=== PATIENT | female | born 1970 | race African-American/Black ===

== ENCOUNTER 2022-07-26 15:30 | Outpatient (CLI) | payer OTHER, SELFPAY ==
--- NOTE | ~2022-07-26 | MM_ITS ---
EXAMINATION: MM screening sb BI w tanna HISTORY: Screening TECHNIQUE: Craniocaudal and mediolateral oblique 3-D tomosynthesis images were obtained and synthetic 2-D images were generated. CAD analysis was submitted and interpreted. COMPARISON: No prior mammogram is available for comparison at this institution. BREAST PARENCHYMAL COMPOSITION: There are scattered areas of fibroglandular density. FINDINGS: There is no evidence of suspicious mass, calcification, or architectural distortion to sugg est malignancy in either breast. There has been no suspicious interval change. IMPRESSION: 1. No mammographic evidence of malignancy. 2. Recommend routine screening mammography in one year. BI-RADS Category 1: Negative Reviewed, dictated and finalized at location A. OR ENTERPRISE ARCHITECT
== END 2022-07-26 15:31 | disposition home or self-care (01) ==
LOC: ANHIMG 15:33
PROVIDERS: PCP Obstetrics & Gynecology; Visit Provider Obstetrics & Gynecology
DX: Z12.31 Encounter for screening mammogram for malignant neoplasm of breast (principal)
CPT/HCPCS: 77063; 77067

== ENCOUNTER 2022-08-13 20:26 | Emergency (ER) | payer OTHER, SELFPAY ==
--- NOTE | ~2022-08-13 | XR_ITS ---
EXAM: XR knee LT min 4V DATE: 08/13/2022 20:56 HISTORY: Injury at work. Pt felt pop. Pain to anterolateral left knee . COMPARISON: None available. FINDINGS: Slightly decreased mineralization. No fracture or dislocation. No lytic or blastic lesion. Severe medial joint space narrowing. Moderate tricompartmental osteophytosis. No erosion or perioste al change. Soft tissues within normal limits. IMPRESSION: No acute osseous finding in the left knee. Reviewed, dictated and finalized at location K. F DATA OFFICER
[2022-08-13 20:34] VITALS: BP 187/85; PULSE 82; RESP 18; TEMP 37.1; O2SAT 100
--- NOTE | 2022-08-13 20:46 | PC.NURSE ---
Patient taken to xray from waiting room via w/c.
--- NOTE | 2022-08-13 21:02 | ED.GENADULT ---
HPI - General Adult General Chief complaint: Extremity Injury, Lower <Saw Liang PA-C - Last Filed: 08/13/22 21:39> Stated complaint: Left knee pop <Saw Liang PA-C - Last Filed: 08/13/22 21:39> Time Seen by Provider: 08/13/22 21:02 <Saw Liang PA-C - Last Filed: 08/13/22 21:39> Source: patient <RODRIGO Martins Last Filed: 08/13/22 21:39> Mode of arrival: ambulatory <RODRIGO Martins Last Filed: 08/13/22 21:39> Limitations: no limitations <RODRIGO Martins Last Filed: 08/13/22 21:39> History of Present Illness HPI narrative: This is a 52-year-old female comes in chief complaint of left knee pain following an injury that occurred at work today. 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 States she was twisting her knee when the pop happened. States she immediately went down with pain. Was seen in urgent care prior to this and given crutches and told to go home. Denies any numbness or tingling in the lower extremities. States she was able to bear weight and walk into the department. Denies any further site of injury or pain. <Saw Liang PA-C - Last Filed: 08/13/22 21:39> Related Data Allergies/adverse reactions: Allergies Allergy/AdvReac Type Severity Reaction Status Date / Time No Known Allergies Allergy Unverified 10/01/18 23:07 <Saw Liang PA-C - Last Filed: 08/13/22 21:39> Review of Systems Review of Systems: CONSTITUTIONAL: Denies fever, chills, or sweats. SKIN: Denies rash or itching. MUSCULOSKELETAL: Endorses left knee pain. denies back pain, or myalgia. NEUROLOGIC: Denies headache, numbness, dizziness, or weakness. PSYCHIATRIC: Denies anxiety or depression. <RODRIGO Martins Last Filed: 08/13/22 21:39> Exam Narrative: GENERAL: Well-appearing, well-nourished, and in no acute distress. HEAD: Normocephalic, atraumatic. EYES: PERRLA and EOMI. NECK: Supple. No adenopathy or masses. CHEST: No respiratory distress. Clear to auscultation. No wheezes rales or rhonchi HEART: Regular rate and rhythm. No murmur heard. Normal peripheral pulses. EXTREMITIES: Left knee: No effusion present. Tenderness to palpation along the lateral joint line and quad tendon insertion. Active range of motion severely reduced due to pain. Full passive range of motion with pain. Anterior and posterior drawer negative. Good tracking of patella. Right knee: normal range of motion. No edema. MSK exam otherwise benign SKIN: Warm, dry, no rash. No overlying skin changes. Soft compartments NEURO: Alert and oriented x3. No focal deficits. Equal strength and sensation bilaterally in upper and lower extremities PSYCH: Normal mood and affect. <Saw Liang PA-C - Last Filed: 08/13/22 21:39> Course SOAPSTONER/PA Physician Supervision For this encounter, I have reviewed the mid-level provider documentation, treatment plan and medical decision making. I have had [id number] time with the patient. is a pleasant 52-year-old female presenting knee pain. But his injury was a twisting motion with a popping sensation. Physical exam revealed a knee effusion but is neurovascularly intact in the foot. X-rays were negative for acute fracture. Patient placed in knee immobilizer for suspected ligamentous injury. Discharge with orthopedic follow-up. All questions answered. Patient in agreement w/ disposition. <Drake Millan MD - Last Filed: 08/14/22 20:13> Vital Signs Vital signs: Vital Signs Temperature 98.7 F 08/13/22 20:34 Pulse Rate 82 08/13/22 20:34 Respiratory Rate 18 08/13/22 20:34 Blood Pressure 187/85 H 08/13/22 20:34 Pulse Oximetry 100 08/13/22 20:34 Oxygen Delivery Room Air 08/13/22 20:34 Temperature 98.7 F 08/13/22 20:34 Pulse Rate 82 08/13/22 20:34 Respiratory Rate 18 08/13/22 20:34 Blood Pressure 187/85 H 08/13/22 20:34 Pulse Ox
[2022-08-13] MEDS: HYDROcodone/acetaminophen (*CRX) 7.5-325 MG TABLET 1 TAB PO (21:22)
== END 2022-08-13 23:10 | disposition home or self-care (01) ==
PROVIDERS: Emergency Provider Physician Assistant; PCP Internal Medicine
DX: S89.92XA Unspecified injury of left lower leg, initial encounter (principal); X50.9XXA Other and unspecified overexertion or strenuous movements or postures, initial encounter; Y93.F9 Activity, other caregiving
CPT/HCPCS: 73564; 99283; A9270

== ENCOUNTER 2023-02-06 13:16 | Outpatient (CLI) | payer OTHER, SELFPAY ==
--- NOTE | ~2023-02-06 | XR_ITS ---
EXAMINATION: XR chest 2V Exam Date/Time: 02/06/2023 13:37 CDT HISTORY: Encounter for preprocedural examination, DENIES LUNG/CARD HX Comparison: 10/02/2019. RESULT: Lines, tubes, and devices: Cholecystectomy clips. Lungs and pleura: Clear. Cardiomediastinal silhouette: Stable. Other: No acute osseous or upper abdominal finding. IMPRESSION: No acute cardiopulmonary process. Reviewed, dictated and finalized at location K.
--- NOTE | 2023-02-06 13:49 | ECG_ITS ---
Measurements Intervals [place] Rate: 91 P: 45 NE: 161 QRS: 2 QRSD: 94 T: 6 QT: 347 QTc: 428 Interpretive Statements SINUS RHYTHM BORDERLINE VOLTAGE EVIDENCE OF LVH OTHERWISE WITHIN NORMAL LIMITS NO PREVIOUS ECG AVAILABLE FOR COMPARISON Electronically Signed On 02-06-2023 17:14:35 CDT by Julio C Fam M.D.
== END 2023-02-06 13:17 | disposition home or self-care (01) ==
PROVIDERS: PCP Internal Medicine
DX: Z01.818 Encounter for other preprocedural examination (principal)
CPT/HCPCS: 71046; 93005

== ENCOUNTER 2023-09-14 08:04 | Emergency (ER) | payer OTHER, SELFPAY ==
[2023-09-14 08:14] VITALS: BP 143/85; PULSE 87; RESP 18; TEMP 36.2; O2SAT 100
--- NOTE | 2023-09-14 08:28 | ED.EXTPRO ---
HPI - Extremity Problem General Chief complaint: Extremity Problem,Nontraumatic Stated complaint: Both Arm Pain Time Seen by Provider: 09/14/23 08:07 Source: patient Mode of arrival: ambulatory Limitations: no limitations History of Present Illness HPI Narrative: Patient is a 53-year-old female presents with bilateral upper arm/shoulder pain for 2 weeks. Denies any new exercise, activity or injury. Denies any neck pain. Denies any numbness, tingling or weakness to extremities. 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 Patient able to move arms in all directions with pain noted. Patient has been taking muscle relaxers, ibuprofen and using topical pain relievers. Related Data Home Medications Medication Instructions Recorded Confirmed amlodipine 10 mg tablet 10 mg PO DAILY 09/14/23 09/14/23 atorvastatin 20 mg tablet 20 mg PO DAILY 09/14/23 09/14/23 ergocalciferol (vitamin D2) 1,250 1,250 unit PO DIRECTED 09/14/23 09/14/23 mcg (50,000 unit) capsule meloxicam 7.5 mg tablet 7.5 mg PO DIRECTED 09/14/23 09/14/23 metoprolol tartrate 50 mg tablet 50 mg PO DAILY 09/14/23 09/14/23 omeprazole 40 mg capsule,delayed 40 mg PO DAILY 09/14/23 09/14/23 release spironolactone 25 1 tablet PO DAILY 09/14/23 09/14/23 mg-hydrochlorothiazide 25 mg tablet Allergies Allergy/AdvReac Type Severity Reaction Status Date / Time No Known Allergies Allergy Verified 09/14/23 08:25 Review of Systems Review of Systems: All systems reviewed & are unremarkable except as noted in HPI and below Constitutional: Constitutional: Denies body ache(s), Denies chills, Denies fatigue, Denies fever(s), Denies headache(s), Denies malaise and Denies weakness Eyes: Eyes: Denies blurry vision, Denies irritation and Denies loss of vision ENT: Denies otalgia, Denies headache(s), Denies nasal discharge, Denies sinus pain and Denies sore throat Cardiovascular: Cardiovascular: Denies chest pain, Denies irregular heart rhythm and Denies dyspnea Respiratory: Respiratory: Denies dyspnea Gastrointestinal: Gastrointestinal: Denies abdominal pain, Denies melena, Denies hematochezia, Denies diarrhea, Denies nausea and Denies vomiting Musculoskeletal: Musculoskeletal: Denies back pain, Denies myalgias and Reports arthralgias Integumentary/Breasts: Skin/Breast: Denies pruritus and Denies rash Neurologic: Denies headache(s), Denies loss of vision and Denies weakness Psychiatric: Psychiatric: Reports no additional psychiatric complaints Endocrine: Endocrine: Denies fatigue PMFSH Comments At time of signature, agree with nursing past medical, surgical, social and family history. There is no relevant family history pertinent to the presenting complaint. Exam Const: General: cooperative, healthy appearing, comfortable, no acute distress and well nourished Nutritional Appearance: well nourished Orientation/consciousness: patient oriented x3 Limitations: no limitations HENMT: Head: normal to inspection, normocephalic and atraumatic Ears: hearing grossly normal bilaterally and external ears normal Face/Nose/Sinus: Normal external nose present, normal facial exam and face symmetric Face and sinus: normal facial exam and face symmetric Mouth: Yes lip normal Eyes: General: appearance normal, both eyes and all related structures Alignment and Position: alignment normal and position normal Periorbital: periorbital findings normal Eyelids: eyelids normal Pupils: Equal, round and reactive pupils present EOM: EOMs intact bilaterally Neck: Neck: normal visual inspection, full ROM and supple Chest: Chest palpation & inspection: normal inspection of the chest Resp: Effort & Inspection: normal respiratory effort and able to speak in complete sentences Auscultation: clear to auscultation bilaterally Cardio: Rate: regular rate Rhythm: regular rhythm Heart sounds: S1 normal heart sound present and S2 normal heart sound present GI: Inspection: n
== END 2023-09-14 08:38 | disposition home or self-care (01) ==
PROVIDERS: Emergency Provider Nurse Practitioner Family; PCP Internal Medicine
DX: M75.52 Bursitis of left shoulder (principal); M75.51 Bursitis of right shoulder; I10 Essential (primary) hypertension; J45.909 Unspecified asthma, uncomplicated; K21.9 Gastro-esophageal reflux disease without esophagitis; M19.90 Unspecified osteoarthritis, unspecified site
CPT/HCPCS: 99213; G0463

== ENCOUNTER 2023-10-11 16:54 | Emergency (ER) | payer OTHER, SELFPAY ==
[2023-10-11 17:01] VITALS: BP 145/97; PULSE 63; RESP 14; TEMP 36.6; O2SAT 99
--- NOTE | 2023-10-11 17:05 | ED.EXTPRO ---
HPI - Extremity Problem General Chief complaint: Extremity Injury, Upper <King Carrasco APRN - Last Filed: 10/11/23 17:09> Stated complaint: bilateral arm pain <King Carrasco APRN - Last Filed: 10/11/23 17:09> Time Seen by Provider: 10/11/23 17:05 <King Carrasco APRN - Last Filed: 10/11/23 17:09> Focused HPI: Key is a 53-year-old female patient presenting to the emergency room today with complaints of bilateral upper arm pain. She reports that this began 2 months ago. 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 States he has been placed on prednisone and muscle relaxer 1 month ago and this did not improve her symptoms. Rates her pain a 10/10 currently. General: Well-developed, well nourished, in no apparent distress Head: Normocephalic, atraumatic. Cardio: Regular rate and rhythm, s1 and s2 normal, no murmur appreciated. Resp: Clear to auscultation bilaterally, no rhonchi, rales, wheezing or rubs. Musculoskeletal: No deformity, tender to palpation over bilateral upper arms, grossly normal range of motion, muscle strength strong and equal, peripheral pulse strong, no edema, no cyanosis, normal gait and station Patient screened in triage and initial orders placed. Additional care and disposition to be based upon diagnostic testing and treatment. <King Carrasco APRN - Last Filed: 10/11/23 17:09> Source: patient <King Carrasco APRN - Last Filed: 10/11/23 17:09> Mode of arrival: ambulatory <King Carrasco APRN - Last Filed: 10/11/23 17:09> Limitations: no limitations <King Carrasco APRN - Last Filed: 10/11/23 17:09> Related Data Home medications: Home Medications Medication Instructions Recorded Confirmed amlodipine 10 mg tablet 10 mg PO DAILY 09/14/23 09/14/23 atorvastatin 20 mg tablet 20 mg PO DAILY 09/14/23 09/14/23 ergocalciferol (vitamin D2) 1,250 1,250 unit PO DIRECTED 09/14/23 09/14/23 mcg (50,000 unit) capsule meloxicam 7.5 mg tablet 7.5 mg PO DIRECTED 09/14/23 09/14/23 metoprolol tartrate 50 mg tablet 50 mg PO DAILY 09/14/23 09/14/23 omeprazole 40 mg capsule,delayed 40 mg PO DAILY 09/14/23 09/14/23 release spironolactone 25 1 tablet PO DAILY 09/14/23 09/14/23 mg-hydrochlorothiazide 25 mg tablet <King Carrasco APRN - Last Filed: 10/11/23 17:09> Allergies/Adverse reactions: Allergies Allergy/AdvReac Type Severity Reaction Status Date / Time No Known Allergies Allergy Verified 10/11/23 17:07 <King Carrasco APRN - Last Filed: 10/11/23 17:09> Review of Systems Review of Systems: All systems as dictated in HPI <Saw Liang PA-C - Last Filed: 10/11/23 19:58> PMFSH Comments At the time of my signature, I reviewed and agree with the nursing past medical, surgical, social, and family history. There is no relevant family history pertinent to the patient complaint. <King Carrasco APRN - Last Filed: 10/11/23 17:09> Exam Narrative: GENERAL: Well-appearing, well-nourished, and in no acute distress. HEAD: Normocephalic, atraumatic. EYES: PERRLA and EOMI. ENT: Nares clear, no rhinorrhea or epistaxis. Mucous membranes moist. Oropharynx without tonsillar hypertrophy exudate or other lesions. NECK: Supple. No adenopathy or masses. CHEST: No respiratory distress. Clear to auscultation. No wheezes rales or rhonchi HEART: Regular rate and rhythm. No murmur heard. Normal peripheral pulses. ABDOMEN: Soft, nontender, nondistended, normal active bowel sounds. MSK: No swelling or deformity of the upper extremities. Bilateral mild tenderness to the biceps/triceps area. Full range of motion of the upper extremity joints diffusely. No redness. Neurovascularly intact distally. SKIN: Warm, dry, no rash. NEURO: Alert and oriented x3. No focal deficits. PSYCH: Normal mood and affect. <Saw Liang PA-C - Last Filed: 10/11/23 19:58> Course Course Emergency Course: Portion
[2023-10-11 17:15] LABS: Basophils Percent Auto 0.3 % (0.2-1.2); Eosinophils Absolute Auto 0.1 K/mm3 (0-0.3); Eosinophils Percent Auto 0.6 % (0-4.4); Hematocrit 41.5 % (37.0-47.0); Hemoglobin 13.3 g/dL (12.0-15.0); Immature Granulocyte Absolute 0.03 K/mm3 (0.00-0.031); Immature Granulocyte Percent A 0.3 % (0-0.5); Lymphocytes Absolute Auto 3.09 K/mm3 (0.9-3.2); Lymphocytes Percent Auto 27.2 % (18.3-44.2); Mean Corpuscular Hemoglobin 27.9 pg (26-34); Mean Platelet Volume 10.2 fl (7.4-10.4); Monocytes Absolute Auto 0.5 K/mm3 (0.1-0.6); Monocytes Percent Auto 4.7 % (2.6-8.5); Neutrophils Absolute Auto 7.6 K/mm3 (1.3-6.7); Neutrophils Percent Auto 66.9 % (45.5-73.1); Platelet Count Result 273 k/mm3 (150-375); Red Blood Count 4.77 M/mm3 (4.2-5.4); Red Cell Distribution Width 13.7 % (11.5-14.5); White Blood Count 11.4 K/mm3 (4.5-10.0)
[2023-10-11 17:28] LABS: Alanine Aminotransferase 18 U/L (6-35); Alkaline Phosphatase 63 U/L (38-126); Anion Gap 8 mmol/L (4-12); Aspartate Amino Transferase 22 U/L (14-36); Bilirubin,Total 0.4 mg/dL (0.2-1.3); Blood Urea Nitrogen 9 mg/dL (7-17); CRP < 0.5 mg/dL (<1.0); Calcium 9.1 mg/dL (8.4-10.2); Carbon Dioxide 24 mmol/L (22-30); Chloride 107 mmol/L (98-107); Creatine Kinase 83 U/L (30-135); Estimated CRCL calculation 92 ml/min; Estimated Glomerular Filt Rate > 60; Glucose 221 mg/dL (65-110); Magnesium 2.2 mg/dL (1.6-2.3); Potassium 3.3 mmol/L (3.4-5.0); Sodium 139 mmol/L (137-145)
[2023-10-11 17:57] LABS: Erythrocyte Sedimentation Rate 22 mm/hr (0-20)
== END 2023-10-11 18:52 | disposition home or self-care (01) ==
PROVIDERS: Nurse Practitioner Family; Emergency Provider Physician Assistant; PCP Internal Medicine
DX: M79.622 Pain in left upper arm (principal); M79.621 Pain in right upper arm
CPT/HCPCS: 36415; 80053; 82550; 83735; 85025; 85652; 86140; 99283

== ENCOUNTER 2023-10-31 15:34 | Outpatient (CLI) | payer OTHER, SELFPAY ==
--- NOTE | ~2023-10-31 | MM_ITS ---
EXAMINATION: MM screening sb BI w tanna HISTORY: Screening mammogram TECHNIQUE: Craniocaudal and mediolateral oblique 3-D tomosynthesis images were obtained and synthetic 2-D images were generated. CAD analysis was submitted and interpreted. COMPARISON: 07/26/2022 bilateral screening mammogram BREAST PARENCHYMAL COMPOSITION: The breasts are almost entirely fatty. FINDINGS: Biopsy marker on the left; history of prior benign biopsy. History of bilateral reduction mammoplasty. There is no evidence of suspicious mass, calcification, or architectural distortion to suggest malign ester in either breast. There has been no suspicious interval change. IMPRESSION: 1. No mammographic evidence of malignancy. 2. Recommend routine screening mammography in one year. BI-RADS Category 1: Negative Reviewed, dictated and finalized at location B.
== END 2023-10-31 15:35 | disposition home or self-care (01) ==
PROVIDERS: PCP Internal Medicine; Visit Provider Nurse Practitioner
DX: Z12.31 Encounter for screening mammogram for malignant neoplasm of breast (principal)
CPT/HCPCS: 77063; 77067

== ENCOUNTER 2024-06-22 02:20 | Emergency (ER) | payer OTHER, MEDICAID, SELFPAY ==
[2024-06-22 02:40] VITALS: BP 148/78; PULSE 63; RESP 17; TEMP 35.7; O2SAT 100
--- NOTE | 2024-06-22 09:07 | PC.NURSE ---
pt left prior to being called back.
--- OUTSIDE RECORDS SUMMARY | 2024-06-29 02:01 | XMS_ITS | Encounter Summary ---
Author Organization [facility] Address [address] [place] [address]. [place] [id number] Care Team Providers Care Supervisor Chemical Name Role Phone Meek Robert MD Primary Care Provider [phone] Encounter Details Date Type Department Care Team (Late st Contact Info) Description 02/11/2011 Abstract [facility] [address] [address] Dev Wayne MD Social History Tobacco Use Types Packs/Day Years Used Date Smoking Tobacco: Never Assessed Comments Unknown Sex and Gender Information Value Date Recorded Sex Assigned at Not on file Legal Sex Female 7:29 PM CDT Gender Identity Not on file Sexual Orientation Not on file documented as of this encounter Plan of Treatment Not on file documented as of this encounter Visit Diagnoses Diagnosis Radiological examination documented in this encounter Care Teams Supervisor Chemical Relationship Specialty Start Date End Date Meek Robert MD PCP - General 02/22/16 documented as of this encounter
--- OUTSIDE RECORDS SUMMARY | 2024-06-29 02:01 | XMS_ITS | Clinical Summary ---
Author Organization [facility] Address [address] [place] [address]. [place] [address] Care Team Providers Care Wood Piler Name Role Phone Meek Robert MD Primary Care Provider [phone] Social History Tobacco Use Types Packs/Day Years Used Date Smoking Tobacco: Never Assessed Comments Unknown Sex and Gender Information Value Date Recorded Sex Assigned at Not on file Legal Sex Female 7:29 PM CDT Gender Identity Not on file Sexual Orientation Not on file Plan of Treatment Health Maintenance Due Date Last Done Comments Cervical Cancer Screening Pa p Smear (Age 30 to 64) Every 3 Years 1972 Colorectal Cancer Screening Colonoscopy (10 Years) 1972 Annual Physical 1975 Hepatitis C 1990 DTaP, Tdap and Td Vaccines ( 1 - Tdap) 1991 Hepatitis B Vaccines (1 of 3 - 19+ 3-dose series) 1991 Cervical Cancer Screening Pa p with HPV Testing (Age 30 to 64) Every 5 Years 2002 Cervical Cancer Screening with HPV 2002 Mammogram Screening 2012 Zoster Vaccines (1 of 2) 2022 COVID-19 Vaccine ( - 2023-2 5 season) 2024 Influenza Adult (#1) 2024 Meningococcal Vaccine Aged Out No nghia jay eligible based on patient's age to complete this topic Pneumococcal Vaccine: Pediat rics (0 to 5 Years) and At-Risk Patients (6 to 64 Years) Aged Out No longer eligible b ased on patient's age to complete this topic RSV Immunizations Under 20 Months Aged Out No longer eligible based on patient's age to complete this topic Care Teams Wood Piler Relationship Specialty Start Date End Date Meek Robert MD [facility] - General 02/22/16
--- OUTSIDE RECORDS SUMMARY | 2024-06-29 02:01 | XMS_ITS | Continuity of Care Document ---
Author Organization [facility] [employer], [facility] Pod[facility] [place] [address] Address [address] [facility] [address] [place] [address] Assessment No assessment recorded. Plan of Treatment Reminders Order Date Submit Date Provider Last Modified By Organization Details Last Modified Time Details Appointments None record ed. Lab None record ed. Referral None record ed. Procedures None record ed. Surgeries None record ed. Imaging None record ed. Medication Orders None record ed. Patient TargetsNo targets recorded. Patient InstructionsNo instructions recorded. Reason for Referral None Reported. 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 Procedures Surgical History Date Name Laterality Status Provider Name and Address Organization Details Recorded Time 4 Strapping Foot & Ankle completed Chao Alfonso DPM [address], [address], [place], [address], [employer] [facility] 06/10/2024 15:17:40 4 Flexor Tenotomy completed Chao GERI Alfonso [address], [place], [address], [employer] [facility] [employer] [facility] 06/07/2024 11:27:43 4 Callus Debridement 2-4 completed Chao Alfonso DPM [address], [place], [address], [employer] [facility] [employer] [facility] 06/07/2024 11:27:56 Imaging Results None recorded. Procedure Notes None recorded. Medical Equipment None Reported. Medications Name Sig Start Date Stop Date Status Note LastModified by Organization Details LastModified Time furosemide 40 mg tablet TK 1 T PO BID 08/29 completed Not Available Not Available Not Available venlafaxine ER 37.5 mg capsule,ext ended release 24 hr TAKE 1 CAPSULE BY MOUTH EVERY DAY 08/29 completed Not Available Not Available Not Available atorvastati n 20 mg tablet TAKE 1 TABLET BY MOUTH EVERY DAY active Not Available Not Available No t Available tizanidine 2 mg tablet 09/08 completed Not Available Not Available Not Available citalopram 40 mg tablet TAKE 1 TABLET BY MOUTH EVERY DAY 08/29 completed Not Available Not Available Not Available triamcinolo ne acetonide 0.5 % topical cream APPLY TOPICALLY TO THE AFFECTED AREA DIRECTED TWICE DAILY. 08/29 completed Not Available Not Available Not Available azithromyci n 250 mg tablet TAKE 2 TABLETS BY MOUTH FOR 1 DAY THEN TAKE 1 TABLET BY MOUTH EVERY DAY 08/29 completed Not Available Not Available Not Available metoprolol succinate ER 50 mg tablet,exte nded release 24 hr TAKE 1 TABLET BY MOUTH EVERY DAY 08/29 completed Not Available Not Available Not Available meloxicam 15 mg tablet 09/08 completed Not Available Not Available Not Available cyanocobala min (vit B-12) 1,000 mcg tablet TK 1 T PO D 09/08 completed Not Available Not Available Not Available metronidazo le 500 mg tablet TAKE 1 TABLET BY MOUTH EVERY 12 HOURS FOR 7 DAYS 08/29 completed Not Available Not Available Not Available lidocaine HCl 2 % mucosal jelly 09/08 completed Not Available Not Available Not Available phentermine 37.5 mg tablet TAKE 1 TABLET BY MOUTH EVERY DAY. 08/29 completed Not Available Not Available Not Available amlodipine 5 mg tablet TAKE 1 TABLET BY MOUTH EVERY DAY 08/29 completed Not Available Not Available Not Available omeprazole 40 mg capsule,del ayed release TAKE 1 CAPSULE BY MOUTH EVERY DAY active Not Available Not Available No t Available meloxicam 7.5 mg tablet 09/08 completed Not Available Not Available Not Available citalopram 20 mg tablet TAKE 1 TABLET BY MOUTH EVERY DAY active Not Available Not Available No t Available benzonatate 100 mg capsule TK 1 C PO Q 6 H PRN 09/08 completed Not Available Not Available Not Available cyanocobala min (vit B-12) 1,000 mcg/mL injection solution INJECT 1ML IN THE MUSCLE EVERY MONTH 08/29 completed Not Available Not Available Not Available ranitidine 150 mg tablet 09/08 completed Not Available Not Available Not Available metoprolol tartrate 50 mg tablet TAKE 1 TABLET BY MOUTH EVERY MORNING AND 1/2 TABLET BY MOUTH IN THE EVENING active Not Available Not Available No t Available nicotine 21 mg/24 hr daily transdermal patch APPLY 1 PATCH TOPICALLY TO THE SKIN EVERY 12 HOURS FOR 14 DAYS active Not Available Not Available No t Available omeprazole 20 mg capsule,del ayed release TK 1 C PO BID 08/29 completed Not Available Not Available Not Available lisinopril 5 mg tablet TK 1 T PO QD 09/08 completed Not Available Not Available Not Available metoprolol succinate ER 25 mg tablet,exte nded release 24 hr TK 1 T PO QD 08/29 completed Not Available Not Available Not Available ergocalcife rol (vitamin D2) 1,250 mcg (50,000 unit) capsule TK 1 C PO EVERY 15 DAYS 08/29 completed Not Available Not Available Not Available ibuprofen 600 mg tablet 09/08 completed Not Available Not Available Not Available methylpredn isolone 4 mg tablets in a dose pack FOLLOW PACKAGE DIRECTION S 08/29 completed Not Available Not Available Not Available albuterol sulfate HFA 90 mcg/actuati on aerosol inhaler INHALE 2 PUFFS BY MOUTH FOUR TIMES DAILY NEEDED active Not Available Not Available No t Available fluticasone propionate 50 mcg/actuati on nasal spray,suspe nsion INSTILL 1 SPRAY IN EACH NOSTRIL DAILY 08/29 completed Not Available Not Available Not Available sertraline 50 mg tablet TK 1 T PO QD 08/29 completed Not Available Not Available Not Available loratadine 10 mg tablet 09/08 completed Not Available Not Available Not Available escitalopra m 20 mg tablet TAKE 1 TABLET BY MOUTH EVERY DAY 08/29 completed Not Available Not Available Not Available metoprolol tartrate 25 mg tablet TAKE 1 TABLET BY MOUTH TWICE DAILY 08/29 completed Not Available Not Available Not Available Spiriva with HandiHaler 18 mcg and inhalation capsules INHALE THE CONTENTS OF 1 CAPSULE VIA INHALATIO N DEVICE EVERY DAY active Not Available Not Available No t Available Contrave 8 mg-90 mg tablet,exte nded release 09/08 completed Not Available Not Available Not Available Incruse Ellipta 62.5 mcg/actuati on powder for inhalation 09/08 completed Not Available Not Available Not Available Vitals Date Recorded Body height Body mass index (BMI) Body weight Provider Name and Address Organization Details Last Updated DateTime 06/10/2024 170.18 cm 35.1 kg/m2 015781.69 g VALENTINE Farr - [facility] v2 Ratings 06/10/2024 15:00:25 Social History Question Answer Notes LastModified by Organizat ion Details LastModified Time Tobacco Smoking Status Current Every Day Smoker Not Available [facility] 08/24/2022 21:28:39 What Is Your Level Of Alcohol Consumption? None [id number] Information not available 08/24/2022 What Is Your Level Of Caffeine Consumption? Occasional [id number] Information not available 08/24/2022 What Was The Date Of Your Most Recent Tobacco Screening? 12/16/2021 [id number] Information not available 08/24/2022 Do You Use Any Illicit Or Recreational Drugs? No [id number] Information not available 08/24/2022 Has Tobacco Cessation Counseling Been Provided? No [id number] Information not available 08/24/2022 Do You Or Have You Ever Used Any Other Forms Of Tobacco Or Nicotine? No [id number] Information not available 08/24/2022 Sex: Unknown Functional Status None recorded. Mental Status None recorded. Family History Nothing Reported. Medical History Condition Response ARTHRITIS Y OBESITY Y HIGH CHOLESTEROL / HYPERLIPIDEMIA Y Gynecological HistoryNo gynecological history recorded. Obstetrics History GPAL:G 0 P 0 0 0 0 Past Encounters Encounter ID Performer Location Encounter Start Date Encounter Closed Date Diagnosis/Indication Diagnosis SNOMED-CT Code Diagnosis ICD10 Code [id number] Chao Alfonso DPM [facility] [address] [address] 06/07/2024 10:21:10 06/07/2024 11:28:31 [id number] [facility] [address] [address] 06/10/2024 14:58:13 06/10/2024 15:24:44 Leg length inequality 21982798 M21.70 Health Concerns Section Related Observation LastModified by Organization Detai ls LastModified Time None Recorded Concern Status LastModified by Organization Details LastModified Time None Recorded Payers Encounter Date Sequence Insurance Name Policy Number Policy Roberts Covered Member ID Roberts Member ID Guarantor Name 06/10/2024 1 [facility] (MEDICAID REPLACEMENT - HMO) [id number] [place] [id number] [place] Notes Date Note Type Note Provider Name and Address Organization Details Recorded Time 06/10/2024 text/html Lt fifth toe well-healed s/p four dd. tenotomy flexor and debridement of HD. Pt's main complaint this date: pain in lat foot. Lt. Chao Alfonso DPM [address] [facility], [address], [place], [address], [place] - [facility] [employer] 06/10/2024 15:17:57 OBGyn Episode No OBEpisode recorded.
--- OUTSIDE RECORDS SUMMARY | 2024-06-29 02:01 | XMS_ITS | Encounter Summary ---
Author Organization [facility] Address [address] [place] [address]. [place] [address] [place] [address] Care Team Providers Care Financial Systems Analyst Name Role Phone Meek Robert MD Primary Care Provider [phone] Encounter Details Date Type Department Care Team (Late st Contact Info) Description 02/22/2016 Emergency [facility] Emergency Room [place], [place] [id number] Tammie Cuellar MD [address] [place], [place] [id number] Social History Tobacco Use Types Packs/Day Years Used Date Smoking Tobacco: Never Assessed Comments Unknown Sex and Gender Information Value Date Recorded Sex Assigned at Not on file Legal Sex Female 7:29 PM CDT Gender Identity Not on file Sexual Orientation Not on file documented as of this encounter Plan of Treatment Not on file documented as of this encounter Procedures Procedure Name Priority Date/Time Associated Diagnosis Comments BNP STAT 02/22/2016 11:37 PM CDT COMPREHENSIVE METABOLIC PANEL STAT 02/22/2016 11:37 PM CDT CBC W/DIFF AUTOMATED STAT 02/22/2016 11:37 PM CDT THYROXINE, FREE (FT4) STAT 02/22/2016 11:37 PM CDT THYROID STIM HORMONE TSH STAT 02/22/2016 11:37 PM CDT MAGNESIUM STAT 02/22/2016 11:37 PM CDT documented in this encounter Results * THYROID STIM HORMONE, TSH (02/22/2016 11:37 PM CDT) TSH 3.89 0.27 - 4.20 mIU/mL 02/23/2016 12:12 AM CDT [facility] SERUM OR PLASMA SPECIMEN / Unknown 02/22/2016 11:37 PM CDT 02/22/2016 11:42 PM CDT us Generic Conversion Md [facility] Final R esdanielle Performing Organization Address City/[facility]/ZIP Co de Phone Number [facility] [address] [place] [address], * MAGNESIUM (02/22/2016 11:37 PM CDT) MAGNESIUM 1.9 1.70 - 2.55 mg/dL 02/23/2016 12:03 AM CDT [facility] SERUM OR PLASMA SPECIMEN / Unknown 02/22/2016 11:37 PM CDT 02/22/2016 11:42 PM CDT us Generic Conversion Md [facility] Final R esdanielle Performing Organization Address City/[facility] Co de Phone Number [facility] [address] [place] [address], * THYROXINE, FREE (FT4) (02/22/2016 11:37 PM CDT) FREE T4 0.98 0.93 - 1.70 ng/dL 02/23/2016 12:39 AM CDT [facility] SERUM OR PLASMA SPECIMEN / Unknown 02/22/2016 11:37 PM CDT 02/22/2016 11:42 PM CDT us Generic Conversion Md [facility] Final R esdanielle [facility] [address] [place] [address], * (ABNORMAL) COMPREHENSIVE METABOLIC PANEL (02/22/2016 11:37 PM CDT) [facility] GLUCOSE 96 70 - 99 mg/dL 02/23/2016 12:03 AM CDT [facility] BUN 14 8 - 23 mg/dL 02/23/2016 12:03 AM T [facility] CREATININE S/P/B 1.10 0.60 - 1.10 mg/dL 02/23/2016 12:03 AM T [facility] SODIUM S/P/B 142 136 - 145 mmol/L 02/23/2016 12:03 AM T [facility] POTASSIUM S/P/B 3.2(L) 3.5 - 5.1 mmol/L 02/23/2016 12:03 AM T [facility] CHLORIDE S/P/B 100 98 - 107 mmol/L 02/23/2016 12:03 AM T [facility] CO2 30(H) 22 - 29 mmol/L 02/23/2016 12:03 AM T [facility] BILIRUBIN TOTAL S/P/B <0.1(L) 0.2 - 1.2 mg/dL 02/23/2016 12:04 AM CDT [facility] CALCIUM S/P/B 9.1 8.6 - 10.2 mg/dL 02/23/2016 12:03 AM CDT [facility] ALKALINE PHOSPHATASE S/P/B 62 35 - 104 U/L 02/23/2016 12:03 AM T [facility] AST 11 0 - 32 U/L 02/23/2016 12:03 AM T [facility] TOTAL PROTEIN S/P/B 6.5 6.4 - 8.3 g/dL 02/23/2016 12:03 AM CDT [facility] ALBUMIN S/P/B 3.9 3.5 - 5.2 g/dL 02/23/2016 12:03 AM CDT [facility] ALT 8 0 - 33 U/L 02/23/2016 12:03 AM CDT [facility] GLOBULIN 2.6 2.3 - 3.6 g/dL 02/23/2016 12:03 AM CDT [facility] A/G RATIO 1.5 1.0 - 2.0 02/23/2016 12:03 AM CDT [facility] ANION GAP 15 8 - 20 02/23/2016 12:03 AM CDT [facility] EGFR NON-AFR. AMER. >60 >60 mL/min/1.7 3m'2 02/23/2016 12:03 AM CDT [facility] EGFR AFR. AMER. >60 >60 mL/min/1.7 3m'2 02/23/2016 12:03 AM CDT [facility] Comment: NOTE: eGFR is not calculated for patients <18 years of age. This is an estimated GFR (CKD EPI) and should not be used for calculating drug doses. 02/22/2016 11:3 7 PM CDT 02/22/2016 11:42 PM CDT us Generic Conversion Md [facility] Final R esult [facility] [address] [place] [address], [place] [phone] * (ABNORMAL) CBC W/DIFF AUTOMATED (02/22/2016 11:37 PM CDT) WBC 12.4(H) 4.8 - 10.8 X10'3/uL 02/22/2016 11:50 PM CDT [facility] RBC 4.32 4.20 - 5.40 X10'6/uL 02/22/2016 11:50 PM CDT [facility] HGB 11.7(L) 12.0 - 16.0 g/dL 02/22/2016 11:50 PM CDT [facility] HCT 35.8(L) 38.0 - 48.0 % 02/22/2016 11:50 PM CDT [facility] MCV 82.9 81.0 - 99.0 fL 02/22/2016 11:50 PM CDT [facility] MCH 27.1 27.0 - 31.0 pg 02/22/2016 11:50 PM CDT [facility] MCHC 32.7 32.0 - 36.0 g/dL 02/22/2016 11:50 PM CDT [facility] RDW 13.5 11.5 - 14.5 % 02/22/2016 11:50 PM CDT [facility] PLT 274 130 - 400 X10'3/uL 02/22/2016 11:50 PM CDT [facility] MPV 10.3 9.3 - 12.2 fL 02/22/2016 11:50 PM T [facility] DIFFERENTIAL TYPE AUTOMATED 02/22/2016 11:50 PM CDT [facility] NEUTROPHILS % 61.8 43.0 - 65.0 % 02/22/2016 11:50 PM CDT [facility] LYMPHOCYTES % 32.9 20.0 - 46.0 % 02/22/2016 11:50 PM CDT [facility] MONOCYTES % 3.7(L) 5.0 - 12.0 % 02/22/2016 11:50 PM CDT [facility] EOSINOPHILS 0.8(L) 1.0 - 3.0 % 02/22/2016 11:50 PM CDT [facility] BASOPHILS 0.4 0.0 - 1.0 % 02/22/2016 11:50 PM CDT [facility] IMMATURE GRANS % 0.4 0.0 - 1.0 % 02/22/2016 11:50 PM CDT [facility] 02/22/2016 11:3 7 PM CDT 02/22/2016 11:42 PM CDT us Generic Conversion Md [facility] Final R esult Performing Organization Address City/[facility]/ZIP Co de Phone Number [facility] [address] [place] [address], [place] [phone] * BNP (02/22/2016 11:37 PM CDT) B TYPE NATRIURETIC PEPTIDE 14.5 <100.0 pg/mL 02/23/2016 12:06 AM CDT [facility] WHOLE BLOOD SPECIMEN / Unknown 02/22/2016 11:37 PM CDT 02/22/2016 11:42 PM CDT us Generic Conversion Md [facility] Final R esult Performing Organization Address City/[facility]/ZIP Co de Phone Number [facility] [address] [place] [address], [place] [phone] documented in this encounter Visit Diagnoses Diagnosis Localized edema Edema documented in this encounter Care Teams Financial Systems Analyst Relationship Specialty Start Date End Date Meek Robert MD PCP - General 02/22/16 documented as of this encounter
--- OUTSIDE RECORDS SUMMARY | 2024-06-29 02:01 | XMS_ITS | Data Portability ---
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 Role Phone JHONATHAN GRECO Primary Care Provider [phone] Assessment Encounter Date Assessment Date Assessment LastModified by Organization Details LastModified Time 01/15/2021 01/15/[address] trich encouraged condoms Take BP med chidi FU for WWE [email or web address] Not available 01/15/2021 12:56:32 05/17/2022 05/17/2022 healthy female exam patient desires std testing pap due 2023 mammogram ordered and STRONGLY ENCOURAGED colonoscopy encouraged, will talk with PCP pt to call PCP from parking lot re mgt of elevated BP contraception-tu bal FU 1 year or prn Not available 05/17/2022 13:29:47 09/11/2023 09/11/2023 Annual gynecological exam performed. Patient will come back in a year unless there are new symptoms. [email or web address] Not available 09/11/2023 10:51:52 Plan of Treatment Reminders Order Date Submit Date Provider Last Modified By Organization Details Last Modified Time Details Appointments None recorded. Lab hbcab (hepatitis B core Ab) igm, serum 2023 024 [facility] (Lab), [address] , [place], [address], 23:43:59 HBsAg (hepatitis B surface Ag), serum 2023 024 Health system (Lab), [address], [place], [address], 4 23:43:58 hepatitis C virus Ab, serum 2023 024 [facility] system (Lab), [address], [place], [address], 4 23:43:58 unlisted lab - HIV 1/2 antigen/ant ibody, reflex confirmatio n 2023 024 [facility] system (Lab), [address], [place], [address], 4 23:43:58 RPR (rapid plasma reagin), serum 2023 024 Health system (Lab), [address], [place], [address], 4 23:43:59 Referral gastroenter ologist referral [address] [facility], [address], [id number], [place], [address], 4 12:02:38 Procedures None recorded. Surgeries None recorded. Imaging MAMMO, screening, digital, bilateral 2023 024 [facility], [address], [address], [place], [address], 4 18:00:58 Medication Orders None recorded. Patient TargetsNo targets recorded. Patient InstructionsNo instructions recorded. 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 Screening for malignant neoplasm of colon Referring Physician: Margarita Peters, INSOLE REINFORCER, Encounter Date: 09/11/2023 Results Created Date Observation Date Name Description Value Unit Range Abnormal Flag Note LastModifiedBy Organization Detail LastModifiedTime 12/17/19 21 12/16/2020 CT/GC AND TRICH OMONA S VAGIN MICHAEL (RRNA ), SWAB chlamydia trachomatis, PCR Negati ve negati ve Not Available [facility] (Lab) [address], [place], [address], 12/18/2020 16:12:40 12/17/19 21 12/16/2020 CT/GC AND TRICH OMONA S VAGIN MICHAEL (RRNA ), SWAB neisseria gonorrhoeae, PCR Negati ve negati ve Not Available [facility] (Lab) [address], [place], [address], 12/18/2020 16:12:40 12/17/19 21 12/16/2020 CT/GC AND TRICH OMONA S VAGIN MICHAEL (RRNA ), SWAB trichomonas vaginalis ribosomal RNA (rrna) Positi ve negati ve abnormal Prese nce of Trich omona s vagin michael (by SARAH) Not Available [facility] (Lab) [address], [place], [address], 12/18/2020 16:12:40 12/17/19 21 12/16/2020 HERPE S SIMPL EX VIRUS , TYPE 1 AND 2 MRNA, TMA,S URESW ANTONIO?? hsv 1 NOT DETECT ED not detect ed Not Available [facility] (Lab) [address], [place], [address], 12/18/2020 16:12:40 12/17/19 21 12/16/2020 HERPE S SIMPL EX VIRUS , TYPE 1 AND 2 MRNA, TMA,S URESW ANTONIO?? hsv 2 NOT DETECT ED not detect ed Perfo rming Organ izati on Infor matio n: Site ID: [place] Name: [facility] Addre ss: [address] [place] [address] Direc tor: Jadyn Dominguez s Not Available [facility] (Lab) [address], [place], [address], 12/18/2020 16:12:40 01/16/20 21 01/15/2021 CT/GC AND TRICH OMONA S VAGIN MICHAEL (RRNA ), URINE chlamydia trachomatis, PCR Negati ve negati ve Not Available [facility] (Lab) [address], [place], [address], 01/16/2021 13:59:30 01/16/20 21 01/15/2021 CT/GC AND TRICH OMONA S VAGIN MICHAEL (RRNA ), URINE neisseria gonorrhoeae, PCR Negati ve negati ve Not Available [facility] (Lab) [address], [place], [address], 01/16/2021 13:59:30 01/16/20 21 01/15/2021 CT/GC AND TRICH OMONA S VAGIN MICHAEL (RRNA ), URINE trichomonas vaginalis ribosomal RNA (rrna) Positi ve negati ve abnormal Prese nce of Trich omona s vagin michael (by SARAH) Not Available [facility] (Lab) [address], [place], [address], 01/16/2021 13:59:30 04/26/20 21 04/26/2021 CT/GC AND TRICH OMONA S VAGIN MICHAEL (RRNA ), URINE chlamydia trachomatis, PCR Negati ve negati ve Not Available [facility] (Lab) [address], [place], [address], 04/27/2021 14:13:25 04/26/20 21 04/26/2021 CT/GC AND TRICH OMONA S VAGIN MICHAEL (RRNA ), URINE neisseria gonorrhoeae, PCR Negati ve negati ve Not Available [facility] (Lab) [address], [place], [address], 04/27/2021 14:13:25 04/26/20 21 04/26/2021 CT/GC AND TRICH OMONA S VAGIN MICHAEL (RRNA ), URINE trichomonas vaginalis ribosomal RNA (rrna) Negati ve negati ve Not Available [facility] (Lab) [address], [place], [address], 04/27/2021 14:13:25 05/17/20 22 05/17/2022 IMAGE GUIDE D PAP AND HPV REGAR DLESS image guided Pap, HPV regardless of Pap result SEE RESULT S BELOW CASE REPOR T: Cytol ogy Gynec ologi blessing Repor t Case: [id number] Autho suzette verma Provi roxanne: Adrienne Crisostomo MD Colle cted: 05/17 1738 Order ing Locat ion: [place] [facility] Recei isaiah: 05/18 0100 First Scree n: Lupe ni, Moham ed, CT Rescr een: Shy Verdin Speci men: Scree kirill Pap - Image d, Cervi x STATE MENT OF ADEQU ACY: Unsat isfac tory for evalu ation . FINAL DIAGN OSIS: Unsat isfac tory for evalu ation . Acell ular smear . Elect pravin monsivais bubba d by Shy Verdin on 05/24 at 10:23 AM ----- ----- ----- ----- ----- ----- ----- ----- ----- ----- ----- ----- ----- ----- ----- ----- ----- ---- HPV RESUL TS: HPV mRNA E6/E7 : No HPV mRNA Detec lorenzo NOTE: This high risk HPV mRNA assay detec ts fourt een high- risk HPV types (16, 18, 31, 33, 35, 39, 45, 51, 52, 56, 58, 59, 66, 68) witho ut diffe renti ation . COMME NT: Slide scree suzanne shilpa gil due to rejec tion by the Thinp rep Imagi ng Syste m. CLINI BLESSING INFOR MATIO N: Menst rual Statu s: LMP (if appli cable ): Clini blessing Histo ry/Pr eviou s Pap: Type of Neopl will (if appli cable ): Brianda melgoza Clini blessing Findi ngs: Other Histo ry: Hormo wendy (if appli cable ): Not Available [facility] (Lab) [address], [place], [address], 05/24/2022 11:26:37 07/19/19 23 07/19/2022 IMAGE GUIDE D PAP AND HPV REGAR DLESS image guided Pap, HPV regardless of Pap result SEE RESULT S BELOW CASE REPOR T: Cytol ogy Gynec ologi blessing Repor t Case: [id number] [address] verma Provi roxanne: Margarita Peters, MANAGEMENT ACCOUNTANT Colle cted: 07/19 1605 Order ing Locat ion: [place] Patho [place] Recei isaiah: 07/20 1040 First Scree n: Neymar addison, Malu Rescr een: Shy Verdin Speci men: Scree kirill Pap - Image d, Cervi x STATE MENT OF ADEQU ACY: Satis facto ry for evalu ation Trans forma tion zone compo nent absen t. The absen ce of an endoc ervic al compo nent was confi rmed by an addit ional ian ner. FINAL DIAGN OSIS: Negat raymond for Intra epith elial Lesio n or Julio lee (NIL) . Funga l organ isms morph ologi german consi stent with Sylwia da spp. Shift in marifer sugge stive of bacte rial vagin osis. Elect pravin monsivais bubba d by Shy Verdin on 2022 at 12:45 PM ----- ----- ----- ----- ----- ----- ----- ----- ----- ----- ----- ----- ----- ----- ----- ----- ----- ---- HPV RESUL TS: HPV mRNA E6/E7 : No HPV mRNA Detec lorenzo NOTE: This high risk HPV mRNA assay detec ts fourt een high- risk HPV types (16, 18, 31, 33, 35, 39, 45, 51, 52, 56, 58, 59, 66, 68) witho ut diffe renti ation . COMME NT: Note: This speci men was revie wed by a Cytot echno logis t and/o r Patho logis t (as indic ated in this repor t) after evalu ation using the Thinp rep Imagi ng Syste m. CLINI BLESSING INFOR MATIO N: Menst rual Statu s: LMP (if appli cable ): Clini blessing Histo ry/Pr eviou s Pap: Type of Neopl will (if appli cable ): Signi fican t Clini blessing Findi ngs: Other Histo ry: Hormo wendy (if appli cable ): PAP EDUCA YOLANDA L NOTE: The Pap Test is a scree kirill test with an inher ent false negat raymond rate. Liqui d-bas ed sampl ing may decre ase, but will not elimi tay, false negat raymond resul ts. A negat raymond resul t does not precl ude the prese nce and/o r devel opmen t of disea se, since the prese nce of abnor mal cells in the sampl e depen ds on the locat ion of the lesio n and sampl ing techn ique. Kristin nued regul ar scree kirill is the best metho d of cance r preve ntion . If repor lorenzo cytol ogic findi ng do not corre late with physi blessing and/o r histo rical findi ngs, furth er inves tigat ion is recom clovis d, as clini german andino nted. Not Available [facility] (Lab) [address] , [place], [address], 07/22/2022 13:47:22 07/19/19 23 07/19/2022 TRICH OMONA S VAGIN MICHAEL (RRNA ) trichomonas vaginalis ribosomal RNA (rrna) Negati ve negati ve Not Available [facility] (Lab) [address] [place], [address], 07/22/2022 13:47:22 07/19/19 23 07/19/2022 CT/GC (SARAH) , THINP REP VIAL chlamydia trachomatis, PCR Negati ve negati ve Not Available [facility] (Lab) [address] [place], [address], 07/22/2022 13:47:23 07/19/19 23 07/19/2022 CT/GC (SARAH) , THINP REP VIAL neisseria gonorrhoeae, PCR Negati ve negati ve Not Available [facility] (Lab) [address], [place], [address], 07/22/2022 13:47:23 09/11/19 24 09/11/2023 HIV 1/2 ANTIG EN/AN TIBOD Y, REFLE X CONFI RMATI ON HIV antigen/anti body Nonrea ctive nonrea ctive HIV-1 antig en and HIV-1 /HIV- 2 antib odies were not detec lorenzo. No labor atory evide nce of HIV infec tion. Not Available [facility] (Lab) [address], [place], [address], 09/13/2023 23:43:57 09/11/19 24 09/11/2023 HEPAT ITIS B SURFA CE ANTIG EN hepatitis B surface antigen Non-re active non-re active This assay was perfo rmed using [employer] [facility] [employer] ratio n reage nts and test kits. Value s obtai suzanne with other assay metho ds or kits canno t be used inter lainez eably . Not Available [facility] (Lab) [address], [place], [address], 09/13/2023 23:43:58 09/11/19 24 09/11/2023 HEPAT ITIS C ANTIB ROCIO SCREE N, REFLE X TO CONFI RMATI ON hepatitis C antibody Non-re active non-re active Antib odies to HCV Not Detec lorenzo, does not exclu de the possi bilit y of expos ure to HCV. Not Available [facility] (Lab) [address], [place], [address], 09/13/2023 23:43:58 09/11/19 24 09/11/2023 RPR SCREE N, REFLE X TITER /CONF IRMAT ION RPR screen Nonrea ctive nonrea ctive Not Available [facility] (Lab) [address], [place], [address], 09/13/2023 23:43:59 09/11/19 24 09/11/2023 HEPAT ITIS B CORE, IGM hepatitis B core IgM antibody Negati ve negati ve Not Available [facility] (Lab) [address], [place], [address], 09/13/2023 23:43:59 09/11/19 24 09/11/2023 IMAGE GUIDE D PAP AND HPV REGAR DLESS image guided Pap, HPV regardless of Pap result SEE RESULT S BELOW CASE REPOR T: Cytol ogy Gynec ologi blessing Repor t Case: [id number] [address] suz[address] verma Provi roxanne: Margarita Peters, HERNANDEZ Colle cted: 09/10 1639 Order ing Locat ion: [place] Patho [place] Recei isaiah: 09/11 0914 First Scree n: Bethanie Orozco, CT Rescr een: Leslie Al , CT Speci men: Ian roy Pap - Image d, Cervi x STATE MENT OF ADEQU ACY: Satis facto ry for evalu ation Trans forma tion zone compo nent absen t The absen ce of an endoc ervic al compo nent was confi rmed by an addit ional scree ner. FINAL DIAGN OSIS: Negat raymond for Intra epith elial Gracia wilson or Julio lee (NIL) . Shift in marifer sugge stive of bacte rial vagin osis. Elect pravin mac d by Leslie Al , CT on 2023 at 10:31 AM ----- ----- ----- ----- ----- ----- ----- ----- ----- ----- ----- ----- ----- ----- ----- ----- ----- ---- HPV RESUL TS: HPV mRNA E6/E7 : No HPV mRNA Detec lorenzo NOTE: This high risk HPV mRNA assay detec ts fourt een high- risk HPV types (16, 18, 31, 33, 35, 39, 45, 51, 52, 56, 58, 59, 66, 68) witho ut diffe renti ation . COMME NT: Slide scree suzanne manua lly due to rejec tion by the Thinp rep Imagi ng Syste m. CLINI BLESSING INFOR MATIO N: Menst rual Statu s: LMP (if appli cable ): Clini blessing Histo ry/Pr eviou s Pap: Type of Neopl will (if appli cable ): Signi fican t Clini blessing Findi ngs: Other Histo ry: Hormo wendy (if appli cable ): PAP EDUCA YOLANDA L NOTE: The Pap Test is a scree kirill test with an inher ent false negat raymond rate. Liqui d-bas ed sampl ing may decre ase, but will not elimi tay, false negat raymond resul ts. A negat raymond resul t does not precl ude the prese nce and/o r devel opmen t of disea se, since the prese nce of abnor mal cells in the sampl e depen ds on the locat ion of the lesio n and sampl ing techn ique. Kristin nued regul ar scree kirill is the best metho d of cance r preve ntion . If repor lorenzo cytol ogic findi ng do not corre late with physi blessing and/o r histo rical findi ngs, furth er inves tigat ion is recom clovis d, as clini german warra nted. Not Available [facility] (Lab) [address], [place], [address], 09/15/2023 11:35:35 09/11/19 24 09/11/2023 TRICH OMONA S VAGIN MICHAEL (RRNA ) trichomonas vaginalis ribosomal RNA (rrna) Negati ve negati ve Not Available [facility] (Lab) [address], [place], [address], 09/15/2023 11:35:35 09/11/19 24 09/11/2023 CT/GC (SARAH) , THINP REP VIAL chlamydia trachomatis, PCR Negati ve negati ve Not Available [facility] (Lab) [address], [place], [address], 09/15/2023 11:35:36 09/11/19 24 09/11/2023 CT/GC (SARAH) , THINP REP VIAL neisseria gonorrhoeae, PCR Negati ve negati ve Not Available [facility] (Lab) [address], [place], [address], 09/15/2023 11:35:36 07/26/19 23 2022 MAMMO , scree kirill, bilat eral No observ ation record ed. [address], [place], [address], 04/19/2023 12:14:07 11/01/19 24 10/31/2023 MAMMO , scree kirill, digit al, bilat eral No observ ation record ed. [address], [place], [address], 11/02/2023 12:45:32 Result Notes Documentation Provider Name and Address Organization Details Recorded Time Ct + Ng + Tv, Rna, Unspecified Specimen : 04-30-21: pt informed of results tl lobato, [facility] 05/01/2021 21:01:47 Problems Name Problem SNOMED Code Status Onset Date Resolution Date Notes Provider Name and Address Organization Details Recorded Time Asthma 596838795 Active 2020 Adrienne Handley MD [address], [place], [address], [facility] 14:59:30 Hypercholest erolemia 76258538 Active 2020 Adrienne Handley MD [address], [place], [address], [facility] 14:59:36 Essential hypertension 29869606 Active 2020 Adrienne Handley MD [address], [place], [address], [facility] 14:59:43 History of bariatric surgical procedure 816250186 Active 2018 Adrienne Handley MD [address], [place], [address], [facility] 14:59:59 Mixed anxiety and depressive disorder 454310925 Active 2020 Adrienne Handley MD [address], [place], [address], [facility] 15:07:04 Problem Notes None recorded. Procedures Surgical History Date Name Laterality Status Provider Name and Address Organization Details Recorded Time 3 Date of Last Pap Smear completed Audrey Bower [facility] 09/11/2023 10:53:[address] [facility] 10/28/2020 14:42:07 9 Date of Last Mammogram completed [facility] 10/28/2020 14:44:36 9 completed Nneka Hernandez [facility] 01/14/2021 12:36:05 4 Tubal Ligation completed [facility] 10/28/2020 14:41:51 Imaging Results Imaging Date Name Status LastModified by Organiz ation Details LastModified Time 2022 MAMMO, screening, bilateral completed [facility] [address], [place], [address], 04/19/2023 12:14:07 10/31/2023 MAMMO, screening, digital, bilateral completed [facility] [address], [place], [address], 11/02/2023 12:45:32 Procedure Notes None recorded. Medical Equipment None Reported. Allergies No known drug allergies Medications Name Sig Start Date Stop Date Status Note LastModified by Organization Details LastModified Time celecoxib 200 mg capsule TAKE 1 CAPSULE BY MOUTH TWICE DAILY WITH FOOD 09/10 completed Not Available Not Available Not Available neomycin-po lymyxin-hyd rocort 3.5 mg/mL-10,00 0 unit/mL-1 % ear solution 01/15 completed Not Available Not Available Not Available venlafaxine ER 37.5 mg capsule,ext ended release 24 hr TAKE 1 CAPSULE BY MOUTH EVERY DAY 05/17 completed Not Available Not Available Not Available atorvastati n 20 mg tablet TAKE 1 TABLET BY MOUTH EVERY NIGHT AT BEDTIME active Not Available Not Available No t Available nicotine 14 mg/24 hr daily transdermal patch 09/10 completed Not Available Not Available Not Available albuterol sulfate 2.5 mg/3 mL (0.083 %) solution for nebulizatio n USE 1 VIAL VIA NEBULIZER FOUR TIMES DAILY NEEDED active Not Available Not Available No t Available citalopram 40 mg tablet TAKE 1 TABLET BY MOUTH EVERY DAY 07/19 completed Not Available Not Available Not Available triamcinolo ne acetonide 0.5 % topical cream APPLY TO THE AFFECTED AREA TWICE DAILY 09/10 completed Not Available Not Available Not Available azithromyci n 250 mg tablet TAKE 2 TABLETS BY MOUTH FOR 1 DAY THEN TAKE 1 TABLET BY MOUTH EVERY DAY 05/17 completed Not Available Not Available Not Available aspirin 325 mg tablet TAKE 1 TABLET BY MOUTH EVERY DAY. 09/10 completed Not Available Not Available Not Available tizanidine 4 mg tablet TAKE 1 TABLET BY MOUTH THREE TIMES DAILY NEEDED active Not Available Not Available No t Available fluconazole 150 mg tablet TAKE 1 TABLET BY MOUTH EVERY DAY FOR 3 DAYS 12/16 completed Not Available Not Available Not Available metoprolol succinate ER 50 mg tablet,exte nded release 24 hr TAKE 1 TABLET BY MOUTH EVERY DAY 05/17 completed Not Available Not Available Not Available sulfamethox azole 400 mg-trimetho prim 80 mg tablet TK 1 T PO BID FOR 5 DAYS 12/16 completed Not Available Not Available Not Available hydrocodone 5 mg-acetamin ophen 325 mg tablet TAKE 1 TABLET BY MOUTH EVERY 8 HOURS NEEDED 09/10 completed Not Available Not Available Not Available spironolact one 25 mg-hydrochl orothiazide 25 mg tablet TAKE 1 TABLET BY MOUTH EVERY DAY 09/10 completed Not Available Not Available Not Available prednisone 20 mg tablet TAKE 1 TABLET BY MOUTH EVERY DAY FOR 5 DAYS active Not Available Not Available No t Available phentermine 15 mg capsule TAKE 1 CAPSULE BY MOUTH EVERY DAY 09/10 completed Not Available Not Available Not Available triamcinolo ne acetonide 0.5 % topical ointment 09/10 completed Not Available Not Available Not Available metronidazo le 500 mg tablet 05/17 completed Not Available Not Available Not Available phentermine 37.5 mg tablet TAKE 1 TABLET BY MOUTH EVERY DAY 09/10 completed Not Available Not Available Not Available amlodipine 5 mg tablet 09/10 completed Not Available Not Available Not Available hydrocodone 10 mg-acetamin ophen 325 mg tablet TAKE 1 TABLET BY MOUTH EVERY 4-6 HOURS NEEDED FOR PAIN 09/10 completed Not Available Not Available Not Available omeprazole 40 mg capsule,del ayed release TAKE 1 CAPSULE BY MOUTH EVERY DAY active Not Available Not Available No t Available meloxicam 7.5 mg tablet TAKE 1 TABLET BY MOUTH TWICE DAILY NEEDED. START AFTER DONE WITH PREDNISON E 09/10 completed Not Available Not Available Not Available citalopram 20 mg tablet TAKE 1 TABLET BY MOUTH EVERY DAY active Not Available Not Available No t Available amlodipine 10 mg tablet TAKE 1 TABLET BY MOUTH EVERY DAY active Not Available Not Available No t Available benzonatate 100 mg capsule TAKE 1 CAPSULE BY MOUTH THREE TIMES DAILY FOR 10 DAYS 07/19 completed Not Available Not Available Not Available paroxetine 20 mg tablet TAKE 1 TABLET BY MOUTH EVERY DAY 09/10 completed Not Available Not Available Not Available lidocaine 5 % topical patch PLACE 1 PATCH THEN REMOVE AFTER 12 HOURS. APPLY NEW PATCH 12 HOURS LATER. 09/10 completed Not Available Not Available Not Available polymyxin B sulfate 10,000 unit-trimet hoprim 1 mg/mL eye drops INSTILL 2 DROPS IN RIGHT EYE THREE TIMES DAILY FOR 7 DAYS 07/19 completed Not Available Not Available Not Available metoprolol tartrate 50 mg tablet TAKE 1 TABLET BY MOUTH TWICE DAILY active Not Available Not Available No t Available nicotine 21 mg/24 hr daily transdermal patch 05/17 completed Not Available Not Available Not Available omeprazole 20 mg capsule,del ayed release TAKE 1 CAPSULE BY MOUTH EVERY DAY 12/16 completed Not Available Not Available Not Available diclofenac sodium 75 mg tablet,robert yed release TAKE 1 TABLET BY MOUTH TWICE DAILY NEEDED active Not Available Not Available No t Available montelukast 10 mg tablet TAKE 1 TABLET BY MOUTH AT BEDTIME 01/15 completed Not Available Not Available Not Available hydrochloro thiazide 25 mg tablet TAKE ONE TABLET BY MOUTH EVERY DAY active Not Available Not Available No t Available metoprolol succinate ER 25 mg tablet,exte nded release 24 hr TK ONE T PO QD 12/16 completed Not Available Not Available Not Available ergocalcife rol (vitamin D2) 1,250 mcg (50,000 unit) capsule TAKE 1 CAPSULE BY MOUTH EVERY 15 DAYS 09/10 completed Not Available Not Available Not Available methylpredn isolone 4 mg tablets in a dose pack FOLLOW PACKAGE DIRECTION S 07/19 completed Not Available Not Available Not Available albuterol sulfate HFA 90 mcg/actuati on aerosol inhaler INHALE 1 TO 2 PUFFS BY MOUTH EVERY 4 HOURS NEEDED FOR WHEEZING FOR 10 DAYS active Not Available Not Available No t Available fluticasone propionate 50 mcg/actuati on nasal spray,suspe nsion INSTILL 1 SPRAY IN EACH NOSTRIL DAILY 05/17 completed Not Available Not Available Not Available clotrimazol e 1 % topical cream APPLY TOPICALLY TO THE AFFECTED AREA TWICE DAILY NEEDED 09/10 completed Not Available Not Available Not Available loratadine 10 mg tablet TAKE 1 TABLET BY MOUTH EVERY DAY 01/15 completed Not Available Not Available Not Available spironolact one 50 mg tablet TAKE 1 TABLET BY MOUTH ONCE DAILY active Not Available Not Available No t Available amoxicillin 875 mg-potassiu m clavulanate 125 mg tablet TAKE 1 TABLET BY MOUTH EVERY 12 HOURS FOR 10 DAYS 07/19 completed Not Available Not Available Not Available nicotine 7 mg/24 hr daily transdermal patch 09/10 completed Not Available Not Available Not Available escitalopra m 20 mg tablet 05/17 completed Not Available Not Available Not Available metoprolol tartrate 25 mg tablet TAKE 1 TABLET BY MOUTH TWICE DAILY 01/15 completed Not Available Not Available Not Available Spiriva with HandiHaler 18 mcg and inhalation capsules INHALE THE CONTENTS OF 1 CAPSULE VIA INHALATIO N DEVICE EVERY DAY 05/17 completed Not Available Not Available Not Available tinidazole 500 mg tablet 07/19 completed Not Available Not Available Not Available metoprolol succinate 05/17 completed Not Available Not Available Not Available hydrochloro thiazide 12.5 mg tablet TAKE 1 TABLET BY MOUTH ONCE DAILY 09/10 completed Not Available Not Available Not Available FeroSul 325 mg (65 mg iron) tablet TAKE ONE TABLET BY MOUTH EVERY DAY. 09/10 completed Not Available Not Available Not Available Solosec [address] granules in packet 07/19 completed Not Available Not Available Not Available Vitals Date Recorded Body height Body mass index (BMI) Body weight Systolic blood pressure Diastolic blood pressure Systolic blood pressure Diastolic blood pressure Provider Name and Address Organization Details Last Updated DateTime 170.18 cm 34.1 kg/m2 82391.1 4 g 153 mm[Hg] 89 mm[Hg] 153 mm[Hg] 88 mm[Hg] Nneka Hernandez [facility] 1 12:40:12 Date Recorded Body height Body mass index (BMI) Body weight Systolic blood pressure Diastolic blood pressure Provider Name and Address Organization Details Last Updated DateTime 04/26/2021 170.18 cm 35.6 kg/m2 818709.4 7 g 139 mm[Hg] 84 mm[Hg] Nneka Hernandez [facility] 1 18:19:01 Date Recorded Body height Body mass index (BMI) Body weight Systolic blood pressure Diastolic blood pressure Provider Name and Address Organization Details Last Updated DateTime 05/17/2022 170.18 cm 37.4 kg/m2 334296.5 8 g 178 mm[Hg] 106 mm[Hg] Mandie Fox [facility] 2 13:00:03 Date Recorded Body height Systolic blood pressure Diastolic blood pressure Provider Name and Address Organization Details Last Updated DateTime 07/19/2022 170.18 cm 139 mm[Hg] 85 mm[Hg] Earnestine Rebecca [facility] 07/19/2022 15:38:06 Date Recorded Body height Body mass index (BMI) Body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
--- OUTSIDE RECORDS SUMMARY | 2024-06-29 02:01 | XMS_ITS | Data Portability ---
Author Organization [facility], Main Office Address [address] [place] [address] Assessment Encounter Date Assessment Date Assessment LastModified by Organization Details LastModified Time 06/07/2024 06/07/2024 hammertoe, flexor contracture fifth akachigian Not available 06/07/2024 11:28:11 Plan of Treatment Reminders Order Date Submit Date Provider Last Modified By Organization Details Last Modified Time Details Appointments None record ed. Lab None record ed. Referral None record ed. Procedures None record ed. Surgeries None record ed. Imaging None record ed. Medication Orders None record ed. Patient TargetsNo targets recorded. Patient Instructions Encounter Date Encounter Id Patient Instructions Last Modified By Organization Details Last Modified Time 06/07/2024 [id number] To leave sterile dressing dry and intact, fifth, LT akachigian Not available 06/07/2024 11:28:26 Reason for Referral None Reported. Results Created Date Observation Date Name Description Value Unit Range Abnormal Flag Note LastModifiedBy Organization Detail LastModifiedTime 08/31/1908/26/2022 polys omnog colton, diagn ostic , 6 yrs or older No observ ation record ed. [facility] Not Available 2022 12:48:34 09/16/19 23 09/13/2022 polys omnog colton, titra tion study No observ ation record ed. BARCODE Not Available 2022 11:29:58 Result Notes None recorded. 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 Active 2023 Chao Alfonso, DPM [address], [address], [place], [address] , [employer] 4 15:17:49 Notes:Turner Dennis MD [facility] diagnostic sleep study 08/26/22 AHI = 6, REM AHI = 32, PLMI = 15 [facility] titration sleep study 09/13/22 [employer] Marg[employer] small Vitera full face mask @ 6 cmH2O, PLMI = 4 Medical History: Depression/Anxiety Rhinitis Obesity with mild OSAHS, AHI = 6, 08/26/22, on CPAP c/o [facility] Hypertension Mixed hyperlipidemia SOPHIA PLMD Vit D deficiency Foot calluses Problem Notes None recorded. Procedures Surgical History Date Name Laterality Status Provider Name and Address Organization Details Recorded Time 4 Strapping Foot & Ankle completed Chao Alfonso DPM [address], [address], [place], [address], [employer] 06/10/2024 15:17:40 4 Flexor Tenotomy completed Chao Alfonso DPM [address], [address], [place], [address], [employer] 06/07/2024 11:27:43 4 Callus Debridement 2-4 completed Chao Alfonso DPM [address], [address], [place], [address], [employer] 06/07/2024 11:27:56 Imaging Results Imaging Date Name Status LastModified by Organiz ation Details LastModified Time 08/26/2022 polysomnogram, diagnostic, 6 yrs or older completed [facility] Information not available 08/30/2022 12:48:34 09/13/2022 polysomnogram, titration study completed [facility] Information not available 09/15/2022 11:29:58 Procedure Notes None recorded. Medical Equipment None [...] Available Not Available Vitals Date Recorded Body mass index (BMI) Body height Heart rate Body weight Systolic blood pressure Diastolic blood pressure Provider Name and Address Organization Details Last Updated DateTime 2 34.5 kg/m2 170.18 cm 86 /min 97603.3 2 g 176 mm[Hg] 110 mm[Hg] Not Available [facility] 21:29:21 Date Recorded Body height Body mass index (BMI) Body weight Oxygen saturation Oxygen saturation in Arterial blood by Pulse oximetry Heart rate Body temperature Provider Name and Address Organization Details Last Updated DateTime 4 170.18 cm 35.1 kg/m2 955860. 69 g 99 % 99 % 71 /min 98.1 [degF] Negro Zarate REPLACED BY [facility] [employer] 4 10:40:14 Date Recorded Body height Body mass index (BMI) Body weight Provider Name and Address Organization Details Last Updated DateTime 06/10/2024 170.18 cm 35.1 kg/m2 822621.69 g [facility] 06/10/2024 15:00:25 Social History Question Answer Notes LastModified by [employer] ion Details LastModified Time Tobacco Smoking Status Current Every Day Smoker Not Available [facility] 08/24/2022 21:28:39 What Is Your Level Of Alcohol Consumption? None [id number] Information not available 08/24/2022 What Is Your Level Of Caffeine Consumption? Occasional [id number] Information not available 08/24/2022 What Was The Date Of Your Most Recent Tobacco Screening? 12/16/2021 [id number] Information not available 08/24/2022 Do You Use Any Illicit Or Recreational Drugs? No [id number] Information not available 08/24/2022 Has Tobacco Cessation Counseling Been Provided? No [id number] Information not available 08/24/2022 Do You Or Have You Ever Used Any Other Forms Of Tobacco Or Nicotine? No [id number] Information not available 08/24/2022 Sex: Unknown Functional Status None recorded. Mental Status None recorded. Family History Nothing Reported. Medical History Condition Response HIGH CHOLESTEROL / HYPERLIPIDEMIA Y OBESITY Y ARTHRITIS Y Gynecological HistoryNo gynecological history recorded. Obstetrics History GPAL:G 0 P 0 0 0 0 Past Encounters Encounter ID Performer Location Encounter Start Date Encounter Closed Date Diagnosis/Indication Diagnosis SNOMED-CT Code Diagnosis ICD10 Code Diagnosis Note [id number] [facility] [place] [address] [facility] [place] [address] 12/16/2021 00:00:00 12/21/2021 13:19:48 [id number] Chao Alfonso DPM [facility] [address] [facility] [address] [place] [address] 06/07/2024 10:21:10 06/07/2024 11:28:31 [id number] Chao Alfonso DPM [facility] [address] [facility] [address] [place] [address] 06/10/2024 14:58:13 06/10/2024 15:24:44 Leg length inequality 65422190 M21.70 Health Concerns Section Related Observation LastModified by Organization Detai ls LastModified Time None Recorded Concern Status LastModified by Organization Details LastModified Time None Recorded Advance Directives Directive None Recorded Payers Encounter Date Sequence Insurance Name Policy Number Policy Roberts Covered Member ID Roberts Member ID Guarantor Name 06/07/2024 1 [facility] (MEDICAID REPLACEMENT - HMO) [id number] Key Salas [id number] [place]as 06/10/2024 1 [facility] (MEDICAID REPLACEMENT - HMO) [id number] Key Salas [id number] Key Salas Notes Date Note Type Note Provider Name and Address Organization Details Recorded Time 06/07/2024 text/html Pt RTC for c/o painful corns karl fifth, Lt>>Rt. Hammertoe Lt and contracted tendon. Chao Alfonso DPM [address] [facility], [facility] [address], [place], [address], [facility] [employer] [facility] 06/07/2024 11:28:30 06/10/2024 text/html Lt fifth toe well-healed s/p four dd. tenotomy flexor and debridement of HD. Pt's main complaint this date: pain in lat foot. Lt. RYLEY OlivaresM [address] [facility], [facility] [address], [place], [address], [facility] 06/10/2024 15:17:57 OBGyn Episode No OBEpisode recorded.
--- OUTSIDE RECORDS SUMMARY | 2024-06-29 02:01 | XMS_ITS | Encounter Summary ---
Author Organization [facility] Address [address] [place] [address]. [place] [id number] Care Team Providers Care Sweatband Maker Name Role Phone Meek Robert MD Primary Care Provider [phone] Reason for Visit * Reason Comments MRI (SCAN) Encounter Details Date Type Department Care Team ([facility] st Contact Info) Description 06/30/2009 Scan [place] [address] Scanned, Documents MRI (SCAN) Social History Tobacco Use Types Packs/Day Years [...] Procedure Name Priority Date/Time Associated Diagnosis Comments MRI GENERIC Routine 06/30/2009 documented in this encounter Results * MRI (06/30/2009) Anatomical Region Laterality Modality Other us Documents Scanned SCANNING Final Result documented in this encounter Visit Diagnoses Not on filedocumented in this encounter Care Teams Sweatband Maker Relationship Specialty Start Date End Date Meek Robert MD PCP - General 02/22/16 documented as of this encounter
--- OUTSIDE RECORDS SUMMARY | 2024-06-29 02:01 | XMS_ITS | Continuity of Care Document ---
Author Organization [facility] [employer], [facility] Podiatry [facility] [address] [place] [address] Assessment Encounter Date Assessment Date Assessment LastModified by Organization Details LastModified Time 06/07/2024 06/07/2024 brissaertoe, flexor contracture fifth [email or web address] Not available 06/07/2024 [...] By Organization Details Last Modified Time 06/07/2024 [id number] To leave sterile dressing dry and intact, fifth, LT akachigian Not available 06/07/2024 11:28:26 Reason for Referral None Reported. 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 2023 Chao Alfonso DPKelley [address], [place], [address] , [facility] [employer] 4 15:17:49 Notes:Turner Dennis MD [facility] diagnostic sleep study 08/26/22 AHI = 6, REM AHI = 32, PLMI = 15 [facility] titration sleep study 09/13/22 Niurka small Vitera full face mask @ 6 cmH2O, PLMI = 4 Medical History: Depression/Anxiety Rhinitis Obesity with mild OSAHS, AHI = 6, 08/26/22, on CPAP c/o Citizen Of The [place] Home Patient Hypertension Mixed hyperlipidemia SOPHIA PLMD Vit D deficiency Foot calluses Problem Notes None recorded. Procedures Surgical History Date Name Laterality Status Provider Name and Address Organization Details Recorded Time 4 Strapping Foot & Ankle completed Chao Alfonso DPM [address], [place], [address], [employer] 06/10/2024 15:17:40 4 Flexor Tenotomy completed Chao Alfonso DPM [address], [place], [address], [employer] 06/07/2024 11:27:43 4 Callus Debridement 2-4 completed Chao Alfonso DPM [address], [place], [address], [employer] 06/07/2024 11:27:56 Imaging Results None recorded. Procedure [...] Updated DateTime 4 170.18 cm 35.1 kg/m2 877835. 69 g 99 % 99 % 71 /min 98.1 [degF] VALENTINE Arriaza [place] [employer] 4 10:40:14 Social History Question Answer Notes LastModified by Organizat ion Details LastModified Time Tobacco Smoking Status Current Every Day Smoker Not Available [employer] 08/24/2022 21:28:39 What Is Your Level Of Alcohol Consumption? None [id number] Information not available 08/24/2022 What Is Your Level Of Caffeine Consumption? Occasional [id number] Information not available 08/24/2022 What Was The Date Of Your Most Recent Tobacco Screening? 12/16/2021 [id number] Information not available 08/24/2022 Do You Use Any Illicit Or Recreational Drugs? No [id number] Information not available 08/24/2022 Has Tobacco Cessation Counseling Been Provided? No [id number] Information not available 08/24/2022 Do You Or Have You Ever Used Any Other Forms Of Tobacco Or Nicotine? No [id number] Information not available 08/24/2022 Sex: Unknown Functional Status None recorded. Mental Status None recorded. Family History Nothing Reported. Medical History Condition Response ARTHRITIS Y HIGH CHOLESTEROL / HYPERLIPIDEMIA Y OBESITY Y Gynecological HistoryNo gynecological history recorded. Obstetrics History GPAL:G 0 P 0 0 0 0 Past Encounters Encounter ID Performer Location Encounter Start Date Encounter Closed Date Diagnosis/Indication Diagnosis SNOMED-CT Code Diagnosis ICD10 Code [id number] Chao Alfonso DPM [facility] Pod[facility]ry [facility] [address] [place] [address] 06/07/2024 10:21:10 06/07/2024 11:28:31 Health Concerns Section Related Observation LastModified by Organization Detai ls LastModified Time None Recorded Concern Status LastModified by Organization Details LastModified Time None Recorded Payers Encounter Date Sequence Insurance Name Policy Number Policy Roberts Covered Member ID Roberts Member ID Guarantor Name 06/07/2024 1 [facility] (MEDICAID REPLACEMENT - HMO) [id number] Key Salas [id number] Key Salas Notes Date Note Type Note Provider Name and Address Organization Details Recorded Time 06/07/2024 text/html Pt RTC for c/o painful corns karl fifth, Lt>>Rt. Hammertoe Lt and contracted tendon. Chao Alfonso DPM [address] [facility] [address], [place], [address], [facility] [employer] [facility] 06/07/2024 11:28:30 OBGyn Episode No OBEpisode recorded.
--- OUTSIDE RECORDS SUMMARY | 2024-06-29 02:01 | XMS_ITS | Encounter Summary ---
Author Organization [facility] Address [address] [place] [address]. 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 Name Role Phone Meek Robert MD Primary Care Provider [phone] Encounter Details Date Type Department Care Team (Late st Contact Info) Description 04/29/2017 [place] [address] , Generic Conversion, Social History Tobacco Use Types Packs/Day Years Used Date Smoking Tobacco: Never Assessed Comments Unknown Sex and Gender Information Value Date Recorded Sex Assigned at Not on file Legal Sex Female 7:29 PM CDT Gender Identity Not on file Sexual Orientation Not on file documented as of this encounter Plan of Treatment Not on file documented as of this encounter Visit Diagnoses Not on filedocumented in this encounter Care Teams Mexican Food Machine Tender Relationship Specialty Start Date End Date Meek Robert MD PCP - General 02/22/16 documented as of this encounter
--- OUTSIDE RECORDS SUMMARY | 2024-06-29 02:01 | XMS_ITS | Data Portability ---
Author Organization [place] - [facility] OFFICE Address [address] [place] [address] Care Team Providers Care Physical Therapy Assistant Name Role Phone JHONATHAN GRECO Primary Care Provider [phone] JHONATHAN GRECO Referring Provider Assessment No assessment recorded. Plan of Treatment [...] Modified By Organization Details Last Modified Time 04/08/2019 [id number] Weight loss 20 pounds Exercise advised Low cholesterol diet advised Low sodium diet advised Not available 04/08/2019 12:11:53 Scribed by Audrey Zapata PA-C Not available 04/08/2019 12:12:57 Reason for Referral None Reported. Results Created Date Observation Date Name Description Value Unit Range Abnormal Flag Note LastModifiedBy Organization Detail LastModifiedTime 04/05/2006/09/2018 US, doppl er, tess s No observ ation record ed. [email or web address] Not Available 2018 13:49:58 04/05/2012/19/2012 elect rocar diogr am No observ ation record ed. [email or web address] Not Available 2018 13:57:00 04/08/2004/08/2019 elect rocar diogr am No observ ation record ed. Not Available 2018 16:50:10 04/18/20 19 04/18/2019 US, echoc nasima gram No observ ation record ed. [facility] [address], [place], [address], 04/24/2019 10:01:44 04/19/20 19 04/18/2019 US, echoc ardio gram No observ ation record ed. [email or web address] Not Available 2018 14:06:10 Result Notes None recorded. Problems Name Problem SNOMED Code Status Onset Date Resolution Date Notes Provider Name and Address Organization Details Recorded Time Hypersomnia 65805057 Active 2018 Hala Vern null, [place] - [facility] 9 03:31:37 Apnea 7099729 Active 2018 Hala Vern [place], [place] - [facility] 9 03:31:56 Snoring 22965027 Active 2018 Hala Vern [place], [place] - [facility] 9 03:32:05 Essential hypertension 40655056 Active 2018 Hala Vern [place], [place] - [facility] 9 03:32:14 Asthma 460817791 Active 2018 Hala Vern [place], [place] - [facility] 9 03:32:49 Problem Notes None recorded. Procedures Surgical History Date Name Laterality Status Provider Name and Address Organization Details Recorded Time reduction mammoplasty completed [facility] 04/08/2019 11:57:13 cholecystectomy completed [facility] 04/08/2019 11:57:29 ligation of bilateral fallopian tubes completed [facility] 04/08/2019 11:57:47 Imaging Results Imaging Date Name Status LastModified by Organization Details LastModified Time 06/09/2018 US, doppler, venous completed [email or web address] Infor mation not available 04/05/2019 13:49:58 12/19/2012 electrocardiogram completed [email or web address] Informa tion not available 04/05/2019 13:57:00 04/08/2019 electrocardiogram completed [email or web address] Informa tion not available 04/08/2019 16:50:10 04/18/2019 US, echocardiogram completed [email or web address] [address], [place], [address], 04/24/2019 10:01:44 04/18/2019 , echocardiogram completed [email or web address] Inform ation not available 04/22/2019 14:06:10 Procedure Notes None recorded. Medical Equipment None Reported. Allergies No known drug allergies Medications Name Sig Start Date Stop Date Status Note LastModified by Organization Details LastModified Time furosemide 40 mg tablet Take 2 tablets every day by oral route. active Not Available Not Available No t Available atorvastatin 20 mg tablet 1qd active Not Available Not Available Not Available tizanidine 2 mg tablet active Not Available Not Available No t Available promethazine 6.25 mg/5 mL oral syrup active Not Available Not Available N ot Available meloxicam 15 mg tablet 1bid active Not Available Not Available No t Available metronidazole 500 mg tablet active pt not taking . 9 Not Available Not Available Not Available lidocaine HCl 2 % mucosal jelly active Not Available Not Available Not Available amlodipine 5 mg tablet 1qd active Not Available Not Available No t Available omeprazole 40 mg capsule,delay ed release active pt not taking . 9 Not Available Not Available Not Available meloxicam 7.5 mg tablet active pt not taking . 9 Not Available Not Available Not Available ranitidine 150 mg tablet 1qd active Not Available Not Availabl e Not Available omeprazole 20 mg capsule,delay ed release active pt not taking . 9 Not Available Not Available Not Available lisinopril 5 mg tablet 1qd active Not Available Not Available No t Available furosemide 20 mg tablet active Not Available Not Available No t Available metoprolol succinate ER 25 mg tablet,extend ed release 24 hr 1qd active Not Available Not Available Not Available ergocalcifero l (vitamin D2) 1,250 mcg (50,000 unit) capsule active Not Available Not Available Not Available ibuprofen 600 mg tablet active Not Available Not Available No t Available sertraline 50 mg tablet 1qd active Not Available Not Available No t Available Incruse Ellipta 62.5 mcg/actuation powder for inhalation prn active Not Available Not Available N ot Available Vitals Date Recorded Body weight Heart rate Respiratory rate Oxygen saturation Oxygen saturation in Arterial blood by Pulse oximetry Body mass index (BMI) Body height Systolic blood pressure Diastolic blood pressure Provider Name and Address Organization Details Last Updated DateTime 9 145668. 38 g 68 /min 18 /min 98 % 98 % 47 kg/m2 167.64 cm 158 mm[Hg] 102 mm[Hg] Lisette Ledesma [place] - [facility] 9 11:49:54 Social History Question Answer Notes LastModified by [employer] Details LastModified Time Tobacco Smoking Status Current Every Day Smoker Not Available [facility] 04/28/2020 03:30:40 What Is Your Level Of Alcohol Consumption? None [id number] Information not available 04/28/2020 What Type Of Diet Are You Following? REGULAR [id number] Information not available 04/28/2020 Which Illicit Or Recreational Drugs Have You Used? No [id number] Information not available 04/28/2020 Marital Status Single [email or web address] Informatio n not available 04/08/2019 How Many Children Do You Have? 2 [id number] Information not available 04/28/2020 How Much Tobacco Do You Smoke? 0.5 PPD [id number] Information not available 04/28/2020 How Many Years Have You Smoked Tobacco? 24 [id number] Information not available 04/28/2020 Sex: Unknown Functional Status Question Answer Note LastModified by [employer] Details LastModified Time What is your exercise level? Occasional [id number] Information not available 04/28/2020 Mental Status None recorded. Family History Relationship Description Onset Age of this Age Resolved Age Notes LastModified by Organization Details LastModified Time Father No current problems or disability [email or web address] Not available 03/26 11:54:55 Mother No current problems or disability HNT [email or web address] Not available 03/26 11:55:10 Maternal Grandmother No current problems or disability stoke [email or web address] Not available 03/26 11:55:22 Medical History Condition Response High Cholesterol Y Hypertension Y Gynecological HistoryNo gynecological history recorded. Obstetrics History GPAL:G 0 P 0 0 0 0 Past Encounters Encounter ID Performer Location Encounter Start Date Encounter Closed Date Diagnosis/Indication Diagnosis SNOMED-CT Code Diagnosis ICD10 Code [id number] Anitra Tyree [facility] Office [address] [place] [address] 04/08/2019 10:57:53 04/08/2019 12:29:40 Pre-surgery evaluation 575261681 Z01.818 Essential hypertension 41937399 I10 Hyperlipidemia 59140438 E78.5 Obstructiv e sleep apnea syndrome 54421665 G47.33 Health Concerns Section Related Observation LastModified by Organization Detai ls LastModified Time None Recorded Concern Status LastModified by Organization Details LastModified Time None Recorded Advance Directives Directive None Recorded Payers Encounter Date Sequence Insurance Name Policy Number Policy Roberts Covered Member ID Roberts Member ID Guarantor Name 04/08/2019 1 [facility] - DOS PRIOR TO 2020 (MEDICAID REPLACEMENT - HMO) Key Danielsley [id number] Key Danielsley Notes Date Note Type Note Provider Name and Address Organization Details Recorded Time 04/08/2019 text/html 04/08/2019 CC: pre surgery evaluation Patient is a 48 year-old woman with history of hypertention, hyperlipidemia, GERD, LEIDY on CPAP, presents for cardiac consultation for upcoming surgery. She is planning on having gastric sleeve procedure. Needs cardiac clearance. 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 Reports dyspnea with exertion, depending on how fast she walks. She smokes 1/2 ppd. 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 No chest pain. No shortness of breath at rest. No orthopnea. No PND. No dizziness. No palpitation. No syncope or near syncope. No leg swelling. No nausea and vomiting. No family history of early cardiovascular disease. Results from this visit, or from the past: LIPID 03/14/2019 TR 101 CH 221 HDL 40 LDL 161 TSH 2.82 06/09/2018 Venous doppler No evidence of deep venous thrombosis of the right lower extremity Anitra Fuentes [place], [place] - [facility] 04/08/2019 12:26:37 OBGyn Episode No OBEpisode recorded.
--- OUTSIDE RECORDS SUMMARY | 2024-06-29 02:03 | XMS_ITS | Encounter Summary ---
Author Organization [facility] Address [address] [place] [address] Care Team Providers Care Replanting Machine Operator Name Role Phone Jefn, External Provider Primary Care Provider Un available Reason for Visit * Auth/Cert Specialty Diagnoses / Procedures Referred By Onel melgoza Referred To Contact Multi Specialty Diagnoses Morbid (severe) obesity due to excess calories Procedures MD LAP, MARIA DEL CARMEN RESTRICT PROC, LONGITUDINAL GASTRECTOMY GASTRECTOMY LONGITUDINAL LAPAROSCOPIC Jefn Operating Room [address] [address] Referral ID Status Reason Start Date Expiration Date Visits Re quested Visits Authorized [id number] 1 1 Encounter Details Date Type Department Care Team (Latest Contact Info) Description 06/04/2019 8:54 AM CULLET TRUCKER - 06/06/2019 12:08 PM CULLET TRUCKER Hospital Encounter [facility] Surgical [address] [address] [place] [id number] [place] [address] [place] [address] HTN (hypertension) Discharge Disposition: Home or Self Care Social History Tobacco Use Types Packs/Day Years Used Date Smoking Tobacco: Former Cigarettes Smokeless Tobacco: Never Comments:feb 2019-quit Alcohol Use Standard Drinks/Week Comments Not Currently 0 (1 standard drink = 0.6 oz pur e alcohol) Feeling Safe Answer Date Recorded Within the last year, have y ou been afraid of your partner or ex-partner? No 04/05/2019 Within the last year, have y ou been humiliated or emotionally abused in other ways by your partner or ex-partner? No Within the last year, have y ou been kicked, hit, slapped, or otherwise physically hurt by your partner or ex-partner? No 04/05/2019 Within the last year, have y ou been raped or forced to have any kind of sexual activity by your partner or ex-partner? No 04/05/2019 Sex and Gender Information Value Date Recorded Sex Assigned at Not on file Gender Identity Not on file Sexual Orientation Not on file documented as of this encounter Last Filed Vital Signs Vital Sign Reading Time Taken Comments Blood Pressure 159/103 06/06/2019 11:51 AM CULLET TRUCKER Pulse 58 06/06/2019 11:51 AM CULLET TRUCKER Temperature 36.8 ??C (98.2 ??F) 06/06/2019 1 1:51 AM CULLET TRUCKER Respiratory Rate 18 06/06/2019 11:5 1 AM CULLET TRUCKER Oxygen Saturation 100% 06/06/2019 11: 51 AM CULLET TRUCKER Inhaled Oxygen Concentration - - Weight 125.3 kg (276 lb 3.2 oz) 06/06/2019 4:14 AM CULLET TRUCKER Height 167.6 cm (5' 6 ) 06/04/2019 9:37 AM CULLET TRUCKER Body Mass Index 44.58 06/04/2019 9:37 AM CULLET TRUCKER documented in this encounter Discharge Summaries * Enedina Jay ANP - 06/06/2019 9:26 AM CST [facility] Adult Hospitalist Discharge Summary Key Salas 48 y.o. female 1970 CSN: [id number] Date of Admission: 06/04/2019 Date of Discharge: 06/06/2019 Discharging Physician: REAGAN Suggs LOS: 2 days PCP: Cayden, External Provider Activity: activity as tolerated and activity as tolerated and no driving for today. Dispo: home Diet: DIET BARIATRIC Additional restrictions: No Soda,, No Sugar,; Food Texture: Clear Liquid, Code Status at Discharge: Full Code Wound Care: Keep wound clean and dry and None needed 45 Minutes spent in the d/c process today. Admitting Dx and Chief Complaint Morbid obesity s/p lap sleeve gastrectomy by Dr Prasad Discharge Diagnoses: Active Problems: HTN (hypertension) GERD (gastroesophageal reflux disease) Asthma Poor fluid intake Post-operative nausea and vomiting Post-op pain leukocytosis resolving Discharge medications and new prescriptions: Medication List START taking these medications HYDROcodone-acetaminophen 7.5-325 mg/15 mL Solution Commonly known as: HYCET Take 15 mL by mouth every 6 hours as needed for Pain. Max Daily Amount: 60 mL Signed by: Shanice Katz MD Quantity: 280 mL Refills: 0 ondansetron 4 mg Tablet, Rapid Dissolve Commonly known as: ZOFRAN ODT Place 1 Tablet (4 mg) under tongue every 6 hours as needed for Nausea/Emesis. Signed by: REAGAN Suggs Quantity: 10 Tablet Refills: 0 Indications of Use: nausea CONTINUE taking these medications AMLODIPINE ORAL Take 5 mg by mouth daily. Refills: 0 ATORVASTATIN ORAL Take 20 mg by mouth daily. Refills: 0 INCRUSE ELLIPTA INHALATION Take by inhalation. Refills: 0 LISINOPRIL ORAL Take 5 mg by mouth daily. Refills: 0 METOPROLOL TARTRATE ORAL Take 25 mg by mouth daily. Refills: 0 raNITIdine 150 mg tablet Commonly known as: ZANTAC Take 150 mg by mouth 2 times daily. Refills: 0 STOP taking these medications LASIX ORAL MELOXICAM ORAL Where to Get Your Medications These medications were sent to [facility] [address], [place], [place] [address] Hours: Monday-Monday: 8:30 a.m. - 5:00 p.m., Monday: 9:00 a.m. - 1:00 p.m. ?? HYDROcodone-acetaminophen 7.5-325 mg/15 mL Solution ?? ondansetron 4 mg Tablet, Rapid Dissolve Consultants: IP CONSULT TO HOSPITALIST Brief Synopsis of Diagnostic Studies This Admission (Please see full report for details): ?? Labs and Studies from this Hospitalization Needing Follow Up: ?? None Discharge Lab Data (Please note date of lab as some may have preceeded admission) Lab Results Component Value Date/Time WBC 18.6 (H) 06/05/2019 04:57 PM HEMOGLOBIN 13.3 06/05/2019 04:57 PM HEMATOCRIT 41.2 06/05/2019 04:57 PM PLATELETS 314 06/05/2019 04:57 PM SODIUM 140 06/05/2019 05:07 AM CHLORIDE 106 06/05/2019 05:07 AM POTASSIUM 4.2 06/05/2019 05:07 AM CO2 23 06/05/2019 05:07 AM BUN 6 06/05/2019 05:07 AM CREATININE 0.82 06/05/2019 05:07 AM GLUCOSE 95 06/05/2019 05:07 AM AST 12 05/08/2019 09:32 AM ALT 11 05/08/2019 09:32 AM Discharge Exam: BP (!) 153/85 (BP Location: Right arm, Patient Position (BP): Sitting) Pulse 71 Temp 98.4 ??F (36.9 ??C) (Oral) Resp 18 Ht 5' 6 (1.676 m) Wt 125.3 kg (276 lb 3.2 oz) LMP 05/06/2019 SpO2 96% BMI 44.58 kg/m?? Last documented weight: Weight: 125.3 kg (276 lb 3.2 oz) (06/06/19 0414) Physical Exam: Appearance: Well-appearing, no pain distress, well-nourished, obese HEENT: Normocephalic, atraumatic, EOMI, PERRLA. Neck: Supple, full range of motion. No lymphadenopathy, no JVD or thyromegaly. Cardiovascular: s1,s2 Regular rate and rhythm without murmurs, rubs or clicks. Pulmonary: No dullness to percussion. Clear to all castellanos bilaterally. GI / : Abdomen, lg, soft, nontender, nondistended. Bowel sounds normoactive. Laparoscopic incision well approx dry and intact Negative hepatosplenomegaly. Extremities: No clubbing, cyanosis or edema. Dorsalis pedis pulses palpable bilaterally. MS: Strength / ROM intact, no calf tenderness Skin: Warm and dry, color normal Neurologic: Alert and oriented times 3. Cranial nerves 2-12 are intact. No focal deficits. Psychiatric: Affect / mood appropriate Hospital Course: ?? Patient was admitted on a same day admission basis and underwent a laparoscopic sleeve gastrectomy by Dr Prasad . POD #1 patient demonstrated poor po intake due to nausea. She remained hospitalized for ivf and antiemetics. Pod #2 patient was tolerating a clear liquid diet, up ad mckay activity and reporting adequate pain management. Discussed with patient s/s to report to surgeon. Discussed pharmacy recommendations and scripts. Patient verbalized understanding. Patient was instructed on no vitamins until f/u with surgeon and no anti-sterodial medications.Patient leukocytosis post op was suspected secondary to atelectasis. Upon recheck it was improving. ?? Discharge Condition: improving. Follow-up: You must follow up with Ebony Rodarte Provider in NO MORE THAN 7 DAYS Signed: REAGAN Suggs 06/06/2019, 9:26 AM ET TRUCKER documented in this encounter Discharge Instructions * Discharge Instructions* Enedina Jay ANP - 06/04/2019 1:42 PM CULLET TRUCKER Your discharging physician is REAGAN Suggs and may be reached at [phone] for any questions or concerns until you see your doctor. FOLLOW-UP Follow up with Ebony Rodarte Provider in 1 week Follow up with Dr Hardin 1 week SIGNS AND SYMPTOMS TO REPORT Contact your health care provider if you experience any of the following symptoms: fever greater than 100, redness from incision, unrelieved nausea/vomiting, blood sugar greater than 250 or less than90 or any other concerning symptoms. Heart Patients: Weigh yourself everyday at the same time, with the same amount of clothing and after you have emptied your bladder. Keep a log of your daily weights and bring them with you to your physician appointments. Call your physician (*) if you have a weight gain of 3 pounds in one day (or 5pounds in 2+ days) or (*) if you have increased shortness of breath or (*) if you have swelling in your feet, belly or legs. <<<Call 911 or go to the nearest emergency room if you have increased shortness of breath or chest pain or discomfort that is not relieved by nitroglycerin. Smoking Exposure: [facility] encourages all patients to decrease risks associated with smoking and second hand smoke exposure. If you smoke you are advised to quit. Ask your health care provider for advice if you need assistance to stop smoking. Avoid second-hand smoke exposure and do not let people smoke in your home. ACTIVITY Your activity level is: As tolerated and no smoking. You may return to work/school once you follow up with your doctor DIET Your diet is: clear liquid WOUND CARE For your wound/incision: Shower daily PAIN RX; NO VITAMINS UNTIL SEEN BY Surgeon NO NON-STEROIDAL MEDICATIONS Bariatric Medication Review Per home medication list viewed 05-27- ? 1. Amlodipine -- may crush, monitor blood pressure 2. Atorvastatin -- may crush 3. Furosemide (Lasix) -- may crush, monitor blood pressure hold 4. Lisinopril oral -- may crush, monitor blood pressure 5. Meloxicam oral -- STOP taking this medication per surgical recommendations. This includes all over the counter preparations containing a non-steroidal anti- inflammatory agent (i.e.: Motrin, Ibuprofen, Advil, Naprosyn, Aleve, Aspirin and Aspirin containing products, all combination products containing Ibuprofen or Naprosyn) 6. Metoprolol Tartrate oral -- may crush immediate release tablet, monitor blood pressure 7. Ranitidine (Zantac) 150 mg tablet -- may crush 8. Umeclidinium Cisco (Incruse Ellipta inhaler) -- inhaler ? ET TRUCKER * Attachments The following attachments cannot be sent through Care Everywhere. * Sleeve Gastrectomy: Post-op (Syriac) documented in this encounter Medications at Time of Discharge Medication Sig Dispensed Refills Start Date End Date ondansetron (ZOFRAN ODT) 4 mg Tablet, Rapid DissolveIndications:na ea Place 1 Tablet (4 mg) under tongue every 6 hours as needed for Nausea/Emesis. 10 Tablet 06/04/2019 raNITIdine (ZANTAC) 150 mg tablet Take 150 mg by mouth 2 times daily. METOPROLOL TARTRATE ORAL Take 25 mg by mouth daily. atorvastatin calcium (ATORVASTATIN ORAL) Take 20 mg by mouth daily. LISINOPRIL ORAL Take 5 mg by mouth daily. amlodipine besylate (AMLODIPINE ORAL) Take 5 mg by mouth daily. umeclidinium bromide (INCRUSE ELLIPTA INHALATION) Take by inhalation. HYDROcodone-acetaminophe n (HYCET) 7.5-325 mg/15 mL SolutionIndications:Morb id obesity with body mass index of 40.0-49.9 Take 15 mL by mouth every 6 hours as needed for Pain. Max Daily Amount: 60 mL 280 mL 06/04/2019 06/11/2019 documented as of this encounter Progress Notes * Laurel Hawley RN - 06/06/2019 12:07 PM CST Discharge instructions reviewed with pt. No questions or concerns at this time. IV removed, tolerated well. Catheter intact. VSS; no s/s of distress at time of discharge. Pt ambulated out facility with family at side. ET TRUCKER * Laurel Hawley RN - 06/06/2019 11:38 AM CST Pt states to this RN that she has not attended the bariatric class. This RN informed pt of class starting at this time. Pt refused to attend class. Enedina Jay, HERNANDEZ notified. Provider states pt is clear for discharge. Provider states to educate pt prior to discharge and inform pt of importance of attending class. This RN discussed class with pt. Pt states no they talked to me already. I knowwhat I want to do. I don't want to go. I want to go home . ET TRUCKER * Anne Larkin RN - 06/06/2019 2:50 AM CST 0000 Patient BP noted at 180/94 patient denies any dizziness, nausea or headache 0249 BP still remains high measured at 180/109 manually. Patient denies any symptoms. Clonidine administered ET TRUCKER * Enedina Jay ANP - 06/05/2019 3:26 PM CST [facility] Adult Hospitalist Progress Note Admit Date: 06/04/2019 Date of Note: 06/05/2019, 3:27 PM PCP: Cayden, External Provider [facility] [address] [facility] Previous history of present illness and review of systems have been reviewed today as documented inthe H&P on 06/04/2019; medications, labs, studies, notes, orders and consults have been reviewed. I have reviewed the notes from admission. Subjective: Reason for follow up: htn,poor intake secondary to nausea, leukoytosis Patient seen on: 06/05/19 Subjective: Seen laying In bed. She reports nausea without emesis. She reports adequate pain control. She denies chest pain, shob. ROS: Constitutional. Denies: chills, diaphoresis, fever. Cardiology: Patient denies chest pain Pulmonary: Patient denies shob Gastrointestinal/Abdominal. Denies: abdominal pain, constipation, diarrhea, vomiting. Reports nausea Musculoskeletal Denies: joint pain, joint swelling, Neurological/Psych Denies: headache. numbness, tingling, weakness. Discussed patient condition and care with nursing staff, no concerns voiced at this Patient's vital signs, consult notes, labs, reviewed by me. Objective: BP (!) 173/74 (BP Location: Right arm, Patient Position (BP): Sitting) Pulse 89 Temp 98.6 ??F (37 ??C) (Axillary) Resp 18 Ht 5' 6 (1.676 m) Wt 126.2 kg (278 lb 3.2 oz) LMP 05/06/2019 SpO2 96% BMI 44.90 kg/m?? Appearance: Well-appearing, no pain\distress, well-nourished, obese Cardiovascular: s1,s2 Regular rate and rhythm without murmurs, rubs or clicks. Pulmonary: Clear to all castellanos bilaterally. GI / : Abdomen lg, soft, nontender, nondistended. Bowel sounds normoactive. Lap inc approx Extremities: No clubbing, cyanosis or edema. Dorsalis pedis pulses palpable bilaterally. MS: Strength / ROM intact, no calf tenderness Skin: Warm and dry, color normal Neurologic: Alert and oriented times 3. No focal deficits. Psychiatric: Affect / mood appropriate Data Base: Results for orders placed or performed during the hospital encounter of 06/04/19 (from the past 24 hour(s)) CBC WITH DIFFERENTIAL Result Value Ref Range WBC 18.2 (H) 4.0 - 11.0 K/uL RBC 5.00 4.20 - 5.40 M/uL HEMOGLOBIN 13.2 11.9 - 15.1 g/dL HEMATOCRIT 41.2 38.0 - 47.0 % MCV 82.4 80.0 - 98.0 fL MCH 26.4 26.0 - 34.0 pg MCHC 32.0 31.0 - 37.0 g/dL RDW 14.4 11.5 - 14.5 % RDW-STDEV 42.4 34.0 - 54.0 fL PLATELETS 294 150 - 400 K/uL MPV 10.1 8.5 - 12.5 fL NEUTROPHILS 83 (H) 50 - 70 % LYMPHOCYTES 13 (L) 20 - 40 % MONOCYTES 3 2 - 8 % EOSINOPHILS 0 (L) 1 - 3 % BASOPHILS 0 0 - 1 % IMMATURE GRANULOCYTES 1 0 - 2 % NEUTROPHIL ABSOLUTE 15.01 (H) 1.80 - 7.70 K/uL LYMPHOCYTE ABSOLUTE 2.41 1.00 - 3.30 K/uL MONOCYTE ABSOLUTE 0.61 0.00 - 0.80 K/uL EOSINOPHIL ABSOLUTE 0.00 0.00 - 0.45 K/uL BASOPHILS ABSOLUTE 0.02 0.00 - 0.20 K/uL IMMATURE GRANULOCYTES ABSOLUTE 0.12 0.00 - 0.31 K/uL BASIC METABOLIC PANEL Result Value Ref Range SODIUM 140 136 - 145 mmol/L POTASSIUM 4.2 3.5 - 5.1 mmol/L CHLORIDE 106 98 - 107 mmol/L CO2 23 22 - 29 mmol/L CALCIUM 9.3 8.6 - 10.0 mg/dL BUN 6 6 - 20 mg/dL CREATININE 0.82 0.51 - 0.95 mg/dL GLUCOSE 95 74 - 99 mg/dL GFR >60 >=60 mL/min/1.73 sq meter GFR, >60 >=60 mL/min/1.73 sq meter ANION GAP 11 5 - 15 mmol/L @IMAGES@ Assessment/Plan: Active Problems: HTN (hypertension) Controlled on current rx continue to monitor Poor intake Secondary to post op nausea Continue ivf, antiemetic Chg reglan to scheduled dose leukocytosis Will recheck Enc IS and ambulation DVT Prophylaxis - heparin Current Diet DIET BARIATRIC Additional restrictions: No Soda,, No Sugar,; Food Texture: Clear Liquid, Cuevas: IV:d5 1/2 ns 150 hr Current Planned Disposition - home Plan discussed with patient; questions answered; patient agrees with current plan. Current Code Status -Full Code Approx 20 min were spent in the care of this patient today; this may include family conference, nursing conference and discussion with any sap business intelligence consultant. Enedina Jay, REAGAN [facility] Hospitalist ET TRUCKER * Shanice Katz MD - 06/05/2019 8:41 AM CST Hospital day: 1 Subjective: Ms. Salas denies heart racing, lightheadedness, shortness of breath/dyspnea, vomiting Medication side effects: none Current Facility-Administered Medications Medication Dose Route Frequency Provider Last Rate Last Dose ??? [COMPLETED] lactated ringers bolus solution 2,000 mL 2,000 mL IV Pre-Proc Once Isai Collins MD Stopped at 06/04/19 2200 ??? [COMPLETED] famotidine PF (PEPCID) 20 mg/2 mL injection 20 mg 20 mg IV Pre- Proc Once Franco Collins MD 20 mg at 06/04/19 0931 ??? bupivacaine PF 5 mg/mL (0.5%) 270 mL infusion for On-Q pump See Admin Instructions Continuous Shanice Katz MD ??? [COMPLETED] heparin injection 5,000 Units 5,000 Units subCUT Pre-Proc Once Shanice Katz MD 5,000 Units at 06/04/19 0933 ??? metroNIDAZOLE (FLAGYL) IVPB 500 mg 500 mg IV ONCE Shanice Katz MD ??? scopolamine (TRANSDERM-SCOP) 1 mg/72 hr transdermal patch 1 Patch 1 Patch Transdermal ONCE Shanice Katz MD 1 Patch at 06/04/19 0932 ??? [COMPLETED] ceFAZolin (ANCEF,KEFZOL) 1,000 mg in sodium chloride 0.9% 50 mL IVPB (MBP) 1,000 mgIV Pre-Proc Once Shanice Katz MD 2,000 mg at 06/04/19 1138 ??? lactated ringers infusion IV Post-Proc Continuous Franco Collins MD 125 mL/hr at 06/04/19 1313 ??? [COMPLETED] prochlorperazine (COMPAZINE) injection 5 mg 5 mg IV Post-Proc Once PRN Franco Collins MD 5 mg at 06/04/19 1305 ??? [COMPLETED] sodium chloride 0.9 % irrigation solution 1,000 mL 1,000 mL Irrigation ONCE Shanice Katz MD 1,000 mL at 06/04/19 1140 ??? [COMPLETED] bupivacaine PF (SENSORCAINE MPF) 5 mg/mL (0.5%) injection 150 mg 30 mL See Admin Instructions ONCE Shanice Katz MD 150 mg at 06/04/19 1235 ??? [COMPLETED] acetaminophen (OFIRMEV) 10 mg/ml injection 1,000 mg 1,000 mg IV Pre-Proc Once Franco Collins MD 1,000 mg at 06/04/19 1210 ??? heparin injection 5,000 Units 5,000 Units subCUT q 8 hour Shanice Katz MD 5,000 Units at 06/05/19 0500 ??? [COMPLETED] metroNIDAZOLE (FLAGYL) IVPB 500 mg 500 mg IV Post-Proc q 8 hours Shanice Katz MD Stopped at 06/05/19 0043 ??? [COMPLETED] acetaminophen (OFIRMEV) 10 mg/ml injection 1,000 mg 1,000 mg IV ONCE Shanice Katz MD Stopped at 06/04/19 1843 ??? [COMPLETED] acetaminophen (OFIRMEV) 10 mg/ml injection 1,000 mg 1,000 mg IV ONCE Shanice Katz MD Stopped at 06/04/19 2340 ??? simethicone (MYLICON) 40 mg/0.6 mL drops 40 mg 40 mg Oral q 6 hour PRN Shanice Katz MD 40 mg at 06/05/19 0302 ??? lactated ringers infusion IV Continuous Shanice Katz MD 200 mL/hr at 06/05/19 0538 ??? HYDROcodone-acetaminophen (HYCET) 7.5-325 mg/15 mL oral solution 15 mL 7.5 mg Oral q 4 hour PRNChiShanice frias MD ??? morphine 4 mg/mL injection 2 mg 2 mg IV q 4 hour PRN Shanice Katz MD 2 mg at 06/04/19 2227 ??? HYDROcodone-acetaminophen (HYCET) 7.5-325 mg/15 mL oral solution 15 mL 7.5 mg Oral q 4 hour PRNCShanice salazar MD ??? HYDROmorphone (PF) (DILAUDID) injection 0.3 mg 0.3 mg IV q 4 hour PRN Shanice Katz MD ??? morphine 4 mg/mL injection 2 mg 2 mg IV q 3 hour PRN Shanice Katz MD ??? naloxone (NARCAN) 0.4 mg/mL injection 0.1 mg 0.1 mg IV See Admin Notes Shanice Katz MD ??? ondansetron (ZOFRAN) 4 mg/2 mL injection 4 mg 4 mg IV q 6 hour PRN Shanice Katz MD ??? metoclopramide (REGLAN) 5 mg/mL injection 10 mg 10 mg IV q 6 hour PRN Shanice Katz MD ??? ondansetron (ZOFRAN) 4 mg/2 mL injection 4 mg 4 mg IV q 6 hour PRN Shanice Katz MD 4 mgat 06/04/19 1446 ??? diphenhydrAMINE (BENADRYL) injection 25 mg 25 mg IV q 6 hour PRN Shanice Kazt MD ??? famotidine PF (PEPCID) 20 mg/2 mL injection 20 mg 20 mg IV BID Shanice Katz MD 20 mg at108/06/18 0830 ??? umeclidinium (INCRUSE ELLIPTA) 62.5 mcg/actuation inhaler 1 Puff 1 Puff Inhalation Resp Daily Enedina Jay ANP ??? atorvastatin (LIPITOR) tablet 20 mg 20 mg Oral Daily Enedina Jay ANP 20 mg at 830 ??? cloNIDine HCl (CATAPRES) tablet 0.1 mg 0.1 mg Oral TID PRN Enedina Jay ANP 0.1 mg at 06/05/19 0417 ??? [COMPLETED] lactated ringers bolus solution 500 mL 500 mL IV ONCE Shanice Katz MD Stopped at 06/04/19 2256 ??? [DISCONTINUED] lactated ringers infusion IV Pre-Proc Continuous Franco Collins MD Stopped at 06/04/19 2100 ??? [DISCONTINUED] lidocaine PF 1% (XYLOCAINE MPF) injection 0.3 mL 0.3 mL Intradermal Pre-Proc Once Franco Collins MD ??? [DISCONTINUED] ceFAZolin (ANCEF) 2,000 mg in dextrose (iso-osmotic) 50 mL IVPB (PREMIX) 2,000 mg IV Pre-Proc Once Shanice Katz MD ??? [DISCONTINUED] ceFAZolin (ANCEF,KEFZOL) 1,000 mg in sodium chloride 0.9% 50 mL IVPB (MBP) 1,000mg IV Pre-Proc Once Shanice Katz MD ??? [DISCONTINUED] lactated ringers infusion IV Post-Proc Continuous Franco Collins MD ??? [DISCONTINUED] sodium chloride 0.9% infusion IV Post-Proc Continuous Franco Collins MD ??? [DISCONTINUED] fentaNYL PF (SUBLIMAZE) 50 mcg/mL injection 25 mcg 25 mcg IV Post-Proc q 3 min PRN Franco Collins MD 25 mcg at 06/04/19 1320 ??? [DISCONTINUED] fentaNYL PF (SUBLIMAZE) 50 mcg/mL injection 50 mcg 50 mcg IV Post-Proc q 3 min PRN Franco Collins MD ??? [DISCONTINUED] fentaNYL PF (SUBLIMAZE) 50 mcg/mL injection 50 mcg 50 mcg IV Post-Proc q 3 min PRN Franco Collins MD ??? [DISCONTINUED] HYDROmorphone (PF) (DILAUDID) injection 0.6 mg 0.6 mg IV Post-Proc q 5 min PRN Franco Collins MD ??? [DISCONTINUED] acetaminophen (OFIRMEV) 10 mg/ml injection 1,000 mg 1,000 mg IV ONCE Shanice Katz MD ??? [DISCONTINUED] ceFAZolin (ANCEF) 2,000 mg in dextrose (iso-osmotic) 50 mL IVPB (PREMIX) 2,000 mg IV q 8 hour Shanice Katz MD ??? [DISCONTINUED] heparin injection 5,000 Units 5,000 Units subCUT See Admin Notes Shanice Katz MD ??? [DISCONTINUED] sodium chloride 0.9 % irrigation solution Intra-Proc PRN Shanice Katz MD1,000 mL at 06/04/19 1140 ??? [DISCONTINUED] bupivacaine PF (SENSORCAINE MPF) 5 mg/mL (0.5%) injection Intra-Proc PRN Shanice Katz MD 30 mL at 06/04/19 1235 ??? [DISCONTINUED] atorvastatin (LIPITOR) tablet 20 mg 20 mg Oral Daily Enedina Jay ANP Facility-Administered Medications Ordered in Other Encounters Medication Dose Route Frequency Provider Last Rate Last Dose ??? [DISCONTINUED] rocuronium injection Intra-Proc PRN Dequan Pruitt P, OIL REFINERY PROCESS TECHNICIAN 10 mg at 06/04/19 1136 ??? [DISCONTINUED] midazolam (PF) (VERSED) injection Intra-Proc PRN Dequan Pruitt P, OIL REFINERY PROCESS TECHNICIAN 2 mg at 06/04/19 1107 ??? [DISCONTINUED] fentaNYL PF (SUBLIMAZE) 50 mcg/mL injection Intra-Proc PRN Samir Pruittson P, OIL REFINERY PROCESS TECHNICIAN 100 mcg at 06/04/19 1141 ??? [DISCONTINUED] lidocaine PF 2% (XYLOCAINE MPF) injection Intra-Proc PRN Samir Pruittson P, OIL REFINERY PROCESS TECHNICIAN 5 mL at 06/04/19 1111 ??? [DISCONTINUED] propofol (DIPRIVAN) injection Intra-Proc PRN Dequan Pruitt P, OIL REFINERY PROCESS TECHNICIAN 131 mg at 06/04/19 1111 ??? [DISCONTINUED] succinylcholine (ANECTINE) 140 mg/7 mL (20 mg/mL) injection Intra-Proc PRN Samir Pruittson P, OIL REFINERY PROCESS TECHNICIAN 100 mg at 06/04/19 1111 ??? [DISCONTINUED] ondansetron (ZOFRAN) 4 mg/2 mL injection Intra-Proc PRN Dequan Pruitt P, OIL REFINERY PROCESS TECHNICIAN 4mg at 06/04/19 1145 ??? [DISCONTINUED] dexamethasone (DECADRON) injection Intra-Proc PRN Dequan Pruitt P, OIL REFINERY PROCESS TECHNICIAN 8 mg at108/05/18 1145 Objective: Physical Exam: BP (!) 167/85 (BP Location: Right arm, Patient Position (BP): Supine) Pulse 64 Temp 98.1 ??F (36.7 ??C) (Oral) Resp 20 Ht 5' 6 (1.676 m) Wt 126.2 kg (278 lb 3.2 oz) LMP 05/06/2019 [id number]% BMI 44.90 kg/m?? General appearance: alert, in no distress Lungs: clear to auscultation bilaterally, normal respiratory effort Heart: normal rate, regular rhythm, normal S1, S2, no murmurs, rubs, clicks or gallops Abdomen: Soft, non-tender. Bowel sounds normal. No masses, no organomegaly., Wounds healthy. Extremities: extremities normal, atraumatic, no cyanosis or edema, intact distal pulses, moves all extremities equally, no edema, redness or tenderness in the calves or thighs, normal strength, normal tone Skin: Skin color, texture, turgor normal. No rashes or lesions Data Review: Chemistry: Lab Results Component Value Date/Time NA 140 06/05/2019 05:07 AM K 4.2 06/05/2019 05:07 AM CL 106 06/05/2019 05:07 AM CO2 23 06/05/2019 05:07 AM BUN 6 06/05/2019 05:07 AM CREAT 0.82 06/05/2019 05:07 AM CA 9.3 06/05/2019 05:07 AM CBC: Lab Results Component Value Date/Time WBC 18.2 (H) 06/05/2019 05:07 AM RBC 5.00 06/05/2019 05:07 AM HGB 13.2 06/05/2019 05:07 AM HCT 41.2 06/05/2019 05:07 AM PLT 294 06/05/2019 05:07 AM Cardiac markers: No results found for: CKMB Assessment: Expected post op day 1 recovery. Patient Active Problem List Diagnosis Date Noted ??? HTN (hypertension) 06/04/2019 ??? GERD (gastroesophageal reflux disease) 06/04/2019 ??? Asthma 06/04/2019 Plan: Plan: No other testing at this time I advised diet,ambulate and discharge planning. Instructions fiven regarding fluid intake,incentive spirometry and need for maintaining mobility. ET TRUCKER * Laurel Hawley RN - 06/04/2019 3:52 PM CST This RN received report from DANIEL Cano. ET TRUCKER * Colleen Duncan RN - 05/27/2019 3:08 PM CST Spoke with patient regarding use of c-PAP.lef-reported setting is 14 cm. Advised to bring tubing and mask on day of surgery ET TRUCKER * Lisette Vega, PHARMACIST - 05/27/2019 2:20 PM CST Bariatric Medication Review Per home medication list viewed 05-27-19 1. Amlodipine -- may crush, monitor blood pressure 2. Atorvastatin -- may crush 3. Furosemide (Lasix) -- may crush, monitor blood pressure 4. Lisinopril oral -- may crush, monitor blood pressure 5. Meloxicam oral -- STOP taking this medication per surgical recommendations. This includes all over the counter preparations containing a non-steroidal anti- inflammatory agent (i.e.: Motrin, Ibuprofen, Advil, Naprosyn, Aleve, Aspirin and Aspirin containing products, all combination products containing Ibuprofen or Naprosyn) 6. Metoprolol Tartrate oral -- may crush immediate release tablet, monitor blood pressure 7. Ranitidine (Zantac) 150 mg tablet -- may crush 8. Umeclidinium Cisco (Incruse Ellipta inhaler) -- inhaler R Julissa Vega ET TRUCKER documented in this encounter H&P Notes * Shanice Katz MD - 06/04/2019 10:56 AM CST Subjective: The patient is a 48 y.o. obese female admitted for gastric sleeve surgery. Body mass index is 46.65 kg/m??. Bariatric comorbidities present: hypertension. There are no active problems to display for this patient. Past Medical History: Diagnosis Date ??? Arthritis ??? Asthma ??? GERD (gastroesophageal reflux disease) ??? HTN (hypertension) ??? Hyperlipidemia ??? Obesity ??? Obstructive sleep apnea cpap Past Surgical History: Procedure Laterality Date ??? HX BREAST REDUCTION ??? HX CHOLECYSTECTOMY ??? HX TUBAL LIGATION ??? MD ESOPHAGOGASTRODUODENOSCOPY TRANSORAL DIAGNOSTIC N/A 04/05/2019 ESOPHAGOGASTRODUODENOSCOPY performed by Shanice Katz MD at [facility] Medications Prior to Admission Medication Sig Dispense Refill Last Dose ??? raNITIdine (ZANTAC) 150 mg tablet Take 150 mg by mouth 2 times daily. Past Week at Unknown time ??? MELOXICAM ORAL Take 15 mg by mouth 2 times daily. Past Week at Unknown time ??? METOPROLOL TARTRATE ORAL Take 25 mg by mouth daily. Past Week at Unknown time ??? atorvastatin calcium (ATORVASTATIN ORAL) Take 20 mg by mouth daily. Past Week at Unknown time ??? LISINOPRIL ORAL Take 5 mg by mouth daily. Past Week at Unknown time ??? furosemide (LASIX ORAL) Take 40 mg by mouth 2 times daily. Past Week at Unknown time ??? amlodipine besylate (AMLODIPINE ORAL) Take 5 mg by mouth daily. Past Week at Unknown time ? ? umeclidinium bromide (INCRUSE ELLIPTA INHALATION) Take by inhalation. > Month at Unknown time No Known Allergies Social History Tobacco Use ??? Smoking status: Former Smoker Packs/day: 0.00 ??? Smokeless tobacco: Never Used ??? Tobacco comment: feb 2019-quit Substance Use Topics ??? Alcohol use: Not Currently No family history on file. Review of Systems Negative Objective: Patient Vitals for the past 8 hrs: BP Temp Temp src Pulse Resp SpO2 Height Weight 06/04/19 0937 (!) 148/96 97.3 ??F (36.3 ??C) Temporal 87 20 99 % 5' 6 (1.676 m) 131.1 kg (289 lb) General appearance: alert, in no distress Lungs: clear to auscultation bilaterally, normal respiratory effort Heart: normal rate, regular rhythm, normal S1, S2, no murmurs, rubs, clicks or gallops Abdomen: Soft, non-tender. Bowel sounds normal. No masses, no organomegaly. Extremities: extremities normal, atraumatic, no cyanosis or edema, intact distal pulses, moves all extremities equally, no edema, redness or tenderness in the calves or thighs, normal strength, normal tone Skin: Skin color, texture, turgor normal. No rashes or lesions Data Review: CBC: Lab Results Component Value Date/Time WBC 12.0 (H) 05/08/2019 09:32 AM RBC 4.94 05/08/2019 09:32 AM HGB 13.2 05/08/2019 09:32 AM HCT 40.7 05/08/2019 09:32 AM PLT 292 05/08/2019 09:32 AM BMP: Lab Results Component Value Date/Time GLUCOSE 119 (H) 05/08/2019 09:32 AM NA 139 05/08/2019 09:32 AM K 4.0 05/08/2019 09:32 AM CL 101 05/08/2019 09:32 AM CO2 24 05/08/2019 09:32 AM BUN 7 05/08/2019 09:32 AM CREAT 0.92 05/08/2019 09:32 AM CA 9.4 05/08/2019 09:32 AM Assessment: Morbid obesity with failure of conservative therapy for sleeve gastrectomy. Plan: The patient was informed that risks include, but are not limited to: , anastomotic leak, obstruction, bleeding, and sepsis. Any of these could require further surgery. Other risks include DVT, PE, pneumonia, wound dehiscence, hernia, wound infection, the need for dilatations of her gastrojejunostomy, and the inability to lose appropriate weight and keep it off. We discussed that our goal is to ameliorate her medical problems and not to obtain a specific body mass index. She understands the risks and benefits and wishes to proceed with the procedure. She hassigned a consent form. Date of Surgery Update: There have been no significant clinical changes since the completion of theabove H&P., Patient identified by surgeon and surgical site confirmed by patient and surgeon. Shanice Katz MD ET TRUCKER documented in this encounter Consult Notes * Enedina Jay, ANP - 06/04/2019 1:39 PM CST [facility] Adult Hospitalist Consultation Consult requested by Shanice Flynn MD Patient Name: Key Salas Primary Care Physician: Ebony Rodarte Provider Date of admission: 06/04/2019 Date of Service: 06/04/2019 Impression and Reccomendations htn Post op will utilize clondine prn paola Resume cpap hyperlipidemia Resume statin gerd Agree with iv ppi Asthma without exacerbation Resume incuse inhaler Admission Dx; morbid obesity Chief complaint; Hospitalist group was referred for: htn, paola on cpap, gerd, asthma, hyperlipidema HPI: Patient is a 48 y.o. female who was admitted on 06/04/2019 for laparoscopic sleeve gastrectomyby Dr Stevens. Patient reports hx of being overweight most of her adult life, surgical hx breast reduction, tubal ligation, cholecystectomy. Patient denies smoking or drinking. Family history Father CAD. Patient reports personal medical history of hypertension, asthma, chronic lower leg swelling, osteoarthritis, GERD, sleep apnea on CPAP. Patient's vital signs, consult notes, labs, and imaging studies reviewed by me. Past Medical History: Diagnosis Date ??? Arthritis ??? Asthma ??? GERD (gastroesophageal reflux disease) ??? HTN (hypertension) ??? Hyperlipidemia ??? Obesity ??? Obstructive sleep apnea cpap Active Problems: * No active hospital problems. * Past Surgical History: Procedure Laterality Date ??? HX BREAST REDUCTION ??? HX CHOLECYSTECTOMY ??? HX TUBAL LIGATION ??? MD ESOPHAGOGASTRODUODENOSCOPY TRANSORAL DIAGNOSTIC N/A 04/05/2019 ESOPHAGOGASTRODUODENOSCOPY performed by Shanice Katz MD at [facility] Current Home Medications: Prior to Admission Medications Prescriptions Last Dose Informant Patient Reported? Taking? LISINOPRIL ORAL Past Week at Unknown time Patient Yes Yes Sig: Take 5 mg by mouth daily. MELOXICAM ORAL Past Week at Unknown time Patient Yes Yes Sig: Take 15 mg by mouth 2 times daily. METOPROLOL TARTRATE ORAL Past Week at Unknown time Patient Yes Yes Sig: Take 25 mg by mouth daily. amlodipine besylate (AMLODIPINE ORAL) Past Week at Unknown time Patient Yes Yes Sig: Take 5 mg by mouth daily. atorvastatin calcium (ATORVASTATIN ORAL) Past Week at Unknown time Patient Yes Yes Sig: Take 20 mg by mouth daily. furosemide (LASIX ORAL) Past Week at Unknown time Patient Yes Yes Sig: Take 40 mg by mouth 2 times daily. raNITIdine (ZANTAC) 150 mg tablet Past Week at Unknown time Patient Yes Yes Sig: Take 150 mg by mouth 2 times daily. umeclidinium bromide (INCRUSE ELLIPTA INHALATION) > Month at Unknown time Patient Yes No Sig: Take by inhalation. Facility-Administered Medications: None No Known Allergies No family history on file. Social History: Social History Tobacco Use ??? Smoking status: Former Smoker Packs/day: 0.00 ??? Smokeless tobacco: Never Used ??? Tobacco comment: feb 2019-quit Substance Use Topics ??? 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 Cardiovascular: Patient denies chest pain, or palpitations, chronic lower leg swelling Respiratory: patient denies any shortness of breath, cough sputum production GI: patient denies any nausea, vomiting, diarrhea, constipation or abdominal pain, GERD : Patient denies any dysuria, frequency, urgency or hematuria Muskuloskeletal: patient reports chronic joint pain Integumentary: patient denies any rash, lesions, or itching Endocrine: patient denies ploydipsia, polyphasia or nervousness. Psychiatric: patient denies depression, anxiety, suicidal or homicidal ideations. Physical Exam: Vital Signs: Blood pressure (!) 153/79, pulse 87, temperature 97.5 ??F (36.4 ??C), temperature source Temporal, resp. rate 17, height 5' 6 (1.676 m), weight 131.1 kg (289 lb), last menstrual period 05/06/2019, SpO2 100 %. Appearance: Well-appearing, no pain distress, well-nourished, obese HEENT: Normocephalic, atraumatic, EOMI, PERRLA. no JVD or thyromegaly. Cardiovascular: s1,s2 Regular rate and rhythm without murmurs, rubs or clicks. Pulmonary: No dullness to percussion. Clear to all castellanos bilaterally. GI / : Abdomen lg, soft, tender, nondistended. Bowel sounds absent. Lap inc approx Extremities: No clubbing, cyanosis or edema. Dorsalis pedis pulses palpable bilaterally. MS: Strength / ROM intact, no calf tenderness Skin: Warm and dry, color normal Neurologic: Alert and oriented times 3. Cranial nerves 2-12 are intact. No focal deficits. Psychiatric: Affect / mood appropriate CRANIAL NERVES: II: pupils equal, round, reactive to accommodation III,VII: ptosis not present III,IV,: extraocular muscles Intact V: mastication normal V: facial light touch sensation normal bilaterally VII: facial muscle function - upper and lower normal bilat VIII: hearing seems preserved IX: soft palate elevation normal bilaterally XI: trapezius strength normal bilat XI: sternocleidomastoid strength normal bilat XII: tongue strength normal DATA BASE: Results for orders placed or performed during the hospital encounter of 06/04/19 (from the past 24 hour(s)) HCG QUALITATIVE, URINE Result Value Ref Range HCG QUAL URINE Negative Negative COLOR UA Yellow Pale to Dark Yellow CLARITY UA Clear Clear Thank you for consulting [facility] for this interesting case. I have taken the liberty of writing orders consistent with my recommendations. We will gladly follow the patient throughout their stay. This patient was discussed with Dr. Robles and he agrees with the above plan. REAGAN Suggs ET TRUCKER documented in this encounter OR Notes * Operative Report - Shanice Katz MD - 06/04/2019 11:22 AM CST [facility] OPERATIVE REPORT PATIENT NAME: Key Salas DATE OF : 1970 DATE OF SURGERY: 06/04/2019 PREOPERATIVE DIAGNOSIS: Morbid Obesity with Comorbidities POSTOPERATIVE DIAGNOSIS: Morbid Obesity with Comorbidities PROCEDURES: 1. Laparoscopic Vertical Sleeve Gastrectomy 2. Postoperative Placement of bilateral preperitoneal pain relief catheters. SURGEON: Shanice Katz MD ANAESTHESIA: General SPECIMEN: Stomach not sent for pathology ESTIMATED BLOOD LOSS: 10 ml COMPLICATIONS: None FINDINGS: 1. Intraperitoneal evidence of Morbid obesity. 2. 40 Indonesian VisiG gastric sizing tube was used to perform the sleeve Gastrectomy. OPERATIVE PROCEDURE: After obtaining informed consent, the patient was taken to the operating suite and placed in a supine position where general anesthesia was applied. After appropriate patient identifiers were noted atime-out was called, and then the procedure was commenced. The patient was given an appropriate DVTand antibiotic prophylaxis. The abdomen was prepped and draped in the usual sterile fashion. A small transverse incision was made to the left of midline in the supraumbilical region. The peritoneal cavity was entered with a non bladed obturator under the vision of a 0-degree scope. A pneumoperitoneum was achieved with the insufflation of CO2 and maintained at 15 mmHg. A 5-mm port was placed in the left upper quadrant. A 5 mm and a 15 mm ports were placed in the right upper quadrant. The greater curvature of the stomach was then mobilized with the use of Harmonic Scalpel, extendingfrom the area of the mid antrum all the way up to the level of the angle of His. All posterior attachments were then also mobilized with the harmonic scalpel until the stomach had been completely mobilized. Distally greater curvature was mobilised upto 6 cm proximal to the pylorus. The left drew was dissected away from the stomach until the esophageal hiatus could be visualized. The 40 Indonesian VisiG gastric sizing tube as a bougie was then inserted and directed down to the level of the pylorus and situated along the lesser curvature of the stomach. The stomach was then transected at the antral level extending all the way up to the level of the angle of His. The gastric specimen was then placed lower in the abdomen, and the staple line was inspected. Therewas no evidence of any ongoing bleeding. The bougie was slowly withdrawn up to the level of the esophagogastic junction. The bougie was removed. The sleeve gastrectomy specimen was then removed through the right lateral port site. The right lateral port site was then closed with an interrupted 0-Vicryl suture placed with a grainy needle. The prot site was irrigated with fluid. All ports were then removed under direct vision, and there is no evidence of bleeding at the port sites. Skin incisions were reapproximated with subcuticular PDS sutures and a sterile dressing was applied. A small stab incision was made in the epigastric region. A cigar binder was placed and inserted through the skin, subcut the fascia and muscle to the preperitoneal space on the left side. A catheter wasplaced into the cigar binder as it was withdrawn.The catheter was connected to the pain pump to infusebupivacaine 0.25 %. Similarly a catheter was placed on the right side. Patient tolerated the procedure well and was transferred to the recovery room in stable condition. Shanice Katz MD ET TRUCKER * Phyllis-OP - Lisette Bonilla RN - 06/04/2019 9:39 AM CST Patient resting on bed comfortably. Call light within reach. No H&P noted in chart. Anesthesia has not yet been by to see patient pre-procedure. Stop sign in place per protocol. Family updated onpt status. Will continue to monitor. ET TRUCKER documented in this encounter Miscellaneous Notes * Care Plan - Laurel Hawley RN - 06/06/2019 12:39 PM CST Day 1 - Current ([place] [facility]: Adult and Obstetrics) Patient, family, or healthcare designee is participating in individual care plan process Outcome: Met Patient, family, or healthcare designee understands side effects of medications Outcome: Met Pathway Day 1 - Current (INTERDIS PW: BARIATRIC SURGERY - POST-OP) Fluid Management: (Maintain Hydration) Patient verbalizes understanding of the importance of hydration. Urine output equal to or greater than 30 mL/Hour. Outcome: Met Activity/Rehab: Patient will be able to perform ADLs and ambulate day of surgery with minimal assistance. Encourage ambulation within two hours after recovery from anesthesia. Outcome: Met Hemodynamics: Patient able to maintain SBP greater than 90 and less than 150 mmHg, HR greater than 50 and less than 100/min, Respirations greater than 10/min and less than 29/min, O2 sat greater thanor equal to 92%. Outcome: Met Pain Management: Patient verbalizes pain reduction and determines acceptable level/goal (0-10) thatwill allow for maximal function with ADLs. Outcome: Met Surgical Site: (Impaired Skin Integrity) Patient is free of signs of infection, (fever, redness, swelling, drainage) Wound and drain assessment (target </= 30 mL/day) Outcome: Met Nutrition: Patient verbalizes understanding of dietary restriction and modification. Patient verbalizes no or decreased nausea and vomiting. Outcome: Met Respiratory: Patient verbalizes understanding of and compliance with O2 devices. Outcome: Met Neurovascular: (DVT/VTE Prevention) Free of signs and symptoms of DVT/VTE. Ambulation day of surgery. Encourage ambulation within two hours after recovery from anesthesia. Outcome: Met Discharge Planning: Discharge needs identified and patient verbalizes understanding of medications and follow-up. Outcome: Met Problem: Medications Goal: Absence of/Reduce Fall Risk r/t Medications Description Patient is a fall risk because of medications (i.e. - BP meds, CV/SENIOR [employer] ENGINEER meds, seizure meds, diuretics, pain meds, psych meds, current chemotherapy). Potential Interventions: 1. Orthostatic VS q day; educate to dangle before rising 2. Educate patient and family on how medications increase patient's fall risk (may make dizzy, lower BP, etc) 3. Do first dose education with all med/dosage changes. Document education 4.Reassess fall risk whenever a medication is changed/added (sleeping pill, pain med, BP med dose adjustment, etc) 5. Activate bed or chair alarm while in bed or up in chair 6. Limit combination of PRN meds whenever possible (i.e. - space out narcs and benzos) 7. Schedule frequent toileting for patients on diuretic to help prevent emergencies 8. Consult pharmacy to review meds and make recommendations (determine best timing, possible dosingadjustments, or identify other education that might be appropriate for patient) 9. Use floor mats next to bed and in front of chair when patient left unattended 10.Do not leave patient unattended while toileting or showering 11.Use appropriate assistive equipment (walker, shower chair, etc) 12. Include information on high risk medications, last doses, and patient tolerance in hand-off communication Outcome: Progressing Problem: Behavior Goal: Absence of/Reduce Fall Risk r/t Behavior Description Potential Interventions: 1. Specialty low bed 2. Use floor mats next to bed and in front of chair when patient left unattended 3. Engage patient in daily routine/activity 4. Provide appropriate diversion activities (i.e. - coloring, crosswords, activity blanket, towel folding, books) 5. Alcohol withdrawal protocol/CIWA assessment as ordered 6. Encourage family to stay with patient 7. Use appropriate de-escalation techniques 8. Consulting pharmacy to review meds and make recommendations (determine best timing, possible dosing adjustments, or identify other education that might be appropriate for patient) 9. Utilize relaxation channel to soothe patient 10. Patient sitter 11. Appropriate lighting for day/night Outcome: Progressing Problem: Pain, Potential/Actual Goal: Verbalizes/displays acceptable comfort level or baseline comfort level Description Outcome: Progressing Problem: Infection Risk/Actual Goal: Infection Risk/Actual: Infection prevention, control, or resolution by discharge Description Outcome: Progressing Problem: Safety/Fall Goal: Safety/Fall: Absence of fall, injury, harm during hospitalization Description Outcome: Progressing Problem: Discharge Planning Goal: Identify discharge needs upon admission and through discharge Description Outcome: Progressing Problem: Peripheral Neurovascular Goal: Achieve optimal peripheral neurovascular function by discharge or maintain baseline function Outcome: Progressing Problem: Respiratory Goal: Achieve optimal respiratory function by discharge and/or maintain baseline function Outcome: Progressing Problem: Gastrointestinal Goal: Achieve optimal gastrointestinal function by discharge or maintain baseline function Outcome: Progressing Problem: Skin Goal: Maintain skin integrity and/or promote wound healing by discharge Outcome: Progressing Problem: Mobility Goal: Absence of/Reduce Fall Risk r/t Mobility Deficits Description Patient is a fall risk because of mobility deficits. A patient with mobility deficits is automatically at high risk for falls. Potential Interventions: 1. Schedule patient toileting to avoid emergency trips to the bathroom 2. If available, use floor mats next to bed or in front of chair when up 3. If applicable, remove floor mats when getting patient up and replace when leaving patient 4. Assistive devices as required, educate patient on correct use of device (walkers, shower chairs,lift equipment, etc.) 5. Exit bed on patient's strongest side 6. Gait belt easily accessible 7. Activate bed or chair alarm while in bed or up in chair 8. Get order for PT consult if appropriate 9. Patient requires 2 assist - bedpan and bed bath if 2 staff not available, bedside commode if 2 staff are available entire time 10. Slow progressive position changes if patient experiencing dizziness Outcome: Progressing Problem: Volume/Electrolyte Status Goal: Absence of/Reduce Fall Risk r/t Volume/Electrolyte Status Description Patient is a fall risk due to volume/electrolyte status (i.e. - electrolyte imbalances, nausea/vomiting, NPO, IV fluids). Potential Interventions: 1. Ensure blood sugar is checked at appropriate intervals and insulin dosing is given as ordered 2. Provide patient with an emesis basin or vomit bag (may need more than one at bedside) 3. Assess length of IV and/or O2 tubing if applicable 4. Ensure IV fluids are given as ordered for NPO patients to maintain hydration 5. Administer medications for nausea and vomiting as needed Outcome: Progressing Problem: Nutrition/Endocrine Goal: Achieve optimal nutrition and fluid status to meet metabolic needs throughout hospitalization Outcome: Progressing ET TRUCKER * Care Plan - Anne Larkin RN - 06/06/2019 4:24 AM CST Pathway Day 1 - Current ([facility] PW: BARIATRIC SURGERY - POST-OP) Hemodynamics: Patient able to maintain SBP greater than 90 and less than 150 mmHg, HR greater than 50 and less than 100/min, Respirations greater than 10/min and less than 29/min, O2 sat greater thanor equal to 92%. Outcome: Not Met 0000 Patient BP noted at 180/94 patient denies any dizziness, nausea or headache 0249 BP still remains high measured at 180/109 manually. Patient denies any symptoms. Clonidine administered 414 Blood pressure rechecked measured at 140/71 ET TRUCKER * Care Plan - Anne Larkin RN - 06/05/2019 2:20 AM CST Patient blood pressure continues to run high. Heart rate was in low to mid 90's. Patient administered 500 ml bolus Pathway Day of Surgery - Current (INTERDIS PW: BARIATRIC SURGERY - POST-OP) Hemodynamics: Patient able to maintain SBP greater than 90 and less than 150 mmHg, HR greater than 50 and less than 100/min, Respirations greater than 10/min and less than 29/min, O2 sat greater thanor equal to 92%. Outcome: Not Met ET TRUCKER * Care Plan - Laurel Hawley RN - 06/04/2019 6:22 PM CST Pt has been resting quietly. Pt has ambulated halls one time since arrival. Pt requires reinforcement for use of IS and ambulation. Pt resting with call light in reach. Pathway Day of Surgery - Current ([facility] PW: BARIATRIC SURGERY - POST-OP) Fluid Management: (Maintain Hydration) Patient verbalizes understanding of the importance of hydration. Urine output equal to or greater than 30 mL/Hour. Outcome: Not Met Day 1 - Current ([place] Pathway: Adult and Obstetrics) Patient, family, or healthcare designee is participating in individual care plan process Outcome: Met Patient, family, or healthcare designee understands side effects of medications Outcome: Met Pathway Day of Surgery - Current ([facility] PW: BARIATRIC SURGERY - POST-OP) Activity/Rehab: Patient will be able to perform ADLs and ambulate day of surgery with minimal assistance. Encourage ambulation within two hours after recovery from anesthesia. Outcome: Met Hemodynamics: Patient able to maintain SBP greater than 90 and less than 150 mmHg, HR greater than 50 and less than 100/min, Respirations greater than 10/min and less than 29/min, O2 sat greater thanor equal to 92%. Outcome: Met Pain Management: Patient verbalizes pain reduction and determines acceptable level/goal (0-10) thatwill allow for maximal function with ADLs. Outcome: Met Surgical Site: (Impaired Skin Integrity) Patient is free of signs of infection, (fever, redness, swelling, drainage) Wound and drain assessment (target </= 30 mL/day). Outcome: Met Nutrition: Patient verbalizes understanding of dietary restriction and modification. Patient verbalizes none or decreased nausea and vomiting. Outcome: Met Respiratory: Patient verbalizes understanding of and compliance with O2 devices. Outcome: Met Neurovascular: (DVT/VTE Prevention) Free of signs and symptoms of DVT/ VTE. Ambulation day of surgery. Encourage ambulation within two hours after recovery from anesthesia. Outcome: Met Discharge Planning: Discharge needs identified and patient verbalizes understanding of medications and follow-up. Outcome: Met Problem: Medications Goal: Absence of/Reduce Fall Risk r/t Medications Description Patient is a fall risk because of medications (i.e. - BP meds, CV/[employer]IOR [employer] meds, seizure meds, diuretics, pain meds, psych meds, current chemotherapy). Potential Interventions: 1. Orthostatic VS q day; educate to dangle before rising 2. Educate patient and family on how medications increase patient's fall risk (may make dizzy, lower BP, etc) 3. Do first dose education with all med/dosage changes. Document education 4.Reassess fall risk whenever a medication is changed/added (sleeping pill, pain med, BP med dose adjustment, etc) 5. Activate bed or chair alarm while in bed or up in chair 6. Limit combination of PRN meds whenever possible (i.e. - space out narcs and benzos) 7. Schedule frequent toileting for patients on diuretic to help prevent emergencies 8. Consult pharmacy to review meds and make recommendations (determine best timing, possible dosingadjustments, or identify other education that might be appropriate for patient) 9. Use floor mats next to bed and in front of chair when patient left unattended 10.Do not leave patient unattended while toileting or showering 11.Use appropriate assistive equipment (walker, shower chair, etc) 12. Include information on high risk medications, last doses, and patient tolerance in hand-off communication Outcome: Progressing Problem: Behavior Goal: Absence of/Reduce Fall Risk r/t Behavior Description Potential Interventions: 1. Specialty low bed 2. Use floor mats next to bed and in front of chair when patient left unattended 3. Engage patient in daily routine/activity 4. Provide appropriate diversion activities (i.e. - coloring, crosswords, activity blanket, towel folding, books) 5. Alcohol withdrawal protocol/CIWA assessment as ordered 6. Encourage family to stay with patient 7. Use appropriate de-escalation techniques 8. Consulting pharmacy to review meds and make recommendations (determine best timing, possible dosing adjustments, or identify other education that might be appropriate for patient) 9. Utilize relaxation channel to soothe patient 10. Patient sitter 11. Appropriate lighting for day/night Outcome: Progressing Problem: Pain, Potential/Actual Goal: Verbalizes/displays acceptable comfort level or baseline comfort level Description Outcome: Progressing Problem: Infection Risk/Actual Goal: Infection Risk/Actual: Infection prevention, control, or resolution by discharge Description Outcome: Progressing Problem: Safety/Fall Goal: Safety/Fall: Absence of fall, injury, harm during hospitalization Description Outcome: Progressing Problem: Discharge Planning Goal: Identify discharge needs upon admission and through discharge Description Outcome: Progressing Problem: Peripheral Neurovascular Goal: Achieve optimal peripheral neurovascular function by discharge or maintain baseline function Outcome: Progressing Problem: Respiratory Goal: Achieve optimal respiratory function by discharge and/or maintain baseline function Outcome: Progressing Problem: Skin Goal: Maintain skin integrity and/or promote wound healing by discharge Outcome: Progressing ET TRUCKER * Care Plan - Digna Bingham RN - 06/04/2019 4:12 PM CST Problem: Discharge Planning Goal: Identify discharge needs upon admission and through discharge Description Outcome: Progressing Clinical documentation reviewed. No immediate needs for discharge planning/Care Management consult identified. Please place consult if needs for discharge planning/Care Management consult are identified. Care Management will continue to follow for discharge planning. Post op GASTRECTOMY LONGITUDINAL LAPAROSCOPIC. Readmit risk 2. WAYNE Frost, RN, Plant Science Professor Nikki Sarabia Care Management ET TRUCKER * Care Plan - Lisette Bonilla RN - 06/04/2019 9:39 AM CST Knowledge deficit related to procedure/environment Interventions: Assess learning needs and willingness to learn; give clear, concise explanations of the environment and sequence of events surrounding the periop experience; address patient/family questions and concerns; provide teaching as indicated, provide teaching related to postoperative pain assessment utilizing pain scales Expected Outcome: Patient verbalizes or demonstrates awareness/understanding of surgery and perioperative experience Outcome Met: Discussed pre op protocols, questions answered, verbalized understanding. ET TRUCKER documented in this encounter Plan of Treatment Not on file documented as of this encounter Procedures Procedure Name Priority Date/Time Associated Diagnosis Comments CBC WITH DIFFERENTIAL Routine 06/06/2019 9:17 AM CULLET TRUCKER BASIC METABOLIC PANEL Stat 06/06/2019 9:17 AM CULLET TRUCKER CBC WITH DIFFERENTIAL Routine 06/05/2019 4:57 PM CULLET TRUCKER CBC WITH DIFFERENTIAL Routine 06/05/2019 5:07 AM CULLET TRUCKER BASIC METABOLIC PANEL Routine 06/05/2019 5:07 AM CULLET TRUCKER MD LAPS GSTRC RSTRICTIV PX LONGITUDINAL GASTRECTOMY 06/04/2019 10:59 AM CULLET TRUCKER Morbid (severe) obesity due to excess calories Case Notes [id number] 05-27-19 HCG QUALITATIVE, URINE Stat 06/04/2019 9:23 AM CULLET TRUCKER documented in this encounter Results * (ABNORMAL) BASIC METABOLIC PANEL (06/06/2019 9:17 AM CULLET TRUCKER) SODIUM 138 136 - 145 mmol/L 06/06/2019 9:49 AM CULLET TRUCKER [facility] [place] POTASSIUM 4.1 3.5 - 5.1 mmol/L 06/06/2019 9:49 AM CULLET TRUCKER [facility] [place] CHLORIDE 103 98 - 107 mmol/L 06/06/2019 9:49 AM CULLET TRUCKER [facility] [place] CO2 25 22 - 29 mmol/L 06/06/2019 9:49 AM CULLET TRUCKER [facility] [place] CALCIUM 9.0 8.6 - 10.0 mg/dL 06/06/2019 9:49 AM CULLET TRUCKER [facility] [place] BUN 6 6 - 20 mg/dL 06/06/2019 9:49 AM CULLET TRUCKER [facility] [place] CREATININE 0.90 0.51 - 0.95 mg/dL 06/06/2019 9:49 AM CULLET TRUCKER [facility] [place] GLUCOSE 123(H) 74 - 99 mg/dL 06/06/2019 9:49 AM CULLET TRUCKER [facility] [place] GFR >60 >=60 mL/min/1.7 3 sq meter 06/06/2019 9:49 AM CULLET TRUCKER [facility] [place] Comment: eGFR has not been validated for use in the elderly (> 70 years of age), women, patients with serious co-morbid conditions, or persons with extremes of body size or muscle mass and should also be interpreted with caution in patients with acute kidney failure, dialysis dependent patients, patients reporting exceptional dietary intake (e.g. vegetarian diet, high protein diets, creatine supplementation), and patients with severe liver disease. Based on National Kidney Disease Education Program If patient is , please refer to the GFR result. GFR, >60 >=60 mL/min/1.7 3 sq meter 06/06/2019 9:49 AM [facility] [employer] [facility] [place] ANION GAP 10 5 - 15 mmol/L 06/06/2019 9:49 AM [facility] [employer] [facility] Blood Venipuncture / Unknown 06/06/2019 9:17 AM CULLET TRUCKER 06/06/2019 9:29 AM CULLET TRUCKER Enedina Jay ANP CHEMISTRY ORDERAB LES [facility] [employer] [facility] [place] CLIA # [id number] [facility] [address] [place] [id number] * (ABNORMAL) CBC WITH DIFFERENTIAL (06/06/2019 9:17 AM CULLET TRUCKER) WBC 13.2(H) 4.0 - 11.0 K/uL 06/06/2019 9:29 AM [facility] [employer] [facility] RBC 4.86 4.20 - 5.40 M/uL 06/06/2019 9:29 AM [facility] [employer] [facility] HEMOGLOBIN 12.7 11.9 - 15.1 g/dL 06/06/2019 9:29 AM [facility] [employer] [facility] HEMATOCRIT 39.8 38.0 - 47.0 % 06/06/2019 9:29 AM [facility] [employer] [facility] MCV 81.9 80.0 - 98.0 fL 06/06/2019 9:29 AM [facility] [employer] [facility] [place] MCH 26.1 26.0 - 34.0 pg 06/06/2019 9:29 AM [facility] [employer] [facility] MCHC 31.9 31.0 - 37.0 g/dL 06/06/2019 9:29 AM [facility] [employer] [facility] RDW 14.5 11.5 - 14.5 % 06/06/2019 9:29 AM [facility] [employer] [facility] [place] RDW-STDEV 43.6 34.0 - 54.0 fL 06/06/2019 9:29 AM [facility] [employer] [facility] [place] PLATELETS 280 150 - 400 K/uL 06/06/2019 9:29 AM [facility] [employer] [facility] [place] MPV 10.1 8.5 - 12.5 fL 06/06/2019 9:29 AM [facility] [place] NEUTROPHILS 69 50 - 70 % 06/06/2019 9:29 AM [facility] [place] LYMPHOCYTES 26 20 - 40 % 06/06/2019 9:29 AM [facility] [employer] [facility] [place] MONOCYTES 4 2 - 8 % 06/06/2019 9:29 AM [facility] [employer] [facility] [place] EOSINOPHILS 1 1 - 3 % 06/06/2019 9:29 AM [facility] [employer] [facility] [place] BASOPHILS 0 0 - 1 % 06/06/2019 9:29 AM [facility] [employer] [facility] [place] IMMATURE GRANULOCYTES 0 0 - 2 % 06/06/2019 9:29 AM [facility] [employer] [facility] - [place] NEUTROPHIL ABSOLUTE 9.05(H) 1.80 - 7.70 K/uL 06/06/2019 9:29 AM [facility] [employer] [facility] [place] LYMPHOCYTE ABSOLUTE 3.37(H) 1.00 - 3.30 K/uL 06/06/2019 9:29 AM [facility] [employer] [facility] [place] MONOCYTE ABSOLUTE 0.52 0.00 - 0.80 K/uL 06/06/2019 9:29 AM [facility] [employer] [facility] [place] EOSINOPHIL ABSOLUTE 0.17 0.00 - 0.45 K/uL 06/06/2019 9:29 AM [facility] [employer] [facility] [place] BASOPHILS ABSOLUTE 0.05 0.00 - 0.20 K/uL 06/06/2019 9:29 AM [facility] [employer] [facility] [place] IMMATURE GRANULOCYTES ABSOLUTE 0.04 0.00 - 0.31 K/uL 06/06/2019 9:29 AM [facility] [employer] [facility] [place] Blood Venipuncture / Unknown 06/06/2019 9:17 AM CULLET TRUCKER 06/06/2019 9:25 AM [facility] Enedina L Kornhardt ANP HEMATOLOGY ORDERA BLES [facility] [place] CLIA # [id number] [facility] [address] [place] [address] * (ABNORMAL) CBC WITH DIFFERENTIAL (06/05/2019 4:57 PM CULLET TRUCKER) WBC 18.6(H) 4.0 - 11.0 K/uL 06/05/2019 5:19 PM CULLET TRUCKER [facility] [place] RBC 5.10 4.20 - 5.40 M/uL 06/05/2019 5:19 PM [facility] [place] HEMOGLOBIN 13.3 11.9 - 15.1 g/dL 06/05/2019 5:19 PM [facility] [place] HEMATOCRIT 41.2 38.0 - 47.0 % 06/05/2019 5:19 PM [facility] [place] MCV 80.8 80.0 - 98.0 fL 06/05/2019 5:19 PM [facility] [employer] [facility] - [place] MCH 26.1 26.0 - 34.0 pg 06/05/2019 5:19 PM [facility] [place] MCHC 32.3 31.0 - 37.0 g/dL 06/05/2019 5:19 PM [facility] [place] RDW 14.4 11.5 - 14.5 % 06/05/2019 5:19 PM [facility] [employer] SERVICES - [place] RDW-STDEV 42.3 34.0 - 54.0 fL 06/05/2019 5:19 PM [facility] [employer] [facility] - [place] PLATELETS 314 150 - 400 K/uL 06/05/2019 5:19 PM [facility] [employer] [facility] - [place] MPV 10.3 8.5 - 12.5 fL 06/05/2019 5:19 PM [facility] [place] NEUTROPHILS 76(H) 50 - 70 % 06/05/2019 5:19 PM [facility] [place] LYMPHOCYTES 20 20 - 40 % 06/05/2019 5:19 PM [facility] [place] MONOCYTES 3 2 - 8 % 06/05/2019 5:19 PM [facility] [place] EOSINOPHILS 0(L) 1 - 3 % 06/05/2019 5:19 PM [facility] [place] BASOPHILS 0 0 - 1 % 06/05/2019 5:19 PM [facility] [place] IMMATURE GRANULOCYTES 0 0 - 2 % 06/05/2019 5:19 PM [facility] [place] NEUTROPHIL ABSOLUTE 14.07(H) 1.80 - 7.70 K/uL 06/05/2019 5:19 PM [facility] [place] LYMPHOCYTE ABSOLUTE 3.73(H) 1.00 - 3.30 K/uL 06/05/2019 5:19 PM [facility] [place] MONOCYTE ABSOLUTE 0.61 0.00 - 0.80 K/uL 06/05/2019 5:19 PM [facility] [place] EOSINOPHIL ABSOLUTE 0.01 0.00 - 0.45 K/uL 06/05/2019 5:19 PM [facility] [place] BASOPHILS ABSOLUTE 0.05 0.00 - 0.20 K/uL 06/05/2019 5:19 PM [facility] [place] IMMATURE GRANULOCYTES ABSOLUTE 0.08 0.00 - 0.31 K/uL 06/05/2019 5:19 PM [facility] [place] Blood Venipuncture / Unknown 06/05/2019 4:57 PM CULLET TRUCKER 06/05/2019 5:17 PM CULLET TRUCKER Enedina Jay ANP HEMATOLOGY ORDERA BLES [facility] [place] CLIA # [id number] [facility] [address] [place] [address] * BASIC METABOLIC PANEL (06/05/2019 5:07 AM CULLET TRUCKER) SODIUM 140 136 - 145 mmol/L 06/05/2019 5:30 AM CULLET TRUCKER [facility] [place] POTASSIUM 4.2 3.5 - 5.1 mmol/L 06/05/2019 5:30 AM CULLET TRUCKER [facility] [place] CHLORIDE 106 98 - 107 mmol/L 06/05/2019 5:30 AM CULLET TRUCKER [facility] [place] CO2 23 22 - 29 mmol/L 06/05/2019 5:30 AM CULLET TRUCKER [employer] [facility] [place] CALCIUM 9.3 8.6 - 10.0 mg/dL 06/05/2019 5:30 AM [facility] [employer] [facility] [place] BUN 6 6 - 20 mg/dL 06/05/2019 5:30 AM [facility] [place] CREATININE 0.82 0.51 - 0.95 mg/dL 06/05/2019 5:30 AM [facility] [employer] [facility] [place] GLUCOSE 95 74 - 99 mg/dL 06/05/2019 5:30 AM [facility] [employer] [facility] [place] GFR >60 >=60 mL/min/1.7 3 sq meter 06/05/2019 5:30 AM [facility] [employer] [facility] [place] Comment: eGFR has not been validated for use in the elderly (> 70 years of age), women, patients with serious co-morbid conditions, or persons with extremes of body size or muscle mass and should also be interpreted with caution in patients with acute kidney failure, dialysis dependent patients, patients reporting exceptional dietary intake (e.g. vegetarian diet, high protein diets, creatine supplementation), and patients with severe liver disease. Based on National Kidney Disease Education Program If patient is , please refer to the GFR result. GFR, >60 >=60 mL/min/1.7 3 sq meter 06/05/2019 5:30 AM [facility] [employer] [facility] [place] ANION GAP 11 5 - 15 mmol/L 06/05/2019 5:30 AM [facility] [employer] [facility] [place] Blood Venipuncture / Unknown 06/05/2019 5:07 AM CULLET TRUCKER 06/05/2019 5:15 AM CULLET TRUCKER Shanice Katz MD CHEMISTRY ORDERABL ES [facility] [employer] [facility] [place] CLIA # [id number] [facility] [address] [place] [address] * (ABNORMAL) CBC WITH DIFFERENTIAL (06/05/2019 5:07 AM CULLET TRUCKER) WBC 18.2(H) 4.0 - 11.0 K/uL 06/05/2019 5:13 AM [facility] [place] RBC 5.00 4.20 - 5.40 M/uL 06/05/2019 5:13 AM [facility] [place] HEMOGLOBIN 13.2 11.9 - 15.1 g/dL 06/05/2019 5:13 AM [facility] [place] HEMATOCRIT 41.2 38.0 - 47.0 % 06/05/2019 5:13 AM [facility] [place] MCV 82.4 80.0 - 98.0 fL 06/05/2019 5:13 AM [facility] [place] MCH 26.4 26.0 - 34.0 pg 06/05/2019 5:13 AM [facility] [place] MCHC 32.0 31.0 - 37.0 g/dL 06/05/2019 5:13 AM [facility] [place] RDW 14.4 11.5 - 14.5 % 06/05/2019 5:13 AM [facility] LABOR[facility] [place] RDW-STDEV 42.4 34.0 - 54.0 fL 06/05/2019 5:13 AM [facility] [employer] SERVICES - [place] PLATELETS 294 150 - 400 K/uL 06/05/2019 5:13 AM [facility] [place] MPV 10.1 8.5 - 12.5 fL 06/05/2019 5:13 AM [facility] [place] NEUTROPHILS 83(H) 50 - 70 % 06/05/2019 5:13 AM [facility] [place] LYMPHOCYTES 13(L) 20 - 40 % 06/05/2019 5:13 AM [facility] [place] MONOCYTES 3 2 - 8 % 06/05/2019 5:13 AM [facility] [place] EOSINOPHILS 0(L) 1 - 3 % 06/05/2019 5:13 AM [facility] [place] BASOPHILS 0 0 - 1 % 06/05/2019 5:13 AM [facility] [place] IMMATURE GRANULOCYTES 1 0 - 2 % 06/05/2019 5:13 AM [facility] [place] NEUTROPHIL ABSOLUTE 15.01(H) 1.80 - 7.70 K/uL 06/05/2019 5:13 AM [facility] [place] LYMPHOCYTE ABSOLUTE 2.41 1.00 - 3.30 K/uL 06/05/2019 5:13 AM CULLET TRUCKER [facility] [place] MONOCYTE ABSOLUTE 0.61 0.00 - 0.80 K/uL 06/05/2019 5:13 AM [facility] [place] EOSINOPHIL ABSOLUTE 0.00 0.00 - 0.45 K/uL 06/05/2019 5:13 AM [facility] TRUCKER [facility] [place] BASOPHILS ABSOLUTE 0.02 0.00 - 0.20 K/uL 06/05/2019 5:13 AM [facility] TRUCKER [facility] [place] IMMATURE GRANULOCYTES ABSOLUTE 0.12 0.00 - 0.31 K/uL 06/05/2019 5:13 AM CULLET TRUCKER [facility] [place] Blood Venipuncture / Unknown 06/05/2019 5:07 AM CULLET TRUCKER 06/05/2019 5:11 AM CULLET TRUCKER Shanice Katz MD HEMATOLOGY ORDERAB LES [facility] [employer] [facility] - [place] CLIA # [id number] [address] [place] [address] * HCG QUALITATIVE, URINE (06/04/2019 9:23 AM CULLET TRUCKER) HCG QUAL URINE Negative Negative 06/04/2019 9:40 AM CULLET TRUCKER [facility] [place] COLOR UA Yellow Pale to Dark Yellow 06/04/2019 9:40 AM CULLET TRUCKER [facility] [place] CLARITY UA Clear Clear 06/04/2019 9:40 AM [facility] [place] Urine URINE SPECIMEN OBTAINED BY CLEAN CATCH PROCEDURE / Unknown Collection / Unknown 06/04/2019 9:23 AM CULLET TRUCKER 06/04/2019 9:30 AM CULLET TRUCKER Narrative [facility] [place] - 06/04/2019 9:40 AM CULLET TRUCKER hCG sensitive to as little as 20 mIU/mL for urine Franco Collins MD URINE ORDERABLES [facility] [employer] - [place] CLIA # [id number] [address] [place] [address] documented in this encounter Visit Diagnoses Diagnosis Morbid obesity with body mass index of 40.0-49.9- Primary HTN (hypertension) Unspecified essential hypertension GERD (gastroesophageal reflux disease) Esophageal reflux Asthma Unspecified asthma Poor fluid intake Other symptoms concerning nutrition, metabolism, and development Post-operative nausea and vomiting Nausea with vomiting Post-op pain Other acute postoperative pain documented in this encounter Administered Medications Inactive Administered Medications - up to 3 most recent administrations Medication Order MAR Action Action Date Dose Rate Site acetaminophen (OFIRMEV) 10 mg/ml injection 1,000 mg 1,000 mg, IV, ONE TIME ONLY, 1 dose, On Mon06/04/19 at 1800, Routine, Post-op - Floor Rate Verify 06/04/2019 6:41 PM CULLET TRUCKER 400 mL /hr Rate Verify 06/04/2019 6:29 PM CULLET TRUCKER 400 mL/hr New Bag 06/04/2019 6:28 PM CULLET TRUCKER 1,000 mg 400 mL/hr acetaminophen (OFIRMEV) 10 mg/ml injection 1,000 mg 1,000 mg, IV, ONE TIME ONLY, 1 dose, On Mon06/05/19 at 0000, Routine, Post-op - Floor Rate Verify 06/04/2019 11:29 PM CULLET TRUCKER 400 m L/hr New Bag 06/04/2019 11:25 PM CULLET TRUCKER 1,000 mg 400 mL/hr atorvastatin (LIPITOR) tablet 20 mg 20 mg, Oral, DAILY, First dose (after last modification) on Mon06/05/19 at 0900, Until Discontinued, Previous Med: atorvastatin calcium (ATORVASTATIN ORAL) - Orig Sig - Take 20 mg by mouth daily. Given 06/06/2019 8:14 AM CULLET TRUCKER 20 mg Given 06/05/2019 8:30 AM CULLET TRUCKER 20 mg bupivacaine PF (SENSORCAINE MPF) 5 mg/mL (0.5%) injection 150 mg 150 mg (30 mL), See Admin Instructions, ONE TIME ONLY, 1 dose, On Mon06/04/19 at 1045, Routine Given 06/04/2019 12:35 PM CULLET TRUCKER 150 mg Operative Site bupivacaine PF 5 mg/mL (0.5%) 270 mL infusion for On-Q pump See Admin Instructions, CONTINUOUS, Starting on Mon06/04/19 at 0915, Until Araceli 06/06/19 at 1408, Stat, Pre-op New Bag 06/04/2019 1:03 PM CULLET TRUCKER Abdom inal Tissue cloNIDine HCl (CATAPRES) tablet 0.1 mg 0.1 mg, Oral, THREE TIMES DAILY PRN, Starting on Mon06/04/19 at 1337, Until Araceli 06/06/19 at 1408, Blood Pressure, sbp >180 min hr 60, Routine Given 06/06/2019 2:49 AM CULLET TRUCKER 0.1 mg Given 06/05/2019 4:17 AM CULLET TRUCKER 0.1 mg diphenhydrAMINE (BENADRYL) injection 25 mg 25 mg, IV, EVERY 6 HOURS PRN, Starting on Mon06/04/19 at 1422, Until Araceli 06/06/19 at 1408, Itching, Routine, Post-op - Floor famotidine PF (PEPCID) 20 mg/2 mL injection 20 mg 20 mg, IV, PRE-PROCEDURE ONCE, 1 dose, Starting on Mon06/04/19 at 0909, Until Mon06/04/19 at 0931, Stat, Pre-op Given 06/04/2019 9:31 AM [facility] 20 mg famotidine PF (PEPCID) 20 mg/2 mL injection 20 mg 20 mg, IV, TWO TIMES DAILY, First dose on Mon06/04/19 at 2100, Until Discontinued, Routine, Post-op - Floor Given 06/06/2019 8:14 AM [facility] 20 mg Given 06/05/2019 8:53 PM [facility] 20 mg Given 06/05/2019 8:30 AM [facility] 20 mg fentaNYL PF (SUBLIMAZE) 50 mcg/mL injection 25 mcg 25 mcg, IV, POST-PROCEDURE Q 3 MINUTES PRN, 5 doses, Starting on Mon06/04/19 at 0953, Until Mon06/04/19 at 1421, Pain, Routine, PACU Given 06/04/2019 1:20 PM [facility] 25 mcg heparin injection 5,000 Units 5,000 Units, subCUT, PRE-PROCEDURE ONCE, 1 dose, Starting on Mon06/04/19 at 0909, Until Mon06/04/19 at 0933, Stat, Pre-op Given 06/04/2019 9:33 AM [facility] 5,000 Units Abdomen, Left Lower Quadrant heparin injection 5,000 Units 5,000 Units, subCUT, EVERY 8 HOURS, First dose on Mon06/04/19 at 1730, Until Discontinued, Routine, Post-op - Floor Given 06/06/2019 4:28 AM [facility] 5,000 Units Abdominal Tissue Given 06/05/2019 8:53 PM [facility] 5,000 Units A bdominal Tissue Given 06/05/2019 4:00 PM [facility] 5,000 Units A bdominal Tissue HYDROcodone-acetaminophen (HYCET) 7.5-325 mg/15 mL oral solution 15 mL 15 mL (7.5 mg), Oral, EVERY 4 HOURS PRN, Starting on Mon06/05/19 at 0600, Until Araceli 06/06/19 at 1408, Pain (See admin instructions), Routine, Post-op - Floor Given 06/06/2019 8:32 AM [facility] 15 mL HYDROcodone-acetaminophen (HYCET) 7.5-325 mg/15 mL oral solution 15 mL 15 mL (7.5 mg), Oral, EVERY 4 HOURS PRN, Starting on Mon06/05/19 at 0600, Until Araceli 06/06/19 at 1408, Pain (See admin instructions), Routine, Post-op - Floor HYDROmorphone (PF) (DILAUDID) injection 0.3 mg 0.3 mg, IV, EVERY 4 HOURS PRN, Starting on Mon06/04/19 at 1422, Until Araclei 06/06/19 at 1408, Pain (See admin instructions), Routine, Post-op - Floor lactated ringers bolus solution 2,000 mL 2,000 mL, IV, PRE-PROCEDURE ONCE, 1 dose, Starting on Mon06/04/19 at 0909, Until Mon06/04/19 at 2200, at 2,000 mL/hr, Administer over 60 Minutes, Stat, Pre-op New Bag 06/04/2019 9:30 AM [facility] 2,000 mL 2000 mL/h r lactated ringers bolus solution 500 mL 500 mL, IV, ONE TIME ONLY, 1 dose, On Mon06/04/19 at 2230, at 999 mL/hr, Administer over 30 Minutes, Routine New Bag 06/04/2019 10:26 PM [facility] 500 mL 999 mL/hr lactated ringers infusion IV, at 125 mL/hr, POST-PROCEDURE CONTINUOUS, Starting on Mon06/04/19 at 1000, Until Mon06/06/19 at 1408, Routine, PACU Restarted 06/06/2019 11:27 AM [facility] 200 mL/hr Rate Verify 06/06/2019 8:16 AM [facility] 200 mL/hr Rate Change 06/06/2019 7:40 AM [facility] 200 mL/hr lactated ringers infusion IV, at 200 mL/hr, CONTINUOUS, Starting on Mon06/04/19 at 1430, Until Araceli 06/06/19 at 1408, Routine, Post-op - Floor New Bag 06/06/2019 8:16 AM [facility] 200 mL/hr New Bag 06/06/2019 2:31 AM [facility] 200 mL/hr New Bag 06/05/2019 11:00 PM [facility] 200 mL/hr metoclopramide (REGLAN) 5 mg/mL injection 10 mg 10 mg, IV, EVERY 6 HOURS PRN, Starting on Mon06/04/19 at 1422, Until Araceli 06/06/19 at 1408, Nausea/Emesis, Routine, Post-op - Floor metroNIDAZOLE (FLAGYL) IVPB 500 mg 500 mg, IV, POST-PROCEDURE Q 8 HOURS, 2 doses, First dose on Mon06/04/19 at 1500, Last dose on Mon06/04/19 at 2300, Antibiotic Indication: Surgical prophylaxis Rate Verify 06/04/2019 11:44 PM [facility] 100 mL/hr New Bag 06/04/2019 11:43 PM [facility] 500 mg 100 mL/hr Rate Verify 06/04/2019 3:59 PM [facility] 100 mL/hr morphine 4 mg/mL injection 2 mg 2 mg, IV, EVERY 4 HOURS PRN, Starting on Mon06/04/19 at 1422, Until Araceli 06/06/19 at 1408, Pain (See admin instructions), Routine, Post-op - Floor Given 06/04/2019 10:27 PM [facility] 2 mg Given 06/04/2019 2:47 PM [facility] 2 mg morphine 4 mg/mL injection 2 mg 2 mg, IV, EVERY 3 HOURS PRN, Starting on Mon06/04/19 at 1422, Until Araceli 06/06/19 at 1408, Pain (See admin instructions), Routine, Post-op - Floor naloxone (NARCAN) 0.4 mg/mL injection 0.1 mg 0.1 mg, IV, SEE ADMIN INSTRUCTIONS, Starting on Mon06/04/19 at 1422, Until Araceli 06/06/19 at 1408, Routine, Post-op - Floor ondansetron (ZOFRAN) 4 mg/2 mL injection 4 mg 4 mg, IV, EVERY 6 HOURS PRN, Starting on Mon06/04/19 at 1422, Until Araceli 06/06/19 at 1408, Nausea/Emesis, Routine, Post-op - Floor ondansetron (ZOFRAN) 4 mg/2 mL injection 4 mg 4 mg, IV, EVERY 6 HOURS PRN, Starting on Mon06/04/19 at 1422, Until Araceli 06/06/19 at 1408, Nausea/Emesis, Routine, Post-op - Floor Given 06/04/2019 2:46 PM [facility] 4 mg prochlorperazine (COMPAZINE) injection 5 mg 5 mg, IV, POST-PROCEDURE ONCE PRN, 1 dose, Starting on Mon06/04/19 at 0953, Until Mon06/04/19 at 1305, Nausea/Emesis, Routine, PACU Given 06/04/2019 1:05 PM [facility] 5 mg scopolamine (TRANSDERM-SCOP) 1 mg/72 hr transdermal patch 1 Patch 1 Patch, Transdermal, ONE TIME ONLY, 1 dose, On Mon06/04/19 at 0915, Stat, Pre-op Applied 06/04/2019 9:32 AM [facility] 1 Patch Mastoid,Left simethicone (MYLICON) 40 mg/0.6 mL drops 40 mg 40 mg, Oral, EVERY 6 HOURS PRN, Starting on Mon06/04/19 at 1422, Until Araceli 06/06/19 at 1408, Gas, Routine, Post-op - Floor Given 06/05/2019 3:02 AM [facility] 40 mg Given 06/04/2019 9:23 PM [facility] 40 mg sodium chloride 0.9 % irrigation solution 1,000 mL 1,000 mL, Irrigation, ONE TIME ONLY, 1 dose, On Mon06/04/19 at 1030, Routine Given 06/04/2019 11:40 AM [facility] 1,000 mL Operative Site documented in this encounter Active and Recently Administered Medications Times are shown in [facility]. Scheduled Medication Order 06/04/2019 06/05/2019 06/06/2019 acetaminophen (OFIRMEV) 10 mg/ml injection 1,000 mg (COMPLETED) 1,000 mg, IV, PRE-PROCEDURE ONCE, 1 dose, Starting on Mon06/04/19 at 1115, Until Mon06/04/19 at 1210, Routine, Intra-op 1210 (Given - Provider: Dequan Pruitt CRNA) acetaminophen (OFIRMEV) 10 mg/ml injection 1,000 mg (COMPLETED) 1,000 mg, IV, ONE TIME ONLY, 1 dose, On Mon06/04/19 at 1800, Routine, Post-op - Floor 1828 (New Bag - Provider: Laurel Hawley RN)1829 (Rate Verify - Provider: Laurel Hawley RN)184 (Rate Verify - Provider: Laurel Hawley RN)1843 (Stopped - Provider: Laurel Hawley RN) acetaminophen (OFIRMEV) 10 mg/ml injection 1,000 mg (COMPLETED) 1,000 mg, IV, ONE TIME ONLY, 1 dose, On Mon06/05/19 at 0000, Routine, Post-op - Floor 2325 (New Bag - Provider: Anne Larkin RN)2329 (Rate Verify - Provider: Anne Larkin RN)2340 (Stopped - Provider: Anne Larkin RN) amLODIPine (NORVASC) tablet 5 mg 5 mg, Oral, DAILY, First dose on Mon06/06/19 at 0900, Until Discontinued, Previous Med: amlodipine besylate (AMLODIPINE ORAL) - Orig Sig - Take 5 mg by mouth daily. 0900 (Due) atorvastatin (LIPITOR) tablet 20 mg 20 mg, Oral, DAILY, First dose (after last modification) on Mon06/05/19 at 0900, Until Discontinued, Previous Med: atorvastatin calcium (ATORVASTATIN ORAL) - Orig Sig - Take 20 mg by mouth daily. 0830 (Given - Provider: Vicky Law RN) 0814 (Given - Provider: Laurel Hawley, DANIEL) bupivacaine PF (SENSORCAINE MPF) 5 mg/mL (0.5%) injection 150 mg (COMPLETED) 150 mg (30 mL), See Admin Instructions, ONE TIME ONLY, 1 dose, On Mon06/04/19 at 1045, Routine 1045 (Due)1235 (Given - Provider: Laurel Rangel RN - Comment: Intra-operative local injection: 10 cc to the pain pump catheters; 20 cc to the subcutaneous abdominal tissue surrounding the larger incision) ceFAZolin (ANCEF,KEFZOL) 1,000 mg in sodium chloride 0.9% 50 mL IVPB (MBP) (COMPLETED)(Linked Group 1) 1,000 mg, IV, PRE-PROCEDURE ONCE, 1 dose, Starting on Mon06/04/19 at 0912, Until Mon06/04/19 at 1138, Routine, Antibiotic Indication: Surgical prophylaxis 1138 (New Bag - Provider: Dequan Pruitt CRNA) famotidine PF (PEPCID) 20 mg/2 mL injection 20 mg (COMPLETED) 20 mg, IV, PRE-PROCEDURE ONCE, 1 dose, Starting on Mon06/04/19 at 0909, Until Mon06/04/19 at 0931, Stat, Pre-op 0931 (Given - Provider: Lisette Bonilla, DANIEL) famotidine PF (PEPCID) 20 mg/2 mL injection 20 mg 20 mg, IV, TWO TIMES DAILY, First dose on Mon06/04/19 at 2100, Until Discontinued, Routine, Post-op - Floor 2118 (Given - Provider: Anen Larkin RN) 0830 (Given - Provider: Vicky Law, DANIEL)2052 (Given - Provider: Anne Larkin, DANIEL) 0814 (Given - Provider: Laurel Hawley, DANIEL) heparin injection 5,000 Units (COMPLETED) 5,000 Units, subCUT, PRE-PROCEDURE ONCE, 1 dose, Starting on Mon06/04/19 at 0909, Until Mon06/04/19 at 0933, Stat, Pre-op 0933 (Given - Provider: Lisette Bonilla, DANIEL) heparin injection 5,000 Units 5,000 Units, subCUT, EVERY 8 HOURS, First dose on Mon06/04/19 at 1730, Until Discontinued, Routine, Post-op - Floor 1827 (Given - Provider: Laurel Hawley, DANIEL) 0500 (Given - Provider: Anne Larkin, DANIEL)1600 (Given - Provider: Vicky Law, DANIEL)2052 (Given - Provider: Anne Larkin, DANIEL) 0428 (Given - Provider: Anne LarkinDANIEL) lactated ringers bolus solution 2,000 mL (COMPLETED) 2,000 mL, IV, PRE-PROCEDURE ONCE, 1 dose, Starting on Mon06/04/19 at 0909, Until Mon06/04/19 at 2200, at 2,000 mL/hr, Administer over 60 Minutes, Stat, Pre-op 0930 (New Bag - Provider: Lisette Bonilla RN)1030 (Due: Stopped - Provider: Lisette Bonilla RN)2200 (Stopped - Provider: Anne Larkin RN - Comment: Not infusing when this nurse arrived.) lactated ringers bolus solution 500 mL (COMPLETED) 500 mL, IV, ONE TIME ONLY, 1 dose, On Mon06/04/19 at 2230, at 999 mL/hr, Administer over 30 Minutes, Routine 2226 (New Bag - Provider: Anne Larkin RN)2256 (Stopped - Provider: Anne Larkin RN) metoprolol tartrate (LOPRESSOR) tablet 25 mg 25 mg, Oral, DAILY, First dose on Mon06/06/19 at 0900, Until Discontinued, Previous Med: METOPROLOL TARTRATE ORAL - Orig Sig - Take 25 mg by mouth daily. 0900 (Due) metroNIDAZOLE (FLAGYL) IVPB 500 mg 500 mg, IV, ONE TIME ONLY, 1 dose, On Mon06/04/19 at 0915, Stat, Pre-op, Antibiotic Indication: Surgical prophylaxis 0915 (Due) metroNIDAZOLE (FLAGYL) IVPB 500 mg (COMPLETED) 500 mg, IV, POST-PROCEDURE Q 8 HOURS, 2 doses, First dose on Mon06/04/19 at 1500, Last dose on Mon06/04/19 at 2300, Antibiotic Indication: Surgical prophylaxis 1559 (New Bag - Provider: Laurel Hawley, DANIEL)1559 (Rate Verify - Provider: Laurel Hawley RN)1659 (Stopped - Provider: Laurel Hawley RN)2343 (New Bag - Provider: Anne Larkin RN)2344 (Rate Verify - Provider: Anne Larkin RN) 0043 (Stopped - Provider: Anne Larkin RN) naloxone (NARCAN) 0.4 mg/mL injection 0.1 mg 0.1 mg, IV, SEE ADMIN INSTRUCTIONS, Starting on Mon06/04/19 at 1422, Until Mon06/06/19 at 1408, Routine, Post-op - Floor scopolamine (TRANSDERM-SCOP) 1 mg/72 hr transdermal patch 1 Patch 1 Patch, Transdermal, ONE TIME ONLY, 1 dose, On Mon06/04/19 at 0915, Stat, Pre-op 0932 (Applied - Provider: Lisette Bonilla, DANIEL) 1208 (Due: Removed - Provider: PROVIDER, DISCHARGE PATIENT - Comment: Time automatically adjusted from order being discontinued) sodium chloride 0.9 % irrigation solution 1,000 mL (COMPLETED) 1,000 mL, Irrigation, ONE TIME ONLY, 1 dose, On Mon06/04/19 at 1030, Routine 1030 (Due)1140 (Given - Provider: Laurel Rangel RN - Comment: Intra-operative irrigation) umeclidinium (INCRUSE ELLIPTA) 62.5 mcg/actuation inhaler 1 Puff 1 Puff, Inhalation, DAILY RESPIRATORY, First dose on Mon06/05/19 at 0800, Until Discontinued, Previous Med: umeclidinium bromide (INCRUSE ELLIPTA INHALATION) - Orig Sig - Take by inhalation. 0855 (Refused - Provider: Malini Baker, BUSINESS SUPERVISOR - Comment: pt stated she will take her incruse at home, going home today) 0800 (Refused - Provider: Anika Sims, BUSINESS SUPERVISOR - Comment: does not want to pay for ours, has her own) Continuous Medication Order 06/04/2019 06/05/2019 06/06/2019 bupivacaine PF 5 mg/mL (0.5%) 270 mL infusion for On-Q pump See Admin Instructions, CONTINUOUS, Starting on Mon06/04/19 at 0915, Until Mon06/06/19 at 1408, Stat, Pre-op 1303 (New Bag - Provider: Jeri Ac RN) lactated ringers infusion (CANCELED) IV, at 125 mL/hr, PRE-PROCEDURE CONTINUOUS, Starting on Mon06/04/19 at 0915, Until Mon06/04/19 at 1421, Stat, Pre-op 1104 (Continue from Pre-Op - Provider: Dequan Pruitt CRNA)1107 (Continue from Pre-Op - Provider: Dequan Pruitt CRNA)1201 (New Bag - Provider: Dequan Pruitt CRNA)1202 (New Bag - Provider: Dequan Pruitt CRNA)1304 (Canceled Entry - Provider: Laurel Hawley, DANIEL)2100 (Stopped - Provider: Anne Larkin, RN - Comment: Rate changed to 200 on Surgical floor) lactated ringers infusion IV, at 125 mL/hr, POST-PROCEDURE CONTINUOUS, Starting on Mon06/04/19 at 1000, Until Araceli 06/06/19 at 1408, Routine, PACU 1313 (New Bag - Provider: Jeri Ac RN)2127 (Canceled Entry - Provider: Anne Larkin, RN) 1032 (New Bag - Provider: Vicky Law RN)1244 (Rate Change - Provider: Laurel Hawley RN)1534 (Rate Change - Provider: Laurel Hawley RN)1537 (Paused - Provider: Laurel Hawley RN)1537 (Paused - Provider: Laurel Hawley RN)1539 (Canceled Entry - Provider: Vicky Law RN)1547 (Rate Change - Provider: Laurel Hawley RN)1547 (Paused - Provider: Laurel Hawley RN)1551 (Restarted - Provider: Laurel Hawley RN)1552 (Paused - Provider: Laurel Hawley RN)1552 (Paused - Provider: Laurel Hawley RN)1552 (Rate Change - Provider: Laurel Hawley RN)1659 (Paused - Provider: Laurel Hawley RN)1801 (Restarted - Provider: Laurel Hawley RN)2155 (Paused - Provider: Laurel Hawley RN)2202 (Paused - Provider: Laurel Hawley RN)2202 (Rate Change - Provider: Laurel Hawley RN) 0725 (Rate Change - Provider: Laurel Hawley RN)0740 (Rate Change - Provider: Laurel Hawley RN)0816 (Rate Verify - Provider: Laurel Hawley RN)1102 (Paused - Provider: Laurel Hawley RN)1127 (Restarted - Provider: Laurel Hawley, DANIEL)1155 (Stopped - Provider: Laurel Hawley RN) lactated ringers infusion IV, at 200 mL/hr, CONTINUOUS, Starting on Mon06/04/19 at 1430, Until Mon06/06/19 at 1408, Routine, Post-op - Floor 1538 (Canceled Entry - Provider: Laurel Hawley RN)1556 (New Bag - Provider: Laurel Hawley RN)1559 (Paused - Provider: Laurel Hawley RN)1659 (Restarted - Provider: Laurel Hawley RN)1709 (Rate Verify - Provider: Laurel Hawley RN)1821 (Rate Verify - Provider: Laurel Hawley RN)1828 (Stopped - Provider: Laurel Hawley RN)1843 (Restarted - Provider: Laurel Hawley, DANIEL)1849 (Rate Verify - Provider: Laurel Hawley RN)2129 (New Bag - Provider: Anne Larkin, DANIEL) 0125 (New Bag - Provider: Anne Larkin, DANIEL)0223 (Rate Verify - Provider: Anne Larkin RN)0400 (Canceled Entry - Provider: Anne Larkin RN)0538 (New Bag - Provider: Anne Larkin, DANIEL)0700 (Canceled Entry - Provider: Anne Larkin, RN)1544 (New Bag - Provider: Vicky Law RN)2300 (New Bag - Provider: Anne Larkin, DANIEL) 0231 (New Bag - Provider: Anne Larkin, DANIEL)0816 (New Bag - Provider: Laurel Hawley, DANIEL) PRN Medication Order 06/04/2019 06/05/2019 06/06/2019 bupivacaine PF (SENSORCAINE MPF) 5 mg/mL (0.5%) injection (CANCELED) INTRA-PROCEDURE PRN, Starting on Mon06/04/19 at 1211, Until Mon06/04/19 at 1253, Routine, Intra-op 1235 (Given - Provider: Shanice Katz MD - Comment: 10 cc to the pain pump catheters; 20 cc to the subcutaneous abdominal tissue surrounding the larger incision) cloNIDine HCl (CATAPRES) tablet 0.1 mg 0.1 mg, Oral, THREE TIMES DAILY PRN, Starting on Mon06/04/19 at 1337, Until Araceli 06/06/19 at 1408, Blood Pressure, sbp >180 min hr 60, Routine 0417 (Given - Provider: Anne Larkin RN) 0249 (Given - Provider: Anne Larkni RN) diphenhydrAMINE (BENADRYL) injection 25 mg 25 mg, IV, EVERY 6 HOURS PRN, Starting on Mon06/04/19 at 1422, Until Mon06/06/19 at 1408, Itching, Routine, Post-op - Floor fentaNYL PF (SUBLIMAZE) 50 mcg/mL injection 25 mcg (CANCELED) 25 mcg, IV, POST-PROCEDURE Q 3 MINUTES PRN, 5 doses, Starting on Mon06/04/19 at 0953, Until Mon06/04/19 at 1421, Pain, Routine, PACU 1320 (Given - Provider: Jeri Ac RN) HYDROcodone-acetamino phen (HYCET) 7.5-325 mg/15 mL oral solution 15 mL 15 mL (7.5 mg), Oral, EVERY 4 HOURS PRN, Starting on Mon06/05/19 at 0600, Until Araceli 06/06/19 at 1408, Pain (See admin instructions), Routine, Post-op - Floor 0832 (Given - Provider: Laurel Hawley RN) HYDROcodone-acetamino phen (HYCET) 7.5-325 mg/15 mL oral solution 15 mL 15 mL (7.5 mg), Oral, EVERY 4 HOURS PRN, Starting on Mon06/05/19 at 0600, Until Araceli 06/06/19 at 1408, Pain (See admin instructions), Routine, Post-op - Floor HYDROmorphone (PF) (DILAUDID) injection 0.3 mg 0.3 mg, IV, EVERY 4 HOURS PRN, Starting on Mon06/04/19 at 1422, Until Araceli 06/06/19 at 1408, Pain (See admin instructions), Routine, Post-op - Floor metoclopramide (REGLAN) 5 mg/mL injection 10 mg 10 mg, IV, EVERY 6 HOURS PRN, Starting on Mon06/04/19 at 1422, Until Araceli 06/06/19 at 1408, Nausea/Emesis, Routine, Post-op - Floor morphine 4 mg/mL injection 2 mg 2 mg, IV, EVERY 4 HOURS PRN, Starting on Mon06/04/19 at 1422, Until Araceli 06/06/19 at 1408, Pain (See admin instructions), Routine, Post-op - Floor 1447 (Given - Provider: Madeline Israel RN)2227 (Given - Provider: Anne Larkin RN - Comment: Per Dr. Avila administer to patient, patient has no complaints of pain. BP high and HR tachy) morphine 4 mg/mL injection 2 mg 2 mg, IV, EVERY 3 HOURS PRN, Starting on Mon06/04/19 at 1422, Until Araceli 06/06/19 at 1408, Pain (See admin instructions), Routine, Post-op - Floor ondansetron (ZOFRAN) 4 mg/2 mL injection 4 mg 4 mg, IV, EVERY 6 HOURS PRN, Starting on Mon06/04/19 at 1422, Until Araceli 06/06/19 at 1408, Nausea/Emesis, Routine, Post-op - Floor ondansetron (ZOFRAN) 4 mg/2 mL injection 4 mg 4 mg, IV, EVERY 6 HOURS PRN, Starting on Mon06/04/19 at 1422, Until Araceli 06/06/19 at 1408, Nausea/Emesis, Routine, Post-op - Floor 1446 (Given - Provider: Madeline Israel RN) prochlorperazine (COMPAZINE) injection 5 mg (COMPLETED) 5 mg, IV, POST-PROCEDURE ONCE PRN, 1 dose, Starting on Mon06/04/19 at 0953, Until Mon06/04/19 at 1305, Nausea/Emesis, Routine, PACU 1305 (Given - Provider: Jeri Ac, DANIEL) simethicone (MYLICON) 40 mg/0.6 mL drops 40 mg 40 mg, Oral, EVERY 6 HOURS PRN, Starting on Mon06/04/19 at 1422, Until Araceli 06/06/19 at 1408, Gas, Routine, Post-op - Floor 2123 (Given - Provider: Anne Larkin, DANIEL) 0302 (Given - Provider: Anne Larkin RN) sodium chloride 0.9 % irrigation solution (CANCELED) INTRA-PROCEDURE PRN, Starting on Mon06/04/19 at 1140, Until Mon06/04/19 at 1253, Routine, Intra-op 1140 (Given - Provider: Shanice Katz MD) Linked Groups Order Group 1: ceFAZolin (ANCEF,KEFZOL) 1,000 mg in sodium chloride 0.9% 50 mL IVPB (MBP) (CANCELED) 1,000 mg, IV, PRE-PROCEDURE ONCE, 1 dose, Starting on Mon06/04/19 at 0912, Until Mon06/04/19 at 1421, Routine, Antibiotic Indication: Surgical prophylaxis And ceFAZolin (ANCEF,KEFZOL) 1,000 mg in sodium chloride 0.9% 50 mL IVPB (MBP) (COMPLETED)Jump to med 1,000 mg, IV, PRE-PROCEDURE ONCE, 1 dose, Starting on Mon06/04/19 at 0912, Until Mon06/04/19 at 1138, Routine, Antibiotic Indication: Surgical prophylaxis documented in this encounter 

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
--- OUTSIDE RECORDS SUMMARY | 2024-06-29 02:03 | XMS_ITS | Encounter Summary ---
Author Organization [facility] Address [address] [place] [address] Care Team Providers Care Patternmaker Hand Name Role Phone Unavailable Primary Care Provider Unavailabl e Encounter Details Date Type Department Care Team (Late st Contact Info) Description 04/05/2019 8:37 AM CDT Anesthesia Event [facility] [address] [place] [id number] [place] [address] [place] [address] Ameena Vargas AA [address] [address] [place] [address] Anesthesia Record Procedure Summary Procedure Name Responsible Anesthesiologist Anesthesia Start Time Anesthesia Stop Time ESOPHAGOGASTRODUODENOSCOPY (Mouth) Derick Vang MD 04/05/19 0837 04/05/19 0904 Events Date Time Event Comment 04/05/2019 0835 In Room This event disp lays the In Room time documented in the Surgical Log. Deleting this event will not remove it from the log but will remove it from the Grid and Graph timeline. 0837 An Start 0837 An Start Data 0840 Pre-Induction Immediate pre- induction anesthetic assessment performed. Vital signs as noted on graphic. 0840 Anesthesia Ready 0843 0843 an lisa now 0846 Procedure Start This event d isplays the Procedure Start time documented in the Surgical Log. Deleting this event will not remove it from the log but will remove it from the Grid and Graph timeline. 0848 Quick Note Patient laryngo spasming, suctioned, asked surgeon to remove scope, put in oral airway and mask ventilated. Call to Dr. Vang for assistance. Ambu bagged patient until saturations returned to the mid 90's. 0849 Procedure Stop This event di splays the Procedure Stop time documented in the Surgical Log. Deleting this event will not remove it from the log but will remove it from the Grid and Graph timeline. 0855 an stop data 0903 Out of Room This event disp lays the Out of Room time documented in the Surgical Log. Deleting this event will not remove it from the log but will remove it from the Grid and Graph timeline. 0904 An Stop Meds Name Total lidocaine (XYLOCAINE) 2%??injection 100 mg propofol (DIPRIVAN) injection 250 mg lactated ringers infusion 300 mL * Agents Name O2 * Blood No blood administrations on file. Lines, Drains, and Airways Type Details Placement Removal Peripheral IV Pre-Hospital Start: No; Orientation: Right; Location: Wrist; Device: Angiocath; Gauge: 20 gauge; Insertion Attempts: 1; Patient Tolerance: tolerated well 04/05/19 08 by Mere Silva RN 04/05/19 09 by Lanny Beasley, RN documented in this encounter Social History Tobacco Use Types Packs/Day Years Used Date Smoking Tobacco: Never Alcohol Use Standard Drinks/Week Comments Not Currently [...] on file documented as of this encounter OR Notes * Anesthesia Postprocedure Evaluation - Sr Rashida Vang MD - 04/05/2019 11:07 AM CDT Post Anesthesia Evaluation Vitals: Vitals Value Taken Time BP 143/125 04/05/2019 9:23 AM Temp 36.5 ??C 04/05/2019 9:04 AM Resp 19 04/05/2019 9:24 AM SpO2 100 % 04/05/2019 9:24 AM Pulse 75 04/05/2019 9:24 AM Heart Rate 75 bpm 04/05/2019 9:24 AM Vitals shown include unvalidated device data. Pain Rating: Anesthesia Post Evaluation Patient location during evaluation: PACU Patient participation: patient was able to participate in the post op evaluation Level of consciousness: 0 = alert, responsive, answers simple questions appropriately, able to perform simple tasks Pain management: adequate Airway patency: patent Nausea or Vomiting: none Anesthetic complications: no Cardiovascular status: regular rate and rhythm Respiratory status: no respiratory symptoms Hydration status: well hydrated Sr Rashida Vang MD * Anesthesia Handoff - Ameena Vargas AA - 04/05/2019 9:04 AM CDT Post-Anesthetic transfer of care report elements to appropriate post-anesthesia recovery environment completed in accordance with procedure. I completed my handoff to the receiving nurse during which we: 1. Identified the patient 2. Identified the responsible provider 3. Reviewed the pertinent medical history 4. Discussed the surgical course 5. Reviewed intra-op anesthesia management and issues during anesthesia 6. Set expectations for post-procedure period 7. Orders as necessary and appropriate for continuation of care are present in Epic. 8. Allowed opportunity for questions and acknowledgement of understanding. Vital Signs: BP: 127/72 (04/05/2019 9:03 AM) Pulse: 82 (04/05/2019 9:03 AM) Temp: 36.5 ??C (04/05/2019 9:03 AM) Resp: 19 (04/05/2019 9:03 AM) SpO2: 95 % (04/05/2019 9:03 AM) 9:04 AM MILES Abreu * Anesthesia Preprocedure Evaluation - Sr Rashida Vang MD - 04/05/2019 8:42 AM CDT Anesthesia History: anesthesia history negative. Endocrine History: neg endo/other ROS. Renal History: negative renal ROS. Pulmonary History: History of: Asthma. History of: Sleep Apnea. Cardiovascular History: History of: Hypertension. GI/Hepatic History: History of: GERD. Neuro/Psych History: neg neuro/psych ROS. Musculoskeletal History: negative musculoskeletal ROS. Hematologic/Oncologic History: negative hematology/oncology ROS. Obstetric History: Nutrition Status: severe morbid obesity Other Findings: [facility] PHYSICAL EXAM: PHYSICAL EXAM: Habitus: Morbid obesity Mental Status: Alert, Awake and Full Affect Mallampati:: II TM distance:: >3 FB Neck ROM:: Full Rhythm:: Regular Dental normal Breath sounds clear to auscultation soft Npo mac Anesthesia Plan ASA Final: 3 MAC Intravenous induction NPO status > 6 hours [facility] FINAL DOS EXAM: ASA score (Day of Surgery): 3 Mallampati:: II Rhythm:regular breath sounds clear to auscultation Other Findings: Npo macPlan: MAC documented in this encounter Plan of Treatment Not on file documented as of this encounter Visit Diagnoses Not on filedocumented in this encounter Administered Medications Inactive Administered Medications - up to 3 most recent administrations Medication Order MAR Action Action Date Dose Rate Site lactated ringers infusion IV, at 125 mL/hr, PRE-PROCEDURE CONTINUOUS, Starting on Mon04/05/19 at 0815, Until Mon04/05/19 at 1146, Routine, Pre-Procedure Continue from Pre-Op 04/05/2019 8:42 AM CDT New Bag 04/05/2019 8:07 AM CDT 125 mL/hr lidocaine 2 % (XYLOCAINE) injection INTRA-PROCEDURE PRN, Starting on Mon04/05/19 at 0843, Until Mon04/05/19 at 0904, Routine, Anesthesia Intra-op Given 04/05/2019 8:43 AM CDT 100 mg propofol (DIPRIVAN) injection INTRA-PROCEDURE PRN, Starting on Mon04/05/19 at 0843, Until Mon04/05/19 at 0904, Anesthesia Intra-op Given 04/05/2019 8:48 AM CDT 50 mg Given 04/05/2019 8:45 AM CDT 100 mg Given 04/05/2019 8:43 AM CDT 100 mg documented in this encounter
--- OUTSIDE RECORDS SUMMARY | 2024-06-29 02:03 | XMS_ITS | Encounter Summary ---
Author Organization [facility] Address [address] [place] [address] Care Team Providers Care Land Agent Name Role Phone Cayden External Provider Primary Care Provider Un available Encounter Details Date Type Department Care Team (Latest Contact Info) Description 05/08/2019 9:23 AM LITHOPRESS OPERATOR - 05/08/2019 11:59 PM LITHOPRESS OPERATOR Hospital Encounter [facility] [address] [address] [place] [address] [place] [address] [place] [address] Discharge Disposition: Home or Self Care Social [...] on file documented as of this encounter Medications at Time of Discharge Medication Sig Dispensed Refills Start Date End Date raNITIdine (ZANTAC) 150 mg tablet Take 150 mg by mouth 2 times daily. METOPROLOL TARTRATE ORAL Take 25 mg by mouth daily. atorvastatin calcium (ATORVASTATIN ORAL) Take 20 mg by mouth daily. LISINOPRIL ORAL Take 5 mg by mouth daily. amlodipine besylate (AMLODIPINE ORAL) Take 5 mg by mouth daily. umeclidinium bromide (INCRUSE ELLIPTA INHALATION) Take by inhalation. MELOXICAM ORAL Take 15 mg by mouth 2 times daily. 06/06/2019 furosemide (LASIX ORAL) Take 40 mg by mouth 2 times daily. 06/06/2019 documented as of this encounter Plan of Treatment Not on file documented as of this encounter Procedures Procedure Name Priority Date/Time Associated Diagnosis Comments EKG 12-LEAD Routine 05/08/2019 10:39 AM LITHOPRESS OPERATOR documented in this encounter Results * EKG 12-LEAD (05/08/2019 10:39 AM LITHOPRESS OPERATOR) 05/08/2019 10:3 9 AM LITHOPRESS OPERATOR Narrative INTERFACE SYSTEM - 05/08/2019 4:18 PM LITHOPRESS OPERATOR ? Stationary ECG Study ?[place] ? Test Date: ?05/08/2019 10:39 AM Pat Name: ? KEY SALAS ?Department: ?? 1 ?Room: ? Gender: ? F ?Urgent Care Nurse Practitioner: ?? Kds : ?1970 ? Requested By: EDWARDSLADE ALISSON Order Number: [id number] ?Reading MD: ?? Geo Do ? Measurements Intervals ?[place] ? Rate: ? 54 ? P: ?61 AR: ? 192 ?QRS: ?43 QRSD: ? 96 ? T: ?12 QT: ? 452 ? QTc: ?432 ? Interpretive Statements ? SINUS BRADYCARDIA Electronically Signed On 05-08-2019 16:18:32 LITHOPRESS OPERATOR by Geo Do Procedure Note Geo Do MD - 05/08/2019 Stationary ECG Study [place] Test Date: 05/08/2019 10:39 AM Pat Name: KEY SALAS Department: 1 Room: Gender: F Urgent Care Nurse Practitioner: [facility] : 1970 Requested By: SHANICE KATZ Order Number: [id number] Reading MD: Geo Do Measurements Intervals [place] Rate: 54 P: 61 AR: 192 QRS: 43 QRSD: 96 T: 12 QT: 452 QTc: 432 Interpretive Statements SINUS BRADYCARDIA Electronically Signed On 05-08-2019 16:18:32 LITHOPRESS OPERATOR by Geo Do Shanice Katz MD ECG ORDERABLES INTERFACE SYSTEM Refer to clinic/hospital department documented in this encounter Visit Diagnoses Not on filedocumented in this encounter Care Teams Land Agent Relationship Specialty Start Date End Date Cayden, External Provider PCP - General 05/08/19 documented as of this encounter
--- OUTSIDE RECORDS SUMMARY | 2024-06-29 02:03 | XMS_ITS | Encounter Summary ---
Author Organization [facility] Address [address] [place] [address] Care Team Providers Care Cocoa Bean Roaster Name Role Phone Christofn, External Provider Primary Care Provider Un available Reason for Visit * Auth/Cert Specialty Diagnoses / Procedures Referred By Onel melgoza Referred To Contact Multi Specialty Diagnoses Morbid (severe) obesity due to excess calories Procedures LA LAP, MARIA DEL CARMEN RESTRICT PROC, LONGITUDINAL GASTRECTOMY GASTRECTOMY LONGITUDINAL LAPAROSCOPIC [facility] Operating Room [address] [address] Referral ID Status Reason Start Date Expiration Date Visits Re quested Visits Authorized [id number] 1 1 Encounter Details Date Type Department Care Team (Late st Contact Info) Description 06/04/2019 11:07 AM [facility] Anesthesia Event [facility] Operating Room [address] [address] Franco Collins MD NO ADDRESS ON FILE Anesthesia Record Procedure Summary Procedure Name Responsible Anesthesiologist Anesthesia Start Time Anesthesia Stop Time Laparoscopic vertical sleeve gastrectomy with insertion of tunneled abdominal wall catheters (Abdomen) Franco Collins MD 06/04/19 1107 06/04/19 1258 Events Date Time Event Comment 06/04/2019 0953 1014 AN Equip Check Anesthesia eq uipment and materials checked in accordance with local policy. 1104 In Room This event disp lays the In Room time documented in the Surgical Log. Deleting this event will not remove it from the log but will remove it from the Grid and Graph timeline. 1107 An Start 1107 An Start Data 1110 Pre-Induction Immediate pre- induction anesthetic assessment performed. Vital signs as noted on graphic. 1111 An Induction 1112 An Intubation 1115 Anesthesia Ready 1140 Procedure Start This event d isplays the Procedure Start time documented in the Surgical Log. Deleting this event will not remove it from the log but will remove it from the Grid and Graph timeline. 1247 An Extubation Emergence unev entful Awake, spontaneous respirations. Adequate muscle strength demonstrated Adequate tidal volume. Orapharynx suctioned. Extubated with positive pressure ventilation. 1249 Procedure Stop This event di splays the Procedure Stop time documented in the Surgical Log. Deleting this event will not remove it from the log but will remove it from the Grid and Graph timeline. 1254 Out of Room This event disp lays the Out of Room time documented in the Surgical Log. Deleting this event will not remove it from the log but will remove it from the Grid and Graph timeline. 1254 an stop data 1258 An Stop 06/05/2019 1106 Follow-up Complete Meds Name Total midazolam PF (VERSED) 1 mg/mL injection 2 mg fentaNYL (SUBLIMAZE) PF 50??mcg/mL injec tion 200 mcg lidocaine PF (XYLOCAINE MPF) 2% injectio n 5 mL propofol (DIPRIVAN) 10??mg/mL injection 131 mg succinylcholine (ANECTINE) 20 mg/mL iso- osmotic injection syringe 100 mg rocuronium (ZEMURON) 10mg/mL injection 5 5 mg ondansetron (ZOFRAN) 4??mg/2 mL injectio n 4 mg dexamethasone (DECADRON) 4 mg/mL injecti on 8 mg ceFAZolin (ANCEF,KEFZOL) 1,000 mg in sod ium chloride 0.9% 50 mL IVPB (MBP) 2,000 mg acetaminophen (OFIRMEV) 10 mg/ml injecti on 1,000 mg 1,000 mg lactated ringers infusion 1,000 mL * Agents Name Sevoflurane % Sevoflurane O2 Inspired O2 N2O Inspired N2O * Blood No blood administrations on file. Lines, Drains, and Airways Type Details Placement Removal Pain Pump 06/04/19; 1235; No; On Q; Abdomen; Right; .5% MARCAINE 06/04/19 1235 by Bernie Richards RN Peripheral IV Orientation: Left; Location: Hand; Device: Angiocath; Gauge: 20 gauge; Insertion Attempts: 1; Patient Tolerance: tolerated well; Removal Indication: no longer indicated; Removal Interventions: catheter intact, pressure dressing 06/04/19 0930 by Lisette Bonilla RN 06/06/19 1205 by Laurel Hawley RN Incision 06/04/19; 1039; surgical incision; Bilateral; abdomen; 06/07/19; 0008 06/04/19 1039 by Bernie Richards RN 06/07/19 0008 by PROVIDER, DISCHARGE PATIENT Endotracheal Airway Type: ETT, Oral; Cuf f Pressure: minimal occluding volume; Size: 7.5; Site: mouth; Attempts: 1; FOV: I; Verification: Auscultated bilateral breath sounds, Equal chest movement, Continuous waveform capnography 06/04/19 1111 by Franco Collins MD 06/04/19 1247 by Dequan Pruitt CRNA documented in this encounter Social History Tobacco [...] of this encounter OR Notes * Anesthesia Post-Op Follow-up Note - Linda Salmon CRNA - 06/05/2019 11:06 AM CST Post Anesthesia Evaluation 06/05/2019 11:06 AM Vitals: BP (!) 167/85 (BP Location: Right arm, Patient Position (BP): Supine) Pulse 64 Temp 36.7 ??C (Oral) Resp 20 Ht 5' 6 (1.676 m) Wt 126.2 kg (278 lb 3.2 oz) LMP 05/06/2019 SpO2 99% BMI 44.90 kg/m?? Pain: Comfortable Nausea/Vomiting: nausea and but no vomiting Respiratory function: no respiratory symptoms Sore throat: yes Cardiovascular function: At patient's baseline Mental status, LOC:alert Patient participated in evaluation: yes Anesthetic complications: no, denies awareness/recall Linda Salmon CRNA [facility] * Anesthesia Postprocedure Evaluation - Franco Collins MD - 06/04/2019 4:14 PM CST Post Anesthesia Evaluation Vitals: Vitals Value Taken Time BP 158/87 06/04/2019 3:00 PM Temp 36.8 ??C 06/04/2019 3:00 PM Resp 20 06/04/2019 3:00 PM SpO2 98 % 06/04/2019 3:00 PM Pulse 91 06/04/2019 3:00 PM Heart Rate 84 bpm 06/04/2019 2:12 PM Vitals shown include unvalidated device data. Pain Rating: Pain Rating: Rest: 10 (06/04/19 1447) Nausea/Vomiting: no nausea and no vomiting Post-Op hydration: well hydrated Respiratory function: no respiratory symptoms Airway patency: normal Cardiovascular function: Normal - Regular rate and rhythm Mental status, LOC: 0=alert; keenly responsive Patient participated in evaluation: yes Unanticipated Events: no Franco Collins MD [facility] * Anesthesia Handoff - Dequan Pruitt CRNA - 06/04/2019 12:57 PM [facility] Post-Anesthetic transfer of care report elements to [...] and acknowledgement of understanding. Vital Signs: BP: (!) 146/75 (06/04/2019 12:56 PM) Pulse: 87 (06/04/2019 9:37 AM) Heart Rate: 85 bpm (06/04/2019 12:56 PM) Temp: 36.4 ??C (06/04/2019 12:56 PM) Resp: 15 (06/04/2019 12:56 PM) SpO2: 100 % (06/04/2019 12:56 PM) 12:58 PM Dequan Pruitt CRNA [facility] * Anesthesia Preprocedure Evaluation - Franco Collins MD - 06/04/2019 9:52 AM CST Relevant Problems No relevant active problems Anesthesia Evaluation Anesthesia Plan ASA Final: [address] [place] [id number] PRE ANESTHESIA EVALUATION 06/04/2019 9:52 AM Name: Nelsy Salas Age: 48 y.o. Sex: female CSN: [id number] Procedure: Procedure(s): GASTRECTOMY LONGITUDINAL LAPAROSCOPIC Surgeons/Assistants: Surgeon(s) and Role: * Ranjeet Katz MD - Primary Diagnosis: Morbid (severe) obesity due to excess calories [E66.01] Pre-Op Diagnosis Codes: * Morbid (severe) obesity due to excess calories [E66.01] BP (!) 148/96 (BP Location: Left arm, Patient Position (BP): Sitting) Pulse 87 Temp 36.3 ??C (Temporal) Resp 20 Ht 5' 6 (1.676 m) Wt 131.1 kg (289 lb) LMP 05/06/2019 SpO2 99% BMI 46.65 kg/m?? Weight: Weight: 131.1 kg (289 lb) (06/04/19 0937) Height: Ht Readings from Last 1 Encounters: 06/04/19 5' 6 (1.676 m) BMI: Body mass index is 46.65 kg/m??. NPO Status: Last Food Intake (Date): 05/30/19 (06/04/19 0940) Last Fluid Intake (Date): 06/03/19 (06/04/19939) Last Fluid Intake (hh:mm): 1900 (06/04/19939) No Known Allergies Prior to Admission Medications Prescriptions Last Dose [...] Sig: Take by inhalation. Facility-Administered Medications: None GERD: yes x? Controlled ? Uncontrolled Chronic Narcotic Use: no Current Facility-Administered Medications Medication Dose Route Frequency Provider Last Rate Last Dose ??? lactated ringers bolus solution 2,000 mL 2,000 mL IV Pre-Proc Once Franco Collins MD 2,000mL/hr at 06/04/19929 2,000 mL at 06/04/19929 ??? lactated ringers infusion IV Pre-Proc Continuous Franco Collins MD ??? lidocaine PF 1% (XYLOCAINE MPF) injection 0.3 mL 0.3 mL Intradermal Pre-Proc Once Franco Collins MD ??? bupivacaine PF 5 mg/mL (0.5%) 270 mL infusion for On-Q pump See Admin Instructions Continuous Ranjeet Katz MD ??? metroNIDAZOLE (FLAGYL) IVPB 500 mg 500 mg IV ONCE Ranjeet Katz MD ??? scopolamine (TRANSDERM-SCOP) 1 mg/72 hr transdermal patch 1 Patch 1 Patch Transdermal ONCE Ranjeet Katz MD 1 Patch at 06/04/19931 ??? ceFAZolin (ANCEF,KEFZOL) 1,000 mg in sodium chloride 0.9% 50 mL IVPB (MBP) 1,000 mg IV Pre-Ranjeet Manley MD And ??? ceFAZolin (ANCEF,KEFZOL) 1,000 mg in sodium chloride 0.9% 50 mL IVPB (MBP) 1,000 mg IV Pre-Ranjeet Manley MD Past Medical History: Diagnosis Date ??? Arthritis ??? Asthma ??? GERD (gastroesophageal reflux disease) ??? HTN (hypertension) ??? Hyperlipidemia ??? Obesity ??? Obstructive sleep apnea cpap PM/ICD Calendering Machine Operator: N/A Past Surgical History: Procedure Laterality Date ??? HX BREAST REDUCTION ??? HX CHOLECYSTECTOMY ??? HX TUBAL LIGATION ??? LA ESOPHAGOGASTRODUODENOSCOPY TRANSORAL DIAGNOSTIC N/A 04/05/2019 ESOPHAGOGASTRODUODENOSCOPY performed by Ranjeet Katz MD at [facility] Previous Anesthesia Problems/Concerns: No anesthesia problems/complications Social History Tobacco Use ??? Smoking status: Former Smoker Packs/day: 0.00 ??? Smokeless tobacco: Never Used ??? Tobacco comment: feb 2019-quit Substance Use Topics ??? Alcohol use: Not Currently No family history on file. Exercise Tolerance:good ? Unable to exercise due to physical disability CARDIAC RISK ASSESSMENT: low Beta Roberto Therapy Indicated: No Beta Roberto Last Dose: N/A Has patient received a beta roberto within the last 24 hour?: no beta roberto taken today or yesterday (06/04/1940) LABS Lab Results Component Value Date/Time WBC 12.0 (H) 05/08/2019 09:32 AM HEMOGLOBIN 13.2 05/08/2019 09:32 AM HEMATOCRIT 40.7 05/08/2019 09:32 AM PLATELETS 292 05/08/2019 09:32 AM MCV 82.4 05/08/2019 09:32 AM Lab Results Component Value Date/Time SODIUM 139 05/08/2019 09:32 AM POTASSIUM 4.0 05/08/2019 09:32 AM CHLORIDE 101 05/08/2019 09:32 AM CO2 24 05/08/2019 09:32 AM CALCIUM 9.4 05/08/2019 09:32 AM BUN 7 05/08/2019 09:32 AM CREATININE 0.92 05/08/2019 09:32 AM GLUCOSE 119 (H) 05/08/2019 09:32 AM TOTAL PROTEIN 7.2 05/08/2019 09:32 AM ALBUMIN 4.2 05/08/2019 09:32 AM BILIRUBIN TOTAL <0.2 05/08/2019 09:32 AM ALKALINE PHOSPHATASE 100 05/08/2019 09:32 AM AST 12 05/08/2019 09:32 AM ALT 11 05/08/2019 09:32 AM ANION GAP 14 05/08/2019 09:32 AM No results found for: INR, PT, PROTIMEPOC Lab Results Component Value Date/Time HCG QUAL URINE Negative 06/04/2019 09:23 AM HCG QUAL, BLOOD Negative 05/08/2019 09:32 AM No results found for: GLUCPOC EKG: Results for orders placed or performed during the hospital encounter of 05/08/19 EKG 12-LEAD Narrative Stationary ECG Study [place] Test Date: 05/08/2019 10:39 AM Pat Name: NELSY SALAS Department: 1 Room: Gender: F Drafter Assistant: Chucho : 1970 Requested By: RANJEET KATZ Order Number: [id number] Reading MD: Geo Do Measurements Intervals [place] Rate: 54 P: 61 LA: 192 QRS: 43 QRSD: 96 T: 12 QT: 452 QTc: 432 Interpretive Statements SINUS BRADYCARDIA Electronically Signed On 05-08-2019 16:18:32 [facility] by Geo Do CXR: No results found for this or any previous visit. Other Studies/Considerations: None PHYSICAL EXAM ASA Class: ASA 3 - Patient with moderate systemic disease with functional limitations Heart: regular rate and rhythm Lungs: clear to auscultation Neuro: alert & oriented AIRWAY Airway Class: I (soft palate, uvula, fauces, tonsillar pillars visible); Thyromental Distance (TMD): 3+ Finger Breadth Neck ROM: full Dentition: fair ANESTHETIC PLAN: General I have seen and examined this patient and confirm that all data is current and accurate. Risks and plan of anesthesia discussed with patient and/or legal development representative and patient and/or legal development representative agreed to proceed. Franco Collins MD 06/04/2019 [facility] documented in this encounter Miscellaneous Notes * Addendum Note - Linda Salmon CRNA - 06/05/2019 11:06 AM CST Addendum created 06/05/19 1106 by Linda Salmon CRNA Clinical Note Signed, Intraprocedure Event edited [facility] documented in this encounter Plan of Treatment Not on file documented as of this encounter Visit Diagnoses Not on filedocumented in this encounter Administered Medications Inactive Administered Medications - up to 3 most recent administrations Medication Order MAR Action Action Date Dose Rate Site acetaminophen (OFIRMEV) 10 mg/ml injection 1,000 mg 1,000 mg, IV, PRE-PROCEDURE ONCE, 1 dose, Starting on Mon06/04/19 at 1115, Until Mon06/04/19 at 1210, Routine, Intra-op Given 06/04/2019 12:10 PM [facility] 1,000 mg ceFAZolin (ANCEF,KEFZOL) 1,000 mg in sodium chloride 0.9% 50 mL IVPB (MBP) 1,000 mg, IV, PRE-PROCEDURE ONCE, 1 dose, Starting on Mon06/04/19 at 0912, Until Mon06/04/19 at 1138, Routine, Antibiotic Indication: Surgical prophylaxis New Bag 06/04/2019 11:38 AM [facility] 2,000 mg dexamethasone (DECADRON) injection INTRA-PROCEDURE PRN, Starting on Mon06/04/19 at 1145, Until Mon06/04/19 at 1258, Routine, Anesthesia Intra-op Given 06/04/2019 11:45 AM [facility] 8 mg fentaNYL PF (SUBLIMAZE) 50 mcg/mL injection INTRA-PROCEDURE PRN, Starting on Mon06/04/19 at 1107, Until Mon06/04/19 at 1258, Routine, Anesthesia Intra-op Given 06/04/2019 11:41 AM [facility] 100 mcg Given 06/04/2019 11:07 AM [facility] 100 mcg lactated ringers infusion IV, at 125 mL/hr, PRE-PROCEDURE CONTINUOUS, Starting on Mon06/04/19 at 0915, Until Mon06/04/19 at 1421, Stat, Pre-op New Bag 06/04/2019 12:02 PM [facility] New Bag 06/04/2019 12:01 PM [facility] Continue from Pre-Op 06/04/2019 11:07 AM [facility] lidocaine PF 2% (XYLOCAINE MPF) injection INTRA-PROCEDURE PRN, Starting on Mon06/04/19 at 1111, Until Mon06/04/19 at 1258, Routine, Anesthesia Intra-op Given 06/04/2019 11:11 AM [facility] 5 mL midazolam (PF) (VERSED) injection INTRA-PROCEDURE PRN, Starting on Mon06/04/19 at 1107, Until Mon06/04/19 at 1258, Routine, Anesthesia Intra-op Given 06/04/2019 11:07 AM [facility] 2 mg ondansetron (ZOFRAN) 4 mg/2 mL injection INTRA-PROCEDURE PRN, Starting on Mon06/04/19 at 1145, Until Mon06/04/19 at 1258, Routine, Anesthesia Intra-op Given 06/04/2019 11:45 AM [facility] 4 mg propofol (DIPRIVAN) injection INTRA-PROCEDURE PRN, Starting on Mon06/04/19 at 1111, Until e 06/04/19 at 1258, Anesthesia Intra-op Given 06/04/2019 11:11 AM [facility] 131 mg rocuronium injection INTRA-PROCEDURE PRN, Starting on Mon06/04/19 at 1116, Until Mon06/04/19 at 1258, Routine, Anesthesia Intra-op Given 06/04/2019 11:36 AM [facility] 10 mg Given 06/04/2019 11:16 AM [facility] 40 mg Given 06/04/2019 11:11 AM [facility] 5 mg succinylcholine (ANECTINE) 140 mg/7 mL (20 mg/mL) injection INTRA-PROCEDURE PRN, Starting on Mon06/04/19 at 1111, Until Mon06/04/19 at 1258, Routine, Anesthesia Intra-op Given 06/04/2019 11:11 AM [facility] 100 mg documented in this encounter Care Teams Cocoa Bean Roaster Relationship Specialty Start Date End Date Christofn, External Provider PCP - General 05/08/19 documented as of this encounter
--- OUTSIDE RECORDS SUMMARY | 2024-06-29 02:03 | XMS_ITS | Encounter Summary ---
Author Organization [facility] Address [address] [place] [address] Care Team Providers Care Telephone Order Supervisor Name Role Phone Cayden External Provider Primary Care Provider Un available Encounter Details Date Type Department Care Team (Latest Contact Info) Description 05/08/2019 9:16 AM AWS CONSULTANT - 05/08/2019 11:59 PM [facility] Hospital Encounter [facility] Preadmission Testing [address] [address] [place] [id number] [facility] [address] [place] [address] [facility] Betty Paz RN, flat lock operator Disposition: Home or Self Care Social History [...] on filedocumented in this encounter Care Teams Telephone Order Supervisor Relationship Specialty Start Date End Date Cayden External Provider PCP - General 05/08/19 documented as of this encounter
--- OUTSIDE RECORDS SUMMARY | 2024-06-29 02:03 | XMS_ITS | Encounter Summary ---
Author Organization [facility] Address [address] [place] [address] Care Team Providers Care Plasterer Stucco Name Role Phone Unavailable Primary Care Provider Unavailabl e Encounter Details Date Type Department Care Team (Latest Contact Info) Description 04/05/2019 7:04 AM CDT - 04/05/2019 9:45 AM CDT Hospital Encounter [facility] [address] [place] [address] [place] [id number] [place] [address] [place] [address] Pre-operative exam Discharge Disposition: Home or Self Care Social [...] Sign Reading Time Taken Comments Blood Pressure 132/71 04/05/2019 9:20 AM CDT Pulse 68 04/05/2019 9:20 AM CDT Temperature 36.5 ??C (97.7 ??F) 04/05/2019 9:04 AM CD T Respiratory Rate 20 04/05/2019 9:20 AM CDT Oxygen Saturation 100% 04/05/2019 9:20 AM CDT Inhaled Oxygen Concentration - - Weight 130.6 kg (288 lb) 04/05/2019 7:51 AM CDT Height 167.6 cm (5' 6 ) 04/05/2019 7:51 AM CDT Body Mass Index 46.48 04/05/2019 7:51 AM CDT documented in this encounter Discharge Instructions * Discharge Instructions* Shanice Katz MD - 04/05/2019 8:37 AM CDT ENDOSCOPY CENTER DISCHARGE INSTRUCTIONS ?? You have received sedation medication for your procedure. DO NOT drive or operate any machinery today. DO NOT consume any alcoholic beverages today. ?? You may return to normal activity tomorrow. ?? A feeling of fullness or cramping is normal. ?? It is not uncommon to have localized irritation of the vein at the medication site. A warm moistwashcloth over the site can help reduce pain and irritation. ?? No heavy lifting, straining or exercising for the next 24 hours. ?? You may consume a light meal and resume your diet prior to the procedure unless otherwise noted below. ?? If samples were taken during your procedure, please allow 1-2 weeks to receive results. If you don't hear from us by 2 weeks please call the office. ?? Contact your physician if you experience any of the following: ?? Chills and/or fever over 101 degrees ?? Increasing pain, nausea or vomiting ?? Increased abdominal swelling or severe bloating ?? Shortness of breath IF A COMPLICATION OR EMERGENCY SITUATION ARISES AND YOU ARE UNABLE TO REACH YOUR PHYSICIAN - PLEASEGO TO THE NEAREST EMERGENCY DEPARTMENT IMMEDIATELY WITH THIS FORM. Discharge patient to home (ambulatory). - The findings and recommendations were discussed with the patient's family. - Return to clinic as previously scheduled documented in this encounter Medications at Time [...] daily. 06/06/2019 documented as of this encounter H&P Notes * Shanice Katz MD - 04/05/2019 8:36 AM CDT [facility] History and Physical Patient: Key Salas : 1970 Date: 04/05/2019 HISTORY OF PRESENT ILLNESS: Patient is a 48 y.o. female who is scheduled for EGD for pre-op weight loss surgery. Past Medical History: Diagnosis Date ??? Arthritis ??? Asthma ??? GERD (gastroesophageal reflux disease) ??? HTN (hypertension) ??? Hyperlipidemia ??? Obesity ??? Obstructive sleep apnea Past Surgical History: Procedure Laterality Date ??? HX BREAST REDUCTION ??? HX CHOLECYSTECTOMY ??? HX TUBAL LIGATION Medications Prior to Admission Medication Sig Dispense Refill Last Dose ??? raNITIdine (ZANTAC) 150 mg tablet Take 150 mg by mouth 2 times daily. ??? MELOXICAM ORAL Take 15 mg by mouth 2 times daily. ??? METOPROLOL TARTRATE ORAL Take 25 mg by mouth daily. 04/04/2019 at Unknown time ??? atorvastatin calcium (ATORVASTATIN ORAL) Take 20 mg by mouth daily. ??? LISINOPRIL ORAL Take 5 mg by mouth daily. 04/04/2019 at Unknown time ??? furosemide (LASIX ORAL) Take 40 mg by mouth 2 times daily. ??? amlodipine besylate (AMLODIPINE ORAL) Take 5 mg by mouth daily. 04/04/2019 at Unknown time ??? OMEPRAZOLE ORAL Take by mouth. ??? umeclidinium bromide (INCRUSE ELLIPTA INHALATION) Take by inhalation. No Known Allergies Social History Socioeconomic History ??? Marital status: Single Spouse name: Not on file ??? Number of children: Not on file ??? Years of education: Not on file ??? Highest education level: Not on file Occupational History ??? Not on file Social Needs ??? Financial resource strain: Not on file ??? Food insecurity: Worry: Not on file Inability: Not on file ??? Transportation needs: Medical: Not on file Non-medical: Not on file Tobacco Use ??? Smoking status: Never Smoker Substance and Sexual Activity ??? Alcohol use: Not Currently ??? Drug use: Never ??? Sexual activity: Not on file Lifestyle ??? Physical activity: Days per week: Not on file Minutes per session: Not on file ??? Stress: Not on file Relationships ??? Social connections: Talks on phone: Not on file Gets together: Not on file Attends druze service: Not on file Active member of club or organization: Not on file Attends meetings of clubs or organizations: Not on file Relationship status: Not on file ??? Intimate partner violence: Fear of current or ex partner: No Emotionally abused: No Physically abused: No Forced sexual activity: No Other Topics Concern ??? Not on file Social History Narrative ??? Not on file No family history on file. REVIEW OF SYSTEMS: Constitutional: no weight loss, no malaise Respiratory: no shortness of breath, no chest pain Cardiovascular: no angina, no palpitation Gastrointestinal: no dysphagia, no abdominal pain Musculoskeletal: no muscle pain PHYSICAL EXAM: BP (!) 196/97 (Patient Position (BP): Sitting) Pulse 70 Temp 97.9 ??F (36.6 ??C) (Temporal) Resp 20 Ht 5' 6 (1.676 m) Wt 130.6 kg (288 lb) LMP 03/04/2019 (Within Weeks) SpO2 98% BMI 46.48 kg/m?? Head: Normal Lungs: Clear to auscultation bilaterally Airway: No apparent abnormalities Heart: Regular rate and rhythm Abdomen: soft, nontender, nondistended Neurologic: alert and oriented x 3 IMPRESSION: 1. Indications for procedure as noted in HPI. PLAN: I discussed in depth with the patient her current clinical situation. Risks of the procedure include but are not limited to sore throat, bleeding, perforation, and complications from anesthesia. The patient understands and she wishes to proceed with the procedure. Her questions were answered. Shanice Katz MD documented in this encounter Procedure Notes * Shanice Katz MD - 04/05/2019 8:48 AM CDTAssociated Order(s): UPPER ENDOSCOPY REPORT [facility] Endoscopy Patient Name: Key Salas Procedure Date: 04/05/2019 Date of : 1970 Admit Type: Outpatient Attending MD: Shanice Katz MD Procedure: Upper GI endoscopy Indications: Heartburn, Preoperative assessment for bariatric surgery to treat morbid obesity Providers: Shanice Katz MD Referring MD: Medicines: Monitored Anesthesia Care Complications: No immediate complications. Procedure: Informed consent was obtained for the procedure, including moderate sedation after risks were discussed. Based on the pre-procedure assessment, including review of the patient's medical history, medications, allergies, and review of systems, the patient was deemed to be an appropriate candidate for sedation. A timeout was performed. Continuous ECG monitoring, pulse oximetry, blood pressure monitoring, and direct observation were performed. The Endoscope was introduced through the mouth, and advanced to the second part of duodenum. The upper GI endoscopy was accomplished without difficulty. The patient tolerated the procedure well. Findings: No gross lesions were noted in the entire esophagus. The Z-line was regular and was found 40 cm from the incisors. No gross lesions were noted in the entire examined stomach. Biopsies were taken with a cold forceps for Helicobacter pylori testing. No gross lesions were noted in the entire examined duodenum. A 3 cm hiatal hernia was present. Impression: - No gross lesions in esophagus. - Z-line regular, 40 cm from the incisors. - No gross lesions in the stomach. Biopsied. - No gross lesions in the entire examined duodenum. - 3 cm hiatal hernia. Recommendation: - Discharge patient to home (ambulatory). - The findings and recommendations were discussed with the patient's family. - Return to my office as previously scheduled. Procedure Code(s): --- Professional --- 59030, Esophagogastroduodenoscopy, flexible, transoral; with biopsy, single or multiple CPT copyright 2016 [employer]. All rights reserved. The codes documented in this report are preliminary and upon tour conductor review may be revised to meet current compliance requirements. Shanice Katz MD 04/05/2019 8:48:03 AM Number of Addenda: [id number] [place] [address] documented in this encounter Plan of Treatment Not on file documented as of this encounter Procedures Procedure Name Priority Date/Time Associated Diagnosis Comments HELICOBACTER PYLORI RAPID UREASE TEST Routine 04/05/2019 8:49 AM CDT Pre-operative exam UPPER ENDOSCOPY REPORT 9 8:49 AM CDT ESOPHAGOGASTRODUODENOSCOPY 04/05 8:35 AM CDT Pre-operative exam Case Notes pcp not in [facility] POC , URINE Routine 04/05/2019 8:03 AM CDT documented in this encounter Results * HELICOBACTER PYLORI RAPID UREASE TEST (04/05/2019 8:49 AM CDT) H. PYLORI RAPID UREASE TEST Negative Negative 04/06/2019 9:29 AM CDT [facility] Tissue ENTIRE STOMACH / Unknown Collection / Unknown 04/05/2019 8:49 AM CDT 04/05/2019 9:16 AM CDT Shanice Katz MD MICROBIOLOGY - GEN ERAL ORDERABLES [facility] CLIA# [id number] [address] [id number] * UPPER ENDOSCOPY REPORT (04/05/2019 8:49 AM CDT) Narrative Procedure Note Shanice Katz MD - 04/05/2019 8:48 AM CDT [facility] Endoscopy Patient Name: Key Salas Procedure Date: 04/05/2019 Date of : 1970 Admit Type: Outpatient Attending MD: Shanice Katz MD Procedure: Upper GI endoscopy Indications: Heartburn, Preoperative assessment for bariatric surgery to treat morbid obesity Providers: Shanice Katz MD Referring MD: Medicines: Monitored Anesthesia Care Complications: No immediate complications. Procedure: Informed consent was obtained for the procedure, including moderate sedation after risks were discussed. Based on the pre-procedure assessment, including review of the patient's medical history, medications, allergies, and review of systems, the patient was deemed to be an appropriate candidate for sedation. A timeout was performed. Continuous ECG monitoring, pulse oximetry, blood pressure monitoring, and direct observation were performed. The Endoscope was introduced through the mouth, and advanced to the second part of duodenum. The upper GI endoscopy was accomplished without difficulty. The patient tolerated the procedure well. Findings: No gross lesions were noted in the entire esophagus. The Z-line was regular and was found 40 cm from the incisors. No gross lesions were noted in the entire examined stomach. Biopsies were taken with a cold forceps for Helicobacter pylori testing. No gross lesions were noted in the entire examined duodenum. A 3 cm hiatal hernia was present. Impression: - No gross lesions in esophagus. - Z-line regular, 40 cm from the incisors. - No gross lesions in the stomach. Biopsied. - No gross lesions in the entire examined duodenum. - 3 cm hiatal hernia. Recommendation: - Discharge patient to home (ambulatory). - The findings and recommendations were discussed with the patient's family. - Return to my office as previously scheduled. Procedure Code(s): --- Professional --- 17473, Esophagogastroduodenoscopy, flexible, transoral; with biopsy, single or multiple CPT copyright 2016 [employer]. All rights reserved. The codes documented in this report are preliminary and upon tour conductor review may be revised to meet current compliance requirements. Shanice Katz MD 04/05/2019 8:48:03 AM Number of Addenda: [phone] [id number] [place] [address] Shanice Katz MD GI PROCEDURE ORDER KEVON * POC , URINE (04/05/2019 8:03 AM CDT) HCG QUAL URINE Negative Negative INTERNAL KIT QC Pass Pass KIT LOT NUMBER POC [id number] KIT EXPIRATION DATE POC 2,020 Urine 04/05/2019 8:03 AM CDT Shanice Katz MD POINT OF CARE TEST ING documented in this encounter Visit Diagnoses Diagnosis Pre-operative exam Preoperative examination, unspecified documented in this encounter Administered Medications Inactive Administered Medications - up to 3 most recent administrations Medication Order MAR Action Action Date Dose Rate Site lactated ringers infusion IV, at 125 mL/hr, PRE-PROCEDURE CONTINUOUS, Starting on Mon04/05/19 at 0815, Until Mon04/05/19 at 1146, Routine, Pre-Procedure Continue from Pre-Op 04/05/2019 8:42 AM CDT New Bag 04/05/2019 8:07 AM CDT 125 mL/hr documented in this encounter Active and Recently Administered Medications Times are shown in CDT. Continuous Medication Order 04/03/2019 04/04/2019 04/05/2019 lactated ringers infusion IV, at 125 mL/hr, PRE-PROCEDURE CONTINUOUS, Starting on Mon04/05/19 at 0815, Until Mon04/05/19 at 1146, Routine, Pre-Procedure 0807 (New Bag - Prov ider: Mere Silva RN)0842 (Continue from Pre-Op - Provider: MILES Abreu)0854 (Fluid Volume - Provider: MILES Abreu)0928 (Stopped - Provider: Lanny Beasley RN) documented in this encounter
--- OUTSIDE RECORDS SUMMARY | 2024-06-29 02:03 | XMS_ITS | Clinical Summary ---
Author Organization [facility] Address [address] [place] [address] Phone Care Team Providers Care Senior Research Analyst Name Role Phone Cayden External Provider Primary Care Provider Un available Allergies No known active allergies Medications Medication Sig Dispensed Refills Start Date End Date Status METOPROLOL TARTRATE ORAL Take 25 mg by mouth daily. Active atorvastatin calcium (ATORVASTATIN ORAL) Take 20 mg by mouth daily. Active LISINOPRIL ORAL Take 5 mg by mouth daily. Active amlodipine besylate (AMLODIPINE ORAL) Take 5 mg by mouth daily. Active umeclidinium bromide (INCRUSE ELLIPTA INHALATION) Take by inhalation. Active raNITIdine (ZANTAC) 150 mg tablet Take 150 mg by mouth 2 times daily. Active ondansetron (ZOFRAN ODT) 4 mg Tablet, Rapid DissolveIndications:n ausea Place 1 Tablet (4 mg) under tongue every 6 hours as needed for Nausea/Emesis. 10 Tablet 06/04/2019 Active Active Problems Problem Noted Date Diagnosed Date Poor fluid intake 06/05/2019 Post-operative nausea and vomiting 06/05/2019 Post-op pain 06/05/2019 HTN (hypertension) 06/04/2019 GERD (gastroesophageal reflux disease) 9 Asthma 06/04/2019 Immunizations Name Administration Dates Next Due INFLUENZA VACCINE QUADRIVALENT 6 MOS UP PF IM Social History Tobacco Use Types Packs/Day Years [...] on file Sexual Orientation Not on file Last Filed Vital Signs Vital Sign Reading Time Taken Comments Blood Pressure 159/103 06/06/2019 11:51 AM RAIL TRANSPORTATION TABELER Pulse 58 06/06/2019 11:51 AM RAIL TRANSPORTATION TABELER Temperature 36.8 ??C (98.2 ??F) 06/06/2019 1 1:51 AM RAIL TRANSPORTATION TABELER Respiratory Rate 18 06/06/2019 11:5 1 AM RAIL TRANSPORTATION TABELER Oxygen Saturation 100% 06/06/2019 11: 51 AM RAIL TRANSPORTATION TABELER Inhaled Oxygen Concentration - - Weight 125.3 kg (276 lb 3.2 oz) 06/06/2019 4:14 AM RAIL TRANSPORTATION TABELER Height 167.6 cm (5' 6 ) 06/04/2019 9:37 AM RAIL TRANSPORTATION TABELER Body Mass Index 44.58 06/04/2019 9:37 AM RAIL TRANSPORTATION TABELER Plan of Treatment Health Maintenance Due Date Last Done Comments PNEUMOCOCCAL VACCINE 0-64 YEARS (1 of 2 - PCV) 979 DTAP/TDAP/TD VACCINES (1 - Tdap) 1991 HEPATITIS B VACCINES (1 of 3 - 19+ 3-dose series) 06/28 CERVICAL CANCER SCREENING 2002 BREAST CANCER SCREENING 2012 COLORECTAL SCREENING 2017 Colorectal Cancer Screening 2017 FIT-DNA Q 3 years 2017 FIT/FOBT Q 1 year 2017 Flex Sig/CT Colonography Q 5 years 2017 ZOSTER VACCINE (1 of 2) 2022 INFLUENZA VACCINE (#1) 2024 05/29/2014 Medical Devices Implanted Type Area Chief Of Surgery Device Identifier Shelf Expiration Date Model / Serial / Lot Seamguard Endogia 60 [id number] [id number] - [id number] Implanted:Qty : 3 on 06/04/2019 by Shanice Katz MD at [facility] Biological N/A: Stomach [employer] 03/10/2022 [id number] / / [id number] Seamguard Endogia 60 Blck [id number] - [id number] Implanted:Qty : 1 on 06/04/2019 by Shanice Katz MD at [facility] Biological N/A: Stomach [employer] 03/13/2022 [id number] / / [id number] Web Offset Press Feeder Endoclip Iii 5mm W/Cliplogic [id number] - [id number] Implanted:Qty : 1 on 06/04/2019 by Shanice Katz MD at [facility] Clip [employer] - [employer] 12/23/2021 [id number] / / [id number] Advance Directives For more information, please contact: [phone] * Full Code (Latest Code Status on File) Date Activated Date Inactivated Comments 06/04/2019 2:22 PM 06/06/2019 2:14 PM * Full Code Date Activated Date Inactivated Comments 06/04/2019 9:54 AM 06/04/2019 2:22 PM * Full Code Date Activated Date Inactivated Comments 06/04/2019 9:09 AM 06/04/2019 9:54 AM Care Teams Senior Research Analyst Relationship Specialty Start Date End Date Cayden, External Provider PCP - General 05/08/19
--- OUTSIDE RECORDS SUMMARY | 2024-06-29 02:03 | XMS_ITS | Continuity of Care Document ---
Author Organization [employer] Address [address] [facility] [address] [place] [address] Phone Care Team Providers Care Pig Caster Name Role Phone Scott Isaacs PT Unavailable Unavailable Procedures Procedure Date Progress Note Therapeutic Activities Neuromuscular Re-Ed Therapeutic Exercise Therapeutic Activities Neuromuscular Re-Ed Therapeutic Exercise Therapeutic Activities Neuromuscular Re-Ed Therapeutic Exercise Therapeutic Activities Neuromuscular Re-Ed Therapeutic Exercise Therapeutic Activities Neuromuscular Re-Ed Therapeutic Exercise Therapeutic Activities Neuromuscular Re-Ed Therapeutic Exercise Progress Note Therapeutic Activities Neuromuscular Re-Ed Mar- Therapeutic Exercise Therapeutic Activities Neuromuscular Re-Ed Mar- Therapeutic Exercise Therapeutic Activities Neuromuscular Re-Ed Therapeutic Exercise Therapeutic Activities Neuromuscular Re-Ed Therapeutic Exercise Therapeutic Activities Neuromuscular Re-Ed Therapeutic Exercise Therapeutic Activities Therapeutic Exercise Neuromuscular Re-Ed Therapeutic Activities Neuromuscular Re-Ed Mar- Therapeutic Exercise Therapeutic Activities Feb- Neuromuscular Re-Ed Feb- Therapeutic Exercise Feb- Therapeutic Activities Feb- Neuromuscular Re-Ed Feb- Therapeutic Exercise Feb- Manual Therapy Feb- Therapeutic Activities Feb- Neuromuscular Re-Ed Feb- Therapeutic Exercise Feb- Manual Therapy Feb- Therapeutic Activities Feb- Neuromuscular Re-Ed Feb- Therapeutic Exercise Feb- Manual Therapy Feb- Therapeutic Activities Feb- Neuromuscular Re-Ed Feb- Therapeutic Exercise Feb- Manual Therapy Feb- Therapeutic Activities Feb- Neuromuscular Re-Ed Feb- Therapeutic Exercise Feb- Manual Therapy Feb- Therapeutic Activities Feb- Neuromuscular Re-Ed Feb- Therapeutic Exercise Feb- Manual Therapy Feb- Therapeutic Activities Feb- Neuromuscular Re-Ed Feb- Therapeutic Exercise Feb- Manual Therapy PT Evaluation Moderate Complexity Therapeutic Activities Feb- Neuromuscular Re-Ed Feb- Therapeutic Exercise Feb- Manual Therapy Progress Note Therapeutic Activities Neuromuscular Re-Ed Therapeutic Exercise Therapeutic Activities Neuromuscular Re-Ed Therapeutic Exercise Therapeutic Activities Neuromuscular Re-Ed Therapeutic Exercise Therapeutic Activities Neuromuscular Re-Ed Therapeutic Exercise Therapeutic Activities Neuromuscular Re-Ed Therapeutic Exercise Therapeutic Activities Therapeutic Exercise Neuromuscular Re-Ed Manual Therapy Therapeutic Activities Neuromuscular Re-Ed Therapeutic Exercise Manual Therapy Therapeutic Activities Neuromuscular Re-Ed Therapeutic Exercise Manual Therapy Therapeutic Activities Neuromuscular Re-Ed Therapeutic Exercise Manual Therapy Therapeutic Activities Neuromuscular Re-Ed Therapeutic Exercise Manual Therapy PT Evaluation Moderate Complexity Therapeutic Activities Neuromuscular Re-Ed Therapeutic Exercise Manual Therapy Advance Directives Directive Yes / No Effective Date File Name No Information Encounters Encounter Description Practice Location Reason(s) For Visit Diagnoses Date Provider Providers Copied on Encounter [facility] [place] [employer], [id number], tel:[phone] [place] No Information 4 Delmoose Chavez. . [facility] [place] [employer], [id number], tel:[phone] [place] No Information 3 Dellamano Scott. . Referring Provider: Jeff Davies, [address] [facility] [address] [place], [address]. tel:[phone] [facility] [address] [facility] [address], [place], [id number], tel:[phone] [place] No Information 3 Dellamano Scott. . Referring Provider: Jeff Davies, [address] [facility] [address], [place], [address]. tel:[phone] [facility] [address], [id number], tel:[phone] [place] No Information 3 Dellamano Scott. . Referring Provider: Jeff Davies, [address] [facility] [address], [place], [address]. tel:[phone] [facility], [address] [place] [address] [address], [place], [place], [id number], tel:[phone] [place] No Information 3 Dellamano Scott. . Referring Provider: Jeff Davies, [address] [place] [address] [address], [place], [address]. tel:[phone] [place] [address], [address] [place] [address], [place], [place], [id number], [place] tel:[phone] [place] No Information 3 Dellamano Scott. . Referring Provider: Jeff Davies [address] [place] [address] [address] , [place], [address]. tel:[phone] [place] [address], [address] [place] [address], [place], [place], [id number], [place] tel:[phone] [place] No Information 3 Dellamano Scott. . Referring Provider: Jeff Davies, [address] [place] [address] [address], [place], [address]. tel:[phone] [place] [address], [place], [id number], [place] tel:[phone] [place] No Information 3 Dellamano Scott. . Referring Provider: Jeff Davies [address] [place] [address] [address], [place], [address]. tel:[phone], [place], [place], [id number], [place] tel:[phone] [place] No Information 3 Dellamano Scott. . Referring Provider: Jeff Davies [address] [facility] [address], [place], [address]. tel:[phone] [facility], [address] [place], [place] [address], [place], [place], [id number], [place] tel:[phone] [place] No Information Oct-1 2-202 3 Dellamano Scott. . Referring Provider: Jeff Davies, [address] [place] [address] [address] , [place], [address]. tel:[phone] [place], [place] [address], [place], [place], [id number], [place] tel:[phone] [place] No Information Oct-0 9-202 3 Dellamano Scott. . Referring Provider: Jeff Davies, [address] [place] [address] [address] , [place], [address]. tel:[phone] [place], [place] [address]e [facility], [place], [place], [id number], [place] tel:[phone] [place] No Information Oct-0 6-202 3 Dellamano Scott. . Referring Provider: Jeff Davies, [address] [place] [address] [address] , [place], [address]. tel:[phone] [place] [address]e [address], [place], [place], [address], [place] tel:[phone] [place] No Information Oct-0 5-202 3 Dellamano Scott. . Referring Provider: Jeff Davies, [address] [place] [address] [address], [place], [address]. tel:[phone] [place], [place] [address], [place], [place], [id number], [place] tel:[phone] [place] No Information Oct-0 3-202 3 Dellamano Scott. . Referring Provider: Jeff Davies, [address] [place] [address] [address], [place], [address]. tel:[phone] [place], [place] [address], [place], [place], [id number], [place] tel:[phone] [place] No Information Sep-2 3 Dellamano Scott. . Referring Provider: Jeff Davies, [address] [facility] [address], [place], [address]. tel:[phone] [facility], [address] [place], [place] [address]e [address], [place], [place], [id number], [place] tel:[phone] [place] No Information Sep-2 3 Dellamano Scott. . Referring Provider: Jeff Davies, [address] [place] [address] [address], [place], [address]. tel:[phone], [place], [place], [address], [place] tel:[phone] [place] No Information Sep-2 3 Dellamano Scott. . Referring Provider: Jeff Davies, [address] [facility] [address], [place], [address]. tel:[phone] [place] [address], [place], [place], [id number], [place] tel:[phone] [place] No Information Sep-2 3 Dellamano Scott. . Referring Provider: Jeff Davies, [address] [facility] [address] , [place], [address]. tel:[phone], [place], [place], [id number], [place] tel:[phone] [place] No Information Sep-2 3 Dellamano Scott. . Referring Provider: Jeff Davies, [address] [facility] [address], [place], [address]. tel:[phone], [place], [place], [id number], [place] tel:[phone] [place] No Information Sep-1 3 [place] Jeff. . Referring Provider: Jeff Davies, [address] [facility] [address] [facility] [address], [place], [address]. tel:[phone], [place], [place], [id number], [place] tel:[phone] [place] No Information 3 Dellamano Scott. . Referring Provider: Jeff Davies, [address] [facility] [address] [facility] [address], [place], [address]. tel:[phone] [place] [address], [address] [place] [address], [place], [place], [id number], [place] tel:[phone] [place] No Information 3 Dellamano Scott. . Referring Provider: Jeff Davies, [address] [place] [address] [address] , [place], [address]. tel:[phone] [place] [address], [place], [place], [id number], [place] tel:[phone] [place] No Information 3 Dellamano Scott. . Referring Provider: Jeff Davies, [address] [place] [address] [address], [place], [address]. tel:[phone] [place] [address], [place], [place], [id number], [place] tel:[phone] [place] No Information 3 Dellamano Scott. . Referring Provider: Jeff Davies [address] [place] [address] [address], [place], [address]. tel:[phone], [place], [place], [address], [place] tel:[phone] [place] No Information 3 Dellamano Scott. . Referring Provider: Jeff Davies [address] [facility] [address] [facility] [address], [place], [address]. tel:[phone], [place], [place], [address], [place] tel:[phone] [place] No Information May-0 9-202 3 Dellamano Scott. . Referring Provider: Jeff Davies, [address] [facility] [address] [place], [address]. tel:[phone], [place], [place], [id number], [place] tel:[phone] [place] No Information May-0 8-202 3 Dellamano Scott. . Referring Provider: Jeff Davies, [address] [place] [address] [address] [facility], [place], [address]. tel:[phone] [place] [address], [place], [place], [address], [place] tel:[phone] [place] No Information May-0 5-202 3 Dellamano Scott. . Referring Provider: Jeff Davies, [address] [place] [address] [address] , [place], [address]. tel:[phone] [place] [address], [place], [place], [id number], [place] tel:[phone] [place] No Information May-0 3-202 3 Short Jemima. . Referring Provider: Jeff Davies, [address] [place] [address] [address] , [place], [address]. tel:[phone], [place], [place], [id number], [place] tel:[phone] [place] No Information May-0 1-202 3 Dellamano Scott. . Referring Provider: Jeff Davies, [address] [facility] [address], [place], [address]. tel:[phone] [place] [address], [place], [place], [address], [place] tel:[phone] [place] No Information 3 Dellamano Scott. . Referring Provider: Jeff Davies, [address] [facility] [address] [place], [address]. tel:[phone] [address] [place] [address], [place], [place], [address], tel:[phone] [place] No Information 3 Dellamano Scott. . Referring Provider: Jeff Davies, [address] [facility] [address], [place], [address]. tel:[phone] [address] [place] [address], [place], [place], [address], tel:[phone] [place] No Information 3 Dellamano Scott. . Referring Provider: Jeff Davies, [address] [facility] [address] , [place], [address]. tel:[phone] [address] [place] [address], [place], [place], [address], tel:[phone] [place] No Information 3 Dellamano Scott. . Referring Provider: Jeff Davies, [address] [facility] [address] [place], [address]. tel:[phone] Family History Family Member Type Diagnosis Age At Onset No Information Payers Payer name Insurance type Covered libertarian ID Kimmie arnold(s) Jone Scott [facility] [id number] Social History Type Description Quantity Date Captured Comments Sex Female Smoking Status No Information Chief Complaint And Reason For Visit No Information Reason For Referral Reason For Referral No Information Plan Of Treatment Date Type Action Status Goal Tobacco Cessation Counseling completed Goal Tobacco cessation counseling completed Goal Tobacco Cessation Counseling completed Goal Tobacco cessation counseling completed Referral Ordered: PCP timeframe: 1 week. (related to Overweight) ordered Sep-11-2023 Referral Ordered: Weight management: Referral to physician timeframe: 1 Month. (related to Overweight) ordered Referral Ordered: PCP timeframe: 1 week. (related to Overweight) ordered Referral Ordered: Weight management: Referral to physician timeframe: 1 Month. (related to Overweight) ordered History Of Present Illness Encounter Date Complaint History Of Prese nt Illness No Information Functional Status Date Functional Assessmen t No Information Instructions Date Instruction Additional Infor mation No Information Assessments Type Assessment Date No Information Patient Care Teams Name Effective Dates (start - stop) Status Members No Information
--- OUTSIDE RECORDS SUMMARY | 2024-06-29 02:03 | XMS_ITS | Encounter Summary ---
Author Organization [facility] Address [address] [place] [address] Care Team Providers Care Digital Media Buyer Name Role Phone Cayden External Provider Primary Care Provider Un available Encounter Details Date Type Department Care Team (Latest Contact Info) Description 05/08/2019 9:24 AM DUMPER OPERATOR - 05/08/2019 11:59 PM [facility] Hospital Encounter [facility] [address] [address] [place] [address] [address] [place] [address] [place] [address] Discharge Disposition: Home or Self [...] Procedure Name Priority Date/Time Associated Diagnosis Comments HCG QUALITATIVE, SERUM Routine 9 9:32 AM DUMPER OPERATOR Morbid obesity CBC WITH DIFFERENTIAL Stat 05/08/2019 9:32 AM DUMPER OPERATOR Morbid obesity COMPREHENSIVE METABOLIC PANEL Stat 05/08/2019 9:32 AM DUMPER OPERATOR Morbid obesity documented in this encounter Results * HCG QUALITATIVE, BLOOD (05/08/2019 9:32 AM DUMPER OPERATOR) Pathologist [facility] HCG QUAL, BLOOD Negative Negative 05/08/2019 10:12 AM [facility] Blood Venipuncture / Unknown 05/08/2019 9:32 AM DUMPER OPERATOR 05/08/2019 9:32 AM DUMPER OPERATOR Narrative [facility] - 05/08/2019 10:12 AM [facility] hCG sensitive to as little as 10 mIU/mL for serum. Shanice Katz MD CHEMISTRY ORDERABL ES [facility] CLIA # [id number] [address] [place] [id number] * (ABNORMAL) COMPREHENSIVE METABOLIC PANEL (05/08/2019 9:32 AM DUMPER OPERATOR) Pathologist [facility] SODIUM 139 136 - 145 mmol/L 05/08/2019 10:01 AM [facility] [place] POTASSIUM 4.0 3.5 - 5.1 mmol/L 05/08/2019 10:01 AM [facility] [place] CHLORIDE 101 98 - 107 mmol/L 05/08/2019 10:01 AM [facility] [place] CO2 24 22 - 29 mmol/L 05/08/2019 10:01 AM [facility] [place] CALCIUM 9.4 8.6 - 10.0 mg/dL 05/08/2019 10:01 AM [facility] [place] BUN 7 6 - 20 mg/dL 05/08/2019 10:01 AM [facility] [place] CREATININE 0.92 0.51 - 0.95 mg/dL 05/08/2019 10:01 AM [facility] [place] GLUCOSE 119(H) 74 - 99 mg/dL 05/08/2019 10:01 AM [facility] [place] TOTAL PROTEIN 7.2 6.6 - 8.7 g/dL 05/08/2019 10:01 AM [facility] [employer] [facility]ATORY [facility] - [place] ALBUMIN 4.2 4.0 - 5.0 g/dL 05/08/2019 10:01 AM [facility] [place] BILIRUBIN TOTAL <0.2 <=1.2 mg/dL 05/08/2019 10:01 AM [facility] LABORATORY [facility] [place] ALKALINE PHOSPHATASE 100 35 - 104 U/L 05/08/2019 10:01 AM [facility] [employer] LABORATORY [facility] [place] AST 12 <40 U/L 05/08/2019 10:01 AM [facility] [employer] LABORATORY [facility] [place] ALT 11 <=33 U/L 05/08/2019 10:01 AM [facility] [employer] LABORATORY [facility] [place] GFR >60 >=60 mL/min/1.7 3 sq meter 05/08/2019 10:01 AM [facility] [employer] [facility] [place] Comment: eGFR has [...] GFR, >60 >=60 mL/min/1.7 3 sq meter 05/08/2019 10:01 AM [facility] [employer] [facility] [place] ANION GAP 14 5 - 15 mmol/L 05/08/2019 10:01 AM [facility] [place] Blood Venipuncture / Unknown 05/08/2019 9:32 AM DUMPER OPERATOR 05/08/2019 9:32 AM DUMPER OPERATOR Shanice Katz MD CHEMISTRY ORDERABL ES [facility] [employer] SERVICES - [place] CLIA # [id number] [facility] [address] [place] [id number] * (ABNORMAL) CBC WITH DIFFERENTIAL (05/08/2019 9:32 AM DUMPER OPERATOR) WBC 12.0(H) 4.0 - 11.0 K/uL 05/08/2019 9:43 AM [facility] [place] RBC 4.94 4.20 - 5.40 M/uL 05/08/2019 9:43 AM [facility] [place] HEMOGLOBIN 13.2 11.9 - 15.1 g/dL 05/08/2019 9:43 AM [facility] [employer] SERVICES - [place] HEMATOCRIT 40.7 38.0 - 47.0 % 05/08/2019 9:43 AM [facility] [employer] [facility] [place] MCV 82.4 80.0 - 98.0 fL 05/08/2019 9:43 AM [facility] [employer] SERVICES - [place] MCH 26.7 26.0 - 34.0 pg 05/08/2019 9:43 AM [facility] [place] MCHC 32.4 31.0 - 37.0 g/dL 05/08/2019 9:43 AM [facility] [place] RDW 14.2 11.5 - 14.5 % 05/08/2019 9:43 AM [facility] [employer] [facility] [place] RDW-STDEV 42.1 34.0 - 54.0 fL 05/08/2019 9:43 AM [facility] [place] PLATELETS 292 150 - 400 K/uL 05/08/2019 9:43 AM DUMPER OPERATOR [employer] [facility]ORATORY [facility] - [place] MPV 10.2 8.5 - 12.5 fL 05/08/2019 9:43 AM DUMPER OPERATOR [employer] [facility] [place] NEUTROPHILS 59 50 - 70 % 05/08/2019 9:43 AM [facility] [employer] [facility] - [place] LYMPHOCYTES 34 20 - 40 % 05/08/2019 9:43 AM DUMPER OPERATOR [employer] [facility] [place] MONOCYTES 4 2 - 8 % 05/08/2019 9:43 AM DUMPER OPERATOR [employer] [facility] [place] EOSINOPHILS 2 1 - 3 % 05/08/2019 9:43 AM DUMPER OPERATOR [employer] [facility] [place] BASOPHILS 1 0 - 1 % 05/08/2019 9:43 AM DUMPER OPERATOR [employer] [facility] [place] IMMATURE GRANULOCYTES 0 0 - 2 % 05/08/2019 9:43 AM [facility] [employer] [facility] - [place] NEUTROPHIL ABSOLUTE 7.09 1.80 - 7.70 K/uL 05/08/2019 9:43 AM [facility] [employer] [facility] [place] LYMPHOCYTE ABSOLUTE 4.12(H) 1.00 - 3.30 K/uL 05/08/2019 9:43 AM DUMPER OPERATOR [employer] [facility] [place] MONOCYTE ABSOLUTE 0.46 0.00 - 0.80 K/uL 05/08/2019 9:43 AM DUMPER OPERATOR [employer] [facility] [place] EOSINOPHIL ABSOLUTE 0.19 0.00 - 0.45 K/uL 05/08/2019 9:43 AM [facility] [employer] [facility] [place] BASOPHILS ABSOLUTE 0.07 0.00 - 0.20 K/uL 05/08/2019 9:43 AM [facility] [employer] [facility] [place] IMMATURE GRANULOCYTES ABSOLUTE 0.04 0.00 - 0.31 K/uL 05/08/2019 9:43 AM DUMPER OPERATOR [employer] [facility] - [place] Blood Venipuncture / Unknown 05/08/2019 9:32 AM DUMPER OPERATOR 05/08/2019 9:32 AM DUMPER OPERATOR Shanice Katz MD HEMATOLOGY ORDERAB LES [employer] LABORATORY SERVICES - [place] CLIA # [id number] [facility] [address] [place] [address] documented in this encounter Visit Diagnoses Diagnosis Morbid obesity- Primary documented in this encounter Care Teams Digital Media Buyer Relationship Specialty Start Date End Date Christofn, External Provider PCP - General 05/08/19 documented as of this encounter
--- OUTSIDE RECORDS SUMMARY | 2024-06-29 02:03 | XMS_ITS | Encounter Summary ---
Author Organization [facility] Address [address] [place] [address] Care Team Providers Care Keeler Polygraph Operator Name Role Phone Christofn, External Provider Primary Care Provider Un available Reason for Visit * Auth/Cert Specialty Diagnoses / Procedures Referred By Onel melgoza Referred To Contact Multi Specialty Diagnoses Morbid (severe) obesity due to excess calories Procedures ID LAP, MARIA DEL CARMEN RESTRICT PROC, LONGITUDINAL GASTRECTOMY GASTRECTOMY LONGITUDINAL LAPAROSCOPIC Christofsteve Operating Room [address] [address] Referral ID Status Reason Start Date Expiration Date Visits Re quested Visits Authorized [id number] 1 1 Encounter Details Date Type Department Care Team (Late st Contact Info) Description 06/04/2019 11:00 AM DRY CHARGE PROCESS ATTENDANT - 06/04/2019 12:45 PM [facility] Surgery [facility] Operating Room [address] [address] [place] [address] [facility] [place] [address] [place] [address] Laparoscopic vertical sleeve gastrectomy with insertion of tunneled abdominal wall catheters Surgery Details Date/Time Status Location OR Service Patient Class Case Class Case Type Trauma Case? 06/04/2019 11:00 AM Posted [facility] MAIN OR MOR 01 General Surgery Surgery Admit Elective No Panel 1 Procedure LRB Anes Op Region Wound Class Comments Laparoscopic vertical sleeve gastrectomy with insertion of tunneled abdominal wall catheters N/A General Abdomen Clean Contaminated-II Surgeon Surgeon Role Service Panel Shanice Katz MD Primary General Surgery 1 Case Notes [id number] [id number] documented in this encounter Social History Tobacco [...] Sign Reading Time Taken Comments Blood Pressure 148/96 06/04/2019 9:37 AM DRY CHARGE PROCESS ATTENDANT Pulse 87 06/04/2019 9:37 AM DRY CHARGE PROCESS ATTENDANT Temperature 36.3 ??C (97.3 ??F) 06/04/2019 9:37 AM CS T Respiratory Rate 20 06/04/2019 9:37 AM DRY CHARGE PROCESS ATTENDANT Oxygen Saturation 99% 06/04/2019 9:37 AM DRY CHARGE PROCESS ATTENDANT Inhaled Oxygen Concentration - - Weight 131.1 kg (289 lb) 06/04/2019 9:37 AM DRY CHARGE PROCESS ATTENDANT Height 167.6 cm (5' 6 ) 06/04/2019 9:37 AM DRY CHARGE PROCESS ATTENDANT Body Mass Index 44.58 06/04/2019 9:37 AM DRY CHARGE PROCESS ATTENDANT documented in this encounter Discharge Summaries * Enedina Jay ANP - 06/06/2019 9:26 AM CST [facility] Sar[facility]ia Adult Hospitalist Discharge Summary Key Salas 48 y.o. female 1970 CSN: [id number] Date of Admission: 06/04/2019 Date of Discharge: [...] Your Medications These medications were sent to [facility] [address], [place] [address], [place] [address] Hours: Monday-Monday: 8:30 a.m. - 5:00 p.m., [...] 125.3 kg (276 lb 3.2 oz) (06/06/19 041) Physical Exam: Appearance: Well-appearing, no pain distress, [...] DAYS Signed: REAGAN Suggs 06/06/2019, 9:26 AM CHARGE PROCESS ATTENDANT documented in this encounter Discharge Instructions * Discharge Instructions* Enedina Jay ANP - 06/04/2019 1:42 PM DRY CHARGE PROCESS ATTENDANT Your discharging physician is REAGAN Suggs and may be reached at [phone] for any questions or concerns until you [...] is not relieved by nitroglycerin. Smoking Exposure: Caryn encourages all patients to decrease risks associated [...] mg tablet -- may crush 8. Umeclidinium [place] (Incruse Ellipta inhaler) -- inhaler ? CHARGE PROCESS ATTENDANT * Attachments The following attachments cannot be sent through Care Everywhere. * Sleeve Gastrectomy: Post-op (Setswana) documented in this encounter Medications at Time of Discharge Medication Sig Dispensed Refills Start Date End Date ondansetron (ZOFRAN ODT) 4 mg Tablet, Rapid DissolveIndications:cheikh byrd Place 1 Tablet (4 mg) under tongue [...] ambulated out facility with family at side. CHARGE PROCESS ATTENDANT * Laurel Hawley RN - 06/06/2019 11:38 AM CST Pt states to this RN that she has not attended the bariatric class. This RN informed pt of class starting at this time. Pt refused to attend class. Enedina Jay NP notified. Provider states pt is clear for discharge. Provider states to educate pt prior to discharge and inform pt of importance of attending class. This RN discussed class with pt. Pt states no they talked to me already. I knowwhat I want to do. I don't want to go. I want to go home . CHARGE PROCESS ATTENDANT * Anne Larkin RN - 06/06/2019 2:50 AM CST 0000 Patient BP noted at 180/94 patient denies any dizziness, nausea or headache 0249 BP still remains high measured at 180/109 manually. Patient denies any symptoms. Clonidine administered CHARGE PROCESS ATTENDANT * Enedina Jay ANP - 06/05/2019 3:26 PM CST [facility] Adult Hospitalist Progress Note Admit Date: 06/04/2019 Date of Note: 06/05/2019, 3:27 PM PCP: Cayden, External Provider LOS: 1 day [facility] Hospitalist Progress Note Previous history of present illness [...] conference, nursing conference and discussion with any qa consultant. Enedina Jay, ANP [facility] CHARGE PROCESS ATTENDANT * Shanice Katz MD - 06/05/2019 8:41 [...] mL 7.5 mg Oral q 4 hour PRShanice Pond MD ??? morphine 4 mg/mL injection 2 mg 2 mg IV q 4 hour PRN Shanice Katz MD 2 mg at 06/04/19 2227 ??? HYDROcodone-acetaminophen (HYCET) 7.5-325 mg/15 mL oral solution 15 mL 7.5 mg Oral q 4 hour PRShanice Pond MD ??? HYDROmorphone (PF) (DILAUDID) injection 0.3 [...] 6 hour PRN Shanice Katz MD ??? famotidine PF (PEPCID) 20 mg/2 mL injection 20 mg 20 mg IV BID Shanice Katz MD 20 mg at108/06/18 0830 ??? umeclidinium (INCRUSE ELLIPTA) 62.5 mcg/actuation inhaler 1 Puff 1 Puff Inhalation Resp Daily Enedina Jay, ANP ??? atorvastatin (LIPITOR) tablet 20 mg 20 mg Oral Daily Enedina Jay, ANP 20 mg at 830 ??? cloNIDine HCl (CATAPRES) tablet 0.1 mg 0.1 mg Oral TID PRN Enedina Jay, ANP 0.1 mg at 06/05/19 0417 ??? [...] 20 mg 20 mg Oral Daily Enedina Jay, REAGAN Facility-Administered Medications Ordered in Other Encounters Medication Dose Route Frequency Provider Last Rate Last Dose ??? [DISCONTINUED] rocuronium injection Intra-Proc PRN Dequan Pruitt P, CONCRETE STONE FABRICATING SUPERVISOR 10 mg at 06/04/19 1136 ??? [DISCONTINUED] midazolam (PF) (VERSED) injection Intra-Proc PRN Dequan Pruitt P, CONCRETE STONE FABRICATING SUPERVISOR 2 mg at 06/04/19 1107 ??? [DISCONTINUED] fentaNYL PF (SUBLIMAZE) 50 mcg/mL injection Intra-Proc PRN Samir Pruittson P, CONCRETE STONE FABRICATING SUPERVISOR 100 mcg at 06/04/19 1141 ??? [DISCONTINUED] lidocaine PF 2% (XYLOCAINE MPF) injection Intra-Proc PRN Samir Pruittson P, CONCRETE STONE FABRICATING SUPERVISOR 5 mL at 06/04/19 1111 ??? [DISCONTINUED] propofol (DIPRIVAN) injection Intra-Proc PRN Samir Pruittson P, CONCRETE STONE FABRICATING SUPERVISOR 131 mg at 06/04/19 1111 ??? [DISCONTINUED] succinylcholine (ANECTINE) 140 mg/7 mL (20 mg/mL) injection Intra-Proc PRN Pruitt, Dequan P, CONCRETE STONE FABRICATING SUPERVISOR 100 mg at 06/04/19 1111 ??? [DISCONTINUED] ondansetron (ZOFRAN) 4 mg/2 mL injection Intra-Proc PRN Pruitt, Dequan P, CONCRETE STONE FABRICATING SUPERVISOR 4mg at 06/04/19 1145 ??? [DISCONTINUED] dexamethasone (DECADRON) injection Intra-Proc PRN Pruitt, Dequan P, CONCRETE STONE FABRICATING SUPERVISOR 8 mg at108/05/18 1145 Objective: Physical Exam: BP (!) 167/85 (BP Location: Right arm, Patient Position (BP): Supine) Pulse 64 Temp 98.1 ??F (36.7 ??C) (Oral) Resp 20 Ht 5' 6 (1.676 m) Wt 126.2 kg (278 lb 3.2 oz) LMP 05/06/2019 MrB393% BMI 44.90 kg/m?? General appearance: alert, in [...] intake,incentive spirometry and need for maintaining mobility. CHARGE PROCESS ATTENDANT * Laurel Hawley RN - 06/04/2019 3:52 PM CST This RN received report from DANIEL Cano. CHARGE PROCESS ATTENDANT * Colleen Duncan, DANIEL - 05/27/2019 3:08 PM CST Spoke with patient regarding use of c-PAP.lef-reported setting is 14 cm. Advised to bring tubing and mask on day of surgery CHARGE PROCESS ATTENDANT * Lisette Vega PHARMACIST - 05/27/2019 2:20 PM CST Bariatric [...] mg tablet -- may crush 8. Umeclidinium [place] (Incruse Ellipta inhaler) -- inhaler R Julissa Vega CHARGE PROCESS ATTENDANT documented in this encounter H&P Notes * [...] HX CHOLECYSTECTOMY ??? HX TUBAL LIGATION ??? ID ESOPHAGOGASTRODUODENOSCOPY TRANSORAL DIAGNOSTIC N/A 04/05/2019 ESOPHAGOGASTRODUODENOSCOPY performed by Shanice Katz MD at [facility] Medications Prior to Admission Medication Sig [...] by patient and surgeon. Shanice Katz MD CHARGE PROCESS ATTENDANT documented in this encounter Consult Notes * Enedina Jay ANP - 06/04/2019 1:39 PM CST [facility] Adult Hospitalist Consultation Consult requested by Shanice Flynn MD Patient Name: Key Salas Primary Care Physician: Ebony Rodarte Date of admission: 06/04/2019 Date of Service: [...] HX CHOLECYSTECTOMY ??? HX TUBAL LIGATION ??? ID ESOPHAGOGASTRODUODENOSCOPY TRANSORAL DIAGNOSTIC N/A 04/05/2019 ESOPHAGOGASTRODUODENOSCOPY performed by Shanice Katz MD at [facility] Current Home Medications: Prior to Admission [...] patient denies anemia, bleeding or easy brusibility EQUIPMENT MAINTENANCE ENGINEER: patient denies any headache syncope or [...] UA Clear Clear Thank you for consulting [facility] for this interesting case. I have taken the liberty of writing orders consistent with my recommendations. We will gladly follow the patient throughout their stay. This patient was discussed with Dr. Robles and he agrees with the above plan. REAGAN Suggs CHARGE PROCESS ATTENDANT documented in this encounter OR Notes * Operative Report - Shanice Katz MD - 06/04/2019 11:22 AM CST [facility] OPERATIVE REPORT PATIENT NAME: Key Salas DATE [...] Intraperitoneal evidence of Morbid obesity. 2. 40 Vincentian VisiG gastric sizing tube was used to [...] esophageal hiatus could be visualized. The 40 Vincentian VisiG gastric sizing tube as a bougie [...] was made in the epigastric region. A director of strategic communications was placed and inserted through the skin, subcut the fascia and muscle to the preperitoneal space on the left side. A catheter wasplaced into the director of strategic communications as it was withdrawn.The catheter was connected to the pain pump to infusebupivacaine 0.25 %. Similarly a catheter was placed on the right side. Patient tolerated the procedure well and was transferred to the recovery room in stable condition. Shanice Katz MD CHARGE PROCESS ATTENDANT * Phyllis-OP - Lisette Bonilla RN - 06/04/2019 9:39 AM CST Patient resting on bed comfortably. Call light within reach. No H&P noted in chart. Anesthesia has not yet been by to see patient pre-procedure. Stop sign in place per protocol. Family updated onpt status. Will continue to monitor. CHARGE PROCESS ATTENDANT documented in this encounter Miscellaneous Notes * Care Plan - Laurel Hawley RN - 06/06/2019 12:39 PM CST Day 1 - Current ([place] [facility]: Adult and Obstetrics) Patient, family, or [...] because of medications (i.e. - BP meds, CV/EQUIPMENT MAINTENANCE ENGINEER meds, seizure meds, diuretics, pain meds, [...] meet metabolic needs throughout hospitalization Outcome: Progressing CHARGE PROCESS ATTENDANT * Care Plan - Anne Larkin RN [...] 414 Blood pressure rechecked measured at 140/71 CHARGE PROCESS ATTENDANT * Care Plan - Anne Larkin RN [...] thanor equal to 92%. Outcome: Not Met CHARGE PROCESS ATTENDANT * Care Plan - Laurel Hawley RN [...] Outcome: Not Met Day 1 - Current ([place] [facility]: Adult and Obstetrics) Patient, family, or [...] because of medications (i.e. - BP meds, CV/EQUIPMENT MAINTENANCE ENGINEER meds, seizure meds, diuretics, pain meds, [...] promote wound healing by discharge Outcome: Progressing CHARGE PROCESS ATTENDANT * Care Plan - Digna Bingham RN [...] LAPAROSCOPIC. Readmit risk 2. WAYNE Frost, RN, Registered Massage Therapist [facility] Sarabia Care Management CHARGE PROCESS ATTENDANT * Care Plan - Lisette Bonilla RN [...] pre op protocols, questions answered, verbalized understanding. CHARGE PROCESS ATTENDANT documented in this encounter Plan of Treatment Not on file documented as of this encounter Procedures Procedure Name Priority Date/Time Associated Diagnosis Comments CBC WITH DIFFERENTIAL Routine 06/06/2019 9:17 AM DRY CHARGE PROCESS ATTENDANT BASIC METABOLIC PANEL Stat 06/06/2019 9:17 AM DRY CHARGE PROCESS ATTENDANT CBC WITH DIFFERENTIAL Routine 06/05/2019 4:57 PM DRY CHARGE PROCESS ATTENDANT CBC WITH DIFFERENTIAL Routine 06/05/2019 5:07 AM DRY CHARGE PROCESS ATTENDANT BASIC METABOLIC PANEL Routine 06/05/2019 5:07 AM DRY CHARGE PROCESS ATTENDANT ID LAPS GSTRC RSTRICTIV PX LONGITUDINAL GASTRECTOMY 06/04/2019 10:59 AM DRY CHARGE PROCESS ATTENDANT Morbid (severe) obesity due to excess calories Case Notes [id number] 12-2-19rf HCG QUALITATIVE, URINE Stat 06/04/2019 9:23 AM DRY CHARGE PROCESS ATTENDANT documented in this encounter Results * (ABNORMAL) BASIC METABOLIC PANEL (06/06/2019 9:17 AM DRY CHARGE PROCESS ATTENDANT) SODIUM 138 136 - 145 mmol/L 06/06/2019 9:49 AM DRY CHARGE PROCESS ATTENDANT [facility] [place] POTASSIUM 4.1 3.5 - 5.1 mmol/L 06/06/2019 9:49 AM DRY CHARGE PROCESS ATTENDANT [facility] [place] CHLORIDE 103 98 - 107 mmol/L 06/06/2019 9:49 AM DRY CHARGE PROCESS ATTENDANT [facility] [place] CO2 25 22 - 29 mmol/L 06/06/2019 9:49 AM DRY CHARGE PROCESS ATTENDANT [facility] [place] CALCIUM 9.0 8.6 - 10.0 mg/dL 06/06/2019 9:49 AM DRY CHARGE PROCESS ATTENDANT [facility] [place] BUN 6 6 - 20 mg/dL 06/06/2019 9:49 AM DRY CHARGE PROCESS ATTENDANT [facility] [place] CREATININE 0.90 0.51 - 0.95 mg/dL 06/06/2019 9:49 AM DRY CHARGE PROCESS ATTENDANT [facility] [place] GLUCOSE 123(H) 74 - 99 mg/dL 06/06/2019 9:49 AM [facility] [employer] [facility] GFR >60 >=60 mL/min/1.7 3 sq meter 06/06/2019 9:49 AM [facility] [employer] [facility] Comment: eGFR has not been [...] mL/min/1.7 3 sq meter 06/06/2019 9:49 AM [facility] [employer] [facility] ANION GAP 10 5 - 15 mmol/L 06/06/2019 9:49 AM [facility] [employer] [facility] Blood Venipuncture / Unknown 06/06/2019 9:17 AM DRY CHARGE PROCESS ATTENDANT 06/06/2019 9:29 AM [facility] Enedina Jay ANP CHEMISTRY ORDERAB LES [facility] CLIA # [id number] [address] [id number] * (ABNORMAL) CBC WITH DIFFERENTIAL (06/06/2019 9:17 AM DRY CHARGE PROCESS ATTENDANT) WBC 13.2(H) 4.0 - 11.0 K/uL 06/06/2019 9:29 AM [facility] [employer] [facility] RBC 4.86 4.20 - 5.40 M/uL 06/06/2019 9:29 AM [facility] [employer] [facility] HEMOGLOBIN 12.7 11.9 - 15.1 g/dL 06/06/2019 9:29 AM [facility] [employer] [facility] HEMATOCRIT 39.8 38.0 - 47.0 % 06/06/2019 9:29 AM [facility] [place] MCV 81.9 80.0 - 98.0 fL 06/06/2019 9:29 AM [facility] [place] MCH 26.1 26.0 - 34.0 pg 06/06/2019 9:29 AM [facility] [place] MCHC 31.9 31.0 - 37.0 g/dL 06/06/2019 9:29 AM [facility] [place] RDW 14.5 11.5 - 14.5 % 06/06/2019 9:29 AM [facility] [place] [employer] [place] RDW-STDEV 43.6 34.0 - 54.0 fL 06/06/2019 9:29 AM [facility] [place] PLATELETS 280 150 - 400 K/uL 06/06/2019 9:29 AM [facility] [employer] [facility] [place] MPV 10.1 8.5 - 12.5 fL 06/06/2019 9:29 AM [facility] [place] NEUTROPHILS 69 50 - 70 % 06/06/2019 9:29 AM [facility] [place] LYMPHOCYTES 26 20 - 40 % 06/06/2019 9:29 AM [facility] [place] MONOCYTES 4 2 - 8 % 06/06/2019 9:29 AM [facility] [place] EOSINOPHILS 1 1 - 3 % 06/06/2019 9:29 AM [facility] [place] BASOPHILS 0 0 - 1 % 06/06/2019 9:29 AM [facility] [place] IMMATURE GRANULOCYTES 0 0 - 2 % 06/06/2019 9:29 AM [facility] [place] NEUTROPHIL ABSOLUTE 9.05(H) 1.80 - 7.70 K/uL 06/06/2019 9:29 AM [facility] [employer] [facility] [place] LYMPHOCYTE ABSOLUTE 3.37(H) 1.00 - 3.30 K/uL 06/06/2019 9:29 AM [facility] [employer] [facility] [place] MONOCYTE ABSOLUTE 0.52 0.00 - 0.80 K/uL 06/06/2019 9:29 AM [facility] [employer] [facility] [place] EOSINOPHIL ABSOLUTE 0.17 0.00 - 0.45 K/uL 06/06/2019 9:29 AM [facility] [employer] [facility] [place] BASOPHILS ABSOLUTE 0.05 0.00 - 0.20 K/uL 06/06/2019 9:29 AM [facility] [employer] [facility] IMMATURE GRANULOCYTES ABSOLUTE 0.04 0.00 - 0.31 K/uL 06/06/2019 9:29 AM [facility] [employer] [facility] Blood Venipuncture / Unknown 06/06/2019 9:17 AM DRY CHARGE PROCESS ATTENDANT 06/06/2019 9:25 AM DRY CHARGE PROCESS ATTENDANT Enedina Jay ANP HEMATOLOGY ORDERA BLES [facility] [employer] [facility] [place] CLIA # [id number] [facility] [address] [place] [address] * (ABNORMAL) CBC WITH DIFFERENTIAL (06/05/2019 4:57 PM DRY CHARGE PROCESS ATTENDANT) WBC 18.6(H) 4.0 - 11.0 K/uL 06/05/2019 5:19 PM [facility] [employer] [facility] RBC 5.10 4.20 - 5.40 M/uL 06/05/2019 5:19 PM [facility] [employer] [facility] HEMOGLOBIN 13.3 11.9 - 15.1 g/dL 06/05/2019 5:19 PM [facility] [employer] [facility] HEMATOCRIT 41.2 38.0 - 47.0 % 06/05/2019 5:19 PM [facility] [employer] [facility] MCV 80.8 80.0 - 98.0 fL 06/05/2019 5:19 PM [facility] [employer] [facility] MCH 26.1 26.0 - 34.0 pg 06/05/2019 5:19 PM [facility] [employer] [facility] MCHC 32.3 31.0 - 37.0 g/dL 06/05/2019 5:19 PM [facility] [facility] [place] RDW 14.4 11.5 - 14.5 % 06/05/2019 5:19 PM [facility] [employer] [facility] RDW-STDEV 42.3 34.0 - 54.0 fL 06/05/2019 5:19 PM [facility] [employer] [facility] PLATELETS 314 150 - 400 K/uL 06/05/2019 5:19 PM [facility] [employer] [facility] MPV 10.3 8.5 - 12.5 fL 06/05/2019 5:19 PM [facility] [place] NEUTROPHILS 76(H) 50 - 70 % 06/05/2019 5:19 PM [facility] [place] LYMPHOCYTES 20 20 - 40 % 06/05/2019 5:19 PM [facility] [place] MONOCYTES 3 2 - 8 % 06/05/2019 5:19 PM [facility] [place] EOSINOPHILS 0(L) 1 - 3 % 06/05/2019 5:19 PM [facility] [place] BASOPHILS 0 0 - 1 % 06/05/2019 5:19 PM [facility] [place] IMMATURE GRANULOCYTES 0 0 - 2 % 06/05/2019 5:19 PM [facility] [place] NEUTROPHIL ABSOLUTE 14.07(H) 1.80 - 7.70 K/uL 06/05/2019 5:19 PM [facility] [place] LYMPHOCYTE ABSOLUTE 3.73(H) 1.00 - 3.30 K/uL 06/05/2019 5:19 PM [facility] [place] MONOCYTE ABSOLUTE 0.61 0.00 - 0.80 K/uL 06/05/2019 5:19 PM [facility] [place] EOSINOPHIL ABSOLUTE 0.01 0.00 - 0.45 K/uL 06/05/2019 5:19 PM [facility] [place] BASOPHILS ABSOLUTE 0.05 0.00 - 0.20 K/uL 06/05/2019 5:19 PM [facility] [place] IMMATURE GRANULOCYTES ABSOLUTE 0.08 0.00 - 0.31 K/uL 06/05/2019 5:19 PM [facility] [place] Blood Venipuncture / Unknown 06/05/2019 4:57 PM DRY CHARGE PROCESS ATTENDANT 06/05/2019 5:17 PM DRY CHARGE PROCESS ATTENDANT Enedina Jay ANP HEMATOLOGY ORDERA BLES [facility] [place] CLIA # [id number] [facility] [address] [place] [address] * BASIC METABOLIC PANEL (06/05/2019 5:07 AM DRY CHARGE PROCESS ATTENDANT) SODIUM 140 136 - 145 mmol/L 06/05/2019 5:30 AM [facility] [place] POTASSIUM 4.2 3.5 - 5.1 mmol/L 06/05/2019 5:30 AM [facility] [place] CHLORIDE 106 98 - 107 mmol/L 06/05/2019 5:30 AM [facility] [place] CO2 23 22 - 29 mmol/L 06/05/2019 5:30 AM DRY CHARGE PROCESS ATTENDANT [facility] [place] CALCIUM 9.3 8.6 - 10.0 mg/dL 06/05/2019 5:30 AM DRY CHARGE PROCESS ATTENDANT [facility] [place] BUN 6 6 - 20 mg/dL 06/05/2019 5:30 AM [facility] [place] CREATININE 0.82 0.51 - 0.95 mg/dL 06/05/2019 5:30 AM [facility] [place] GLUCOSE 95 74 - 99 mg/dL 06/05/2019 5:30 AM [facility] [place] GFR >60 >=60 mL/min/1.7 3 sq meter 06/05/2019 5:30 AM [facility] [place] Comment: eGFR has [...] mL/min/1.7 3 sq meter 06/05/2019 5:30 AM DRY CHARGE PROCESS ATTENDANT [facility] [place] ANION GAP 11 5 - 15 mmol/L 06/05/2019 5:30 AM [facility] [employer] [facility] [place] Blood Venipuncture / Unknown 06/05/2019 5:07 AM DRY CHARGE PROCESS ATTENDANT 06/05/2019 5:15 AM DRY CHARGE PROCESS ATTENDANT Shanice Katz MD CHEMISTRY ORDERABL ES [employer] [place] CLIA # [id number] [facility] [address] [place] [address] * (ABNORMAL) CBC WITH DIFFERENTIAL (06/05/2019 5:07 AM DRY CHARGE PROCESS ATTENDANT) WBC 18.2(H) 4.0 - 11.0 K/uL 06/05/2019 5:13 AM [facility] [employer] [facility] [place] RBC 5.00 4.20 - 5.40 M/uL 06/05/2019 5:13 AM [facility] [place] HEMOGLOBIN 13.2 11.9 - 15.1 g/dL 06/05/2019 5:13 AM [facility] [employer] [facility] [place] HEMATOCRIT 41.2 38.0 - 47.0 % 06/05/2019 5:13 AM [facility] [place] MCV 82.4 80.0 - 98.0 fL 06/05/2019 5:13 AM [facility] [place] MCH 26.4 26.0 - 34.0 pg 06/05/2019 5:13 AM [facility] [employer] [facility] [place] MCHC 32.0 31.0 - 37.0 g/dL 06/05/2019 5:13 AM [facility] [employer] - [place] RDW 14.4 11.5 - 14.5 % 06/05/2019 5:13 AM [facility] [employer] - [place] RDW-STDEV 42.4 34.0 - 54.0 fL 06/05/2019 5:13 AM [facility] - [place] PLATELETS 294 150 - 400 K/uL 06/05/2019 5:13 AM [employer]Y [employer]GE [employer]ESS ATTEND[employer] - [place] MPV 10.1 8.5 - 12.5 fL 06/05/2019 5:13 AM [facility] [employer] - [place] NEUTROPHILS 83(H) 50 - 70 % 06/05/2019 5:13 AM [facility] - [place] LYMPHOCYTES 13(L) 20 - 40 % 06/05/2019 5:13 AM DRY CHARGE PROCESS ATTENDANT [employer] - [place] MONOCYTES 3 2 - 8 % 06/05/2019 5:13 AM DRY CHARGE PROCESS ATTENDANT [employer] - [place] EOSINOPHILS 0(L) 1 - 3 % 06/05/2019 5:13 AM [employer] SERVICES - [place] BASOPHILS 0 0 - 1 % 06/05/2019 5:13 AM [facility] [employer] SERVICES - [place] IMMATURE GRANULOCYTES 1 0 - 2 % 06/05/2019 5:13 AM [facility] [employer] - [place] NEUTROPHIL ABSOLUTE 15.01(H) 1.80 - 7.70 K/uL 06/05/2019 5:13 AM [facility] [employer] - [place] LYMPHOCYTE ABSOLUTE 2.41 1.00 - 3.30 K/uL 06/05/2019 5:13 AM [facility] [employer] - [place] MONOCYTE ABSOLUTE 0.61 0.00 - 0.80 K/uL 06/05/2019 5:13 AM [facility] [employer] [facility] - [place] EOSINOPHIL ABSOLUTE 0.00 0.00 - 0.45 K/uL 06/05/2019 5:13 AM [facility] [employer] [facility] - [place] BASOPHILS ABSOLUTE 0.02 0.00 - 0.20 K/uL 06/05/2019 5:13 AM DRY CHARGE PROCESS ATTENDANT [employer] - [place] IMMATURE GRANULOCYTES ABSOLUTE 0.12 0.00 - 0.31 K/uL 06/05/2019 5:13 AM [facility] [employer] - [place] Blood Venipuncture / Unknown 06/05/2019 5:07 AM DRY CHARGE PROCESS ATTENDANT 06/05/2019 5:11 AM DRY CHARGE PROCESS ATTENDANT Shanice Katz MD HEMATOLOGY ORDERAB LES [employer] SERVICES - [place] CLIA # [id number] [facility] [address] [place] [address] * HCG QUALITATIVE, URINE (06/04/2019 9:23 AM DRY CHARGE PROCESS ATTENDANT) HCG QUAL URINE Negative Negative 06/04/2019 9:40 AM [facility] [employer] - [place] COLOR UA Yellow Pale to Dark Yellow 06/04/2019 9:40 AM [facility] [employer] - [place] CLARITY UA Clear Clear 06/04/2019 9:40 AM [facility] [employer] - [place] Urine URINE SPECIMEN OBTAINED BY CLEAN CATCH PROCEDURE / Unknown Collection / Unknown 06/04/2019 9:23 AM DRY CHARGE PROCESS ATTENDANT 06/04/2019 9:30 AM DRY CHARGE PROCESS ATTENDANT Narrative [facility] - [place] - 06/04/2019 9:40 AM DRY CHARGE PROCESS ATTENDANT hCG sensitive to as little as 20 mIU/mL for urine Franco Collins MD URINE ORDERABLES [facility] - [place] JOE # [id number] [place] [id number] documented in this encounter Visit Diagnoses Diagnosis Morbid obesity with body mass index of 40.0-49.9- Primary Morbid (severe) obesity due to excess calories documented in this encounter Administered Medications Inactive Administered Medications - up to 3 most recent administrations Medication Order MAR Action Action Date Dose Rate Site atorvastatin (LIPITOR) tablet 20 mg 20 mg, Oral, DAILY, First dose (after last modification) on Mon06/05/19 at 0900, Until Discontinued, Previous Med: atorvastatin calcium (ATORVASTATIN ORAL) - Orig Sig - Take 20 mg by mouth daily. Given 06/06/2019 8:14 AM DRY CHARGE PROCESS ATTENDANT 20 mg Given 06/05/2019 8:30 AM DRY CHARGE PROCESS ATTENDANT 20 mg bupivacaine PF (SENSORCAINE MPF) 5 mg/mL (0.5%) injection INTRA-PROCEDURE PRN, Starting on Mon06/04/19 at 1211, Until Mon06/04/19 at 1253, Routine, Intra-op Given 06/04/2019 12:35 PM DRY CHARGE PROCESS ATTENDANT 30 mL Operative Site bupivacaine PF 5 mg/mL (0.5%) 270 mL infusion for On-Q pump See Admin Instructions, CONTINUOUS, Starting on Mon06/04/19 at 0915, Until Mon06/06/19 at 1408, Stat, Pre-op New Bag 06/04/2019 1:03 PM DRY CHARGE PROCESS ATTENDANT Abdom inal Tissue cloNIDine HCl (CATAPRES) tablet 0.1 mg 0.1 mg, Oral, THREE TIMES DAILY PRN, Starting on Mon06/04/19 at 1337, Until Mon06/06/19 at 1408, Blood Pressure, sbp >180 min hr 60, Routine Given 06/06/2019 2:49 AM DRY CHARGE PROCESS ATTENDANT 0.1 mg Given 06/05/2019 4:17 AM DRY CHARGE PROCESS ATTENDANT 0.1 mg diphenhydrAMINE (BENADRYL) injection 25 mg 25 mg, IV, EVERY 6 HOURS PRN, Starting on Mon06/04/19 at 1422, Until Mon06/06/19 at 1408, Itching, Routine, Post-op - Floor famotidine PF (PEPCID) 20 mg/2 mL injection 20 mg 20 mg, IV, TWO TIMES DAILY, First dose on Mon06/04/19 at 2100, Until Discontinued, Routine, Post-op - Floor Given 06/06/2019 8:14 AM DRY CHARGE PROCESS ATTENDANT 20 mg Given 06/05/2019 8:53 PM DRY CHARGE PROCESS ATTENDANT 20 mg Given 06/05/2019 8:30 AM DRY CHARGE PROCESS ATTENDANT 20 mg heparin injection 5,000 Units 5,000 Units, subCUT, EVERY 8 HOURS, First dose on Mon06/04/19 at 1730, Until Discontinued, Routine, Post-op - Floor Given 06/06/2019 4:28 AM DRY CHARGE PROCESS ATTENDANT 5,000 Units Abdominal Tissue Given 06/05/2019 8:53 PM DRY CHARGE PROCESS ATTENDANT 5,000 Units A bdominal Tissue Given 06/05/2019 4:00 PM DRY CHARGE PROCESS ATTENDANT 5,000 Units A bdominal Tissue HYDROcodone-acetaminophen (HYCET) 7.5-325 mg/15 mL oral solution 15 mL 15 mL (7.5 mg), Oral, EVERY 4 HOURS PRN, Starting on Mon06/05/19 at 0600, Until Araceli 06/06/19 at 1408, Pain (See admin instructions), Routine, Post-op - Floor Given 06/06/2019 8:32 AM DRY CHARGE PROCESS ATTENDANT 15 mL HYDROcodone-acetaminophen (HYCET) 7.5-325 mg/15 mL oral solution 15 mL 15 mL (7.5 mg), Oral, EVERY 4 HOURS PRN, Starting on Mon06/05/19 at 0600, Until Mon06/06/19 at 1408, Pain (See admin instructions), Routine, Post-op - Floor HYDROmorphone (PF) (DILAUDID) injection 0.3 mg 0.3 mg, IV, EVERY 4 HOURS PRN, Starting on Mon06/04/19 at 1422, Until Mon06/06/19 at 1408, Pain (See admin instructions), Routine, Post-op - Floor lactated ringers infusion IV, at 125 mL/hr, POST-PROCEDURE CONTINUOUS, Starting on Mon06/04/19 at 1000, Until Mon06/06/19 at 1408, Routine, PACU Restarted 06/06/2019 11:27 AM DRY CHARGE PROCESS ATTENDANT 200 mL/hr Rate Verify 06/06/2019 8:16 AM DRY CHARGE PROCESS ATTENDANT 200 mL/hr Rate Change 06/06/2019 7:40 AM DRY CHARGE PROCESS ATTENDANT 200 mL/hr lactated ringers infusion IV, at 200 mL/hr, CONTINUOUS, Starting on Mon06/04/19 at 1430, Until Araceli 06/06/19 at 1408, Routine, Post-op - Floor New Bag 06/06/2019 8:16 AM DRY CHARGE PROCESS ATTENDANT 200 mL/hr New Bag 06/06/2019 2:31 AM DRY CHARGE PROCESS ATTENDANT 200 mL/hr New Bag 06/05/2019 11:00 PM DRY CHARGE PROCESS ATTENDANT 200 mL/hr metoclopramide (REGLAN) 5 mg/mL injection [...] Post-op - Floor Given 06/04/2019 10:27 PM DRY CHARGE PROCESS ATTENDANT 2 mg Given 06/04/2019 2:47 PM DRY CHARGE PROCESS ATTENDANT 2 mg morphine 4 mg/mL injection 2 [...] Post-op - Floor Given 06/04/2019 2:46 PM DRY CHARGE PROCESS ATTENDANT 4 mg simethicone (MYLICON) 40 mg/0.6 mL drops 40 mg 40 mg, Oral, EVERY 6 HOURS PRN, Starting on Mon06/04/19 at 1422, Until Araceli 06/06/19 at 1408, Gas, Routine, Post-op - Floor Given 06/05/2019 3:02 AM DRY CHARGE PROCESS ATTENDANT 40 mg Given 06/04/2019 9:23 PM DRY CHARGE PROCESS ATTENDANT 40 mg sodium chloride 0.9 % irrigation solution INTRA-PROCEDURE PRN, Starting on Mon06/04/19 at 1140, Until Mon06/04/19 at 1253, Routine, Intra-op Given 06/04/2019 11:40 AM DRY CHARGE PROCESS ATTENDANT 1,000 mL Oper ative Site documented in this encounter Active and Recently Administered Medications Times are shown in DRY CHARGE PROCESS ATTENDANT. Scheduled Medication Order 06/04/2019 06/05/2019 06/06/2019 acetaminophen [...] Floor 1828 (New Bag - Provider: Laurel Hawley, DANIEL)182 (Rate Verify - Provider: Laurel Hawley, DANIEL)184 (Rate Verify - Provider: Laurel Hawley RN)184 (Stopped - Provider: Laurel Hawley RN) acetaminophen (OFIRMEV) 10 mg/ml injection 1,000 mg (COMPLETED) 1,000 mg, IV, ONE TIME ONLY, 1 dose, On Mon06/05/19 at 0000, Routine, Post-op - Floor 2325 (New Bag - Provider: Anne Larkin RN)2329 (Rate Verify - Provider: Anne Larkin, DANIEL)2340 (Stopped - Provider: Anne Larkin RN) amLODIPine [...] by mouth daily. 0830 (Given - Provider: Vciky Law RN) 0814 (Given - Provider: Laurel Hawley RN) bupivacaine PF (SENSORCAINE MPF) 5 mg/mL (0.5%) [...] 2100, Until Discontinued, Routine, Post-op - Floor 2119 (Given - Provider: Anne Larkin, DANIEL) 0830 (Given - Provider: Vicky Law, DANIEL)2052 (Given - Provider: Anne Larkin, DANIEL) 0814 (Given - Provider: Laurel Hawley, RN) heparin injection 5,000 Units (COMPLETED) 5,000 Units, [...] Hawley, DANIEL) 0500 (Given - Provider: Anne Larkin RN)1600 (Given - Provider: Vicky Law, DANIEL)205 (Given - Provider: Anne Larkin, DANIEL) 0428 (Given - Provider: Anne Larkin, DANIEL) lactated ringers bolus solution 2,000 mL (COMPLETED) 2,000 mL, IV, PRE-PROCEDURE ONCE, 1 dose, Starting on Mon06/04/19 at 0909, Until Mon06/04/19 at 2200, at 2,000 mL/hr, Administer over 60 Minutes, Stat, Pre-op 0930 (New Bag - Provider: Lisette Bonilla RN)1030 (Due: Stopped - Provider: Lisette Bonilla, DANIEL)2200 (Stopped - Provider: Anne Larkin RN - Comment: Not infusing when this nurse arrived.) lactated ringers bolus solution 500 mL (COMPLETED) 500 mL, IV, ONE TIME ONLY, 1 dose, On Mon06/04/19 at 2230, at 999 mL/hr, Administer over 30 Minutes, Routine 2226 (New Bag - Provider: Anne Larkin, DANIEL)2256 (Stopped - Provider: Anne Larkin RN) metoprolol [...] prophylaxis 1559 (New Bag - Provider: Laurel Hawley RN)1559 (Rate Verify - Provider: Laurel Hawley RN)1659 [...] Stat, Pre-op 0932 (Applied - Provider: Lisette Bonilla RN) 1208 (Due: Removed - Provider: PROVIDER, DISCHARGE [...] inhalation. 0855 (Refused - Provider: Malini Baker, SHIFT SUPERVISOR FILM PROCESSING - Comment: pt stated she will take her incruse at home, going home today) 0800 (Refused - Provider: Anika Sims, SHIFT SUPERVISOR FILM PROCESSING - Comment: does not want to pay for ours, has her own) Continuous Medication Order 06/04/2019 06/05/2019 06/06/2019 bupivacaine PF 5 mg/mL (0.5%) 270 mL infusion for On-Q pump See Admin Instructions, CONTINUOUS, Starting on Mon06/04/19 at 0915, Until Araceli 06/06/19 at 1408, Stat, Pre-op 1303 (New Bag [...] Pruitt CRNA)1304 (Canceled Entry - Provider: Laurel Hawley RN)2100 (Stopped - Provider: Anne Larkin RN - Comment: Rate changed to 200 on Surgical floor) lactated ringers infusion IV, at 125 mL/hr, POST-PROCEDURE CONTINUOUS, Starting on Mon06/04/19 at 1000, Until Araceli 06/06/19 at 1408, Routine, PACU 1313 (New Bag - Provider: Jeri Ac RN)2127 (Canceled Entry - Provider: Anne Larkin, DANIEL) 1032 (New Bag - Provider: Vicky Law RN)1244 (Rate Change - Provider: Laurel Hawley, DANIEL)1534 (Rate Change - Provider: Laurel Hawley, DANIEL)1537 (Paused - Provider: Laurel Hawley RN)1537 (Paused - Provider: Laurel Hawley, DANIEL)1539 (Canceled Entry - Provider: Vicky Law RN)1547 (Rate Change - Provider: Laurel Hawley, DANIEL)1547 (Paused - Provider: Laurel Hawley, DANIEL)1551 (Restarted - Provider: Laurel Hawley RN)1552 (Paused - Provider: Laurel Hawley RN)1552 (Paused - Provider: Laurel Hawley, DANIEL)1552 (Rate Change - Provider: Laurel Hawley RN)1659 (Paused - Provider: Laurel Hawley RN)1801 (Restarted - Provider: Laurel Hawley RN)2155 (Paused - Provider: Laurel Hawley RN)2202 (Paused - Provider: Laurel Hawley RN)2202 (Rate Change - Provider: Laurel Hawley RN) 0725 (Rate Change - Provider: Laurel Hawley RN)0740 (Rate Change - Provider: Laurel Hawley, DANIEL)0816 (Rate Verify - Provider: Laurel Hawley, DANIEL)1102 (Paused - Provider: Laurel Hawley, DANIEL)1127 (Restarted - Provider: Laurel Hawley, DANIEL)1155 (Stopped - Provider: Laurel Hawley, DANIEL) lactated ringers infusion IV, at 200 mL/hr, CONTINUOUS, Starting on Mon06/04/19 at 1430, Until Mon06/06/19 at 1408, Routine, Post-op - Floor 1538 (Canceled Entry - Provider: Laurel Hawley, DANIEL)1556 (New Bag - Provider: Laurel Hawley, DANIEL)1559 (Paused - Provider: Laurel Hawley, DANIEL)1659 (Restarted - Provider: Laurel Hawley, DANIEL)1709 (Rate Verify - Provider: Laurel Hawley, DANIEL)1821 (Rate Verify - Provider: Laurel Hawley RN)182 (Stopped - Provider: Laurel Hawley RN)184 (Restarted - Provider: Laurel Hawley RN)184 (Rate Verify - Provider: Laurel Hawley RN)2129 (New Bag - Provider: Anne Larkin RN) 0125 (New Bag - Provider: Anne Larkin RN)0223 (Rate Verify - Provider: Anne Larkin RN)0400 (Canceled Entry - Provider: Anne Larkin RN)0538 (New Bag - Provider: Anne Larkin RN)0700 (Canceled Entry - Provider: Anne Larkin RN)1544 (New Bag - Provider: Vicky Law RN)2300 (New Bag - Provider: Anne Larkin RN) 0231 (New Bag - Provider: Anne Larkin RN)0816 (New Bag - Provider: Laurel Hawley RN) PRN Medication Order 06/04/2019 06/05/2019 06/06/2019 bupivacaine [...] Larkin RN) 0249 (Given - Provider: Anne Larkin RN) diphenhydrAMINE (BENADRYL) injection 25 mg 25 [...] Mon06/04/19 at 1422, Until Mon06/06/19 at 1408, Pain (See admin instructions), Routine, [...] dose, Starting on Mon06/04/19 at 0953, Until 06/04/19 at 1305, Nausea/Emesis, Routine, PACU 1305 (Given - Provider: Jeri Ac RN) simethicone (MYLICON) 40 mg/0.6 mL drops 40 mg 40 mg, Oral, EVERY 6 HOURS PRN, Starting on Mon06/04/19 at 1422, Until Araceli 06/06/19 at 1408, Gas, Routine, Post-op - Floor 2123 (Given - Provider: Anne Larkin RN) 0302 (Given - Provider: Anne Larkin RN) sodium chloride 0.9 % irrigation solution (CANCELED) INTRA-PROCEDURE PRN, Starting on Mon06/04/19 at 1140, Until Tu06/04/19 at 1253, Routine, Intra-op 1140 (Given - [...] prophylaxis documented in this encounter Care Teams Keeler Polygraph Operator Relationship Specialty Start Date End Date Cayden, External Provider PCP - General 05/08/19 documented as of this encounter
--- OUTSIDE RECORDS SUMMARY | 2024-06-29 02:03 | XMS_ITS | Encounter Summary ---
Author Organization [facility] Address [address] [place] [address] Care Team Providers Care Multifocal Button Grinder Name Role Phone Cayden External Provider Primary Care Provider Un available Encounter Details Date Type Department Care Team (Late st Contact Info) Description 05/27/2019 Abstract [facility] Non Integrated Provider [address] [place] [address] [place] [address] [place] [address] [place] [address] Social History Tobacco Use Types Packs/Day Years [...] on filedocumented in this encounter Care Teams Multifocal Button Grinder Relationship Specialty Start Date End Date Jefn, External Provider PCP - General 05/08/19 documented as of this encounter
--- OUTSIDE RECORDS SUMMARY | 2024-06-29 02:03 | XMS_ITS | Encounter Summary ---
Author Organization [facility] Address [address] [place] [address] Care Team Providers Care Medical Scribe Name Role Phone Unavailable Primary Care Provider Unavailabl e Encounter Details Date Type Department Care Team (Latest Contact Info) Description 04/05/2019 8:00 AM CDT - 04/05/2019 8:15 AM CDT Surgery [facility] [address] [place] [address] [place] [address] [place] [address] [place] [address] ESOPHAGOGASTRODUODENOSCOPY Surgery Details Date/Time Status Location OR Service Patient Class Case Cl ass Case Type Trauma Case? 04/05/2019 8:00 AM Posted [facility] ENDOSCOPY GI 05 Endoscopy Outpatient Elective No Panel 1 Procedure LRB Anes Op Region Wound Class Comments ESOPHAGOGASTRODUODENOSCOPY N/A [facility] Anesthetic Care Mouth Surgeon Surgeon Role Service Panel Shanice Katz MD Primary Endoscopy 1 Case Notes pcp not in [facility] documented in this encounter Social History Tobacco [...] Sign Reading Time Taken Comments Blood Pressure 196/97 04/05/2019 7:51 AM CDT Pulse 70 04/05/2019 7:51 AM CDT Temperature 36.6 ??C (97.9 ??F) 04/05/2019 7:51 AM CD T Respiratory Rate 20 04/05/2019 7:51 AM CDT Oxygen Saturation 98% 04/05/2019 7:51 AM CDT Inhaled Oxygen Concentration - - [...] Katz MD - 04/05/2019 8:36 AM CDT [place] History and Physical Patient: Key Salas : [...] file Gets together: Not on file Attends jewish service: Not on file Active member of [...] 8:48 AM CDTAssociated Order(s): UPPER ENDOSCOPY REPORT [facility] Endoscopy Patient Name: Key Salas Procedure [...] previously scheduled. Procedure Code(s): --- Professional --- 07125, Esophagogastroduodenoscopy, flexible, transoral; with biopsy, single or multiple CPT copyright 2016 [employer]. All rights reserved. The codes documented in this report are preliminary and upon supply aide review may be revised to meet current compliance requirements. Shanice Katz MD 04/05/2019 8:48:03 AM Number of Addenda: [id number] [place] [address] documented in this encounter Plan of Treatment Not on file documented as of this encounter Procedures Procedure Name Priority Date/Time Associated Diagnosis Comments HELICOBACTER PYLORI RAPID UREASE TEST Routine 04/05/2019 8:49 AM CDT Pre-operative exam UPPER ENDOSCOPY REPORT 9 8:49 AM CDT ESOPHAGOGASTRODUODENOSCOPY 04/05 8:35 AM CDT Pre-operative exam Case Notes pcp not in [facility] POC , URINE Routine 04/05/2019 8:03 AM CDT documented in this encounter Results * HELICOBACTER PYLORI RAPID UREASE TEST (04/05/2019 8:49 AM CDT) H. PYLORI RAPID UREASE TEST Negative Negative 04/06/2019 9:29 AM CDT [facility] Tissue ENTIRE STOMACH / Unknown Collection / Unknown 04/05/2019 8:49 AM CDT 04/05/2019 9:16 AM CDT Shanice Katz MD MICROBIOLOGY - GEN ERAL ORDERABLES [facility] [employer] [facility] CLIA# [id number] [address] [facility] [place] [id number] * UPPER ENDOSCOPY REPORT (04/05/2019 8:49 AM CDT) Narrative Procedure Note Shanice Katz MD - 04/05/2019 8:48 AM CDT [facility] Endoscopy Patient Name: Key Salas Procedure [...] previously scheduled. Procedure Code(s): --- Professional --- 83313, Esophagogastroduodenoscopy, flexible, transoral; with biopsy, single or multiple CPT copyright 2016 [employer]. All rights reserved. The codes documented in this report are preliminary and upon supply aide review may be revised to meet current compliance requirements. Shanice Katz MD 04/05/2019 8:48:03 AM Number of Addenda: [id number] , [place] [address] Shanice Katz MD GI PROCEDURE ORDER KEVON * POC , URINE (04/05/2019 8:03 AM CDT) HCG QUAL URINE Negative Negative INTERNAL KIT QC Pass Pass KIT LOT NUMBER POC [id number] KIT EXPIRATION DATE POC 2,020 Urine 04/05/2019 8:03 AM CDT Shanice Katz MD POINT OF CARE TEST ING documented in this encounter Visit Diagnoses Diagnosis Pre-operative exam Preoperative examination, unspecified Pre-operative exam Preoperative examination, unspecified documented in [...]
--- OUTSIDE RECORDS SUMMARY | 2024-06-29 09:16 | XMS_ITS | Encounter Summary ---
Author Organization [facility] Address [address] [place] [address]. [place] [id number] Care Team Providers Care Custom Miller Name Role Phone Meek Robert MD Primary Care Provider [phone] Encounter Details Date Type Department Care Team (Late st Contact Info) Description 02/11/2011 Abstract [facility] [address] [address] Dev Wayne MD Social History Tobacco Use [...] examination documented in this encounter Care Teams Custom Miller Relationship Specialty Start Date End Date Meek Robert MD PCP - General 02/22/16 documented as of this encounter
--- OUTSIDE RECORDS SUMMARY | 2024-06-29 09:16 | XMS_ITS | Encounter Summary ---
Author Organization [facility] Address [address] [place] [address]. [place], [place] [address] [place] [address] Care Team Providers Care Toe Closing Machine Tender Name Role Phone Meek Robert MD Primary Care Provider [phone] Encounter Details Date Type Department Care Team (Late st Contact Info) Description 04/29/2017 [place] [address] , Generic Conversion, Social History Tobacco Use [...] on filedocumented in this encounter Care Teams Toe Closing Machine Tender Relationship Specialty Start Date End Date Meek Robert MD PCP - General 02/22/16 documented as of this encounter
--- OUTSIDE RECORDS SUMMARY | 2024-06-29 09:16 | XMS_ITS | Encounter Summary ---
Author Organization [facility] Address [address] [place] [address]. [place] [address] [place] [address] Care Team Providers Care Silk Screen Repairer Name Role Phone Meek Robert MD Primary Care Provider [phone] Encounter Details Date Type Department Care Team (Late st Contact Info) Description 02/22/2016 Emergency [facility] Emergency Room [place], [place] [id number] Tammie Cuellar MD [address] [place], [place] [id number] Social History Tobacco Use Types Packs/Day Years [...] - 4.20 mIU/mL 02/23/2016 12:12 AM CDT [facility] SERUM OR PLASMA SPECIMEN / Unknown 02/22/2016 11:37 PM CDT 02/22/2016 11:42 PM CDT us Generic Conversion Md [facility] Final R esdanielle Performing Organization Address City/[facility]/ZIP Co de Phone Number [facility] [address] [place] [address], * MAGNESIUM (02/22/2016 11:37 PM CDT) MAGNESIUM 1.9 1.70 - 2.55 mg/dL 02/23/2016 12:03 AM CDT [facility] SERUM OR PLASMA SPECIMEN / Unknown 02/22/2016 11:37 PM CDT 02/22/2016 11:42 PM CDT us Generic Conversion Md [facility] Final R esdanielle Performing Organization Address City/[facility] Co de Phone Number [facility] [address] [place] [address], * THYROXINE, FREE (FT4) (02/22/2016 11:37 PM CDT) FREE T4 0.98 0.93 - 1.70 ng/dL 02/23/2016 12:39 AM CDT [facility] SERUM OR PLASMA SPECIMEN / Unknown 02/22/2016 11:37 PM CDT 02/22/2016 11:42 PM CDT us Generic Conversion Md [facility] Final R esdanielle [facility] [address] [place] [address], * (ABNORMAL) COMPREHENSIVE METABOLIC PANEL (02/22/2016 11:37 PM CDT) [facility] GLUCOSE 96 70 - 99 mg/dL 02/23/2016 12:03 AM CDT [facility] BUN 14 8 - 23 mg/dL 02/23/2016 12:03 AM T [facility] CREATININE S/P/B 1.10 0.60 - 1.10 mg/dL 02/23/2016 12:03 AM T [facility] SODIUM S/P/B 142 136 - 145 mmol/L 02/23/2016 12:03 AM T [facility] POTASSIUM S/P/B 3.2(L) 3.5 - 5.1 mmol/L 02/23/2016 12:03 AM T [facility] CHLORIDE S/P/B 100 98 - 107 mmol/L 02/23/2016 12:03 AM T [facility] CO2 30(H) 22 - 29 mmol/L 02/23/2016 12:03 AM T [facility] BILIRUBIN TOTAL S/P/B <0.1(L) 0.2 - 1.2 mg/dL 02/23/2016 12:04 AM CDT [facility] CALCIUM S/P/B 9.1 8.6 - 10.2 mg/dL 02/23/2016 12:03 AM CDT [facility] ALKALINE PHOSPHATASE S/P/B 62 35 - 104 U/L 02/23/2016 12:03 AM T [facility] AST 11 0 - 32 U/L 02/23/2016 12:03 AM T [facility] TOTAL PROTEIN S/P/B 6.5 6.4 - 8.3 g/dL 02/23/2016 12:03 AM CDT [facility] ALBUMIN S/P/B 3.9 3.5 - 5.2 g/dL 02/23/2016 12:03 AM CDT [facility] ALT 8 0 - 33 U/L 02/23/2016 12:03 AM CDT [facility] GLOBULIN 2.6 2.3 - 3.6 g/dL 02/23/2016 12:03 AM CDT [facility] A/G RATIO 1.5 1.0 - 2.0 02/23/2016 12:03 AM CDT [facility] ANION GAP 15 8 - 20 02/23/2016 12:03 AM CDT [facility] EGFR NON-AFR. AMER. >60 >60 mL/min/1.7 3m'2 02/23/2016 12:03 AM CDT [facility] EGFR AFR. AMER. >60 >60 mL/min/1.7 3m'2 02/23/2016 12:03 AM CDT [facility] Comment: NOTE: eGFR is not calculated for patients <18 years of age. This is an estimated GFR (CKD EPI) and should not be used for calculating drug doses. 02/22/2016 11:3 7 PM CDT 02/22/2016 11:42 PM CDT us Generic Conversion Md [facility] Final R esult [facility] [address] [place] [address], [place] [phone] * (ABNORMAL) CBC W/DIFF AUTOMATED (02/22/2016 11:37 PM CDT) WBC 12.4(H) 4.8 - 10.8 X10'3/uL 02/22/2016 11:50 PM CDT [facility] RBC 4.32 4.20 - 5.40 X10'6/uL 02/22/2016 11:50 PM CDT [facility] HGB 11.7(L) 12.0 - 16.0 g/dL 02/22/2016 11:50 PM CDT [facility] HCT 35.8(L) 38.0 - 48.0 % 02/22/2016 11:50 PM CDT [facility] MCV 82.9 81.0 - 99.0 fL 02/22/2016 11:50 PM CDT [facility] MCH 27.1 27.0 - 31.0 pg 02/22/2016 11:50 PM CDT [facility] MCHC 32.7 32.0 - 36.0 g/dL 02/22/2016 11:50 PM CDT [facility] RDW 13.5 11.5 - 14.5 % 02/22/2016 11:50 PM CDT [facility] PLT 274 130 - 400 X10'3/uL 02/22/2016 11:50 PM CDT [facility] MPV 10.3 9.3 - 12.2 fL 02/22/2016 11:50 PM T [facility] DIFFERENTIAL TYPE AUTOMATED 02/22/2016 11:50 PM CDT [facility] NEUTROPHILS % 61.8 43.0 - 65.0 % 02/22/2016 11:50 PM CDT [facility] LYMPHOCYTES % 32.9 20.0 - 46.0 % 02/22/2016 11:50 PM CDT [facility] MONOCYTES % 3.7(L) 5.0 - 12.0 % 02/22/2016 11:50 PM CDT [facility] EOSINOPHILS 0.8(L) 1.0 - 3.0 % 02/22/2016 11:50 PM CDT [facility] BASOPHILS 0.4 0.0 - 1.0 % 02/22/2016 11:50 PM CDT [facility] IMMATURE GRANS % 0.4 0.0 - 1.0 % 02/22/2016 11:50 PM CDT [facility] 02/22/2016 11:3 7 PM CDT 02/22/2016 11:42 PM CDT us Generic Conversion Md [facility] Final R esult Performing Organization Address City/[facility]/ZIP Co de Phone Number [facility] [address] [place] [address], [place] [phone] * BNP (02/22/2016 11:37 PM CDT) B TYPE NATRIURETIC PEPTIDE 14.5 <100.0 pg/mL 02/23/2016 12:06 AM CDT [facility] WHOLE BLOOD SPECIMEN / Unknown 02/22/2016 11:37 PM CDT 02/22/2016 11:42 PM CDT us Generic Conversion Md [facility] Final R esult Performing Organization Address City/[facility]/ZIP Co de Phone Number [facility] [address] [place] [address], [place] [phone] documented in this encounter Visit Diagnoses Diagnosis Localized edema Edema documented in this encounter Care Teams Silk Screen Repairer Relationship Specialty Start Date End Date Meek Robert MD PCP - General 02/22/16 documented as of this encounter
--- OUTSIDE RECORDS SUMMARY | 2024-06-29 09:16 | XMS_ITS | Clinical Summary ---
Author Organization [facility] Address [address] [place] [address]. [place] [address] Care Team Providers Care Gas Dispenser Name Role Phone Meek Robert MD Primary Care Provider [phone] Social History Tobacco Use Types Packs/Day Years [...] age to complete this topic Care Teams Gas Dispenser Relationship Specialty Start Date End Date Meek Robert MD [facility] - General 02/22/16
--- OUTSIDE RECORDS SUMMARY | 2024-06-29 09:16 | XMS_ITS | Encounter Summary ---
Author Organization [facility] Address [address] [place] [address]. [place] [id number] Care Team Providers Care Prototype Deicer Assembler Name Role Phone Meek Robert MD Primary Care Provider Reason for Visit * Reason Comments MRI (SCAN) Encounter Details Date Type Department Care Team ([facility] st Contact Info) Description 06/30/2009 Scan [facility] [place] [address] Scanned, Documents MRI (SCAN) Social History Tobacco [...] on filedocumented in this encounter Care Teams Prototype Deicer Assembler Relationship Specialty Start Date End Date Meek Robert MD PCP - General 02/22/16 documented as of this encounter
--- OUTSIDE RECORDS SUMMARY | 2024-06-29 09:17 | XMS_ITS | Encounter Summary ---
Author Organization [facility] Address [address] [place] [address] Care Team Providers Care Lace Roller Name Role Phone Cayden External Provider Primary Care Provider Un available Encounter Details Date Type Department Care Team (Latest Contact Info) Description 05/08/2019 9:16 AM A P MECHANIC - 05/08/2019 11:59 PM [facility] Hospital Encounter [facility] Preadmission Testing [address] [address] [place] [address] [facility] [place] [address] [place] [address] [facility] Betty Paz RN, painter tumbling barrel Disposition: Home or Self Care Social History [...] on filedocumented in this encounter Care Teams Lace Roller Relationship Specialty Start Date End Date Cayden External Provider PCP - General 05/08/19 documented as of this encounter
--- OUTSIDE RECORDS SUMMARY | 2024-06-29 09:17 | XMS_ITS | Encounter Summary ---
Author Organization [facility] Address [address] [place] [address] Care Team Providers Care Engineering Program Analyst Name Role Phone Unavailable Primary Care Provider Unavailabl e Encounter Details Date Type Department Care Team (Late st Contact Info) Description 04/05/2019 8:37 AM CDT Anesthesia Event [facility] [address] [place] [id number] [place] [address] [place] [address] Ameena Vargas AA [address] [address] [place] [address] Anesthesia Record Procedure Summary Procedure [...] Nutrition Status: severe morbid obesity Other Findings: [facility] PHYSICAL EXAM: PHYSICAL EXAM: Habitus: Morbid obesity Mental Status: Alert, Awake and Full Affect Mallampati:: II TM distance:: >3 FB Neck ROM:: Full Rhythm:: Regular Dental normal Breath sounds clear to auscultation soft Npo mac Anesthesia Plan ASA Final: 3 MAC Intravenous induction NPO status > 6 hours [facility] FINAL DOS EXAM: ASA score (Day of [...]
--- OUTSIDE RECORDS SUMMARY | 2024-06-29 09:17 | XMS_ITS | Clinical Summary ---
Author Organization [facility] Address [address] [place] [address] Phone Care Team Providers Care Cinder Man Name Role Phone Cayden External Provider Primary [...] Comments Blood Pressure 159/103 06/06/2019 11:51 AM MONEY COUNTER Pulse 58 06/06/2019 11:51 AM MONEY COUNTER Temperature 36.8 ??C (98.2 ??F) 06/06/2019 1 1:51 AM MONEY COUNTER Respiratory Rate 18 06/06/2019 11:5 1 AM MONEY COUNTER Oxygen Saturation 100% 06/06/2019 11: 51 AM MONEY COUNTER Inhaled Oxygen Concentration - - Weight 125.3 kg (276 lb 3.2 oz) 06/06/2019 4:14 AM MONEY COUNTER Height 167.6 cm (5' 6 ) 06/04/2019 9:37 AM MONEY COUNTER Body Mass Index 44.58 06/04/2019 9:37 AM MONEY COUNTER Plan of Treatment Health Maintenance Due Date [...] 2024 05/29/2014 Medical Devices Implanted Type Area Needle Polisher Device Identifier Shelf Expiration Date Model / Serial / Lot Seamguard Endogia 60 Prpl [id number] - [id number] Implanted:Qty : 3 on 06/04/2019 by Shanice Katz MD at [facility] [employer] N/A: Stomach [employer] 03/10/2022 [id number] / / [id number] Seamguard Endogia 60 Blck [id number] - [id number] Implanted:Qty : 1 on 06/04/2019 by Shanice Katz MD at [facility] [employer] N/A: Stomach [employer] 03/13/2022 [id number] / / [id number] Carbonizer Endoclip Iii 5mm W/Cliplogic [id number] - [id number] Implanted:Qty : 1 on 06/04/2019 by Shanice Katz MD at [facility] [employer]ip [employer] 12/23/2021 [id number] / / [id number] Advance Directives For more information, please contact: [phone] * Full Code (Latest Code Status on File) Date Activated Date Inactivated Comments 06/04/2019 2:22 PM 06/06/2019 2:14 PM * Full Code Date Activated Date Inactivated Comments 06/04/2019 9:54 AM 06/04/2019 2:22 PM * Full Code Date Activated Date Inactivated Comments 06/04/2019 9:09 AM 06/04/2019 9:54 AM Care Teams Cinder Man Relationship Specialty Start Date End Date Cayden, External Provider PCP - General 05/08/19
--- OUTSIDE RECORDS SUMMARY | 2024-06-29 09:17 | XMS_ITS | Encounter Summary ---
Author Organization [facility] Address [address] [place] [address] Care Team Providers Care Transportation Aid Name Role Phone Cayden External Provider Primary Care Provider Un available Encounter Details Date Type Department Care Team (Latest Contact Info) Description 05/08/2019 9:23 AM MEN'S GARMENT FITTER - 05/08/2019 11:59 PM MEN'S GARMENT FITTER Hospital Encounter [facility] Diagnostic Cardiac Neuro Services [address] [address] [place] [address] [place] [address] [place] [address] Discharge Disposition: Home or Self [...] Comments EKG 12-LEAD Routine 05/08/2019 10:39 AM MEN'S GARMENT FITTER documented in this encounter Results * EKG 12-LEAD (05/08/2019 10:39 AM MEN'S GARMENT FITTER) 05/08/2019 10:3 9 AM MEN'S GARMENT FITTER Narrative INTERFACE SYSTEM - 05/08/2019 4:18 PM MEN'S GARMENT FITTER ? Stationary ECG Study ?[place] ? Test Date: ?05/08/2019 10:39 AM Pat Name: ? KEY SALAS ?Department: ?? 1 ?Room: ? Gender: ? F ?Contract Processor: ?? Kds : ?1970 ? Requested By: EDWARDSLADE ALISSON Order Number: [id number] ?Reading MD: ?? Geo Do ? Measurements Intervals ?[place] ? Rate: ? 54 ? P: ?61 FL: ? 192 ?QRS: ?43 QRSD: ? 96 ? T: ?12 QT: ? 452 ? QTc: ?432 ? Interpretive Statements ? SINUS BRADYCARDIA Electronically Signed On 05-08-2019 16:18:32 MEN'S GARMENT FITTER by Geo Do Procedure Note Geo Do MD - 05/08/2019 Stationary ECG Study [place] Test Date: 05/08/2019 10:39 AM Pat Name: KEY SALAS Department: 1 Room: Gender: F Contract Processor: [facility] : 1970 Requested By: SHANICE KATZ Order Number: [id number] Reading MD: Geo Do Measurements Intervals [place] Rate: 54 P: 61 FL: 192 QRS: 43 QRSD: 96 T: 12 QT: 452 QTc: 432 Interpretive Statements SINUS BRADYCARDIA Electronically Signed On 05-08-2019 16:18:32 MEN'S GARMENT FITTER by Geo Do Shanice Katz MD ECG ORDERABLES INTERFACE SYSTEM Refer to clinic/hospital department documented in this encounter Visit Diagnoses Not on filedocumented in this encounter Care Teams Transportation Aid Relationship Specialty Start Date End Date Cayden, External Provider PCP - General 05/08/19 documented as of this encounter
--- OUTSIDE RECORDS SUMMARY | 2024-06-29 09:17 | XMS_ITS | Encounter Summary ---
Author Organization [facility] Address [address] [place] [address] Care Team Providers Care Sewing Techniques Demonstrator Name Role Phone Jefn, External Provider Primary Care Provider Un available Reason for Visit * Auth/Cert Specialty Diagnoses / Procedures Referred By Onel melgoza Referred To Contact Multi Specialty Diagnoses Morbid (severe) obesity due to excess calories Procedures ND LAP, MARIA DEL CARMEN RESTRICT PROC, LONGITUDINAL GASTRECTOMY GASTRECTOMY LONGITUDINAL LAPAROSCOPIC Jefn Operating Room [address] [address] Referral ID Status Reason Start Date Expiration Date Visits Re quested Visits Authorized [id number] 1 1 Encounter Details Date Type Department Care Team (Latest Contact Info) Description 06/04/2019 8:54 AM LINES TENDER - 06/06/2019 12:08 PM LINES TENDER Hospital Encounter [facility] [address] [address] [place] [id number] [place] [address] [place] [address] HTN (hypertension) Discharge Disposition: Home [...] Comments Blood Pressure 159/103 06/06/2019 11:51 AM LINES TENDER Pulse 58 06/06/2019 11:51 AM LINES TENDER Temperature 36.8 ??C (98.2 ??F) 06/06/2019 1 1:51 AM LINES TENDER Respiratory Rate 18 06/06/2019 11:5 1 AM LINES TENDER Oxygen Saturation 100% 06/06/2019 11: 51 AM LINES TENDER Inhaled Oxygen Concentration - - Weight 125.3 kg (276 lb 3.2 oz) 06/06/2019 4:14 AM LINES TENDER Height 167.6 cm (5' 6 ) 06/04/2019 9:37 AM LINES TENDER Body Mass Index 44.58 06/04/2019 9:37 AM LINES TENDER documented in this encounter Discharge Summaries * Enedina Jay ANP - 06/06/2019 9:26 AM CST [facility] Adult Hospitalist Discharge Summary Key Salas 48 y.o. female 1970 CSN: [id number] Date of Admission: 06/04/2019 Date of Discharge: [...] Your Medications These medications were sent to [facility] [address], [place], [place] [address] Hours: Monday-Monday: 8:30 a.m. - 5:00 p.m., [...] DAYS Signed: REAGAN Suggs 06/06/2019, 9:26 AM S TENDER documented in this encounter Discharge Instructions * Discharge Instructions* Enedina Jay ANP - 06/04/2019 1:42 PM LINES TENDER Your discharging physician is REAGAN Suggs and may be reached at [phone] for any questions or concerns until you [...] is not relieved by nitroglycerin. Smoking Exposure: [facility] encourages all patients to decrease risks [...] mg tablet -- may crush 8. Umeclidinium [place] (Incruse Ellipta inhaler) -- inhaler ? S TENDER * Attachments The following attachments cannot be sent through Care Everywhere. * Sleeve Gastrectomy: Post-op (Turkmen) documented in this encounter Medications at Time [...] ambulated out facility with family at side. S TENDER * Laurel Hawley RN - 06/06/2019 11:38 [...] go. I want to go home . S TENDER * Anne Larkin RN - 06/06/2019 2:50 AM CST 0000 Patient BP noted at 180/94 patient denies any dizziness, nausea or headache 0249 BP still remains high measured at 180/109 manually. Patient denies any symptoms. Clonidine administered S TENDER * Enedina Jay ANP - 06/05/2019 3:26 PM CST [facility] Adult Hospitalist Progress Note Admit Date: 06/04/2019 Date of Note: 06/05/2019, 3:27 PM PCP: Cayden, External Provider [facility] Previous history of [...] conference, nursing conference and discussion with any computer systems consultant. Enedina Jay, REAGAN [facility] * Shanice Katz MD - 06/05/2019 8:41 [...] 1 Puff 1 Puff Inhalation Resp Daily Eneidna Jay ANP ??? atorvastatin (LIPITOR) tablet 20 [...] rocuronium injection Intra-Proc PRN Dequan Pruitt P, ELECTRICAL TRYOUT PERSON 10 mg at 06/04/19 1136 ??? [DISCONTINUED] midazolam (PF) (VERSED) injection Intra-Proc PRN Dequan Pruitt P, ELECTRICAL TRYOUT PERSON 2 mg at 06/04/19 1107 ??? [DISCONTINUED] fentaNYL PF (SUBLIMAZE) 50 mcg/mL injection Intra-Proc PRN Samir Pruittson P, ELECTRICAL TRYOUT PERSON 100 mcg at 06/04/19 1141 ??? [DISCONTINUED] lidocaine PF 2% (XYLOCAINE MPF) injection Intra-Proc PRN Samir Pruittson P, ELECTRICAL TRYOUT PERSON 5 mL at 06/04/19 1111 ??? [DISCONTINUED] propofol (DIPRIVAN) injection Intra-Proc PRN Dequan Pruitt P, ELECTRICAL TRYOUT PERSON 131 mg at 06/04/19 1111 ??? [DISCONTINUED] succinylcholine (ANECTINE) 140 mg/7 mL (20 mg/mL) injection Intra-Proc PRN Samir Pruittson P, ELECTRICAL TRYOUT PERSON 100 mg at 06/04/19 1111 ??? [DISCONTINUED] ondansetron (ZOFRAN) 4 mg/2 mL injection Intra-Proc PRN Dequan Pruitt P, ELECTRICAL TRYOUT PERSON 4mg at 06/04/19 1145 ??? [DISCONTINUED] dexamethasone (DECADRON) injection Intra-Proc PRN Dequan Pruitt P, ELECTRICAL TRYOUT PERSON 8 mg at108/05/18 1145 Objective: Physical Exam: BP (!) 167/85 (BP Location: Right arm, Patient Position (BP): Supine) Pulse 64 Temp 98.1 ??F (36.7 ??C) (Oral) Resp 20 Ht 5' 6 (1.676 m) Wt 126.2 kg (278 lb 3.2 oz) LMP 05/06/2019 YlB024% BMI 44.90 kg/m?? General appearance: alert, in [...] intake,incentive spirometry and need for maintaining mobility. S TENDER * Laurel Hawley RN - 06/04/2019 3:52 PM CST This RN received report from DANIEL Cano. S TENDER * Colleen Duncan RN - 05/27/2019 3:08 PM CST Spoke with patient regarding use of c-PAP.lef-reported setting is 14 cm. Advised to bring tubing and mask on day of surgery S TENDER * Lisette Vega, PHARMACIST - 05/27/2019 2:20 [...] mg tablet -- may crush 8. Umeclidinium [place] (Incruse Ellipta inhaler) -- inhaler R Julissa Vega S TENDER documented in this encounter H&P Notes * hSanice Katz MD - 06/04/2019 10:56 AM CST [...] HX CHOLECYSTECTOMY ??? HX TUBAL LIGATION ??? ND ESOPHAGOGASTRODUODENOSCOPY TRANSORAL DIAGNOSTIC N/A 04/05/2019 ESOPHAGOGASTRODUODENOSCOPY performed by Shanice Katz MD at [facility] ENDOSCOPY Medications Prior to Admission Medication Sig [...] by patient and surgeon. Shanice Katz MD S TENDER documented in this encounter Consult Notes * Enedina Jay, ANP - 06/04/2019 1:39 PM CST [facility] Adult Hospitalist Consultation Consult requested by Shaniec Flynn MD Patient Name: Key Salas Primary [...] HX CHOLECYSTECTOMY ??? HX TUBAL LIGATION ??? ND ESOPHAGOGASTRODUODENOSCOPY TRANSORAL DIAGNOSTIC N/A 04/05/2019 ESOPHAGOGASTRODUODENOSCOPY performed by Shanice Katz MD at [facility] ENDOSCOPY Current Home Medications: Prior to Admission [...] patient denies anemia, bleeding or easy brusibility HEALTH AND FITNESS PROFESSOR: patient denies any headache syncope or seizures [...] UA Clear Clear Thank you for [facility] interesting case. I have taken the liberty of writing orders consistent with my recommendations. We will gladly follow the patient throughout their stay. This patient was discussed with Dr. Robles and he agrees with the above plan. REAGAN Suggs S TENDER documented in this encounter OR Notes * Operative Report - Shanice Katz MD - 06/04/2019 11:22 AM CST [facility] OPERATIVE REPORT PATIENT NAME: Key Salas [...] Intraperitoneal evidence of Morbid obesity. 2. 40 Italian VisiG gastric sizing tube was used to [...] esophageal hiatus could be visualized. The 40 Italian VisiG gastric sizing tube as a bougie [...] was made in the epigastric region. A manager managed backup services was placed and inserted through the skin, subcut the fascia and muscle to the preperitoneal space on the left side. A catheter wasplaced into the manager managed backup services as it was withdrawn.The catheter was connected to the pain pump to infusebupivacaine 0.25 %. Similarly a catheter was placed on the right side. Patient tolerated the procedure well and was transferred to the recovery room in stable condition. Shanice Katz MD S TENDER * Phyllis-OP - Lisette Bonilla RN - 06/04/2019 9:39 AM CST Patient resting on bed comfortably. Call light within reach. No H&P noted in chart. Anesthesia has not yet been by to see patient pre-procedure. Stop sign in place per protocol. Family updated onpt status. Will continue to monitor. S TENDER documented in this encounter Miscellaneous Notes * Care Plan - Laurel Hawley RN - 06/06/2019 12:39 PM CST Day 1 - Current ([facility] Pathway: Adult and Obstetrics) Patient, family, or [...] because of medications (i.e. - BP meds, CV/HEALTH AND FITNESS PROFESSOR meds, seizure meds, diuretics, pain meds, psych [...] meet metabolic needs throughout hospitalization Outcome: Progressing S TENDER * Care Plan - Anne Larkin RN [...] 414 Blood pressure rechecked measured at 140/71 S TENDER * Care Plan - Anne Larkin RN [...] thanor equal to 92%. Outcome: Not Met S TENDER * Care Plan - Laurel Hawley RN [...] Outcome: Not Met Day 1 - Current ([facility] Pathway: Adult and Obstetrics) Patient, family, or [...] because of medications (i.e. - BP meds, CV/HEALTH AND FITNESS PROFESSOR meds, seizure meds, diuretics, pain meds, psych [...] promote wound healing by discharge Outcome: Progressing S TENDER * Care Plan - Digna Bingham RN [...] LAPAROSCOPIC. Readmit risk 2. WAYNE Frost, RN, Knife Edger Nikki Sarabia Care Management S TENDER * Care Plan - Lisette Bonilla RN [...] pre op protocols, questions answered, verbalized understanding. S TENDER documented in this encounter Plan of Treatment Not on file documented as of this encounter Procedures Procedure Name Priority Date/Time Associated Diagnosis Comments CBC WITH DIFFERENTIAL Routine 06/06/2019 9:17 AM LINES TENDER BASIC METABOLIC PANEL Stat 06/06/2019 9:17 AM LINES TENDER CBC WITH DIFFERENTIAL Routine 06/05/2019 4:57 PM LINES TENDER CBC WITH DIFFERENTIAL Routine 06/05/2019 5:07 AM LINES TENDER BASIC METABOLIC PANEL Routine 06/05/2019 5:07 AM LINES TENDER ND LAPS GSTRC RSTRICTIV PX LONGITUDINAL GASTRECTOMY 06/04/2019 10:59 AM LINES TENDER Morbid (severe) obesity due to excess calories Case Notes [id number] 05-27-19 HCG QUALITATIVE, URINE Stat 06/04/2019 9:23 AM LINES TENDER documented in this encounter Results * (ABNORMAL) BASIC METABOLIC PANEL (06/06/2019 9:17 AM LINES TENDER) SODIUM 138 136 - 145 mmol/L 06/06/2019 9:49 AM LINES TENDER [facility] [place] POTASSIUM 4.1 3.5 - 5.1 mmol/L 06/06/2019 9:49 AM LINES TENDER [facility] [place] CHLORIDE 103 98 - 107 mmol/L 06/06/2019 9:49 AM LINES TENDER [facility] [place] CO2 25 22 - 29 mmol/L 06/06/2019 9:49 AM LINES TENDER [facility] [place] CALCIUM 9.0 8.6 - 10.0 mg/dL 06/06/2019 9:49 AM LINES TENDER [facility] [place] BUN 6 6 - 20 mg/dL 06/06/2019 9:49 AM LINES TENDER [facility] [place] CREATININE 0.90 0.51 - 0.95 mg/dL 06/06/2019 9:49 AM LINES TENDER [facility] [place] GLUCOSE 123(H) 74 - 99 mg/dL 06/06/2019 9:49 AM LINES TENDER [facility] [place] GFR >60 >=60 mL/min/1.7 3 sq meter 06/06/2019 9:49 AM LINES TENDER [facility] [place] Comment: eGFR has [...] mL/min/1.7 3 sq meter 06/06/2019 9:49 AM [facility] [employer] [facility] [place] ANION GAP 10 5 - 15 mmol/L 06/06/2019 9:49 AM [facility] [employer] [facility] Blood Venipuncture / Unknown 06/06/2019 9:17 AM LINES TENDER 06/06/2019 9:29 AM LINES TENDER Enedina Jay ANP CHEMISTRY ORDERAB LES [facility] [employer] [facility] [place] CLIA # [id number] [facility] [address] [place] [id number] * (ABNORMAL) CBC WITH DIFFERENTIAL (06/06/2019 9:17 AM LINES TENDER) WBC 13.2(H) 4.0 - 11.0 K/uL 06/06/2019 9:29 AM [facility] [employer] [facility] RBC 4.86 4.20 - 5.40 M/uL 06/06/2019 9:29 AM [facility] [employer] [facility] HEMOGLOBIN 12.7 11.9 - 15.1 g/dL 06/06/2019 9:29 AM [facility] [employer] [facility] HEMATOCRIT 39.8 38.0 - 47.0 % 06/06/2019 9:29 AM [facility] [employer] [facility] MCV 81.9 80.0 - 98.0 fL 06/06/2019 9:29 AM [facility] [employer] [facility] [place] MCH 26.1 26.0 - 34.0 pg 06/06/2019 9:29 AM [facility] [employer] [facility] MCHC 31.9 31.0 - 37.0 g/dL 06/06/2019 9:29 AM [facility] [employer] [facility] RDW 14.5 11.5 - 14.5 % 06/06/2019 9:29 AM [facility] [facility] [place] RDW-STDEV 43.6 34.0 - 54.0 fL 06/06/2019 9:29 AM [facility] [employer] [facility] [place] PLATELETS 280 150 - 400 K/uL 06/06/2019 9:29 AM [facility] [employer] [facility] [place] MPV 10.1 8.5 - 12.5 fL 06/06/2019 9:29 AM [facility] [place] NEUTROPHILS 69 50 - 70 % 06/06/2019 9:29 AM [facility] [place] LYMPHOCYTES 26 20 - 40 % 06/06/2019 9:29 AM [facility] [employer] [facility] [place] MONOCYTES 4 2 - 8 % 06/06/2019 9:29 AM [facility] [employer] [facility] [place] EOSINOPHILS 1 1 - 3 % 06/06/2019 9:29 AM [facility] [employer] [facility] [place] BASOPHILS 0 0 - 1 % 06/06/2019 9:29 AM [facility] [facility] [place] IMMATURE GRANULOCYTES 0 0 - 2 % 06/06/2019 9:29 AM [facility] [employer] [facility] - [place] NEUTROPHIL ABSOLUTE 9.05(H) 1.80 - 7.70 K/uL 06/06/2019 9:29 AM [facility] [employer] [facility] [place] LYMPHOCYTE ABSOLUTE 3.37(H) 1.00 - 3.30 K/uL 06/06/2019 9:29 AM [facility] [employer] [facility] [place] MONOCYTE ABSOLUTE 0.52 0.00 - 0.80 K/uL 06/06/2019 9:29 AM [facility] [employer] [facility] [place] EOSINOPHIL ABSOLUTE 0.17 0.00 - 0.45 K/uL 06/06/2019 9:29 AM [facility] [employer] [facility] [place] BASOPHILS ABSOLUTE 0.05 0.00 - 0.20 K/uL 06/06/2019 9:29 AM [facility] [employer] [facility] [place] IMMATURE GRANULOCYTES ABSOLUTE 0.04 0.00 - 0.31 K/uL 06/06/2019 9:29 AM [facility] [facility] [place] Blood Venipuncture / Unknown 06/06/2019 9:17 AM LINES TENDER 06/06/2019 9:25 AM [facility] Enedina L Kornhardt ANP HEMATOLOGY ORDERA BLES [facility] [place] CLIA # [id number] [facility] [address] [place] [address] * (ABNORMAL) CBC WITH DIFFERENTIAL (06/05/2019 4:57 PM LINES TENDER) WBC 18.6(H) 4.0 - 11.0 K/uL 06/05/2019 5:19 PM LINES TENDER [facility] [place] RBC 5.10 4.20 - 5.40 M/uL 06/05/2019 5:19 PM [facility] [place] HEMOGLOBIN 13.3 11.9 - 15.1 g/dL 06/05/2019 5:19 PM [facility] [place] HEMATOCRIT 41.2 38.0 - 47.0 % 06/05/2019 5:19 PM [facility] [place] MCV 80.8 80.0 - 98.0 fL 06/05/2019 5:19 PM [facility] [employer] SERVICES - [place] MCH 26.1 26.0 - 34.0 pg 06/05/2019 5:19 PM [facility] [place] MCHC 32.3 31.0 - 37.0 g/dL 06/05/2019 5:19 PM [facility] [place] RDW 14.4 11.5 - 14.5 % 06/05/2019 5:19 PM [facility] [employer] SERVICES - [place] RDW-STDEV 42.3 34.0 - 54.0 fL 06/05/2019 5:19 PM [facility] [employer] SERVICES - [place] PLATELETS 314 150 - 400 K/uL 06/05/2019 5:19 PM [facility] [employer] SERVICES [facility] [place] MPV 10.3 8.5 - 12.5 fL 06/05/2019 5:19 PM [facility] [place] NEUTROPHILS 76(H) 50 - 70 % 06/05/2019 5:19 PM [facility] [place] LYMPHOCYTES 20 20 - 40 % 06/05/2019 5:19 PM [facility] [place] MONOCYTES 3 2 - 8 % 06/05/2019 5:19 PM [facility] [place] EOSINOPHILS 0(L) 1 - 3 % 06/05/2019 5:19 PM [facility] [place] BASOPHILS 0 0 - 1 % 06/05/2019 5:19 PM [facility] [place] IMMATURE GRANULOCYTES 0 0 - 2 % 06/05/2019 5:19 PM [facility] [place] NEUTROPHIL ABSOLUTE 14.07(H) 1.80 - 7.70 K/uL 06/05/2019 5:19 PM [facility] [place] LYMPHOCYTE ABSOLUTE 3.73(H) 1.00 - 3.30 K/uL 06/05/2019 5:19 PM [facility] [place] MONOCYTE ABSOLUTE 0.61 0.00 - 0.80 K/uL 06/05/2019 5:19 PM [facility] [place] EOSINOPHIL ABSOLUTE 0.01 0.00 - 0.45 K/uL 06/05/2019 5:19 PM [facility] [place] BASOPHILS ABSOLUTE 0.05 0.00 - 0.20 K/uL 06/05/2019 5:19 PM [facility] [employer] [facility] [place] IMMATURE GRANULOCYTES ABSOLUTE 0.08 0.00 - 0.31 K/uL 06/05/2019 5:19 PM [facility] [employer] [facility] [place] Blood Venipuncture / Unknown 06/05/2019 4:57 PM LINES TENDER 06/05/2019 5:17 PM LINES TENDER Enedina Jay ANP HEMATOLOGY ORDERA BLES [facility] [place] CLIA # [id number] [facility] [address] [place] [address] * BASIC METABOLIC PANEL (06/05/2019 5:07 AM LINES TENDER) SODIUM 140 136 - 145 mmol/L 06/05/2019 5:30 AM LINES TENDER [facility] [place] POTASSIUM 4.2 3.5 - 5.1 mmol/L 06/05/2019 5:30 AM LINES TENDER [facility] [place] CHLORIDE 106 98 - 107 mmol/L 06/05/2019 5:30 AM LINES TENDER [facility] [place] CO2 23 22 - 29 mmol/L 06/05/2019 5:30 AM LINES TENDER [facility] [employer] [facility] [place] CALCIUM 9.3 8.6 - 10.0 mg/dL 06/05/2019 5:30 AM [facility] [employer] [facility] [place] BUN 6 6 - 20 mg/dL 06/05/2019 5:30 AM [facility] [place] CREATININE 0.82 0.51 - 0.95 mg/dL 06/05/2019 5:30 AM [facility] [employer] [facility] [place] GLUCOSE 95 74 - 99 mg/dL 06/05/2019 5:30 AM [facility] [employer] [facility] [place] GFR >60 >=60 mL/min/1.7 3 sq meter 06/05/2019 5:30 AM [facility] [employer] [facility] [place] Comment: eGFR has not been [...] mL/min/1.7 3 sq meter 06/05/2019 5:30 AM [facility] [employer] [facility] [place] ANION GAP 11 5 - 15 mmol/L 06/05/2019 5:30 AM [facility] [employer] [facility] [place] Blood Venipuncture / Unknown 06/05/2019 5:07 AM LINES TENDER 06/05/2019 5:15 AM LINES TENDER Shanice Katz MD CHEMISTRY ORDERABL ES [facility] [employer] [facility] [place] CLIA # [id number] [facility] [address] [place] [address] * (ABNORMAL) CBC WITH DIFFERENTIAL (06/05/2019 5:07 AM LINES TENDER) WBC 18.2(H) 4.0 - 11.0 K/uL 06/05/2019 5:13 AM [facility] [place] RBC 5.00 4.20 - 5.40 M/uL 06/05/2019 5:13 AM [facility] [place] HEMOGLOBIN 13.2 11.9 - 15.1 g/dL 06/05/2019 5:13 AM [facility] [place] HEMATOCRIT 41.2 38.0 - 47.0 % 06/05/2019 5:13 AM [facility] [place] MCV 82.4 80.0 - 98.0 fL 06/05/2019 5:13 AM [facility] [place] MCH 26.4 26.0 - 34.0 pg 06/05/2019 5:13 AM [facility] [place] MCHC 32.0 31.0 - 37.0 g/dL 06/05/2019 5:13 AM [facility] [place] RDW 14.4 11.5 - 14.5 % 06/05/2019 5:13 AM [facility] [place] RDW-STDEV 42.4 34.0 - 54.0 fL 06/05/2019 5:13 AM [facility] [employer] SERVICES - [place] PLATELETS 294 150 - 400 K/uL 06/05/2019 5:13 AM [facility] [place] MPV 10.1 8.5 - 12.5 fL 06/05/2019 5:13 AM [facility] [place] NEUTROPHILS 83(H) 50 - 70 % 06/05/2019 5:13 AM [facility] [place] LYMPHOCYTES 13(L) 20 - 40 % 06/05/2019 5:13 AM [facility] [place] MONOCYTES 3 2 - 8 % 06/05/2019 5:13 AM [facility] [place] EOSINOPHILS 0(L) 1 - 3 % 06/05/2019 5:13 AM [facility] [place] BASOPHILS 0 0 - 1 % 06/05/2019 5:13 AM [facility] [place] IMMATURE GRANULOCYTES 1 0 - 2 % 06/05/2019 5:13 AM [facility] [place] NEUTROPHIL ABSOLUTE 15.01(H) 1.80 - 7.70 K/uL 06/05/2019 5:13 AM [facility] [place] LYMPHOCYTE ABSOLUTE 2.41 1.00 - 3.30 K/uL 06/05/2019 5:13 AM LINES TENDER [facility] [place] MONOCYTE ABSOLUTE 0.61 0.00 - 0.80 K/uL 06/05/2019 5:13 AM [facility]ER [facility] [place] EOSINOPHIL ABSOLUTE 0.00 0.00 - 0.45 K/uL 06/05/2019 5:13 AM [facility]ES [facility]ENDER [facility] [place] BASOPHILS ABSOLUTE 0.02 0.00 - 0.20 K/uL 06/05/2019 5:13 AM [facility] [place] IMMATURE GRANULOCYTES ABSOLUTE 0.12 0.00 - 0.31 K/uL 06/05/2019 5:13 AM LINES TENDER [facility] [place] Blood Venipuncture / Unknown 06/05/2019 5:07 AM LINES TENDER 06/05/2019 5:11 AM LINES TENDER Shanice Katz MD HEMATOLOGY ORDERAB LES [facility] [employer] SERVICES - [place] CLIA # [id number] [address] [place] [address] * HCG QUALITATIVE, URINE (06/04/2019 9:23 AM LINES TENDER) HCG QUAL URINE Negative Negative 06/04/2019 9:40 AM LINES TENDER [facility] [place] COLOR UA Yellow Pale to Dark Yellow 06/04/2019 9:40 AM LINES TENDER [facility] [place] CLARITY UA Clear Clear 06/04/2019 9:40 AM [facility] [employer] [facility] [place] Urine URINE SPECIMEN OBTAINED BY CLEAN CATCH PROCEDURE / Unknown Collection / Unknown 06/04/2019 9:23 AM LINES TENDER 06/04/2019 9:30 AM LINES TENDER N[facility]ative [facility] [place] - 06/04/2019 9:40 AM LINES TENDER hCG sensitive to as little as 20 mIU/mL for urine Franco Collins MD URINE ORDERABLES [facility] [employer] - [place] CLIA # [id number] [place] [id number] documented in this encounter Visit Diagnoses Diagnosis [...] - Floor Rate Verify 06/04/2019 6:41 PM LINES TENDER 400 mL /hr Rate Verify 06/04/2019 6:29 PM LINES TENDER 400 mL/hr New Bag 06/04/2019 6:28 PM LINES TENDER 1,000 mg 400 mL/hr acetaminophen (OFIRMEV) 10 mg/ml injection 1,000 mg 1,000 mg, IV, ONE TIME ONLY, 1 dose, On Mon06/05/19 at 0000, Routine, Post-op - Floor Rate Verify 06/04/2019 11:29 PM LINES TENDER 400 m L/hr New Bag 06/04/2019 11:25 PM LINES TENDER 1,000 mg 400 mL/hr atorvastatin (LIPITOR) tablet 20 mg 20 mg, Oral, DAILY, First dose (after last modification) on Mon06/05/19 at 0900, Until Discontinued, Previous Med: atorvastatin calcium (ATORVASTATIN ORAL) - Orig Sig - Take 20 mg by mouth daily. Given 06/06/2019 8:14 AM LINES TENDER 20 mg Given 06/05/2019 8:30 AM LINES TENDER 20 mg bupivacaine PF (SENSORCAINE MPF) 5 mg/mL (0.5%) injection 150 mg 150 mg (30 mL), See Admin Instructions, ONE TIME ONLY, 1 dose, On Mon06/04/19 at 1045, Routine Given 06/04/2019 12:35 PM LINES TENDER 150 mg Operative Site bupivacaine PF 5 mg/mL (0.5%) 270 mL infusion for On-Q pump See Admin Instructions, CONTINUOUS, Starting on Mon06/04/19 at 0915, Until Araceli 06/06/19 at 1408, Stat, Pre-op New Bag 06/04/2019 1:03 PM LINES TENDER Abdom inal Tissue cloNIDine HCl (CATAPRES) tablet 0.1 mg 0.1 mg, Oral, THREE TIMES DAILY PRN, Starting on Mon06/04/19 at 1337, Until Araceli 06/06/19 at 1408, Blood Pressure, sbp >180 min hr 60, Routine Given 06/06/2019 2:49 AM LINES TENDER 0.1 mg Given 06/05/2019 4:17 AM LINES TENDER 0.1 mg diphenhydrAMINE (BENADRYL) injection 25 mg 25 mg, IV, EVERY 6 HOURS PRN, Starting on Mon06/04/19 at 1422, Until Araceli 06/06/19 at 1408, Itching, Routine, Post-op - Floor famotidine PF (PEPCID) 20 mg/2 mL injection 20 mg 20 mg, IV, PRE-PROCEDURE ONCE, 1 dose, Starting on Mon06/04/19 at 0909, Until Mon06/04/19 at 0931, Stat, Pre-op Given 06/04/2019 9:31 AM LINES TENDER 20 mg famotidine PF (PEPCID) 20 mg/2 mL injection 20 mg 20 mg, IV, TWO TIMES DAILY, First dose on Mon06/04/19 at 2100, Until Discontinued, Routine, Post-op - Floor Given 06/06/2019 8:14 AM LINES TENDER 20 mg Given 06/05/2019 8:53 PM LINES TENDER 20 mg Given 06/05/2019 8:30 AM LINES TENDER 20 mg fentaNYL PF (SUBLIMAZE) 50 mcg/mL injection 25 mcg 25 mcg, IV, POST-PROCEDURE Q 3 MINUTES PRN, 5 doses, Starting on Mon06/04/19 at 0953, Until Mon06/04/19 at 1421, Pain, Routine, PACU Given 06/04/2019 1:20 PM LINES TENDER 25 mcg heparin injection 5,000 Units 5,000 Units, subCUT, PRE-PROCEDURE ONCE, 1 dose, Starting on Mon06/04/19 at 0909, Until Mon06/04/19 at 0933, Stat, Pre-op Given 06/04/2019 9:33 AM LINES TENDER 5,000 Units Abdomen, Left Lower Quadrant heparin injection 5,000 Units 5,000 Units, subCUT, EVERY 8 HOURS, First dose on Mon06/04/19 at 1730, Until Discontinued, Routine, Post-op - Floor Given 06/06/2019 4:28 AM LINES TENDER 5,000 Units Abdominal Tissue Given 06/05/2019 8:53 PM LINES TENDER 5,000 Units A bdominal Tissue Given 06/05/2019 4:00 PM LINES TENDER 5,000 Units A bdominal Tissue HYDROcodone-acetaminophen (HYCET) 7.5-325 mg/15 mL oral solution 15 mL 15 mL (7.5 mg), Oral, EVERY 4 HOURS PRN, Starting on Mon06/05/19 at 0600, Until Araceli 06/06/19 at 1408, Pain (See admin instructions), Routine, Post-op - Floor Given 06/06/2019 8:32 AM LINES TENDER 15 mL HYDROcodone-acetaminophen (HYCET) 7.5-325 mg/15 mL [...] Stat, Pre-op New Bag 06/04/2019 9:30 AM LINES TENDER 2,000 mL 2000 mL/h r lactated ringers bolus solution 500 mL 500 mL, IV, ONE TIME ONLY, 1 dose, On Mon06/04/19 at 2230, at 999 mL/hr, Administer over 30 Minutes, Routine New Bag 06/04/2019 10:26 PM LINES TENDER 500 mL 999 mL/hr lactated ringers infusion IV, at 125 mL/hr, POST-PROCEDURE CONTINUOUS, Starting on Mon06/04/19 at 1000, Until Mon06/06/19 at 1408, Routine, PACU Restarted 06/06/2019 11:27 AM LINES TENDER 200 mL/hr Rate Verify 06/06/2019 8:16 AM LINES TENDER 200 mL/hr Rate Change 06/06/2019 7:40 AM LINES TENDER 200 mL/hr lactated ringers infusion IV, at 200 mL/hr, CONTINUOUS, Starting on Mon06/04/19 at 1430, Until Araceli 06/06/19 at 1408, Routine, Post-op - Floor New Bag 06/06/2019 8:16 AM LINES TENDER 200 mL/hr New Bag 06/06/2019 2:31 AM LINES TENDER 200 mL/hr New Bag 06/05/2019 11:00 PM LINES TENDER 200 mL/hr metoclopramide (REGLAN) 5 mg/mL injection [...] Surgical prophylaxis Rate Verify 06/04/2019 11:44 PM LINES TENDER 100 mL/hr New Bag 06/04/2019 11:43 PM LINES TENDER 500 mg 100 mL/hr Rate Verify 06/04/2019 3:59 PM LINES TENDER 100 mL/hr morphine 4 mg/mL injection 2 mg 2 mg, IV, EVERY 4 HOURS PRN, Starting on Mon06/04/19 at 1422, Until Araceli 06/06/19 at 1408, Pain (See admin instructions), Routine, Post-op - Floor Given 06/04/2019 10:27 PM LINES TENDER 2 mg Given 06/04/2019 2:47 PM LINES TENDER 2 mg morphine 4 mg/mL injection 2 [...] Post-op - Floor Given 06/04/2019 2:46 PM LINES TENDER 4 mg prochlorperazine (COMPAZINE) injection 5 mg 5 mg, IV, POST-PROCEDURE ONCE PRN, 1 dose, Starting on Mon06/04/19 at 0953, Until Mon06/04/19 at 1305, Nausea/Emesis, Routine, PACU Given 06/04/2019 1:05 PM LINES TENDER 5 mg scopolamine (TRANSDERM-SCOP) 1 mg/72 hr transdermal patch 1 Patch 1 Patch, Transdermal, ONE TIME ONLY, 1 dose, On Mon06/04/19 at 0915, Stat, Pre-op Applied 06/04/2019 9:32 AM LINES TENDER 1 Patch Mastoid,Left simethicone (MYLICON) 40 mg/0.6 mL drops 40 mg 40 mg, Oral, EVERY 6 HOURS PRN, Starting on Mon06/04/19 at 1422, Until Araceli 06/06/19 at 1408, Gas, Routine, Post-op - Floor Given 06/05/2019 3:02 AM LINES TENDER 40 mg Given 06/04/2019 9:23 PM LINES TENDER 40 mg sodium chloride 0.9 % irrigation solution 1,000 mL 1,000 mL, Irrigation, ONE TIME ONLY, 1 dose, On Mon06/04/19 at 1030, Routine Given 06/04/2019 11:40 AM LINES TENDER 1,000 mL Operative Site documented in this encounter Active and Recently Administered Medications Times are shown in LINES TENDER. Scheduled Medication Order 06/04/2019 06/05/2019 06/06/2019 acetaminophen [...] Post-op - Floor 2118 (Given - Provider: Anne Larkin RN) 0830 (Given - Provider: Vicky [...] inhalation. 0855 (Refused - Provider: Malini Baker, GUITAR REPAIR TECHNICIAN - Comment: pt stated she will take her incruse at home, going home today) 0800 (Refused - Provider: Anika Sims, GUITAR REPAIR TECHNICIAN - Comment: does not want to pay [...] prophylaxis documented in this encounter Care Teams Sewing Techniques Demonstrator Relationship Specialty Start Date End Date Jefn, External Provider PCP - General 05/08/19 documented as of this encounter
--- OUTSIDE RECORDS SUMMARY | 2024-06-29 09:17 | XMS_ITS | Encounter Summary ---
Author Organization [facility] Address [address] [place] [address] Care Team Providers Care Jack Spinner Name Role Phone Christofn, External Provider Primary Care Provider Un available Reason for Visit * Auth/Cert Specialty Diagnoses / Procedures Referred By Onel melgoza Referred To Contact Multi Specialty Diagnoses Morbid (severe) obesity due to excess calories Procedures [place] LAP, MARIA DEL CARMEN RESTRICT PROC, LONGITUDINAL GASTRECTOMY GASTRECTOMY LONGITUDINAL LAPAROSCOPIC Christofsteve Operating Room [address] [address] Referral ID Status Reason Start Date Expiration Date Visits Re quested Visits Authorized [id number] 1 1 Encounter Details Date Type Department Care Team (Late st Contact Info) Description 06/04/2019 11:00 AM TERRITORY OUTSIDE SALES MANAGER - 06/04/2019 12:45 PM [facility] Operating Room [address] [address] [place] [id number] [facility] [place] [address] [place] [address] Laparoscopic vertical sleeve gastrectomy with [...] MD Primary General Surgery 1 Case Notes [id number] [id number] documented in this encounter Social History [...] Comments Blood Pressure 148/96 06/04/2019 9:37 AM TERRITORY OUTSIDE SALES MANAGER Pulse 87 06/04/2019 9:37 AM TERRITORY OUTSIDE SALES MANAGER Temperature 36.3 ??C (97.3 ??F) 06/04/2019 9:37 AM CS T Respiratory Rate 20 06/04/2019 9:37 AM TERRITORY OUTSIDE SALES MANAGER Oxygen Saturation 99% 06/04/2019 9:37 AM TERRITORY OUTSIDE SALES MANAGER Inhaled Oxygen Concentration - - Weight 131.1 kg (289 lb) 06/04/2019 9:37 AM TERRITORY OUTSIDE SALES MANAGER Height 167.6 cm (5' 6 ) 06/04/2019 9:37 AM TERRITORY OUTSIDE SALES MANAGER Body Mass Index 44.58 06/04/2019 9:37 AM TERRITORY OUTSIDE SALES MANAGER documented in this encounter Discharge Summaries * Enedina Jay ANP - 06/06/2019 9:26 AM CST Caryn Sarabia Adult Hospitalist Discharge Summary Key Salas 48 y.o. female 1970 CSN: [id number] Date of Admission: 06/04/2019 Date of Discharge: [...] Your Medications These medications were sent to [facility] [address], [place] [address], [place] [address] Hours: Monday-Monday: 8:30 a.m. - 5:00 p.m., [...] DAYS Signed: REAGAN Suggs 06/06/2019, 9:26 AM ITORY OUTSIDE SALES MANAGER documented in this encounter Discharge Instructions * Discharge Instructions* Enedina Jay ANP - 06/04/2019 1:42 PM TERRITORY OUTSIDE SALES MANAGER Your discharging physician is REAGAN Suggs and may be reached at [phone] for any questions or concerns until you [...] mg tablet -- may crush 8. Umeclidinium Bethel (Incruse Ellipta inhaler) -- inhaler ? ITORY OUTSIDE SALES MANAGER * Attachments The following attachments cannot be sent through Care Everywhere. * Sleeve Gastrectomy: Post-op (Lithuanian) documented in this encounter Medications at Time [...] ambulated out facility with family at side. ITORY OUTSIDE SALES MANAGER * Laurel Hawley RN - 06/06/2019 11:38 [...] go. I want to go home . ITORY OUTSIDE SALES MANAGER * Anne Larkin RN - 06/06/2019 2:50 AM CST 0000 Patient BP noted at 180/94 patient denies any dizziness, nausea or headache 0249 BP still remains high measured at 180/109 manually. Patient denies any symptoms. Clonidine administered ITORY OUTSIDE SALES MANAGER * Enedina Jay ANP - 06/05/2019 3:26 PM CST [facility] Adult Hospitalist Progress Note Admit Date: 06/04/2019 Date of Note: 06/05/2019, 3:27 PM PCP: Cayden, External Provider LOS: 1 day [facility] Hospitalist Progress Note Previous history [...] conference, nursing conference and discussion with any family consultant. Enedina Jay, ANP [facility] ITORY OUTSIDE SALES MANAGER * Shanice Katz MD - 06/05/2019 8:41 [...] 20 mg 20 mg Oral Daily Enedina aJy, REAGAN Facility-Administered Medications Ordered in Other Encounters Medication Dose Route Frequency Provider Last Rate Last Dose ??? [DISCONTINUED] rocuronium injection Intra-Proc PRN Dequan Pruitt P, FILM PROCESSOR 10 mg at 06/04/19 1136 ??? [DISCONTINUED] midazolam (PF) (VERSED) injection Intra-Proc PRN Dequan Pruitt P, FILM PROCESSOR 2 mg at 06/04/19 1107 ??? [DISCONTINUED] fentaNYL PF (SUBLIMAZE) 50 mcg/mL injection Intra-Proc PRN Samir Pruittson P, FILM PROCESSOR 100 mcg at 06/04/19 1141 ??? [DISCONTINUED] lidocaine PF 2% (XYLOCAINE MPF) injection Intra-Proc PRN Samir Pruittson P, FILM PROCESSOR 5 mL at 06/04/19 1111 ??? [DISCONTINUED] propofol (DIPRIVAN) injection Intra-Proc PRN Samir Pruittson P, FILM PROCESSOR 131 mg at 06/04/19 1111 ??? [DISCONTINUED] succinylcholine (ANECTINE) 140 mg/7 mL (20 mg/mL) injection Intra-Proc PRN Pruitt, Dequan P, FILM PROCESSOR 100 mg at 06/04/19 1111 ??? [DISCONTINUED] ondansetron (ZOFRAN) 4 mg/2 mL injection Intra-Proc PRN Pruitt, Dequan P, FILM PROCESSOR 4mg at 06/04/19 1145 ??? [DISCONTINUED] dexamethasone (DECADRON) injection Intra-Proc PRN Pruitt, Dequan P, FILM PROCESSOR 8 mg at108/05/18 1145 Objective: Physical Exam: BP (!) 167/85 (BP Location: Right arm, Patient Position (BP): Supine) Pulse 64 Temp 98.1 ??F (36.7 ??C) (Oral) Resp 20 Ht 5' 6 (1.676 m) Wt 126.2 kg (278 lb 3.2 oz) LMP 05/06/2019 EyP346% BMI 44.90 kg/m?? General appearance: alert, in [...] intake,incentive spirometry and need for maintaining mobility. ITORY OUTSIDE SALES MANAGER * Laurel Hawley RN - 06/04/2019 3:52 PM CST This RN received report from DANIEL Cano. ITORY OUTSIDE SALES MANAGER * Colleen Duncan, DANIEL - 05/27/2019 3:08 PM CST Spoke with patient regarding use of c-PAP.lef-reported setting is 14 cm. Advised to bring tubing and mask on day of surgery ITORY OUTSIDE SALES MANAGER * Lisette Vega PHARMACIST - 05/27/2019 2:20 [...] mg tablet -- may crush 8. Umeclidinium Bethel (Incruse Ellipta inhaler) -- inhaler R Julissa Vega ITORY OUTSIDE SALES MANAGER documented in this encounter H&P Notes * [...] HX CHOLECYSTECTOMY ??? HX TUBAL LIGATION ??? [place] ESOPHAGOGASTRODUODENOSCOPY TRANSORAL DIAGNOSTIC N/A 04/05/2019 ESOPHAGOGASTRODUODENOSCOPY performed by Shanice Katz MD at [facility] Medications Prior to Admission Medication Sig [...] by patient and surgeon. Shanice Katz MD ITORY OUTSIDE SALES MANAGER documented in this encounter Consult Notes * Enedina Jay ANP - 06/04/2019 1:39 PM CST [facility] Consultation Consult requested by Shanice [...] HX CHOLECYSTECTOMY ??? HX TUBAL LIGATION ??? [place] ESOPHAGOGASTRODUODENOSCOPY TRANSORAL DIAGNOSTIC N/A 04/05/2019 ESOPHAGOGASTRODUODENOSCOPY performed by Shanice Katz MD at [facility] Current Home Medications: Prior to Admission [...] patient denies anemia, bleeding or easy brusibility BEAN SNIPPER: patient denies any headache syncope or seizures [...] UA Clear Clear Thank you for consulting [facility] interesting case. I have taken the liberty of writing orders consistent with my recommendations. We will gladly follow the patient throughout their stay. This patient was discussed with Dr. Robles and he agrees with the above plan. REAGAN Suggs ITORY OUTSIDE SALES MANAGER documented in this encounter OR Notes * Operative Report - Shanice Katz MD - 06/04/2019 11:22 AM CST [facility] OPERATIVE REPORT PATIENT NAME: Key Salas DATE [...] Intraperitoneal evidence of Morbid obesity. 2. 40 Israeli VisiG gastric sizing tube was used to [...] esophageal hiatus could be visualized. The 40 Israeli VisiG gastric sizing tube as a bougie [...] was made in the epigastric region. A skin tanner was placed and inserted through the skin, subcut the fascia and muscle to the preperitoneal space on the left side. A catheter wasplaced into the skin tanner as it was withdrawn.The catheter was connected to the pain pump to infusebupivacaine 0.25 %. Similarly a catheter was placed on the right side. Patient tolerated the procedure well and was transferred to the recovery room in stable condition. Shanice Katz MD ITORY OUTSIDE SALES MANAGER * Phyllis-OP - Lisette Bonilla RN - 06/04/2019 9:39 AM CST Patient resting on bed comfortably. Call light within reach. No H&P noted in chart. Anesthesia has not yet been by to see patient pre-procedure. Stop sign in place per protocol. Family updated onpt status. Will continue to monitor. ITORY OUTSIDE SALES MANAGER documented in this encounter Miscellaneous Notes * Care Plan - Laurel Hawley RN - 06/06/2019 12:39 PM CST Day 1 - Current ([place] [facility]: Adult and Obstetrics) Patient, family, or [...] because of medications (i.e. - BP meds, CV/BEAN SNIPPER meds, seizure meds, diuretics, pain meds, psych [...] meet metabolic needs throughout hospitalization Outcome: Progressing ITORY OUTSIDE SALES MANAGER * Care Plan - Anne Larkin RN [...] 414 Blood pressure rechecked measured at 140/71 ITORY OUTSIDE SALES MANAGER * Care Plan - Anne Larkin RN [...] thanor equal to 92%. Outcome: Not Met ITORY OUTSIDE SALES MANAGER * Care Plan - Laurel Hawley RN [...] Outcome: Not Met Day 1 - Current ([place] [facility]: Adult and Obstetrics) Patient, family, or [...] because of medications (i.e. - BP meds, CV/BEAN SNIPPER meds, seizure meds, diuretics, pain meds, psych [...] promote wound healing by discharge Outcome: Progressing ITORY OUTSIDE SALES MANAGER * Care Plan - Digna Bingham RN [...] LAPAROSCOPIC. Readmit risk 2. WAYNE Frost, RN, Spaghetti Machine Operator Caryn Sarabia Care Management ITORY OUTSIDE SALES MANAGER * Care Plan - Lisette Bonilla RN [...] pre op protocols, questions answered, verbalized understanding. ITORY OUTSIDE SALES MANAGER documented in this encounter Plan of Treatment Not on file documented as of this encounter Procedures Procedure Name Priority Date/Time Associated Diagnosis Comments CBC WITH DIFFERENTIAL Routine 06/06/2019 9:17 AM TERRITORY OUTSIDE SALES MANAGER BASIC METABOLIC PANEL Stat 06/06/2019 9:17 AM TERRITORY OUTSIDE SALES MANAGER CBC WITH DIFFERENTIAL Routine 06/05/2019 4:57 PM TERRITORY OUTSIDE SALES MANAGER CBC WITH DIFFERENTIAL Routine 06/05/2019 5:07 AM TERRITORY OUTSIDE SALES MANAGER BASIC METABOLIC PANEL Routine 06/05/2019 5:07 AM TERRITORY OUTSIDE SALES MANAGER [place] LAPS GSTRC RSTRICTIV PX LONGITUDINAL GASTRECTOMY 06/04/2019 10:59 AM TERRITORY OUTSIDE SALES MANAGER Morbid (severe) obesity due to excess calories Case Notes [id number] 12-2-19rf HCG QUALITATIVE, URINE Stat 06/04/2019 9:23 AM TERRITORY OUTSIDE SALES MANAGER documented in this encounter Results * (ABNORMAL) BASIC METABOLIC PANEL (06/06/2019 9:17 AM TERRITORY OUTSIDE SALES MANAGER) SODIUM 138 136 - 145 mmol/L 06/06/2019 9:49 AM TERRITORY OUTSIDE SALES MANAGER [facility] [place] POTASSIUM 4.1 3.5 - 5.1 mmol/L 06/06/2019 9:49 AM TERRITORY OUTSIDE SALES MANAGER MD [facility] [place] CHLORIDE 103 98 - 107 mmol/L 06/06/2019 9:49 AM TERRITORY OUTSIDE SALES MANAGER MD [facility] [place] CO2 25 22 - 29 mmol/L 06/06/2019 9:49 AM TERRITORY OUTSIDE SALES MANAGER MD [facility] [place] CALCIUM 9.0 8.6 - 10.0 mg/dL 06/06/2019 9:49 AM TERRITORY OUTSIDE SALES MANAGER MD [facility] [place] BUN 6 6 - 20 mg/dL 06/06/2019 9:49 AM TERRITORY OUTSIDE SALES MANAGER MD [facility] [place] CREATININE 0.90 0.51 - 0.95 mg/dL 06/06/2019 9:49 AM TERRITORY OUTSIDE SALES MANAGER MD [facility] [place] GLUCOSE 123(H) 74 - 99 mg/dL 06/06/2019 9:49 AM [facility] [employer] [facility] [place] GFR >60 >=60 mL/min/1.7 3 sq meter 06/06/2019 9:49 AM [facility] [employer] [facility] [place] Comment: eGFR has [...] mL/min/1.7 3 sq meter 06/06/2019 9:49 AM [facility] [employer] [facility] [place] ANION GAP 10 5 - 15 mmol/L 06/06/2019 9:49 AM [facility] [employer] [facility] [place] Blood Venipuncture / Unknown 06/06/2019 9:17 AM TERRITORY OUTSIDE SALES MANAGER 06/06/2019 9:29 AM [facility] Enedina Jay ANP CHEMISTRY ORDERAB LES [facility] [employer] [facility] CLIA # [id number] [address] [id number] * (ABNORMAL) CBC WITH DIFFERENTIAL (06/06/2019 9:17 AM TERRITORY OUTSIDE SALES MANAGER) WBC 13.2(H) 4.0 - 11.0 K/uL 06/06/2019 9:29 AM [facility] [employer] [facility] [place] RBC 4.86 4.20 - 5.40 M/uL 06/06/2019 9:29 AM [facility] [employer] [facility] [place] HEMOGLOBIN 12.7 11.9 - 15.1 g/dL 06/06/2019 9:29 AM [facility] [employer] [facility] HEMATOCRIT 39.8 38.0 - 47.0 % 06/06/2019 9:29 AM [facility] [place] MCV 81.9 80.0 - 98.0 fL 06/06/2019 9:29 AM [facility] [place] MCH 26.1 26.0 - 34.0 pg 06/06/2019 9:29 AM [facility] [place] MCHC 31.9 31.0 - 37.0 g/dL 06/06/2019 9:29 AM [facility] [place] RDW 14.5 11.5 - 14.5 % 06/06/2019 9:29 AM [facility] [employer] [facility] [place] RDW-STDEV 43.6 34.0 - 54.0 fL 06/06/2019 9:29 AM [facility] [employer] [facility] [place] PLATELETS 280 150 - 400 K/uL 06/06/2019 9:29 AM [facility] [employer] [facility] [place] MPV 10.1 8.5 - 12.5 fL 06/06/2019 9:29 AM [facility] [place] NEUTROPHILS 69 50 - 70 % 06/06/2019 9:29 AM [facility] [place] LYMPHOCYTES 26 20 - 40 % 06/06/2019 9:29 AM [facility] [employer] [facility] [place] MONOCYTES 4 2 - 8 % 06/06/2019 9:29 AM [facility] [place] EOSINOPHILS 1 1 - 3 % 06/06/2019 9:29 AM [facility] [place] BASOPHILS 0 0 - 1 % 06/06/2019 9:29 AM [facility] [place] IMMATURE GRANULOCYTES 0 0 - 2 % 06/06/2019 9:29 AM [facility] [place] NEUTROPHIL ABSOLUTE 9.05(H) 1.80 - 7.70 K/uL 06/06/2019 9:29 AM [facility] [place] LYMPHOCYTE ABSOLUTE 3.37(H) 1.00 - 3.30 K/uL 06/06/2019 9:29 AM [facility] [place] MONOCYTE ABSOLUTE 0.52 0.00 - 0.80 K/uL 06/06/2019 9:29 AM [facility] [place] EOSINOPHIL ABSOLUTE 0.17 0.00 - 0.45 K/uL 06/06/2019 9:29 AM [facility] [employer] [facility] [place] BASOPHILS ABSOLUTE 0.05 0.00 - 0.20 K/uL 06/06/2019 9:29 AM [facility] [employer] [facility] [place] IMMATURE GRANULOCYTES ABSOLUTE 0.04 0.00 - 0.31 K/uL 06/06/2019 9:29 AM [facility] [employer] [facility] [place] Blood Venipuncture / Unknown 06/06/2019 9:17 AM TERRITORY OUTSIDE SALES MANAGER 06/06/2019 9:25 AM TERRITORY OUTSIDE SALES MANAGER Enedina Jay ANP HEMATOLOGY ORDERA BLES [facility] [employer] [facility] [place] CLIA # [id number] [facility] [address] [place] [address] * (ABNORMAL) CBC WITH DIFFERENTIAL (06/05/2019 4:57 PM TERRITORY OUTSIDE SALES MANAGER) WBC 18.6(H) 4.0 - 11.0 K/uL 06/05/2019 5:19 PM [facility] [employer] [facility] RBC 5.10 4.20 - 5.40 M/uL 06/05/2019 5:19 PM [facility] [employer] [facility] [place] HEMOGLOBIN 13.3 11.9 - 15.1 g/dL 06/05/2019 5:19 PM [facility] [employer] [facility] [place] HEMATOCRIT 41.2 38.0 - 47.0 % 06/05/2019 5:19 PM [facility] [employer] [facility] [place] MCV 80.8 80.0 - 98.0 fL 06/05/2019 5:19 PM [facility] [employer] [facility] MCH 26.1 26.0 - 34.0 pg 06/05/2019 5:19 PM [facility] [employer] [facility] [place] MCHC 32.3 31.0 - 37.0 g/dL 06/05/2019 5:19 PM [facility] [employer] [facility] [place] RDW 14.4 11.5 - 14.5 % 06/05/2019 5:19 PM [facility] [employer] [facility] RDW-STDEV 42.3 34.0 - 54.0 fL 06/05/2019 5:19 PM [facility] [employer] [facility] PLATELETS 314 150 - 400 K/uL 06/05/2019 5:19 PM [facility] [employer] [facility] [place] MPV 10.3 8.5 - 12.5 fL 06/05/2019 5:19 PM [facility] [place] NEUTROPHILS 76(H) 50 - 70 % 06/05/2019 5:19 PM [facility] [place] LYMPHOCYTES 20 20 - 40 % 06/05/2019 5:19 PM [facility] [place] MONOCYTES 3 2 - 8 % 06/05/2019 5:19 PM [facility] [place] EOSINOPHILS 0(L) 1 - 3 % 06/05/2019 5:19 PM [facility] [place] BASOPHILS 0 0 - 1 % 06/05/2019 5:19 PM [facility] [place] IMMATURE GRANULOCYTES 0 0 - 2 % 06/05/2019 5:19 PM [facility] [place] NEUTROPHIL ABSOLUTE 14.07(H) 1.80 - 7.70 K/uL 06/05/2019 5:19 PM [facility] [place] LYMPHOCYTE ABSOLUTE 3.73(H) 1.00 - 3.30 K/uL 06/05/2019 5:19 PM [facility] [place] MONOCYTE ABSOLUTE 0.61 0.00 - 0.80 K/uL 06/05/2019 5:19 PM [facility] [place] EOSINOPHIL ABSOLUTE 0.01 0.00 - 0.45 K/uL 06/05/2019 5:19 PM [facility] [place] BASOPHILS ABSOLUTE 0.05 0.00 - 0.20 K/uL 06/05/2019 5:19 PM [facility] [place] IMMATURE GRANULOCYTES ABSOLUTE 0.08 0.00 - 0.31 K/uL 06/05/2019 5:19 PM [facility] [place] Blood Venipuncture / Unknown 06/05/2019 4:57 PM TERRITORY OUTSIDE SALES MANAGER 06/05/2019 5:17 PM TERRITORY OUTSIDE SALES MANAGER Enedina Jay ANP HEMATOLOGY ORDERA BLES [facility] [place] CLIA # [id number] [facility] [address] [place] [address] * BASIC METABOLIC PANEL (06/05/2019 5:07 AM TERRITORY OUTSIDE SALES MANAGER) SODIUM 140 136 - 145 mmol/L 06/05/2019 5:30 AM [facility] MD [facility] [place] POTASSIUM 4.2 3.5 - 5.1 mmol/L 06/05/2019 5:30 AM [facility] MD [facility] [place] CHLORIDE 106 98 - 107 mmol/L 06/05/2019 5:30 AM [facility] MD [facility] [place] CO2 23 22 - 29 mmol/L 06/05/2019 5:30 AM TERRITORY OUTSIDE SALES MANAGER MD [facility] [place] CALCIUM 9.3 8.6 - 10.0 mg/dL 06/05/2019 5:30 AM TERRITORY OUTSIDE SALES MANAGER MD [facility] [place] BUN 6 6 - 20 mg/dL 06/05/2019 5:30 AM [facility] MD [facility] [place] CREATININE 0.82 0.51 - 0.95 mg/dL 06/05/2019 5:30 AM [facility] MD [facility] [place] GLUCOSE 95 74 - 99 mg/dL 06/05/2019 5:30 AM [facility] MD [facility] [place] GFR >60 >=60 mL/min/1.7 3 sq meter 06/05/2019 5:30 AM [facility] MD [facility] [place] Comment: eGFR has [...] mL/min/1.7 3 sq meter 06/05/2019 5:30 AM TERRITORY OUTSIDE SALES MANAGER MD [facility] [place] ANION GAP 11 5 - 15 mmol/L 06/05/2019 5:30 AM [facility] [employer] [facility] [place] Blood Venipuncture / Unknown 06/05/2019 5:07 AM TERRITORY OUTSIDE SALES MANAGER 06/05/2019 5:15 AM TERRITORY OUTSIDE SALES MANAGER Shanice Katz MD CHEMISTRY ORDERABL ES [employer] [facility] [place] CLIA # [id number] [facility] [address] [place] [address] * (ABNORMAL) CBC WITH DIFFERENTIAL (06/05/2019 5:07 AM TERRITORY OUTSIDE SALES MANAGER) WBC 18.2(H) 4.0 - 11.0 K/uL 06/05/2019 5:13 AM [facility] [employer] SERVICES [facility] [place] RBC 5.00 4.20 - 5.40 M/uL 06/05/2019 5:13 AM [facility] [place] HEMOGLOBIN 13.2 11.9 - 15.1 g/dL 06/05/2019 5:13 AM [facility] [employer] [facility] [place] HEMATOCRIT 41.2 38.0 - 47.0 % 06/05/2019 5:13 AM [facility] [place] MCV 82.4 80.0 - 98.0 fL 06/05/2019 5:13 AM [facility] [place] MCH 26.4 26.0 - 34.0 pg 06/05/2019 5:13 AM [facility] [place] MCHC 32.0 31.0 - 37.0 g/dL 06/05/2019 5:13 AM [facility] [employer] [facility] [place] RDW 14.4 11.5 - 14.5 % 06/05/2019 5:13 AM [facility] [place] RDW-STDEV 42.4 34.0 - 54.0 fL 06/05/2019 5:13 AM [facility] [place] PLATELETS 294 150 - 400 K/uL 06/05/2019 5:13 AM TERRITORY OUTSIDE SALES MANAGER [facility] [place] MPV 10.1 8.5 - 12.5 fL 06/05/2019 5:13 AM [facility] [employer] SERVICES - [place] NEUTROPHILS 83(H) 50 - 70 % 06/05/2019 5:13 AM [facility] [place] LYMPHOCYTES 13(L) 20 - 40 % 06/05/2019 5:13 AM TERRITORY OUTSIDE SALES MANAGER [employer] [facility] [place] MONOCYTES 3 2 - 8 % 06/05/2019 5:13 AM TERRITORY OUTSIDE SALES MANAGER [facility] [place] EOSINOPHILS 0(L) 1 - 3 % 06/05/2019 5:13 AM [employer] [facility] [place] BASOPHILS 0 0 - 1 % 06/05/2019 5:13 AM [facility] [employer] [facility] [place] IMMATURE GRANULOCYTES 1 0 - 2 % 06/05/2019 5:13 AM [facility] [place] NEUTROPHIL ABSOLUTE 15.01(H) 1.80 - 7.70 K/uL 06/05/2019 5:13 AM [facility] [place] LYMPHOCYTE ABSOLUTE 2.41 1.00 - 3.30 K/uL 06/05/2019 5:13 AM [facility] [place] MONOCYTE ABSOLUTE 0.61 0.00 - 0.80 K/uL 06/05/2019 5:13 AM [facility] [employer] [facility] [place] EOSINOPHIL ABSOLUTE 0.00 0.00 - 0.45 K/uL 06/05/2019 5:13 AM [facility] [employer] [facility] [place] BASOPHILS ABSOLUTE 0.02 0.00 - 0.20 K/uL 06/05/2019 5:13 AM TERRITORY OUTSIDE SALES MANAGER [facility] [place] IMMATURE GRANULOCYTES ABSOLUTE 0.12 0.00 - 0.31 K/uL 06/05/2019 5:13 AM [facility] [place] Blood Venipuncture / Unknown 06/05/2019 5:07 AM TERRITORY OUTSIDE SALES MANAGER 06/05/2019 5:11 AM [employer]ERRIT[employer]SIDE SALES MANAGER Shanice Katz MD HEMATOLOGY ORDERAB LES [employer] [facility] - [place] CLIA # [id number] [facility] [address] [place] [address] * HCG QUALITATIVE, URINE (06/04/2019 9:23 AM TERRIT[employer] OUTSIDE SALES MANAGER) HCG QUAL URINE Negative Negative 06/04/2019 9:40 AM [facility] - [place] COLOR UA Yellow Pale to Dark Yellow 06/04/2019 9:40 AM [facility] - [place] CLARITY UA Clear Clear 06/04/2019 9:40 AM [facility] - [place] Urine URINE SPECIMEN OBTAINED BY CLEAN CATCH PROCEDURE / Unknown Collection / Unknown 06/04/2019 9:23 AM [employer] SALES MANAGER 06/04/2019 9:30 AM TERRITORY OUTSIDE SALES MANAGER Narrative [facility] - [place] - 06/04/2019 9:40 AM T[employer]IDE SALES MANAGER hCG sensitive to as little as 20 mIU/mL for urine Franco Collins MD URINE ORDERABLES [facility] [place] JOE # [id number] [address] [place] [id number] documented in this encounter Visit Diagnoses Diagnosis [...] by mouth daily. Given 06/06/2019 8:14 AM TERRITORY OUTSIDE SALES MANAGER 20 mg Given 06/05/2019 8:30 AM TERRITORY OUTSIDE SALES MANAGER 20 mg bupivacaine PF (SENSORCAINE MPF) 5 mg/mL (0.5%) injection INTRA-PROCEDURE PRN, Starting on Mon06/04/19 at 1211, Until Mon06/04/19 at 1253, Routine, Intra-op Given 06/04/2019 12:35 PM TERRITORY OUTSIDE SALES MANAGER 30 mL Operative Site bupivacaine PF 5 mg/mL (0.5%) 270 mL infusion for On-Q pump See Admin Instructions, CONTINUOUS, Starting on Mon06/04/19 at 0915, Until Mon06/06/19 at 1408, Stat, Pre-op New Bag 06/04/2019 1:03 PM TERRITORY OUTSIDE SALES MANAGER Abdom inal Tissue cloNIDine HCl (CATAPRES) tablet 0.1 mg 0.1 mg, Oral, THREE TIMES DAILY PRN, Starting on Mon06/04/19 at 1337, Until Mon06/06/19 at 1408, Blood Pressure, sbp >180 min hr 60, Routine Given 06/06/2019 2:49 AM TERRITORY OUTSIDE SALES MANAGER 0.1 mg Given 06/05/2019 4:17 AM TERRITORY OUTSIDE SALES MANAGER 0.1 mg diphenhydrAMINE (BENADRYL) injection 25 mg 25 mg, IV, EVERY 6 HOURS PRN, Starting on Mon06/04/19 at 1422, Until Mon06/06/19 at 1408, Itching, Routine, Post-op - Floor famotidine PF (PEPCID) 20 mg/2 mL injection 20 mg 20 mg, IV, TWO TIMES DAILY, First dose on Mon06/04/19 at 2100, Until Discontinued, Routine, Post-op - Floor Given 06/06/2019 8:14 AM TERRITORY OUTSIDE SALES MANAGER 20 mg Given 06/05/2019 8:53 PM TERRITORY OUTSIDE SALES MANAGER 20 mg Given 06/05/2019 8:30 AM TERRITORY OUTSIDE SALES MANAGER 20 mg heparin injection 5,000 Units 5,000 Units, subCUT, EVERY 8 HOURS, First dose on Mon06/04/19 at 1730, Until Discontinued, Routine, Post-op - Floor Given 06/06/2019 4:28 AM TERRITORY OUTSIDE SALES MANAGER 5,000 Units Abdominal Tissue Given 06/05/2019 8:53 PM TERRITORY OUTSIDE SALES MANAGER 5,000 Units A bdominal Tissue Given 06/05/2019 4:00 PM TERRITORY OUTSIDE SALES MANAGER 5,000 Units A bdominal Tissue HYDROcodone-acetaminophen (HYCET) 7.5-325 mg/15 mL oral solution 15 mL 15 mL (7.5 mg), Oral, EVERY 4 HOURS PRN, Starting on Mon06/05/19 at 0600, Until Araceli 06/06/19 at 1408, Pain (See admin instructions), Routine, Post-op - Floor Given 06/06/2019 8:32 AM TERRITORY OUTSIDE SALES MANAGER 15 mL HYDROcodone-acetaminophen (HYCET) 7.5-325 mg/15 mL [...] 1408, Routine, PACU Restarted 06/06/2019 11:27 AM TERRITORY OUTSIDE SALES MANAGER 200 mL/hr Rate Verify 06/06/2019 8:16 AM TERRITORY OUTSIDE SALES MANAGER 200 mL/hr Rate Change 06/06/2019 7:40 AM TERRITORY OUTSIDE SALES MANAGER 200 mL/hr lactated ringers infusion IV, at 200 mL/hr, CONTINUOUS, Starting on Mon06/04/19 at 1430, Until Araceli 06/06/19 at 1408, Routine, Post-op - Floor New Bag 06/06/2019 8:16 AM TERRITORY OUTSIDE SALES MANAGER 200 mL/hr New Bag 06/06/2019 2:31 AM TERRITORY OUTSIDE SALES MANAGER 200 mL/hr New Bag 06/05/2019 11:00 PM TERRITORY OUTSIDE SALES MANAGER 200 mL/hr metoclopramide (REGLAN) 5 mg/mL injection [...] Post-op - Floor Given 06/04/2019 10:27 PM TERRITORY OUTSIDE SALES MANAGER 2 mg Given 06/04/2019 2:47 PM TERRITORY OUTSIDE SALES MANAGER 2 mg morphine 4 mg/mL injection 2 [...] Post-op - Floor Given 06/04/2019 2:46 PM TERRITORY OUTSIDE SALES MANAGER 4 mg simethicone (MYLICON) 40 mg/0.6 mL drops 40 mg 40 mg, Oral, EVERY 6 HOURS PRN, Starting on Mon06/04/19 at 1422, Until Araceli 06/06/19 at 1408, Gas, Routine, Post-op - Floor Given 06/05/2019 3:02 AM TERRITORY OUTSIDE SALES MANAGER 40 mg Given 06/04/2019 9:23 PM TERRITORY OUTSIDE SALES MANAGER 40 mg sodium chloride 0.9 % irrigation solution INTRA-PROCEDURE PRN, Starting on Mon06/04/19 at 1140, Until Mon06/04/19 at 1253, Routine, Intra-op Given 06/04/2019 11:40 AM TERRITORY OUTSIDE SALES MANAGER 1,000 mL Oper ative Site documented in this encounter Active and Recently Administered Medications Times are shown in TERRITORY OUTSIDE SALES MANAGER. Scheduled Medication Order 06/04/2019 06/05/2019 06/06/2019 acetaminophen (OFIRMEV) 10 mg/ml injection 1,000 mg (COMPLETED) 1,000 mg, IV, PRE-PROCEDURE ONCE, 1 dose, Starting on Mon06/04/19 at 1115, Until Mon06/04/19 at 1210, Routine, Intra-op 1210 (Given - Provider: Dequan Puritt CRNA) acetaminophen (OFIRMEV) 10 mg/ml injection 1,000 [...] inhalation. 0855 (Refused - Provider: Malini Baker, GRAPHICS INTERN - Comment: pt stated she will take her incruse at home, going home today) 0800 (Refused - Provider: Anika Sims, GRAPHICS INTERN - Comment: does not want to pay [...] - Floor 1446 (Given - Provider: Madeline Irsael RN) prochlorperazine (COMPAZINE) injection 5 mg (COMPLETED) [...] prophylaxis documented in this encounter Care Teams Jack Spinner Relationship Specialty Start Date End Date Cayden, External Provider PCP - General 05/08/19 documented as of this encounter
--- OUTSIDE RECORDS SUMMARY | 2024-06-29 09:17 | XMS_ITS | Encounter Summary ---
Author Organization [facility] Address [address] [place] [address] Care Team Providers Care Cupola Operator Name Role Phone Cayden External Provider Primary Care Provider Un available Encounter Details Date Type Department Care Team (Latest Contact Info) Description 05/08/2019 9:24 AM NETWORK SUPPORT SPECIALIST - 05/08/2019 11:59 PM [facility] Hospital Encounter [facility] Outpatient Laboratory Services [address] [address] [place] [id number] [place] [address] [place] [address] Discharge Disposition: Home or Self [...] HCG QUALITATIVE, SERUM Routine 9 9:32 AM NETWORK SUPPORT SPECIALIST Morbid obesity CBC WITH DIFFERENTIAL Stat 05/08/2019 9:32 AM NETWORK SUPPORT SPECIALIST Morbid obesity COMPREHENSIVE METABOLIC PANEL Stat 05/08/2019 9:32 AM NETWORK SUPPORT SPECIALIST Morbid obesity documented in this encounter Results * HCG QUALITATIVE, BLOOD (05/08/2019 9:32 AM NETWORK SUPPORT SPECIALIST) Pathologist [facility] HCG QUAL, BLOOD Negative Negative 05/08/2019 10:12 AM [facility] Blood Venipuncture / Unknown 05/08/2019 9:32 AM NETWORK SUPPORT SPECIALIST 05/08/2019 9:32 AM NETWORK SUPPORT SPECIALIST Narrative [facility] LABORATORY [facility] - 05/08/2019 10:12 AM [facility] hCG sensitive to as little as 10 mIU/mL for serum. Shanice Katz MD CHEMISTRY ORDERABL ES [facility] CLIA # [id number] [address] [place] [id number] * (ABNORMAL) COMPREHENSIVE METABOLIC PANEL (05/08/2019 9:32 AM NETWORK SUPPORT SPECIALIST) Pathologist [facility] SODIUM 139 136 - 145 mmol/L 05/08/2019 10:01 AM [facility] [place] POTASSIUM 4.0 3.5 - 5.1 mmol/L 05/08/2019 10:01 AM [facility] [place] CHLORIDE 101 98 - 107 mmol/L 05/08/2019 10:01 AM [facility] [place] CO2 24 22 - 29 mmol/L 05/08/2019 10:01 AM [facility] [place] CALCIUM 9.4 8.6 - 10.0 mg/dL 05/08/2019 10:01 AM [facility] [place] BUN 7 6 - 20 mg/dL 05/08/2019 10:01 AM [facility] [place] CREATININE 0.92 0.51 - 0.95 mg/dL 05/08/2019 10:01 AM [facility] [place] GLUCOSE 119(H) 74 - 99 mg/dL 05/08/2019 10:01 AM [facility] [place] TOTAL PROTEIN 7.2 6.6 - 8.7 g/dL 05/08/2019 10:01 AM [facility] [employer] LABORATORY [facility] - [place] ALBUMIN 4.2 4.0 - 5.0 g/dL 05/08/2019 10:01 AM [facility] [place] BILIRUBIN TOTAL <0.2 <=1.2 mg/dL 05/08/2019 10:01 AM [facility] LABOR[facility] [place] ALKALINE PHOSPHATASE 100 35 - 104 U/L 05/08/2019 10:01 AM [facility] [employer] LABORATORY [facility] [place] AST 12 <40 U/L 05/08/2019 10:01 AM [facility] [employer] LABORATORY [facility] [place] ALT 11 <=33 U/L 05/08/2019 10:01 AM [facility] [employer] LABORATORY [facility] [place] GFR >60 >=60 mL/min/1.7 3 sq meter 05/08/2019 10:01 AM [facility] LAB[facility]ATORY [facility] [place] Comment: eGFR has [...] mL/min/1.7 3 sq meter 05/08/2019 10:01 AM [facility] LAB[facility] [place] ANION GAP 14 5 - 15 mmol/L 05/08/2019 10:01 AM [facility] [employer] [place] Blood Venipuncture / Unknown 05/08/2019 9:32 AM NETWORK SUPPORT SPECIALIST 05/08/2019 9:32 AM NETWORK SUPPORT SPECIALIST Shanice Katz MD CHEMISTRY ORDERABL ES [facility] [employer] SERVICES - [place] CLIA # [id number] Counts Include 234 Beds At [facility] [address] [place] [id number] * (ABNORMAL) CBC WITH DIFFERENTIAL (05/08/2019 9:32 AM NETWORK SUPPORT SPECIALIST) WBC 12.0(H) 4.0 - 11.0 K/uL 05/08/2019 9:43 AM [facility] [place] RBC 4.94 4.20 - 5.40 M/uL 05/08/2019 9:43 AM [facility] [place] HEMOGLOBIN 13.2 11.9 - 15.1 g/dL 05/08/2019 9:43 AM [facility] [employer] SERVICES - [place] HEMATOCRIT 40.7 38.0 - 47.0 % 05/08/2019 9:43 AM [facility] [employer] - [place] MCV 82.4 80.0 - 98.0 fL 05/08/2019 9:43 AM [facility] [employer] SERVICES - [place] MCH 26.7 26.0 - 34.0 pg 05/08/2019 9:43 AM [facility] [place] MCHC 32.4 31.0 - 37.0 g/dL 05/08/2019 9:43 AM [facility] [place] RDW 14.2 11.5 - 14.5 % 05/08/2019 9:43 AM [facility] [employer] - [place] RDW-STDEV 42.1 34.0 - 54.0 fL 05/08/2019 9:43 AM [facility] [place] PLATELETS 292 150 - 400 K/uL 05/08/2019 9:43 AM NETWORK SUPPORT SPECIALIST [employer] LAB[facility]AT[facility] - [place] MPV 10.2 8.5 - 12.5 fL 05/08/2019 9:43 AM NETWORK SUPPORT SPECIALIST [employer] [facility] [place] NEUTROPHILS 59 50 - 70 % 05/08/2019 9:43 AM [facility] [place] LYMPHOCYTES 34 20 - 40 % 05/08/2019 9:43 AM NETWORK SUPPORT SPECIALIST [facility] [place] MONOCYTES 4 2 - 8 % 05/08/2019 9:43 AM NETWORK SUPPORT SPECIALIST [facility] [place] EOSINOPHILS 2 1 - 3 % 05/08/2019 9:43 AM NETWORK SUPPORT SPECIALIST [facility] [place] BASOPHILS 1 0 - 1 % 05/08/2019 9:43 AM NETWORK SUPPORT SPECIALIST [facility] [place] IMMATURE GRANULOCYTES 0 0 - 2 % 05/08/2019 9:43 AM [facility] [employer] LAB[facility]ATORY [facility] - [place] NEUTROPHIL ABSOLUTE 7.09 1.80 - 7.70 K/uL 05/08/2019 9:43 AM [facility] [employer] LABORATORY [facility] - [place] LYMPHOCYTE ABSOLUTE 4.12(H) 1.00 - 3.30 K/uL 05/08/2019 9:43 AM NETWORK SUPPORT SPECIALIST [employer] [facility] [place] MONOCYTE ABSOLUTE 0.46 0.00 - 0.80 K/uL 05/08/2019 9:43 AM NETWORK SUPPORT SPECIALIST [facility] [place] EOSINOPHIL ABSOLUTE 0.19 0.00 - 0.45 K/uL 05/08/2019 9:43 AM [facility] [employer] LAB[facility] [place] BASOPHILS ABSOLUTE 0.07 0.00 - 0.20 K/uL 05/08/2019 9:43 AM [facility] [employer] LAB[facility]ATORY [facility] - [place] IMMATURE GRANULOCYTES ABSOLUTE 0.04 0.00 - 0.31 K/uL 05/08/2019 9:43 AM NETWORK SUPPORT SPECIALIST [employer] SERVICES - [place] Blood Venipuncture / Unknown 05/08/2019 9:32 AM NETWORK SUPPORT SPECIALIST 05/08/2019 9:32 AM NETWORK SUPPORT SPECIALIST Shanice Katz MD HEMATOLOGY ORDERAB LES [employer] LABORATORY [facility] - [place] CLIA # [id number] Counts Include [address] At [facility] [address] [place] [address] documented in this encounter Visit Diagnoses Diagnosis Morbid obesity- Primary documented in this encounter Care Teams Cupola Operator Relationship Specialty Start Date End Date Christofn, External Provider PCP - General 05/08/19 documented as of this encounter
--- OUTSIDE RECORDS SUMMARY | 2024-06-29 09:17 | XMS_ITS | Encounter Summary ---
Author Organization [facility] Address [address] [place] [address] Care Team Providers Care Quality Process Auditor Name Role Phone Cayden External Provider Primary Care Provider Un available Encounter Details Date Type Department Care Team (Late st Contact Info) Description 05/27/2019 Abstract [facility] Non Integrated Provider [address] [place] [address] [place] [id number] [place] [address] [place] [address] Social History Tobacco Use Types [...] on filedocumented in this encounter Care Teams Quality Process Auditor Relationship Specialty Start Date End Date Jefn, External Provider PCP - General 05/08/19 documented as of this encounter
--- OUTSIDE RECORDS SUMMARY | 2024-06-29 09:17 | XMS_ITS | Encounter Summary ---
Author Organization [facility] Address [address] [place] [address] Care Team Providers Care Handbag Operator Name Role Phone Christofn, External Provider Primary Care Provider Un available Reason for Visit * Auth/Cert Specialty Diagnoses / Procedures Referred By Onel melgoza Referred To Contact Multi Specialty Diagnoses Morbid (severe) obesity due to excess calories Procedures MO LAP, MARIA DEL CARMEN RESTRICT PROC, LONGITUDINAL GASTRECTOMY GASTRECTOMY LONGITUDINAL LAPAROSCOPIC Jefn Operating Room [address] [address] Referral ID Status Reason Start Date Expiration Date Visits Re quested Visits Authorized [id number] 1 1 Encounter Details Date Type Department Care Team (Late st Contact Info) Description 06/04/2019 11:07 AM MEMBER SERVICES REPRESENTATIVE Anesthesia Event [facility] Operating Room [address] [address] Franco Collins MD NO ADDRESS [...] complications: no, denies awareness/recall Linda Salmon CRNA ER SERVICES REPRESENTATIVE * Anesthesia Postprocedure Evaluation - Franco Collins [...] yes Unanticipated Events: no Franco Collins MD ER SERVICES REPRESENTATIVE * Anesthesia Handoff - Dequan Pruitt CRNA - 06/04/2019 12:57 PM MEMBER SERVICES REPRESENTATIVE Post-Anesthetic transfer of care report elements to [...] 12:56 PM) 12:58 PM Dequan Pruitt CRNA ER SERVICES REPRESENTATIVE * Anesthesia Preprocedure Evaluation - Franco Collins MD - 06/04/2019 9:52 AM CST Relevant Problems No relevant active problems Anesthesia Evaluation Anesthesia Plan ASA Final: [address] [place] [address] PRE ANESTHESIA EVALUATION 06/04/2019 9:52 AM Name: Nelsy Salas Age: 48 y.o. Sex: female CSN: [id number] Procedure: Procedure(s): GASTRECTOMY LONGITUDINAL LAPAROSCOPIC Surgeons/Assistants: Surgeon(s) [...] Obesity ??? Obstructive sleep apnea cpap PM/ICD Sports Bookmaker: N/A Past Surgical History: Procedure Laterality Date ??? HX BREAST REDUCTION ??? HX CHOLECYSTECTOMY ??? HX TUBAL LIGATION ??? [place] ESOPHAGOGASTRODUODENOSCOPY TRANSORAL DIAGNOSTIC N/A 04/05/2019 ESOPHAGOGASTRODUODENOSCOPY performed by Ranjeet Katz MD at [facility] ENDOSCOPY Previous Anesthesia Problems/Concerns: No anesthesia problems/complications [...] 05/08/19 EKG 12-LEAD Narrative Stationary ECG Study [place] Test Date: 05/08/2019 10:39 AM Pat Name: NELSY SALAS Department: 1 Room: Gender: F Psychologist Engineering: [place] : 1970 Requested By: RANJEET KATZ Order Number: [id number] Reading MD: Geo Do Measurements Intervals [place] Rate: 54 P: 61 MO: 192 QRS: 43 QRSD: 96 T: 12 QT: 452 QTc: 432 Interpretive Statements SINUS BRADYCARDIA Electronically Signed On 05-08-2019 16:18:32 MEMBER SERVICES REPRESENTATIVE by Geo Do CXR: No results found [...] of anesthesia discussed with patient and/or legal manufacturers service representative and patient and/or legal manufacturers service representative agreed to proceed. Franco Collins MD 06/04/2019 ER SERVICES REPRESENTATIVE documented in this encounter Miscellaneous Notes * Addendum Note - Linda Salmon CRNA - 06/05/2019 11:06 AM CST Addendum created 06/05/19 1106 by Linda Salmon CRNA Clinical Note Signed, Intraprocedure Event edited ER SERVICES REPRESENTATIVE documented in this encounter Plan of Treatment [...] 1210, Routine, Intra-op Given 06/04/2019 12:10 PM MEMBER SERVICES REPRESENTATIVE 1,000 mg ceFAZolin (ANCEF,KEFZOL) 1,000 mg in sodium chloride 0.9% 50 mL IVPB (MBP) 1,000 mg, IV, PRE-PROCEDURE ONCE, 1 dose, Starting on Mon06/04/19 at 0912, Until Mon06/04/19 at 1138, Routine, Antibiotic Indication: Surgical prophylaxis New Bag 06/04/2019 11:38 AM MEMBER SERVICES REPRESENTATIVE 2,000 mg dexamethasone (DECADRON) injection INTRA-PROCEDURE PRN, Starting on Mon06/04/19 at 1145, Until Mon06/04/19 at 1258, Routine, Anesthesia Intra-op Given 06/04/2019 11:45 AM MEMBER SERVICES REPRESENTATIVE 8 mg fentaNYL PF (SUBLIMAZE) 50 mcg/mL injection INTRA-PROCEDURE PRN, Starting on Mon06/04/19 at 1107, Until Mon06/04/19 at 1258, Routine, Anesthesia Intra-op Given 06/04/2019 11:41 AM MEMBER SERVICES REPRESENTATIVE 100 mcg Given 06/04/2019 11:07 AM MEMBER SERVICES REPRESENTATIVE 100 mcg lactated ringers infusion IV, at 125 mL/hr, PRE-PROCEDURE CONTINUOUS, Starting on Mon06/04/19 at 0915, Until Mon06/04/19 at 1421, Stat, Pre-op New Bag 06/04/2019 12:02 PM MEMBER SERVICES REPRESENTATIVE New Bag 06/04/2019 12:01 PM MEMBER SERVICES REPRESENTATIVE Continue from Pre-Op 06/04/2019 11:07 AM MEMBER SERVICES REPRESENTATIVE lidocaine PF 2% (XYLOCAINE MPF) injection INTRA-PROCEDURE PRN, Starting on Mon06/04/19 at 1111, Until Mon06/04/19 at 1258, Routine, Anesthesia Intra-op Given 06/04/2019 11:11 AM MEMBER SERVICES REPRESENTATIVE 5 mL midazolam (PF) (VERSED) injection INTRA-PROCEDURE PRN, Starting on Mon06/04/19 at 1107, Until Mon06/04/19 at 1258, Routine, Anesthesia Intra-op Given 06/04/2019 11:07 AM MEMBER SERVICES REPRESENTATIVE 2 mg ondansetron (ZOFRAN) 4 mg/2 mL injection INTRA-PROCEDURE PRN, Starting on Mon06/04/19 at 1145, Until Mon06/04/19 at 1258, Routine, Anesthesia Intra-op Given 06/04/2019 11:45 AM MEMBER SERVICES REPRESENTATIVE 4 mg propofol (DIPRIVAN) injection INTRA-PROCEDURE PRN, Starting on Mon06/04/19 at 1111, Until e 06/04/19 at 1258, Anesthesia Intra-op Given 06/04/2019 11:11 AM MEMBER SERVICES REPRESENTATIVE 131 mg rocuronium injection INTRA-PROCEDURE PRN, Starting on Mon06/04/19 at 1116, Until Mon06/04/19 at 1258, Routine, Anesthesia Intra-op Given 06/04/2019 11:36 AM MEMBER SERVICES REPRESENTATIVE 10 mg Given 06/04/2019 11:16 AM MEMBER SERVICES REPRESENTATIVE 40 mg Given 06/04/2019 11:11 AM MEMBER SERVICES REPRESENTATIVE 5 mg succinylcholine (ANECTINE) 140 mg/7 mL (20 mg/mL) injection INTRA-PROCEDURE PRN, Starting on Mon06/04/19 at 1111, Until Mon06/04/19 at 1258, Routine, Anesthesia Intra-op Given 06/04/2019 11:11 AM MEMBER SERVICES REPRESENTATIVE 100 mg documented in this encounter Care Teams Handbag Operator Relationship Specialty Start Date End Date Christofn, External Provider PCP - General 05/08/19 documented as of this encounter
--- OUTSIDE RECORDS SUMMARY | 2024-06-29 09:18 | XMS_ITS | Continuity of Care Document ---
Author Organization [facility] Address [address] [facility] [address] [place] [address] Phone Care Team Providers Care Lace Burn Out Tender Name Role Phone Scott Isaacs PT Unavailable [...] Exercise Therapeutic Activities Neuromuscular Re-Ed Therapeutic Exercise Mar- Therapeutic Activities Neuromuscular Re-Ed Therapeutic Exercise Therapeutic Activities Neuromuscular Re-Ed Mar- [...] Activities Feb- Neuromuscular Re-Ed Feb- Therapeutic Exercise Manual Therapy PT Evaluation Moderate [...] Diagnoses Date Provider Providers Copied on Encounter [facility], [id number], tel:[phone] [place] No Information 4 Delmoose Chavez. . [facility], [id number], tel:[phone] [place] No Information 3 Dellamano Scott. . Referring Provider: Jeff Davies, [address] [facility] [address] , [place], [address]. tel:[phone] [facility] [address] [facility] [address], [place], [id number], tel:[phone] [place] No Information 3 Dellamano Scott. . Referring Provider: Jeff Davies, [address] [facility] [address], [place], [address]. tel:[phone] [facility] [address], [id number], tel:[phone] [place] No Information 3 Dellamano Scott. . Referring Provider: Jeff Davies, [address] [facility] [address], [place], [address]. tel:[phone] [facility], [address] [place] [address] [address], [place], [place], [id number], tel:[phone] [place] No Information 3 Dellamano Scott. . Referring Provider: Jeff Davies, [address] [place] [address] [address], [place], [address]. tel:[phone] [place] [address], [address] [place] [address], [place], [place], [id number], [place] tel:[phone] [place] No Information 3 Dellamano Scott. . Referring Provider: Jeff Davies [address] [place] [address] [address] , [place], [address]. tel:[phone] [place] [address], [address] [place] [address], [place], [address], [place] tel:[phone] [place] No Information 3 Dellamano Scott. . Referring Provider: Jeff Davies, [address] [place] [address] [address], [place], [address]. tel:[phone] [address], [place], [place], [address], [place] tel:[phone] [place] No Information 3 Dellamano Scott. . Referring Provider: Jeff Davies [address] [place] [address] [address], [place], [address]. tel:[phone], [place], [place], [id number], [place] tel:[phone] [place] No Information 3 Dellamano Scott. . Referring Provider: Jeff Davies [address] [facility] [address], [place], [address]. tel:[phone] [facility], [address] [place], [place] [address] [address], [place], [place], [address], [place] tel:[phone] [place] No Information Oct-1 2-202 3 Dellamano Scott. . Referring Provider: Jeff Davies, [address] [place] [address] [address] , [place], [address]. tel:[phone] [place], [place] [address] [address], [place], [address], [place] tel:[phone] [place] No Information Oct-0 9-202 3 Dellamano Scott. . Referring Provider: Jeff Davies, [address] [place] [address] [address] , [place], [address]. tel:[phone] [place], [place] [address] [facility], [place], [place], [id number], [place] tel:[phone] [place] No Information Oct-0 6-202 3 Dellamano Scott. . Referring Provider: Jeff Davies, [address] [place] [address] [address] , [place], [address]. tel:[phone] [place], [place] [address]e [address], [place], [address], [place] tel:[phone] [place] No Information Oct-0 5-202 3 Dellamano Scott. . Referring Provider: Jeff Davies, [address] [place] [address] [address], [place], [address]. tel:[phone] [place] [address] [address], [place], [place], [address], [place] tel:[phone] [place] No Information Oct-0 3-202 3 Dellamano Scott. . Referring Provider: Jeff Davies, [address] [place] [address] [address], [place], [address]. tel:[phone] [place] [address] [address], [place], [address], [place] tel:[phone] [place] No Information Sep-2 3 Dellamano Scott. . Referring Provider: Jeff Davies, [address] [facility] [address], [place], [address]. tel:[phone] [facility], [address] [place], [place] [address]e [address], [place], [address], [place] tel:[phone] [place] No Information Sep-2 3 Dellamano Scott. . Referring Provider: Jeff Davies, [address] [place] [address] [address], [place], [address]. tel:[phone], [place], [id number], [place] tel:[phone] [place] No Information Sep-2 3 Dellamano Scott. . Referring Provider: Jeff Davies, [address] [facility] [address], [place], [address]. tel:[phone] [place] [address], [place], [id number], [place] tel:[phone] [place] No Information Sep-2 3 Dellamano Scott. . Referring Provider: Jeff Davies, [address] [facility] [address] , [place], [address]. tel:[phone], [place], [id number], [place] tel:[phone] [place] No Information Sep-2 3 Dellamano Scott. . Referring Provider: Jeff Davies, [address] [facility] [address], [place], [address]. tel:[phone] [address], [place], [place], [id number], [place] tel:[phone] [place] No Information Sep-1 3 Modglin Jeff. . Referring Provider: Jeff Davies, [address] [facility] [address], [place], [address]. tel:[phone], [place], [place], [address], [place] tel:[phone] [place] No Information 3 Dellamano Scott. . Referring Provider: Jeff Davies, [address] [facility] [address], [place], [address]. tel:[phone] [place] [address], [address] [place] [address], [place], [place], [id number], [place] tel:[phone] [place] No Information 3 Dellamano Scott. . Referring Provider: Jeff Davies, [address] [place] [address] [address] , [place], [address]. tel:[phone] [address], [place], [place], [address], [place] tel:[phone] [place] No Information 3 Dellamano Scott. . Referring Provider: Jeff Davies, [address] [place] [address] [address], [place], [address]. tel:[phone] [address] [address], [place], [place], [address], [place] tel:[phone] [place] No Information 3 Dellamano Scott. . Referring Provider: Jeff Davies [address] [place] [address] [address], [place], [address]. tel:[phone], [place], [place], [address], [place] tel:[phone] [place] No Information 3 Dellamano Scott. . Referring Provider: Jeff Davies [address] [facility] [address], [place], [address]. tel:[phone], [place], [place], [address], [place] tel:[phone] [place] No Information May-0 9-202 3 Dellamano Scott. . Referring Provider: Jeff Davies, [address] [facility] [address] , [place], [address]. tel:[phone], [place], [place], [address], [place] tel:[phone] [place] No Information May-0 8-202 3 Dellamano Scott. . Referring Provider: Jeff Davies, [address] [place] [address] [address] [facility], [place], [address]. tel:[phone] [address] [address], [place], [address], [place] tel:[phone] [place] No Information May-0 5-202 3 Dellamano Scott. . Referring Provider: Jeff Davies, [address] [place] [address] [address] , [place], [address]. tel:[phone] [address] [address], [place], [address], [place] tel:[phone] [place] No Information May-0 3-202 3 Short Jemima. . Referring Provider: Jeff Davies, [address] [place] [address] [address] , [place], [address]. tel:[phone], [place], [place], [address], [place] tel:[phone] [place] No Information May-0 1-202 3 Dellamano Scott. . Referring Provider: Jeff Davies, [address] [facility] [address], [place], [address]. tel:[phone] [address] [address], [place], [place], [address], [place] tel:[phone] [place] No Information 3 Dellamano Scott. . Referring Provider: Jeff Davies, [address] [facility] [address] , [place], [address]. tel:[phone] [address] [address], [place], [place], [address], tel:[phone] [place] No Information 3 Dellamano Scott. . Referring Provider: Jeff Davies, [address] [facility] [address], [place], [address]. tel:[phone] [address] [address], [place], [place], [address], tel:[phone] [place] No Information 3 Dellamano Scott. . Referring Provider: Jeff Davies, [address] [facility] [address] , [place], [address]. tel:[phone] [address] [address], [place], [place], [address], tel:[phone] [place] No Information 3 Dellamano Scott. . Referring Provider: Jeff Davies, [address] [facility] [address] , [place], [address]. tel:[phone] Family History Family Member Type Diagnosis Age At Onset No Information Payers Payer name Insurance type Covered constitution party ID Kimmie arnold(s) Jone Scott [facility] [id number] Social History Type Description Quantity Date Captured [...]
--- OUTSIDE RECORDS SUMMARY | 2024-06-29 09:18 | XMS_ITS | Encounter Summary ---
Author Organization [facility] Address [address] [place] [address] Care Team Providers Care Reconcilement Clerk Name Role Phone Unavailable Primary Care Provider Unavailabl e Encounter Details Date Type Department Care Team (Latest Contact Info) Description 04/05/2019 8:00 AM CDT - 04/05/2019 8:15 AM CDT Surgery [facility] [address] [place] [address] [place] [address] [facility] [place] [address] [place] [address] ESOPHAGOGASTRODUODENOSCOPY Surgery Details Date/Time Status Location OR Service Patient Class Case Cl ass Case Type Trauma Case? 04/05/2019 8:00 AM Posted [facility] END[facility] GI 05 Endoscopy Outpatient Elective No Panel 1 Procedure LRB Anes Op Region Wound Class Comments ESOPHAGOGASTRODUODENOSCOPY N/A [facility] Anesthetic Care Mouth Surgeon Surgeon Role Service Panel Shanice Katz MD Primary Endoscopy 1 Case Notes pcp not in [facility] documented in this encounter Social History [...] Katz MD - 04/05/2019 8:36 AM CDT [facility] History and Physical Patient: Key Salas [...] file Gets together: Not on file Attends lutheran service: Not on file Active member of [...] 8:48 AM CDTAssociated Order(s): UPPER ENDOSCOPY REPORT [facility] Patient Name: Key Salas Procedure Date: [...] previously scheduled. Procedure Code(s): --- Professional --- 31970, Esophagogastroduodenoscopy, flexible, transoral; with biopsy, single or multiple CPT copyright 2016 [employer]. All rights reserved. The codes documented in this report are preliminary and upon command and control specialist review may be revised to meet current compliance requirements. Shanice Katz MD 04/05/2019 8:48:03 AM Number of Addenda: [phone] [place] [address] documented in this encounter Plan of Treatment Not on file documented as of this encounter Procedures Procedure Name Priority Date/Time Associated Diagnosis Comments HELICOBACTER PYLORI RAPID UREASE TEST Routine 04/05/2019 8:49 AM CDT Pre-operative exam UPPER ENDOSCOPY REPORT 9 8:49 AM CDT ESOPHAGOGASTRODUODENOSCOPY 04/05 8:35 AM CDT Pre-operative exam Case Notes pcp not in [facility] POC , URINE Routine 04/05/2019 8:03 AM CDT documented in this encounter Results * HELICOBACTER PYLORI RAPID UREASE TEST (04/05/2019 8:49 AM CDT) H. PYLORI RAPID UREASE TEST Negative Negative 04/06/2019 9:29 AM CDT [facility] [employer] [facility] Tissue ENTIRE STOMACH / Unknown Collection / Unknown 04/05/2019 8:49 AM CDT 04/05/2019 9:16 AM CDT Shanice Katz MD MICROBIOLOGY - GEN ERAL ORDERABLES [facility] [employer] [facility] CLIA# [id number] [address] [facility] [address] [place] [address] * UPPER ENDOSCOPY REPORT (04/05/2019 8:49 AM CDT) Narrative Procedure Note Shanice Katz MD - 04/05/2019 8:48 AM CDT [facility] Patient Name: Key Salas Procedure Date: [...] previously scheduled. Procedure Code(s): --- Professional --- 86176, Esophagogastroduodenoscopy, flexible, transoral; with biopsy, single or multiple CPT copyright 2016 [employer]. All rights reserved. The codes documented in this report are preliminary and upon command and control specialist review may be revised to meet current compliance requirements. Shanice Katz MD 04/05/2019 8:48:03 AM Number of Addenda: [phone] , [place] [address] Shanice Katz MD GI PROCEDURE ORDER KEVON [...]
--- OUTSIDE RECORDS SUMMARY | 2024-06-29 09:18 | XMS_ITS | Encounter Summary ---
Author Organization [facility] Address [address] [place] [address] Care Team Providers Care Property Claims Manager Name Role Phone Unavailable Primary Care Provider Unavailabl e Encounter Details Date Type Department Care Team (Latest Contact Info) Description 04/05/2019 7:04 AM CDT - 04/05/2019 9:45 AM CDT Hospital Encounter [facility] [address] [place] [address] [place] [address] [place] [address] [place] [address] Pre-operative exam Discharge Disposition: Home [...] Katz MD - 04/05/2019 8:36 AM CDT [facility] History and Physical Patient: Key Salas [...] file Gets together: Not on file Attends pentecostal service: Not on file Active member of [...] 8:48 AM CDTAssociated Order(s): UPPER ENDOSCOPY REPORT [facility] Patient Name: Key Salas Procedure Date: [...] previously scheduled. Procedure Code(s): --- Professional --- 11455, Esophagogastroduodenoscopy, flexible, transoral; with biopsy, single or multiple CPT copyright 2016 [employer]. All rights reserved. The codes documented in this report are preliminary and upon lawn caretaker review may be revised to meet current compliance requirements. Shanice Katz MD 04/05/2019 8:48:03 AM Number of Addenda: [phone], [place] [address] documented in this encounter Plan of Treatment Not on file documented as of this encounter Procedures Procedure Name Priority Date/Time Associated Diagnosis Comments HELICOBACTER PYLORI RAPID UREASE TEST Routine 04/05/2019 8:49 AM CDT Pre-operative exam UPPER ENDOSCOPY REPORT 9 8:49 AM CDT ESOPHAGOGASTRODUODENOSCOPY 04/05 8:35 AM CDT Pre-operative exam Case Notes pcp not in [facility] POC , URINE Routine 04/05/2019 8:03 AM CDT documented in this encounter Results * HELICOBACTER PYLORI RAPID UREASE TEST (04/05/2019 8:49 AM CDT) H. PYLORI RAPID UREASE TEST Negative Negative 04/06/2019 9:29 AM CDT [facility] Tissue ENTIRE STOMACH / Unknown Collection / Unknown 04/05/2019 8:49 AM CDT 04/05/2019 9:16 AM CDT Shanice Katz MD MICROBIOLOGY - GEN ERAL ORDERABLES [facility] CLIA# [id number] [address] [place] [address] * UPPER ENDOSCOPY REPORT (04/05/2019 8:49 AM CDT) Narrative Procedure Note Shanice Katz MD - 04/05/2019 8:48 AM CDT [facility] Patient Name: Key Salas Procedure Date: [...] previously scheduled. Procedure Code(s): --- Professional --- 75217, Esophagogastroduodenoscopy, flexible, transoral; with biopsy, single or multiple CPT copyright 2016 [employer]. All rights reserved. The codes documented in this report are preliminary and upon lawn caretaker review may be revised to meet current compliance requirements. Shanice Katz MD 04/05/2019 8:48:03 AM Number of Addenda: 0 [phone] [place] [address] Shanice Katz MD GI PROCEDURE ORDER KEVON [...]
--- OUTSIDE RECORDS SUMMARY | 2024-06-29 09:18 | XMS_ITS | Continuity of Care Document ---
Author Organization [facility] Address [address] [place] [address] Phone Care Team Providers Care Shoe Puller Name Role Phone Lanny Chin DO Unavailable Unavailable Allergies, Adverse Reactions, Alerts Substance Reaction Status Criticality No Known Allergies Active No Inform ation Medications Medication Instructions Dosage Effective Dates (start - stop) Status Comments [place] 5 mg-325 mg tablet take 1 tablet b y Oral route every 6 - 8 hours as needed for pain 1 tablet - Active tramadol 50 mg tablet take 1 tablet by oral route twice a day as needed for pain - Active hydrochlorothiazide 25 mg tablet take 1 tablet by oral route every day 25 MG - Active atenolol 50 mg tablet take 1 tablet by oral route every day 50 MG - Active meloxicam 7.5 mg tablet take [...] Diagnoses Date Provider Providers Copied on Encounter [employer], [address], [place], [place], [address] , [place] tel: [phone] Juan Luis MILLER No Information 0 5 Elsy [address] [place], [place], [address] , [place]. tel:[phone] [employer], [address], [place], [place], [address] , [place] tel: [phone] [facility] No Information Sep-0 2-201 5 Mejias Michelle. [address] [facility], [address], [facility], . tel: [phone] [employer], [address], [place], [place], [address] , tel: [phone] [facility] No Information Sameer- 0- 5 Mejias Michelle. [address] [facility], [address] [address], [place], [facility], . tel: [phone] [facility], [address], [place], [place], [address] , tel: [phone] [facility] right knee pain (chief complaint)c onditions (chief complaint) Right knee pain May-0 - 5 Mejias Michelle. [address] [facility], [address], [facility], . tel: [phone] Referring Provider: Michelle Robles, [address] [place] [address], [place], [facility]. tel:[phone] [facility], [address], [place], [place], [address] , tel: [phone] [facility] Pain Apr-3 0- 5 Randell Michelle. [address] [facility], [address], [facility], . tel: [phone] [employer], [address], [place], [place], [address] , tel: [phone] [facility] anxiety\dep ression (chief complaint)o bstructive sleep apnea (chief complaint)m orbid obesity (chief complaint)c onditions (chief complaint) Anxiety and depressionObstruct raymond sleep apneaMorbid obesity Aug-3 0- 5 Randell Michelle. [address] [facility], [address], [facility], [place]. tel: [phone] Referring Provider: Michelle Robles, [address] [place] [address], [place], [facility]. tel:[phone] [facility], [address], [place], [place], [address] , tel: [phone] [facility] depression (chief complaint)o bstructive sleep apnea (chief complaint)m orbid obesity (chief complaint)c onditions (chief complaint)a bnormal CBC (chief complaint) DepressionObstruct raymond sleep apneaAbnormal CBC 5 Randell Martinez. [address], [facility], . tel: [phone] Referring Provider: Michelle Robles, [address] [address], [place], [facility]. tel:[phone] [facility], [address], [place], [place], [address] , tel: [phone] [facility] Snoring May-0 4 Randell Martinez. [address] [place] [address], [facility], . tel: [phone] [facility], [address], [place], [place], [address] , tel: [phone] [facility] morbid obesity (chief complaint)t obacco abuse (chief complaint)d epression (chief complaint)s noring (chief complaint)h ypertension (chief complaint)c onditions (chief complaint) Influenza VaccineMorbid obesityTobacco useHypertensionDep ressionSnoringMeta bolic syndrome May-0 4 Randell Martinez. [address] [place] [address], [facility], . tel: [phone] Referring Provider: Michelle Robles, [address] [place] [address], [place], [facility]. tel:[phone] Family History Family Member Type Diagnosis Age At Onset Father Problem (finding) Family history unknown (Cause Of ) 60 Mother Problem (finding) hypertension 60 Immunizations Vaccine Date Status Comments Influenza, injectable, quadrivalent, preservative free, 3 yrs or older administered Source: New Immuniz ation Record Payers Payer name Insurance type Covered libertarian ID Authoriza tion(s) [employer] OPEN ACCESS I II III CI [id number] [employer] OPEN ACCESS I II III CI [id number] Social History Type Description Quantity Date Captured [...] and she is currently living in a [employer]. The patient was wondering if she should [...]
== END 2024-06-22 09:07 | disposition left against medical advice (07) ==
PROVIDERS: PCP Internal Medicine
DX: M25.561 Pain in right knee (principal)
CPT/HCPCS: 99199

== ENCOUNTER 2024-06-23 20:42 | Emergency (ER) | payer MEDICAID, SELFPAY ==
--- NOTE | ~2024-06-23 | XR_ITS ---
AP view of the pelvis and AP and lateral views of the right hip Clinical history: Pain Findings: No acute fracture or dislocation is seen. Osseous alignment is anatomic. Bilateral hip and SI joint spaces are preserved. Coarse calcification overlying the right iliac wing is compatible with calcified fibroid. Impression: No osseous or articular abnormalities. Calcified uterine fibroid, as above. Reviewed, dictated and finalized at [facility]. S FORECAST ANALYST Impression: No osseous or articular abnormalities. Calcified uterine fibroid, as above.
--- NOTE | ~2024-06-23 | XR_ITS ---
Right Knee Technique: AP, lateral, and sunrise views were obtained. Clinical History: Pain Findings: No fracture or dislocation is seen. Probable mild medial compartment narrowing. There is mo derate tricompartmental osteophyte formation.. Soft tissues are unremarkable. No joint effusion is se en. Impression: Moderate tricompartmental degenerative change, as above. Reviewed, dictated and finalized at location . GER OF COMPLIANCE Impression: Moderate tricompartmental degenerative change, as above.
--- NOTE | ~2024-06-23 | CT_ITS ---
Non-contrast CT scan of the Pelvis Clinical indication: Right pelvic lesion Technique: 2.5 mm axial scans were obtained through the pelvis without intravenous or oral contrast. Dose reduction technique was used on this scan by utilizing automated exposure control and iterative reconstruction technique. The dose-length product (DLP) was 731.78 mGy-cm. Findings: Visualized bowel loops are unremarkable. No ascites. Urinary bladder collapsed, but otherwi se unremarkable. There is a large exophytic right-sided fibroid uterus measuring 9.4 cm in diameter, with an area of c oarse central calcification. There is an additional large fibroid from the inferior uterus measuring 11.7 cm in diameter. Impression: At least 2 large uterine fibroids present, as detailed above. Reviewed, dictated and finalized at location M. ESSIONAL ADVISOR Impression: At least 2 large uterine fibroids present, as detailed above.
[2024-06-23 20:52] VITALS: BP 134/72; PULSE 63; RESP 18; TEMP 36.7; O2SAT 100
--- NOTE | 2024-06-23 21:55 | ED_ITS ---
HPI - General Adult General Chief complaint: Extremity Problem,Nontraumatic Stated complaint: right shooting leg pain x7d Time Seen by Provider: 06/23/24 21:22 Source: patient Mode of arrival: ambulatory Limitations: no limitations History of Present Illness HPI narrative: This is a 53-year-old female who presents to the ED for chief complaint of right knee pain after injury 2 days ago. This happened at work when she was lifting someone up. States that she felt sudden pain in the right knee that radiates into the right hip. States that she has had shooting pains up the right lateral thigh since the injury. States that she was here Monday but left because the wait was too long. Denies numbness, weakness, fevers, chills back pain, further sites of pain or injury Related Data Home Medications ?Medication ?Instructions ?Recorded ?Confirmed ?Last Taken ?Type amlodipine 10 mg tablet 10 mg PO DAILY 09/14/23 02/19/24 Unknown History atorvastatin 20 mg tablet 20 mg PO DAILY 09/14/23 02/19/24 Unknown History ergocalciferol (vitamin D2) 1,250 1,250 unit PO DIRECTED 09/14/23 02/19/24 Unknown History mcg (50,000 unit) capsule metoprolol tartrate 50 mg tablet 50 mg PO DAILY 09/14/23 02/19/24 Unknown History omeprazole 40 mg capsule,delayed 40 mg PO DAILY 09/14/23 02/19/24 Unknown History release spironolactone 25 1 tablet PO DAILY 09/14/23 02/19/24 Unknown History mg-hydrochlorothiazide 25 mg tablet ferrous sulfate 325 mg (65 mg 325 mg PO DAILY 02/19/24 Unknown History iron) tablet Allergies Allergy/AdvReac Type Severity Reaction Status Date / Time No Known Allergies Allergy Verified 06/22/24 04:16 Review of Systems Review of Systems: All systems as dictated in [facility] Social History Social History Years smoked: 20 Smoking status: Current every day smoker Tobacco type: cigarettes Substance use type: does not use Living arrangements: alone Spiritual care concerns: No Exam Narrative: GENERAL: Well-appearing, well-nourished, and in no acute distress. MSK: Mild tenderness to the mediolateral joint line of the right knee. No deformities. Able to fully extend the knee actively. Ambulatory without assi stance SKIN: Warm, dry, no rash. NEURO: Alert and oriented x4. No focal deficits. PSYCH: Normal mood and affect. Course Vital Signs Vital signs: Vital Signs Temperature 98.1 F 06/23/24 20:52 Pulse Rate 63 06/23/24 20:52 Respiratory Rate 18 06/23/24 20:52 Blood Pressure 134/72 06/23/24 20:52 Pulse Oximetry 100 06/23/24 20:52 Oxygen Delivery Room Air 06/23/24 20:52 Temperature 98.1 F 06/23/24 20:52 Pulse Rate 63 06/23/24 20:52 Respiratory Rate 18 06/23/24 20:52 Blood Pressure 134/72 06/23/24 20:52 Pulse Oximetry 100 06/23/24 20:52 Oxygen Delivery Room Air 06/23/24 20:52 Medical Decision Making MDM Narrative Medical decision making narrative: This is a 53-year-old female who presents to the ED for chief complaint of right knee pain and right hip pain after injury 2 days ago. Vitals are normal. Exam shows tenderness along the mediolateral joint lines of the knee. 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 X-ray of the knee shows significant osteoarthritis present. Right hip joint x-rays do not show any acute osseous findings, however there is a radiodense 2.6 cm structure projecting right iliac bone. It is unclear if this represents intraosseous lesion, body well lesion or intra-abdominal lesion. CT pelvis without contrast shows large fibroid uterus extending to the right lower quadrant. The calcification radiograph corresponds to a calcified uterine fibroid. Overall uterine dimensions are approximately 12 x 15 x 16 cm. Presentation consistent with osteoarthritis and flare. X-ray naproxen given. Encouraged follow-up with PCP and orthopedics on this issue. Patient will be discharged in stable condition. Supportive measures discussed and return precautions given. Patient is understanding and agreeable with plan for discharge with PCP follow-up. Vital Signs Vital Signs: Vital Signs Temperature 98.1 F 06/23/24 20:52 Pulse Rate 63 06/23/24 20:52 Respiratory Rate 18 06/23/24 20:52 Blood Pressure 134/72 06/23/24 20:52 Pulse Oximetry 100 06/23/24 20:52 Oxygen Delivery Room Air 06/23/24 20:52 Temperature 98.1 F 06/23/24 20:52 Pulse Rate 63 06/23/24 20:52 Respiratory Rate 18 06/23/24 20:52 Blood Pressure 134/72 06/23/24 20:52 Pulse Oximetry 100 06/23/24 20:52 Oxygen Delivery Room Air 06/23/24 20:52 Discharge Plan Discharge Clinical Impression: Osteoarthritis of right knee Patient Disposition: Home, Self-Care Condition: Stable Instructions: Antibiotic Form, Arthritis (ED) Additional Instructions: Exam and imaging show arthritis of the knee that is nearly [id number]. Please follow-up with orthopedics on this issue. Take naproxen twice per day and Tylenol regularly. If you have any new or worsening symptoms please return to the ER for further evaluation. Patient Language: Sammarinese Prescriptions: New naproxen 500 mg tablet 500 mg PO BID PRN (Reason: pain) Qty: 30 0RF No Action atorvastatin 20 mg tablet 20 mg PO DAILY spironolacton-hydrochlorothiaz 25-25 mg tablet 1 tablet PO DAILY omeprazole 40 mg capsule,delayed release(DR/EC) 40 mg PO DAILY amlodipine 10 mg tablet 10 mg PO DAILY metoprolol tartrate 50 mg tablet 50 mg PO DAILY ergocalciferol (vitamin D2) 1,250 mcg (50,000 unit) capsule 1,250 unit PO DIRECTED ferrous sulfate 325 mg (65 mg iron) Tablet 325 mg PO DAILY Follow-up/Referrals: Jeannie,Turner Sylvester MD [Primary Care Provider] - Time of Disposition: 00:38
[2024-06-23] MEDS: ACETAMINOPHEN 500 MG TABLET 1000 MG PO (22:13)
[2024-06-23] MEDS: KETOROLAC 30 MG/ML VIAL (*BKC) IM (22:13)
== END 2024-06-24 01:05 | disposition home or self-care (01) ==
PROVIDERS: Emergency Provider Physician Assistant; PCP Internal Medicine
DX: M17.11 Unilateral primary osteoarthritis, right knee (principal); F17.210 Nicotine dependence, cigarettes, uncomplicated
CPT/HCPCS: 72192; 73502; 73562; 96372; 99284; A9270; J1885

== ENCOUNTER 2024-11-12 09:12 | Outpatient (CLI) | payer OTHER, SELFPAY ==
--- NOTE | 2024-11-12 09:22 | ECG_ITS ---
Test Date: 2024-11-12 09:33:57 Measurements Intervals [place] Rate: 58 P: 48 PA: 204 QRS: -1 QRSD: 110 T: 2 QT: 422 QTc: 418 Interpretive Statements SINUS BRADYCARDIA MODERATE INTRAVENTRICULAR CONDUCTION DELAY [105+ ms QRS DURATION, 80+ ms Q/S IN V1/V2, NO Q AND 60+ ms R IN I/aVL/V5/V6] MODERATE VOLTAGE CRITERIA FOR LVH, CONSIDER NORMAL VARIANT [MEETS CRITERIA IN ONE OF: R(aVL), S(V1), R(V5), R(V5/V6)+S(V1)] NONSPECIFIC ST AND T WAVE ABNORMALITY No previous ECG available for comparison Electronically Signed On 11-12-2024 13:37:36 CDT by Cody Tomas M.D.
--- OUTSIDE RECORDS SUMMARY | 2024-11-12 09:26 | XMS_ITS | Data Portability ---
Author Organization [place] [facility], Main Office Address [address] [place] [address] Assessment Encounter Date Assessment Date Assessment LastModified [...] By Organization Details Last Modified Time 06/07/2024 [id number] To leave sterile dressing dry and intact, [...] Address Organization Details Recorded Time Foot callus 175333040 Active 2021 Not Available [employer] 21:29:45 Leg length inequality 64825155 Active 2023 Chao Alfonso, DPM [address], [address], [place], [address] , [employer] 4 15:17:49 Notes:Turner Dennis MD [facility] diagnostic sleep study 08/26/22 AHI = 6, REM AHI = 32, PLMI = 15 [facility] titration sleep study 09/13/22 [employer] small Vitera full face mask @ 6 cmH2O, PLMI = 4 Medical History: Depression/Anxiety Rhinitis Obesity with mild OSAHS, AHI = 6, 08/26/22, on CPAP c/o [facility] Hypertension Mixed hyperlipidemia SOPHIA PLMD Vit D deficiency Foot calluses Problem Notes None recorded. Procedures Surgical History Date Name Laterality Status Provider Name and Address Organization Details Recorded Time 4 Strapping Foot & Ankle completed Chao Alfonso DPM [address], [place], [address], [employer] 06/10/2024 15:17:40 4 Flexor Tenotomy completed Chao Alfonso DPM [address], [place], [address], [employer] 06/07/2024 11:27:43 4 Callus Debridement 2-4 completed Chao Alfonso DPM [address], [place], [address], [employer] 06/07/2024 11:27:56 Imaging Results Imaging Date Name [...] 2 34.5 kg/m2 170.18 cm 86 /min 27495.3 2 g 176 mm[Hg] 110 mm[Hg] Not Available [facility] 3 21:29:21 Date Recorded Body height Body mass index (BMI) Body weight Oxygen saturation Oxygen saturation in Arterial blood by Pulse oximetry Heart rate Body temperature Provider Name and Address Organization Details Last Updated DateTime 4 170.18 cm 35.1 kg/m2 882398. 69 g 99 % 99 % 71 /min 98.1 [degF] [facility] [employer] 4 10:40:14 Date Recorded Body height Body mass index (BMI) Body weight Provider Name and Address Organization Details Last Updated DateTime 06/10/2024 170.18 cm 35.1 kg/m2 405739.69 g [facility] [employer] 06/10/2024 15:00:25 Social History Question Answer Notes LastModified by [employer] Details LastModified Time Tobacco Smoking Status Current Every Day Smoker Not Available [facility] 08/24/2022 21:28:39 What Is Your Level Of Caffeine Consumption? Occasional [id number] Information not available 08/24/2022 What Was The Date Of Your Most Recent Tobacco Screening? 12/16/2021 [id number] Information not available 08/24/2022 Has Tobacco Cessation Counseling Been Provided? No [id number] Information not available 08/24/2022 Sex: Unknown Functional Status Question Answer Note LastModified by [employer] Details LastModified Time Do you use any illicit or recreational drugs? No [id number] Information not available 08/24/2022 Do you or have you ever used any other forms of tobacco or nicotine? No [id number] Information not available 08/24/2022 What is your level of alcohol consumption? None [id number] Information not available 08/24/2022 Mental Status None recorded. Family History Nothing Reported. Medical History Condition Response ARTHRITIS Y OBESITY Y HIGH CHOLESTEROL / HYPERLIPIDEMIA Y Gynecological HistoryNo gynecological history recorded. Obstetrics History GPAL:G 0 P 0 0 0 0 Past Encounters Encounter ID Performer Location Encounter Start Date Encounter Closed Date Diagnosis/Indication Diagnosis SNOMED-CT Code Diagnosis ICD10 Code Diagnosis Note [id number] Neil Rajan DPM [facility] [place] [address] [place] [id number] 12/16/2021 00:00:00 12/21/2021 13:19:48 [id number] Chao Alfonso DPM [facility] [place] [address] [address] 06/07/2024 10:21:10 07/25/2024 11:10:05 [id number] [facility] [place] [address] [address] 06/10/2024 14:58:13 06/10/2024 15:24:44 Leg length inequality 96048695 M21.70 Health Concerns Section Related Observation LastModified by Organization Detai ls LastModified Time None Recorded Concern Status LastModified by Organization Details LastModified Time None Recorded Advance Directives Directive None Recorded Payers Encounter Date Sequence Insurance Name Policy Number Policy Roberts Covered Member ID Roberts Member ID Guarantor Name 06/07/2024 1 [facility] (MEDICAID REPLACEMENT - O) [id number] [place] [id number] [place] 06/10/2024 1 [facility] (MEDICAID REPLACEMENT - O) [id number] [place] [id number] [place] Notes Date Note Type Note Provider Name and Address Organization Details Recorded Time 06/07/2024 text/html Pt RTC for c/o painful corns karl fifth, Lt>>Rt. Hammertoe Lt and contracted tendon. Chao Alfonso DPM [address] [facility], [address], [place], [address], [place] [facility] [employer] 06/07/2024 11:28:30 06/10/2024 text/html Lt fifth toe well-healed s/p four dd. tenotomy flexor and debridement of HD. Pt's main complaint this date: pain in lat foot. Lt. Chao Alfonso, DPKelley [address] [facility], [facility] [address], [place], [address], [facility] 06/10/2024 15:17:57 OBGyn Episode No OBEpisode recorded.
--- OUTSIDE RECORDS SUMMARY | 2024-11-12 09:26 | XMS_ITS | Clinical Summary ---
Author Organization [facility] Address [address] [place] [address] Phone Care Team Providers Care Truck Safety Inspector Name Role Phone Cayden External Provider Primary Care Provider Un available Allergies No known active allergies Medications METOPROLOL TARTRATE ORAL Take 25 mg by [...] ondansetron (ZOFRAN ODT) 4 mg Tablet, Rapid DissolveIndicati ons:nausea Place 1 Tablet (4 mg) under tongue every 6 hours as needed for Nausea/Emes is. 10 Tablet 06/05/2019 1:53 PM FLAVOR EXTRACTOR 06/04/2019 Active Active Problems Problem Noted Date Diagnosed Date Poor fluid intake 06/05/2019 Post-operative nausea and vomiting 06/05/2019 Post-op pain 06/05/2019 HTN (hypertension) 06/04/2019 GERD (gastroesophageal reflux disease) 9 Asthma 06/04/2019 Immunizations Immunization Administration Dates Next Due INFLUENZA VACCINE QUADRIVALENT [...] by your partner or ex-partner? No 04/05/2019 Comments No Sex and Gender Information Value Date Recorded Sex Assigned at Not on file Legal Sex Female 6:27 AM CDT Gender Identity Not on file Sexual Orientation Not on file Last Filed Vital Signs Vital Sign Reading Time Taken Comments Blood Pressure 159/103 06/06/2019 11:51 AM FLAVOR EXTRACTOR Pulse 58 06/06/2019 11:51 AM FLAVOR EXTRACTOR Temperature 36.8 C (98.2 F) 06/06/2019 11:51 AM FLAVOR EXTRACTOR Respiratory Rate 18 06/06/2019 11:5 1 AM FLAVOR EXTRACTOR Oxygen Saturation 100% 06/06/2019 11: 51 AM FLAVOR EXTRACTOR Inhaled Oxygen Concentration - - Weight 125.3 kg (276 lb 3.2 oz) 06/06/2019 4:14 AM FLAVOR EXTRACTOR Height 167.6 cm (5' 6 ) 06/04/2019 9:37 AM FLAVOR EXTRACTOR Body Mass Index 44.58 06/04/2019 9:37 AM FLAVOR EXTRACTOR Plan of Treatment Health Maintenance Due Date Last Done Comments DTAP/TDAP/TD VACCINES (1 - Tdap) 1991 HEPATITIS B VACCINES (1 of 3 - 19+ 3-dose series) 06/28 HPV/Cotest (21-29) 1993 CERVICAL CANCER SCREENING 2002 HPV/Cotest (30-65) 2002 PAP SMEAR 2002 BREAST CANCER SCREENING 2012 COLORECTAL SCREENING 2017 Colorectal Cancer Screening 2017 FIT-DNA Q 3 years 2017 FIT/FOBT Q 1 year 2017 Flex Sig/CT Colonography Q 5 years 2017 ZOSTER VACCINE (1 of 2) 2022 INFLUENZA VACCINE (#1) 2024 05/29/2014 Medical Devices Implanted Type Area Final Rail Cutter Device Identifier Shelf Expiration Date Model / Serial / Lot Seamguard Endogia 60 Prpl [id number] - [id number] Implanted:Qty : 3 on 06/04/2019 by Shanice Katz MD at [facility] Biological N/A: Stomach [employer] 03/10/2022 [id number] / / [id number] Seamguard Endogia 60 Blck [id number] - [id number] Implanted:Qty : 1 on 06/04/2019 by Shanice Katz MD at [facility] Biological N/A: Stomach [employer] 03/13/2022 [id number] / / [id number] Triage Clinician Endoclip Iii 5mm W/Cliplogic [id number] - [id number] Implanted:Qty : 1 on 06/04/2019 by Shanice Katz MD at [facility] Clip [employer] - COVID[employer]EN 12/23/2021 [id number] / / [id number] Insurance BCBS BLUE ACCESS/TRUE BLUE PPO RX [facility] [employer] Advance Directives For more information, please contact: [phone] * Full Code (Latest Code Status on File) Date Activated Date Inactivated Comments 06/04/2019 2:22 PM 06/06/2019 2:14 PM * Full Code Date Activated Date Inactivated Comments 06/04/2019 9:54 AM 06/04/2019 2:22 PM * Full Code Date Activated Date Inactivated Comments 06/04/2019 9:09 AM 06/04/2019 9:54 AM Care Teams Truck Safety Inspector Relationship Specialty Start Date End Date Cayden, External Provider PCP - General 05/08/19
--- OUTSIDE RECORDS SUMMARY | 2024-11-12 09:26 | XMS_ITS | Data Portability ---
Author Organization [place] - [facility] OFFICE Address [address] [place] [address] Care Team Providers Care Workforce Management Manager Name Role Phone JHONATHAN GRECO Primary Care Provider JHONATHAN GRECO Referring Provider [phone] Assessment No assessment recorded. Plan of Treatment [...] By Organization Details Last Modified Time 04/08/2019 [id number] Weight loss 20 pounds Exercise advised Low cholesterol diet advised Low sodium diet advised Not available 04/08/2019 12:11:53 Scribed by Audrey Zapata PA-C Not available 04/08/2019 12:12:57 Reason for Referral None Reported. Results Created Date Observation Date Name Description Value Unit Range Abnormal Flag Note LastModifiedBy Organization Detail LastModifiedTime 04/05/2006/09/2018 US, doppl er, tess s No observ ation record ed. Not Available 2018 13:49:58 04/05/2012/19/2012 elect rocar diogr am No observ ation record ed. [email or web address] Not Available 2018 13:57:00 04/08/2004/08/2019 elect rocar diogr am No observ ation record ed. [email or web address] Not Available 2018 16:50:10 04/18/20 19 04/18/2019 US, echoc nasima gram No observ ation record ed. [facility] [address], [place], [address], 04/24/2019 10:01:44 04/19/20 19 04/18/2019 US, echoc ardio gram No observ ation record ed. [email or web address] Not Available 2018 14:06:10 Result Notes None recorded. Problems Name Problem SNOMED Code Status Onset Date Resolution Date Notes Provider Name and Address Organization Details Recorded Time Hypersomnia 39503701 Active 2018 Hala [place] null, [place] - [facility] 9 03:31:37 Apnea 0687142 Active 2018 H[place], [place] - [facility] 9 03:31:56 Snoring 73723718 Active 2018 H[place] - [facility] 9 03:32:05 Essential hypertension 42034839 Active 2018 H[place] - [facility] 9 03:32:14 Asthma 488560566 Active 2018 Hala [place], [place] - [facility] 9 03:32:49 Problem Notes None recorded. Procedures Surgical History Date Name Laterality Status Provider Name and Address Organization Details Recorded Time reduction mammoplasty completed Lisette [facility] 04/08/2019 11:57:13 cholecystectomy completed Lisette [facility] 04/08/2019 11:57:29 ligation of bilateral fallopian tubes completed Lisette [facility] 04/08/2019 11:57:47 Imaging Results Imaging Date Name Status LastModified by Organization Details LastModified Time 06/09/2018 US, doppler, venous completed [email or web address] Infor mation not available 04/05/2019 13:49:58 12/19/2012 electrocardiogram completed [email or web address] Informa tion not available 04/05/2019 13:57:00 04/08/2019 electrocardiogram completed [email or web address] Informa tion not available 04/08/2019 16:50:10 04/18/2019 US, echocardiogram completed [email or web address] [address], [place], [address], 04/24/2019 10:01:44 04/18/2019 , echocardiogram completed [email or web address] Inform ation not available 04/22/2019 14:06:10 Procedure [...] Address Organization Details Last Updated DateTime 9 092758. 38 g 68 /min 18 /min 98 % 98 % 47 kg/m2 167.64 cm 158 mm[Hg] 102 mm[Hg] Lisette Ledesma [place] - [facility] 9 11:49:54 Social History Question Answer Notes LastModified by [employer] Details LastModified Time Tobacco Smoking Status Current Every Day Smoker Not Available [facility] 04/28/2020 03:30:40 What Type Of Diet Are You Following? REGULAR [id number] Information not available 04/28/2020 Which Illicit Or Recreational Drugs Have You Used? No [id number] Information not available 04/28/2020 Marital Status Single [email or web address] Informatio n not available 04/08/2019 How Many Children Do You Have? 2 [id number] Information not available 04/28/2020 How Much Tobacco Do You Smoke? 0.5 PPD [id number] Information not available 04/28/2020 How Many Years Have You Smoked Tobacco? 24 [id number] Information not available 04/28/2020 Sex: Unknown Functional Status Question Answer Note LastModified by [employer] Details LastModified Time What is your level of alcohol consumption? None [id number] Information not available 04/28/2020 What is your exercise level? Occasional [id number] Information not available 04/28/2020 Mental Status None recorded. Family History Relationship Description Onset Age of this Age Resolved Age Notes LastModified by Organization Details LastModified Time Father No current problems or disability [email or web address] Not available 03/26 11:54:55 Mother No current problems or disability HNT [email or web address] Not available 03/26 11:55:10 Maternal Grandmother No current problems or disability stoke [email or web address] Not available 03/26 11:55:22 Medical History Condition Response High Cholesterol Y Hypertension Y Gynecological HistoryNo gynecological history recorded. Obstetrics History GPAL:G 0 P 0 0 0 0 Past Encounters Encounter ID Performer Location Encounter Start Date Encounter Closed Date Diagnosis/Indication Diagnosis SNOMED-CT Code Diagnosis ICD10 Code Diagnosis Note [id number] MD Elsa Saenz Office [address] [place] [address] 04/08/2019 10:57:53 04/08/2019 12:29:40 Pre-surgery evaluation 676059190 Z01.818 Risk factors of HTN and active smoker however patient asymptomat ic and active working 12 hours shifts with no chest pain. Would check 2D echo to assess EF, valvular disease giving marked leg edema and exertional dyspnea Need better BP control. Her BP is elevated today though she just took her medication s yet. Essential hypertension 95732666 I10 Home blood pressure readings unknown, however she reports bp 129/67 at recent appt. Blood pressure is elevated today, but this is only one reading, will keep close follow up, and consider medication change if blood pressure is still elevated next visit. Hyperlipidemia 70345730 E78.5 Needs to keep LDL less than 100, and HDL more than 40 Will get fasting lipids for follow up Obstructiv e sleep apnea syndrome 43483220 G47.33 on CPAP Health Concerns Section Related Observation LastModified by Organization Detai ls LastModified Time None Recorded Concern Status LastModified by Organization Details LastModified Time None Recorded Advance Directives Directive None Recorded Payers Insurance Date Sequence Insurance Name Policy Number Policy Roberts Covered Member ID Roberts Member ID Guarantor Name 04/22/2019 1 [facility] - DOS PRIOR TO 2020 (MEDICAID REPLACEMENT - HMO) [place] [id number] [place] Notes Date Note Type Note [...] feet all day for 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 Reports dyspnea with exertion, depending on how fast she walks. She smokes 1/2 ppd. 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 No chest pain. No shortness [...] of the right lower extremity Anitra Fuentes [facility], [place] - [facility] 04/08/2019 12:26:37 OBGyn Episode No OBEpisode recorded.
--- OUTSIDE RECORDS SUMMARY | 2024-11-12 09:26 | XMS_ITS | Clinical Summary ---
Author Organization [facility] Address [address] [place] [address] Care Team Providers Care Senior Net Application Developer Name Role Phone Meek Robert MD Primary Care Provider [phone] Social History Tobacco Use Types Packs/Day Years [...] Screening with HPV 2002 Mammogram Screening 2012 Pneumococcal Vaccine: 50+ Ye ars (1 of 1 - PCV) 2022 Zoster Vaccines (1 of 2) 2022 COVID-19 Vaccine ( - 2023-2 5 season) 2024 Meningococcal B Vaccine Aged Out No l onger eligible based on patient's age to complete this topic Meningococcal Vaccine Aged Out No nghia jay eligible based on patient's age to complete this topic RSV Immunizations Under 20 Months Aged Out No longer eligible based on patient's age to complete this topic Care Teams Senior Net Application Developer Relationship Specialty Start Date End Date Meek Robert MD PCP - General 02/22/16
--- OUTSIDE RECORDS SUMMARY | 2024-11-12 09:26 | XMS_ITS | Data Portability ---
Author Organization [facility] Address [address] [place] [address] Care Team Providers Care Carpet Layer Name Role Phone ANGUSSAMMYAjayBREN Primary Care Provider Assessment Encounter Date Assessment Date Assessment LastModified by Organization Details LastModified Time 05/17/2022 05/17/2022 healthy female exam patient desires std testing pap due 2023 mammogram ordered and STRONGLY ENCOURAGED colonoscopy encouraged, will talk with PCP pt to call PCP from parking lot re mgt of elevated BP contraception-tu bal FU 1 year or prn [email or web address] Not available 05/17/2022 13:29:47 09/11/2023 09/11/2023 Annual gynecological exam performed. Patient will come back in a year unless there are new symptoms. Not available 09/11/2023 10:51:52 Plan of Treatment Reminders Order Date Submit Date Provider Last Modified By Organization Details Last Modified Time Details Appointments SURG PRE OP 2024 09:45A Kelley BUTLER MD Not available Not available Not available SURG Total Lap Hyst 2024 07:30A Kelley BUTLER MD Not available Not available Not available SURG POST OP 2024 11:45A Kelley BUTLER MD Not available Not available Not available Lab hbcab (hepatiti s B core Ab) igm, serum 2023 024 [facility] (Lab), [address], [place], [address], 09/13/2023 23:43:59 HBsAg (hepatiti s B surface Ag), serum 2023 024 [facility] (Lab), [address], [place], [address], 09/13/2023 23:43:58 hepatitis C virus Ab, serum 2023 024 [facility] (Lab), [address], [place], [address], 09/13/2023 23:43:58 unlisted lab - HIV 1/2 antigen/a ntibody, reflex confirmat ion 2023 024 [facility] (Lab), [address], [place], [address], 09/13/2023 23:43:58 RPR (rapid plasma reagin), serum 2023 024 [facility] (Lab), [address], [place], [address], 09/13/2023 23:43:59 Referral gastroent erologist referral [address] [facility], [address] [address], [address], [address], 09/18/2023 12:02:38 Procedures None recorded. Surgeries total abdominal hysterect bhavna with bilateral salpingo- oophorect bhavna (SURG) 2024 025 [facility], [address], [address], 11/05/2024 11:40:54 Imaging MAMMO, screening , digital, bilateral 2023 024 [facility], [address], [facility] [address], [place], [address], 11/01/2023 18:00:58 Medication Orders None recorded. Patient TargetsNo targets recorded. Patient InstructionsNo instructions recorded. 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 for Screening for malignant neoplasm of colon Referring Physician: Margarita Peters, INTERNET TECHNOLOGY MANAGER, Encounter Date: 09/11/2023 Results Created Date Observation Date Name Description Value Unit Range Abnormal Flag Note LastModifiedBy Organization Detail LastModifiedTime 04/26/20 21 04/26/2021 CT/GC AND TRICH OMONA S VAGIN THELMA (RRNA ), URINE chlamydia trachomatis, PCR Negati ve negati ve Not Available [facility] (Lab) [address], [place], [address], 04/27/2021 14:13:25 04/26/20 21 04/26/2021 CT/GC AND TRICH OMONA S VAGIN THELMA (RRNA ), URINE neisseria gonorrhoeae, PCR Negati ve negati ve Not Available [facility] (Lab) [address], [place], [address], 04/27/2021 14:13:25 04/26/20 21 04/26/2021 CT/GC AND TRICH OMONA S VAGIN THELMA (RRNA ), URINE trichomonas vaginalis ribosomal RNA (rrna) Negati ve negati ve Not Available [facility] (Lab) [address], [place], [address], 04/27/2021 14:13:25 05/17/20 22 05/17/2022 IMAGE GUIDE D PAP AND HPV REGAR DLESS image guided Pap, HPV regardless of Pap result SEE RESULT S BELOW CASE REPOR T: Cytol ogy Gynec ologi dima Repor t Case: [id number] Autho rimohann g Provi roxanne: Adrienne Crisostomo MD Colle cted: 05/17 1738 Order ing Locat ion: [place] Patho logy Recei isaiah: 05/18 0100 First Scree n: Lupe ni, Damon ed, CT Rescr een: Daquan en, Shy ndra Speci men: Scree kirill Pap - Image d, Cervi x STATE MENT OF ADEQU ACY: Unsat isfac tory for evalu ation . FINAL DIAGN OSIS: Unsat isfac tory for evalu ation . Jaciel bledsoe smear . Elect pravin monsivais bubba d [...] ation . COMME NT: Slide scree suzanne gil due to rejec tion by the Thinp rep Imagi ng Syste m. CLINI DIMA INFOR MATIO N: Menst rual Statu s: LMP (if appli cable ): Clini dima Histo ry/Pr eviou s Pap: Type of Neopl will (if appli cable ): Signi ficazael t Clini dima Findi ngs: Other Histo ry: Hormo wendy (if appli cable ): Not Available [facility] (Lab) [address], [place], [address], 05/24/2022 11:26:37 07/19/19 23 07/19/2022 IMAGE GUIDE D PAP AND HPV REGAR DLESS image guided Pap, HPV regardless of Pap result SEE RESULT S BELOW CASE REPOR T: Cytol ogy Gynec ologi dima Repor t Case: [id number] Autho suzette verma Provi roxanne: Margarita Peters, HERNANDEZ Cortes cted: 07/19 1605 Order ing Locat ion: [place] Patho logy Recei isaiah: 07/20 1040 First Scree n: Malu Hsu Rescr een: Shy Verdin Speci men: Scree kirill Pap - Image d, Cervi x STATE MENT OF ADEQU ACY: Satis facto ry for evalu ation Trans forma tion zone compo nent absen t. The absen ce of an endoc ervic al compo nent was confi rmed by an addit brian lane. FINAL DIAGN OSIS: Negat raymond for Intra epith elial Lesio n or Malig jesus (NIL) . Funga l organ isms morph [...] Thinp rep Imagi ng Syste m. CLINI DIMA INFOR MATIO N: Menst rual Statu s: LMP (if appli cable ): Clini dima Histo ry/Pr eviou s Pap: Type of Neopl will (if appli cable ): Signi fican t Clini dima Findi ngs: Other Histo ry: Hormo wendy [...] ng do not corre late with physi dima and/o r histo rical findi ngs, furth er inves tigat ion is recom clovis d, as clini german andino nted. Not Available [facility] (Lab) [address], [place], [address], 07/22/2022 13:47:22 07/19/19 23 07/19/2022 TRICH OMONA S VAGIN THELMA (RRNA ) trichomonas vaginalis ribosomal RNA (rrna) Negati ve negati ve Not Available [facility] (Lab) [address], [place], [address], 07/22/2022 13:47:22 07/19/19 23 07/19/2022 CT/GC (SARAH) , THINP REP VIAL chlamydia trachomatis, PCR Negati ve negati ve Not Available [facility] (Lab) [address] [place], [address], 07/22/2022 13:47:23 07/19/19 23 07/19/2022 CT/GC (SARAH) , THINP REP VIAL neisseria gonorrhoeae, PCR Negati ve negati ve Not Available [facility] (Lab) [address], [place], [address], 07/22/2022 13:47:23 09/11/19 24 09/11/2023 HIV 1/2 ANTIG EN/AN TIBOD Y, REFLE X CONFI RMATI ON HIV antigen/anti body Nonrea ctive nonrea ctive HIV-1 antig en and HIV-1 /HIV- 2 antib odies were not detec lorenzo. No labor atory evide nce of HIV infec tion. Not Available [facility] (Lab) [address], [place], [address], 09/13/2023 23:43:57 09/11/19 24 09/11/2023 HEPAT ITIS B SURFA CE ANTIG EN hepatitis B surface antigen Non-re active non-re active This assay was perfo rmed using [employer] ratio n reage nts and test kits. Value s obtai suzanne with other assay metho ds or kits canno t be used inter lainez eably . Not Available [facility] (Lab) [address], [place], [address], 09/13/2023 23:43:58 09/11/19 24 09/11/2023 HEPAT ITIS C ANTIB ROCIO SCREE N, REFLE X TO CONFI RMATI ON hepatitis C antibody Non-re active non-re active Antib odies to HCV Not Detec lorenzo, does not exclu de the possi bilit y of expos ure to HCV. Not Available [facility] (Lab) [address], [place], [address], 09/13/2023 23:43:58 09/11/19 24 09/11/2023 RPR SCREE N, REFLE X TITER /CONF IRMAT ION RPR screen Nonrea ctive nonrea ctive Not Available [facility] (Lab) [address], [place], [address], 09/13/2023 23:43:59 09/11/19 24 09/11/2023 HEPAT ITIS B CORE, IGM hepatitis B core IgM antibody Negati ve negati ve Not Available [facility] (Lab) [address], [place], [address], 09/13/2023 23:43:59 09/11/19 24 09/11/2023 IMAGE GUIDE D PAP AND HPV REGAR DLESS image guided Pap, HPV regardless of Pap result SEE RESULT S BELOW CASE REPOR T: Cytol ogy Gynec ologi dima Repor t Case: [id number] Autho suzette bayron Provi roxanne: Margarita Peters, HERNANDEZ Cortes cted: 09/10 1639 Order ing Locat ion: [place] Patho logxavi Recei isaiah: 09/11 0914 First Scree n: Bethanie Orozco, CT Rescr een: Leslie Al , CT Speci men: Scree kirill Pap - Image d, Cervi x STATE MENT OF ADEQU ACY: Satis facto ry for evalu ation Trans forma tion zone compo nent absen t The absen ce of an endoc ervic al compo nent was confi rmed by an addit ional ian lane. FINAL DIAGN OSIS: Negat raymond for Intra epith elial Lesio n or Julio lee (NIL) . Shift in marifer sugge stive of bacte rial vagin osis. Elect pravin galicia by Leslie Al , CT on 2023 [...] to rejec tion by the Thinp rep Kelvin Zapata mRyan CLINI DIMA INFOR MATIO N: Menst rual Statu s: LMP (if appli cable ): Clini dima Histo ry/Pr eviou s Pap: Type of Neopl will (if appli cable ): Signi veronica t Clini dima Findi ngs: Other Histo ry: Hormo wendy [...] ng do not corre late with physi dima and/o r histo rical findi ngs, furth er inves tigat ion is recom clovis d, as clini german andino nted. Not Available [facility] (Lab) [address], [place], [address], 09/15/2023 11:35:35 09/11/19 24 09/11/2023 TRICH OMONA S VAGIN THELMA (RRNA ) trichomonas vaginalis ribosomal RNA (rrna) Negati ve negati ve Not Available [facility] (Lab) [address] [place], [address], 09/15/2023 11:35:35 09/11/19 24 09/11/2023 CT/GC (SARAH) , THINP REP VIAL chlamydia trachomatis, PCR Negati ve negati ve Not Available [facility] (Lab) [address] [place], [address], 09/15/2023 11:35:36 09/11/19 24 09/11/2023 CT/GC (SARAH) , THINP REP VIAL neisseria gonorrhoeae, PCR Negati ve negati ve Not Available [facility] (Lab) [address] [place], [address], 09/15/2023 11:35:36 0107/26/2022 MAMMO , scree kirill, bilat eral No observ ation record ed. [facility] [address], [place], [address], 04/19/2023 12:14:07 11/01/19 24 10/31/2023 MAMMO , scree kirill, digit al, bilat eral No observ ation record ed. [facility] [address], [place], [address], 11/02/2023 12:45:32 Result Notes Documentation Provider Name and Address Organization Details Recorded Time Ct + Ng + Tv, Rna, Unspecified Specimen : 04-30-21: pt informed of results tl lobato, [facility] 05/01/2021 21:01:47 Problems Name Problem SNOMED Code Status Onset Date Resolution Date Notes Provider Name and Address Organization Details Recorded Time Asthma 745390149 Active 2020 Adrienne Handley MD [address], [place], [address], [facility] 14:59:30 Hypercholest erolemia 96741619 Active 2020 Adrienne Handley MD [address], [place], [address], [facility] 14:59:36 Essential hypertension 39380112 Active 2020 Adrienne Handley MD [address], [place], [address], [facility] 14:59:43 History of bariatric surgical procedure 543453487 Active 2018 Adrienne Handley MD [address], [place], [address], [facility] 14:59:59 Mixed anxiety and depressive disorder 677962612 Active 2020 Adrienne Handley MD [address], [place], [address], [place] [facility] 1 15:07:04 Problem Notes None recorded. Procedures Surgical History Date Name Laterality Status Provider Name and Address Organization Details Recorded Time 4 Date of Last Mammogram completed [facility] 08/19/2024 16:27:33 4 Date of Last Pap Smear completed [facility] 08/19/2024 16:27:14 9 Bariatric Surgery completed [facility] 10/28/2020 14:42:07 9 completed Nneka Hernandez [facility] 01/14/2021 12:36:05 4 Tubal Ligation completed [facility] 10/28/2020 14:41:51 Imaging Results Imaging Date Name Status LastModified by Organiz ation Details LastModified Time 2022 MAMMO, screening, bilateral completed [address] [place] [address], [address], 04/19/2023 12:14:07 10/31/2023 MAMMO, screening, digital, bilateral completed [address] [place] [address], [address], 11/02/2023 12:45:32 Procedure Notes None recorded. Medical Equipment None Reported. Allergies No known drug allergies Medications Name Sig Start Date Stop Date Status Note LastModified by Organization Details LastModified Time celecoxib 200 mg capsule TAKE 1 CAPSULE BY MOUTH EVERY DAY active Not Available Not Available No t Available neomycin-po lymyxin-hyd rocort 3.5 mg/mL-10,00 0 [...] Available Not Available tizanidine 2 mg tablet TAKE 1 TABLET BY MOUTH THREE TIMES DAILY NEEDED 08/19 completed Not Available Not Available Not Available [...] Not Available Not Available Not Available citalopram 10 mg tablet TAKE 1 TABLET BY MOUTH EVERY DAY active Not Available Not Available No t Available hydrocodone 5 mg-acetamin ophen 325 mg tablet TAKE 1 TABLET BY MOUTH TWICE DAILY NEEDED FOR PAIN active Not Available Not Available No t Available spironolact one 25 mg-hydrochl orothiazide 25 mg tablet TAKE 1 TABLET BY MOUTH EVERY DAY active Not Available Not Available No t Available prednisone 20 mg tablet TAKE ONE TABLET BY MOUTH DAILY active Not Available Not Available No [...] Not Available Not Available No t Available hydrocodone 10 mg-acetamin ophen 325 mg tablet TAKE 1 TABLET BY MOUTH EVERY 4-6 HOURS NEEDED FOR PAIN 09/10 completed Not Available Not Available Not Available omeprazole 40 mg capsule,del ayed release TAKE 1 CAPSULE BY MOUTH EVERY DAY active Not Available Not Available No t Available amoxicillin 500 mg tablet TAKE 1 TABLET BY MOUTH THREE TIMES DAILY UNTIL GONE 08/19 completed Not Available Not Available Not Available meloxicam 7.5 mg tablet TAKE 1 TABLET BY MOUTH TWICE DAILY NEEDED. START AFTER DONE WITH PREDNISON E active Not Available Not Available No t Available citalopram 20 mg tablet TAKE 1 TABLET BY MOUTH EVERY DAY 08/19 completed Not Available Not Available Not Available baclofen 10 mg tablet TAKE 1 TABLET BY MOUTH THREE TIMES DAILY FOR 5 DAYS 08/19 completed Not Available Not Available Not Available amlodipine 10 mg tablet TAKE 1 [...] Not Available lidocaine 5 % topical patch APPLY 1 PATCH TOPICALLY TO THE SKIN DAILY active Not Available Not Available No t Available polymyxin B sulfate 10,000 unit-trimet hoprim 1 mg/mL eye drops INSTILL 2 DROPS IN RIGHT EYE THREE TIMES DAILY FOR 7 DAYS 07/19 completed Not Available Not Available Not Available indomethaci n 25 mg capsule TAKE 1 CAPSULE BY MOUTH THREE TIMES DAILY NEEDED 08/19 completed Not Available Not Available Not Available [...] 1 TABLET BY MOUTH TWICE DAILY NEEDED 08/19 completed Not Available Not Available Not Available montelukast 10 mg tablet TAKE 1 TABLET BY MOUTH AT BEDTIME 01/15 completed Not Available Not Available Not Available hydrochloro thiazide 25 mg tablet TAKE ONE TABLET BY MOUTH EVERY DAY 08/19 completed Not Available Not Available Not Available metoprolol succinate ER 25 mg tablet,exte nded release 24 hr TK ONE T PO QD 12/16 completed Not Available Not Available Not Available ergocalcife rol (vitamin D2) 1,250 mcg (50,000 unit) capsule TAKE 1 CAPSULE BY MOUTH EVERY 15 DAYS. active Not Available Not Available No t Available methylpredn isolone 4 mg tablets in a dose pack FOLLOW PACKAGE DIRECTION S 08/19 completed Not Available Not Available Not Available [...] TO THE AFFECTED AREA TWICE DAILY NEEDED 08/19 completed Not Available Not Available Not Available loratadine 10 mg tablet TAKE 1 TABLET BY MOUTH EVERY DAY 01/15 completed Not Available Not Available Not Available naproxen 500 mg tablet TAKE 1 TABLET BY MOUTH TWICE DAILY NEEDED active Not Available Not Available No t Available spironolact one 50 mg tablet TAKE 1 TABLET BY MOUTH ONCE DAILY 08/19 completed Not Available Not Available Not Available Poly-Iron 150 Forte 150 mg-25 mcg-1 mg capsule TAKE 1 CAPSULE BY MOUTH EVERY DAY 08/19 completed Not Available Not Available Not Available amoxicillin 875 mg-potassiu m clavulanate 125 mg tablet TAKE 1 TABLET BY MOUTH EVERY 12 HOURS FOR 10 DAYS 07/19 completed Not Available Not Available Not Available nicotine 7 mg/24 hr daily transdermal patch 09/10 completed Not Available Not Available Not Available azithromyci n 500 mg tablet 08/19 completed Not Available Not Available Not Available [...] completed Not Available Not Available Not Available budesonide- formoterol HFA 160 mcg-4.5 mcg/actuati on aerosol inhaler USE 2 INHALATIO NS BY MOUTH TWICE DAILY active Not Available Not Available No t Available FeroSul 325 mg (65 mg iron) tablet TAKE ONE TABLET BY MOUTH EVERY DAY. 09/10 completed Not Available Not Available Not Available Solosec [address] granules in packet 07/19 completed Not Available Not Available Not Available Mounjaro 5 mg/0.5 mL subcutaneou s pen injector INJECT 5 MG UNDER THE SKIN ONE DAY A WEEK 08/19 completed Not Available Not Available Not Available Mounjaro 2.5 mg/0.5 mL subcutaneou s pen injector INJECT 2.5 MG UNDER THE SKIN ONE DAY A WEEK 08/19 completed Not Available Not Available Not Available Vitals Date Recorded Body height Body mass index (BMI) Body weight Systolic blood pressure Diastolic blood pressure Provider Name and Address Organization Details Last Updated DateTime 04/26/2021 170.18 cm 35.6 kg/m2 893318.4 7 g 139 mm[Hg] 84 mm[Hg] Nneka Hernandez [facility] 18:19:01 Date Recorded Body height Body mass index (BMI) Body weight Systolic blood pressure Diastolic blood pressure Provider Name and Address Organization Details Last Updated DateTime 05/17/2022 170.18 cm 37.4 kg/m2 665037.5 8 g 178 mm[Hg] 106 mm[Hg] Mandie Fox [facility] 2 13:00:03 Date Recorded Body height Systolic blood pressure Diastolic blood pressure Provider Name and Address Organization Details Last Updated DateTime 07/19/2022 170.18 cm 139 mm[Hg] 85 mm[Hg] Earnestine Mariocitlalli [facility] 07/19/2022 15:38:06 Date Recorded Body height Body mass index (BMI) Body weight Systolic blood pressure Diastolic blood pressure Provider Name and Address Organization Details Last Updated DateTime 09/11/2023 170.18 cm 38.8 kg/m2 683526.9 1 g 136 mm[Hg] 82 mm[Hg] Audrey Loganman [facility] 4 16:19:24 Date Recorded Body height Body mass index (BMI) Body weight Systolic blood pressure Diastolic blood pressure Provider Name and Address Organization Details Last Updated DateTime 08/19/2024 170.18 cm 36.3 kg/m2 714064.4 3 g 145 mm[Hg] 85 mm[Hg] Kamilah Mick [facility] 5 16:24:10 Social History Question Answer Notes LastModified by Organizat ion Details LastModified Time Tobacco Smoking Status Never Smoker Eddie Saldivar [facility] 07/19/2022 15:14:10 Do You Have An Advance Directive? No Information n ot available 09/11/2023 Are You Blind Or Do [...] Or The Highest Degree You Have Received? [id number] Information not available 09/11/2023 Are There Any [...] PPD Information not available 09/11/2023 Do You Use Sunscreen Routinely? No Information not available 09/11/2023 How Many Years Have You Smoked Tobacco? 0 Information not available 09/11/2023 Have You Used IV Drugs? No Information not available 09/11/2023 Do You Have Difficulty Walking Or Climbing Stairs? No Information not available 07/19/2022 Sex: Unknown Functional Status Question Answer Note LastModified by Organizat ion Details LastModified Time Do you use any illicit or recreational drugs? No Information not available 09/11/2023 What is your level of alcohol consumption? None Information not available 09/11/2023 Are you able to walk? YESWOREST Information not available 09/11/2023 Are you able to care for yourself? Yes Information n ot available 07/19/2022 What is your occupation? [place] Information not available 09/11/2023 Do you have difficulty dressing or bathing? No Information not available 07/19/2022 What is your exercise level? None Information not available 09/11/2023 Mental Status Question Answer Note LastModified by Organization D etails LastModified Time Do you feel stressed (tense, restless, nervous, or anxious, or unable to sleep at night)? [id number] Information not available 09/11/2023 Family History Relationship Description Onset Age of this Age Resolved Age Notes LastModified by Organization Details LastModified Time Father No current problems or disability Not available 09/10 16:19:32 Mother No current problems or disability Not available 09/10 16:19:32 Unspecified Relation Family history unknown [email or web address] Not available 2020 12:40:16 Unspecified Relation Family history unknown Not available 2023 16:19:32 Medical History Condition Response Anxiety Disorder Y Allergies (Food, seasonal, environmental ) Y Depression/ depression Y High Cholesterol Y Acid Reflux (GERD) Y Hypertension Y Asthma Y GI Problems Y Gynecological History Statement/Question Response Abnormal Pap N Flow Heavy Date of Last Mammogram 10/31/2023 Date of LMP 07/29/2024 N On BCP's at Conception? N STIs/STDs Y Was last menstrual period normal Y HPV Vaccine N Duration of Flow (days) 3 06/26/2018 Current Control Method Tubal Ligat ion Age at First Child 20 Are cycles usually normal Y Frequency of Cycle (Q days) 30 Sexually Active? Y Menses Monthly Y Age of first menstrual cycle 18 Date of Last Pap Smear 09/11/2023 Sexual Problems? N LMP Definite N Obstetrics History GPAL:G 2 P 2 0 0 2 Type Value Full Term 2 Living 2 Total 2 Past Encounters Encounter ID Performer Location Encounter Start Date Encounter Closed Date Diagnosis/Indication Diagnosis SNOMED-CT Code Diagnosis ICD10 Code Diagnosis Note [id number] Adrienne Handley MD [facility] [address] [address] 10/28/2020 14:29:13 10/28/2020 15:33:08 Gynecologic examination 99811194 Z01.419 Mixed anxi ety and depressive disorder 721927263 F41.8 Enlarged uterus 27739964 4 N85.2 Venereal d isease screening 063557978 Z11.3 [id number] Adrienne Handley MD [facility] [address],[place] [address] 11/05/2020 14:42:50 11/05/2020 15:18:48 Abnormal uterine bleeding 0773111545 9100 N93.9 N85.2 [id number] Adrienne Handley MD [facility] [address],[place] [address] 12/16/2020 13:55:07 12/19/2020 21:20:28 Trichomonal vaginitis 267454105 A59.00 Lesion of vulva 16177146 6 N90.89 Mixed anxi ety and depressive disorder 086341202 F41.8 [id number] Adrienne Handley MD [facility] [address],[place] [address] 01/15/2021 12:31:57 01/15/2021 13:03:14 Trichomonal vaginitis 267053925 A59.00 Essential hypertension 59414458 I10 [id number] [facility] [address],[place] [address] 04/26/2021 17:55:54 04/27/2021 09:39:59 Venereal disease screening 252544503 Z11.3 Here for test of cure. Will send urine. Await results. [id number] Adrienne Handley MD [facility] [address],[place] [address] 05/17/2022 12:44:22 05/17/2022 13:39:24 Gynecologic examination 87305871 Z01.419 Z11.51 Essential hypertension 34284922 I10 Venereal d isease screening 552740120 Z11.3 [id number] SAUL Gilman [facility] [address],[place] [address] 07/19/2022 15:13:53 07/19/2022 17:27:24 Screening for malignant neoplasm of cervix 495487559 Z12.4 Repeat pap doneSTI testing added to papCondom use encouraged Time spent in visit is a total of 15 mins with at least 50% of visit consisting of counseling and review of plan of care. Venereal d isease screening 367123763 Z11.3 [id number] SAUL Gilman [place] [address],[place] [address] 09/11/2023 16:11:58 09/12/2023 10:07:24 Gynecologic examination 38019067 Z01.419 WWEBC - BTLpap updatedgc/ ct/trich testing added to papHIV/Hep B&C/Syphil is testing ordered per requestmam mogram order givenrefer ral for screening colonoscop yroutine labs/PCPsm oking cessation discussed/ encouraged RTC in 1 yr or sooner if needed Take Calcium with Vitamin D daily.Do monthly self breast exams.It is advised to get annual flu shot in the fall and she could obtain at [facility] or [facility] care clinic. If you haven't received the Tdap vaccine in the last 10 years you should obtain one as well.Have mammogram yearly, bone density every 2-3 years and colonoscop y every 5-10 years depending on findings and history.En nathan in regular exercise. Avoid tobacco and illicit drugs. This lifestyle behavior pattern will lead to less health conditions and longer life span. If BMI greater than 25 dietary consult advised.Qu estions have been answered. Patient appears to understand instructio ns, but if you have any further questions call or respond to this email Venereal d isease screening 748080312 Z11.3 Screening for malignant neoplasm of breast 969115986 Z12.39 Screening for malignant neoplasm of colon 713053641 Z12.11 Sexually t ransmitted infectious disease 1715221 A64 [id number] Timo Butler MD [place] [address],[place] [address] 08/19/2024 15:54:42 08/19/2024 17:23:58 Uterine leiomyoma 00218942 D25.9 This patient is a 54-year-ol d female with very large uterine fibroids. She has pelvic and low back pain. Talked about treatment options. We agreed to proceed with hysterecto my. I indicated her that we would have to be an open hysterecto my. She agreed to that. I explained the procedure the patient in great detail. I spent over 30 minutes on her care in total. The patient understand s the procedure. The procedure was described to the patient in great detail. the patient also understand s the risks. The risks were also explained in detail. She understand s that injuries May occur during surgery. She understand s these injuries can result in hospitaliz ation, more surgery, and severe illness. She understand s there is risk of hemorrhage and infection. We agreed to total abdominal hysterecto my bilateral salpingo-o ophorectom y. Health Concerns Section Related Observation LastModified by Organization Detai ls LastModified Time None Recorded Concern Status LastModified by Organization Details LastModified Time None Recorded Advance Directives Directive N: Payers Encounter Date Sequence Insurance Name Policy Number Policy Roberts Covered Member ID Roberts Member ID Guarantor Name 04/26/2021 1 [facility] ON OR AFTER 12/24/20 (MEDICAID REPLACEMENT - HMO) Key Salas [id number] Key Salas 05/17/2022 1 [facility] ON OR AFTER 12/24/20 (MEDICAID REPLACEMENT - HMO) Key Salas [id number] Key Salas 07/19/2022 1 [facility] ON OR AFTER 12/24/20 (MEDICAID REPLACEMENT - HMO) Key Salas [id number] Key Salas 09/11/2023 1 [facility] ON OR AFTER 12/24/20 (MEDICAID REPLACEMENT - HMO) Key Salas [id number] Key Salas 08/19/2024 1 [facility] ON OR AFTER 12/24/20 (MEDICAID REPLACEMENT - HMO) Key Salas [id number] Key Salas Notes Date Note Type Note Provider Name and Address Organization Details Recorded Time 04/26/2021 text/html Pt took medicati on and has abstained. No longer with partner. No symptoms. Marlen Anthony [facility] 04/26/2021 18:46:36 05/17/2022 text/html Patient is [...] in quitting concerns- Adrienne Handley MD [address], [place], [address], [facility] 05/17/2022 13:30:11 07/19/2022 text/html 51 yo presents f or repeat papLast pap was unsatWould like STI Testing, no symptoms SAUL Gilman [address], [place], [address], [facility] 07/19/2022 15:57:43 09/11/2023 text/html Annual GYNReport [...] like STI testing today SAUL Gilman [address], [place], [address], [facility] 09/12/2023 09:33:10 08/19/2024 text/html This patient is a 54-year-old female with very large uterine fibroids. She has pelvic and low back pain. Talked about treatment options. We agreed to proceed with hysterectomy. I indicated her that we would have to be an open hysterectomy. She agreed to that. I explained the procedure the patient in great detail. I spent over 30 minutes on her care in total. The patient understands the procedure. The procedure was described to the patient in great detail. the patient also understands the risks. The risks were also explained in detail. She understands that injuries May occur during surgery. She understands these injuries can result in hospitalization, more surgery, and severe illness. She understands there is risk of hemorrhage and infection. We agreed to total abdominal hysterectomy bilateral salpingo-oophorectom y. Timo Butler MD [address], [place], [address], [facility] 08/19/2024 17:07:26 OBGyn Episode Ob Episode Information Episode Created Date Number of Fetuses Patient Bloodtype Patient rh Status Prepregnancy Weight lbs Domestic Partner Domestic Partner Phone Father Name Associate Account Director Status 10/29/19 21 1 CLOSED Fetus Data First Name Last Name Admitted to NICU Weight (g) Sex Living Outcome Pediatric Complications Fetus ID Race Codes Race Delivery Type 2891.64 9 F [id number] Vaginal Delivery Alvaro Calculation Initial Alvaro Date Initial Exam Date Initial Exam Provider Initial Ultrasound Date Last Menstrual Period Date Ultra Sound Weeks Gestation 0 Eighteen To Twenty Week Alvaro Update Ultra Sound Date Fundal Height At Umbil Quickening Date Ultra Sound Latest Weeks Gestation Final Alvaro Confirmed By Final Alvaro Confirmed Date Final Alvaro Date Ultra Sound Latest Days Gestation 0 [...] Domestic Partner Domestic Partner Phone Father Name Associate Account Director Status 10/29/19 21 1 CLOSED Fetus Data First Name Last Name Admitted to NICU Weight (g) Sex Living Outcome Pediatric Complications Fetus ID Race Codes Race Delivery Type 3373.36 3704 M [id number] Vaginal Delivery Alvaro Calculation Initial Alvaro Date Initial Exam Date Initial Exam Provider Initial Ultrasound Date Last Menstrual Period Date Ultra Sound Weeks Gestation 0 Eighteen To Twenty Week Alvaro Update Ultra Sound Date Fundal Height At Umbil Quickening Date Ultra Sound Latest Weeks Gestation Final Alvaro Confirmed By Final Alvaro Confirmed Date Final Alvaro Date Ultra Sound Latest Days Gestation 0 [...]
--- OUTSIDE RECORDS SUMMARY | 2024-11-12 09:26 | XMS_ITS | Encounter Summary ---
Author Organization [facility] Address [address] [place] [address] Care Team Providers Care Tattooer Name Role Phone Cayden External Provider Primary Care Provider Un available Encounter Details Date Type Department Care Team (Late st Contact Info) Description 05/27/2019 Abstract [facility] Non Integrated Provider [address] [place] [address] [place] [address] [place] [address] [place] [address] Social History Tobacco Use Types [...] on filedocumented in this encounter Care Teams Tattooer Relationship Specialty Start Date End Date Cayden, External Provider PCP - General 05/08/19 documented as of this encounter
[2024-11-12 09:52] LABS: Alanine Aminotransferase 14 U/L (6-35); Albumin Level 4.1 g/dL (3.5-5.1); Alkaline Phosphatase 46 U/L (38-126); Anion Gap 9 mmol/L (4-12); Aspartate Amino Transferase 23 U/L (14-36); Bilirubin,Total 0.3 mg/dL (0.2-1.3); Blood Urea Nitrogen 18 mg/dL (7-17); Calcium 8.9 mg/dL (8.4-10.2); Carbon Dioxide 26 mmol/L (22-30); Chloride 105 mmol/L (98-107); Estimated Glomerular Filt Rate > 60; Glucose 96 mg/dL (65-110); Potassium 3.3 mmol/L (3.4-5.0); Sodium 140 mmol/L (137-145)
== END 2024-11-12 09:13 | disposition home or self-care (01) ==
LOC: ANHSURGERY 09:16
PROVIDERS: PCP Internal Medicine; Visit Provider Obstetrics & Gynecology
DX: R94.31 Abnormal electrocardiogram [ECG] [EKG] (principal); I10 Essential (primary) hypertension; R78.5 Finding of other psychotropic drug in blood; R25.9 Unspecified abnormal involuntary movements
CPT/HCPCS: 36415; 80053; 86850; 86900; 86901; 93005

== ENCOUNTER 2024-11-20 11:36 | Inpatient (IN) | payer OTHER, SELFPAY ==
[2024-11-08 13:21] VITALS: BMI 35.9
--- NOTE | 2024-11-08 13:30 | PC.NURSE ---
Addendum entered by Anika Tenorio RN 11/08/24 13:48: Left message at office that pt is on Naproxen BID recently refilled by PCP, if pt needs to HOLD preop, their office should notify pt as she doesnt have any instructions on this medication if so. they are to call me back if any questions as well MARCUS Original Note: Report to the Outpatient Waiting Room, entrance under the green pavilion [address] [facility] [address] [address], at time ____06:00am ___ on date _11/20/24 . Planned Procedure Time: __0730am .? Time changes happen often and if your time is changed the preop area will call you the afternoon before. - You and your visitor will be asked to self-screen and do not enter if you have any COVID symptoms. Please call surgeon if you need to reschedule. - A mask is optional within the hospital at this time. Patients may have clear liquids (water, carbonated beverages, clear teas, apple juice) until 3 hours prior to surgery with a maximum of 20 ounces. - No food from midnight until time of surgery and no smoking, or chewing tobacco (or any form of nicotine). No chewing gum, candy or mints. (0430am) Take only the following medications with a SIP of water on the morning of surgery: __Amlodipine and Metoprolol and Inhalers if needed DO NOT STOP ANY OF YOUR OTHER PRESCRIPTION MEDICATIONS PRIOR TO SURGERY EXCEPT THE FOLLOWING Hold all vitamins and supplements for 3 days per anesthesiologist.Date of last dose dose 11/16/24 Medications to discontinue per physician NONE Date to take last dose__NONE Please no make-up, nail wolof, hairspray, perfume, deodorant, or body powder the day of surgery.? No jewelry (including any body piercings) or valuables the day of surgery, leave them at home.? Please take a shower or bath the night before, or the morning of, surgery with an antibacterial soap.? Wear comfortable, loose fitting clothing.? - Jewelry must be removed prior to entering the operating room.? Rings and piercings that are not removed may be cut off. - The hospital will not accept responsibility for valuables.? - Please leave all valuables, including medications, at home the day of surgery. If you are going home after surgery, a licensed driver's education instructor must drive you home.? - NO public transportation without another adult if you receive anesthesia. - We recommend that an adult stay with you for 24 hours following discharge. - We also recommend that you do not drive, make important decision, drink alcoholic beverages, or take any drugs that were not prescribed by your health care provider for at least 24 hours after your discharge time. Follow any additional instructions given to you from your surgeon. Telephone instructions given to ___Patient and asked if any additional questions and then verbalized understanding. Patient advised to call surgeon office or pre surgery nurse liaison [phone] if any additional questions.
[2024-11-20] VITALS (12 sets, daily range): BP systolic 115–151; BP diastolic 62–92; PULSE 65–94; RESP 12–20; TEMP 36.3–36.8; O2SAT 96–100; BMI 34.8
--- OUTSIDE RECORDS SUMMARY | 2024-11-20 00:58 | XMS_ITS | Data Portability ---
Author Organization [place] - [facility] OFFICE Address [address] [place] [address] Care Team Providers Care Track Template Maker Name Role Phone JHONATHAN GRECO Primary Care Provider JHONATHAN GRECO Referring Provider Assessment No assessment [...] By Organization Details Last Modified Time 04/08/2019 [id number] Weight loss 20 pounds Exercise advised Low cholesterol diet advised Low sodium diet advised Not available 04/08/2019 12:11:53 Scribed by Audrey Zapata PA-C Not available 04/08/2019 12:12:57 Reason for Referral None Reported. Results Created Date Observation Date Name Description Value Unit Range Abnormal Flag Note LastModifiedBy Organization Detail LastModifiedTime 04/05/2006/09/2018 US, doppl er, tess s No observ ation record ed. [email or web address] Not Available 2018 13:49:58 04/05/2012/19/2012 elect rocar diogr am No observ ation record ed. [email or web address] Not Available 2018 13:57:00 04/08/2004/08/2019 elect rocar diogr am No observ ation record ed. [email or web address] Not Available 2018 16:50:10 04/18/20 19 04/18/2019 US, echoc nasima gram No observ ation record ed. [facility] [address] [place], [place], [address], 04/24/2019 10:01:44 04/19/20 19 04/18/2019 , [facility] ardio gram No observ ation record ed. Not Available 2018 14:06:10 Result Notes None recorded. Problems Name Problem SNOMED Code Status Onset Date Resolution Date Notes Provider Name and Address Organization Details Recorded Time Hypersomnia 29172421 Active 2018 Hala Vern null, [facility] 9 03:31:37 Apnea 1402047 Active 2018 Hala Vern null, [facility] 9 03:31:56 Snoring 37521671 Active 2018 [facility], [facility] 9 03:32:05 Essential hypertension 54772669 Active 2018 [facility] Vern [facility] 9 03:32:14 Asthma 729521450 Active 2018 [facility] null, [facility] 9 03:32:49 Problem Notes None recorded. Procedures Surgical History Date Name Laterality Status Provider Name and Address Organization Details Recorded Time reduction mammoplasty completed [facility] 04/08/2019 11:57:13 cholecystectomy completed [facility] 04/08/2019 11:57:29 ligation of bilateral fallopian tubes completed [facility] 04/08/2019 11:57:47 Imaging Results None recorded. Procedure Notes None [...] 500 mg tablet active pt not taking .rm 9 Not Available Not Available Not Available lidocaine HCl 2 % mucosal jelly active Not Available Not Available Not Available amlodipine 5 mg tablet 1qd active Not Available Not Available No t Available omeprazole 40 mg capsule,delay ed release active pt not taking . 9 Not Available Not Available Not Available meloxicam 7.5 mg tablet active pt not taking .rm 9 Not Available Not Available Not Available ranitidine 150 mg tablet 1qd active Not Available Not Availabl e Not Available omeprazole 20 mg capsule,delay ed release active pt not taking .rm 9 Not Available Not Available Not Available [...] Body mass index (BMI) Body height Systolic And Diastolic Provider Name and Address Organization Details Last Updated DateTime 9 544039. 38 g 68 /min 18 /min 98 % 98 % 47 kg/m2 167.64 cm 158/102 mm[Hg] Lisette Ledesma [place] [facility] 9 11:49:54 Social History Question Answer Notes LastModified by Organizat ion Details LastModified Time Tobacco Smoking Status Current Every Day Smoker Not Available [employer] 04/28/2020 03:30:40 What Type Of Diet Are You Following? REGULAR [id number] Information not available 04/28/2020 Which Illicit Or Recreational Drugs Have You Used? No [id number] Information not available 04/28/2020 Marital Status Single [email or web address] Informatio n not available 04/08/2019 How Many Children Do You Have? 2 [id number] Information not available 04/28/2020 How Much Tobacco Do You Smoke? 0.5 PPD [id number] Information not available 04/28/2020 How Many Years Have You Smoked Tobacco? 24 [id number] Information not available 04/28/2020 Sex: Unknown Functional Status Question Answer Note LastModified by Organizat ion Details LastModified Time What is your level of alcohol consumption? None [id number] Information not available 04/28/2020 What is your exercise level? Occasional [id number] Information not available 04/28/2020 Mental Status None recorded. Family History Relationship Description Onset Age of this Age Resolved Age Notes LastModified by Organization Details LastModified Time Father No current problems or disability [email or web address] Not available 03/26 11:54:55 Mother No current problems or disability HNT Not available 03/26 11:55:10 Maternal Grandmother No current problems or disability stoke Not available 03/26 11:55:22 Medical History Condition Response Hypertension Y High Cholesterol Y Gynecological HistoryNo gynecological history recorded. Obstetrics History GPAL:G 0 P 0 0 0 0 Past Encounters Encounter ID Performer Location Encounter Start Date Encounter Closed Date Diagnosis/Indication Diagnosis SNOMED-CT Code Diagnosis ICD10 Code Diagnosis Note [id number] MD Elsa Saenz Office [address] [place] [address] 04/08/2019 10:57:53 04/08/2019 12:29:40 Pre-surgery evaluation 886771902 Z01.818 Risk factors of HTN and active smoker however patient asymptomat ic and active working 12 hours shifts with no chest pain. Would check 2D echo to assess EF, valvular disease giving marked leg edema and exertional dyspnea Need better BP control. Her BP is elevated today though she just took her medication s yet. Essential hypertension 19334907 I10 Home blood pressure readings unknown, however she reports bp 129/67 at recent appt. Blood pressure is elevated today, but this is only one reading, will keep close follow up, and consider medication change if blood pressure is still elevated next visit. Hyperlipidemia 64856912 E78.5 Needs to keep LDL less than 100, and HDL more than 40 Will get fasting lipids for follow up Obstructiv e sleep apnea syndrome 07447298 G47.33 on CPAP Health Concerns Section Related Observation LastModified by Organization Detai ls LastModified Time None Recorded Concern Status LastModified by Organization Details LastModified Time None Recorded Advance Directives Directive None Recorded Payers Insurance Date Sequence Insurance Name Policy Number Policy Roberts Covered Member ID Roberts Member ID Guarantor Name 04/22/2019 1 [facility] PRIOR TO 2020 (MEDICAID REPLACEMENT - HMO) Key Salas [id number] Key Salas Notes Date Note Type Note [...] feet 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 Reports dyspnea with exertion, depending on [...] of the right lower extremity Anitra Fuentes [place], [place] - [facility] 04/08/2019 12:26:37 OBGyn Episode No OBEpisode recorded.
--- OUTSIDE RECORDS SUMMARY | 2024-11-20 00:58 | XMS_ITS | Data Portability ---
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 Active 2023 Chao Alfonso, [facility] [address], [address], [place], [address] , [email or web address] 4 15:17:49 Notes:Turner Dennis MD [facility] diagnostic sleep study 08/26/22 AHI = 6, REM AHI = 32, PLMI = 15 [facility] titration sleep study 09/13/22 [employer] small Vitera full face mask @ 6 cmH2O, PLMI = 4 Medical History: Depression/Anxiety Rhinitis Obesity with mild OSAHS, AHI = 6, 08/26/22, on CPAP c/o [place] Home Patient Hypertension Mixed hyperlipidemia SOPHIA PLMD Vit D deficiency Foot calluses Problem Notes None recorded. Procedures Surgical History Date Name Laterality Status Provider Name and Address Organization Details Recorded Time 4 Strapping Foot & Ankle completed Chao Alfonso DPM [address], [address], [place], [address], [employer] 06/10/2024 15:17:40 4 Flexor Tenotomy completed Chao Alfonso DPM [email or web address], [address], [place], [address], [facility] 06/07/2024 11:27:43 4 Callus Debridement 2-4 completed Chao Alfonso DPM [email or web address], [address], [place], [address], [facility] 06/07/2024 11:27:56 Imaging Results None recorded. Procedure [...] Body height Heart rate Body weight Systolic And Diastolic Provider Name and Address Organization Details Last Updated DateTime 12/16/2021 34.5 kg/m2 170.18 cm 86 /min 95330.32 g 176/110 mm[Hg] Not Available [facility] 3 21:29:21 Date Recorded Body height Body mass index (BMI) Body weight Oxygen saturation Oxygen saturation in Arterial blood by Pulse oximetry Heart rate Body temperature Provider Name and Address Organization Details Last Updated DateTime 4 170.18 cm 35.1 kg/m2 730103. 69 g 99 % 99 % 71 /min 98.1 [degF] Negro Zarate, [facility] [employer] [facility] 4 10:40:14 Date Recorded Body height Body mass index (BMI) Body weight Provider Name and Address Organization Details Last Updated DateTime 06/10/2024 170.18 cm 35.1 kg/m2 129474.69 g Rahel Cheung, [facility] [employer] [facility] 06/10/2024 15:00:25 Social History Question Answer Notes LastModified by [employer] Details LastModified Time Tobacco Smoking Status Current Every Day Smoker Not Available [facility] 08/24/2022 21:28:39 What Is Your Level Of Caffeine Consumption? Occasional [id number] Information not available 08/24/2022 What Was The Date Of Your Most Recent Tobacco Screening? 12/16/2021 [id number] Information not available 08/24/2022 Has Tobacco Cessation Counseling Been Provided? No [id number] Information not available 08/24/2022 Sex: Unknown Functional Status Question Answer Note LastModified by [employer] Details LastModified Time Do you use any illicit or recreational drugs? No [id number] Information not available 08/24/2022 Do you or have you ever used any other forms of tobacco or nicotine? No [id number] Information not available 08/24/2022 What is your level of alcohol consumption? None [id number] Information not available 08/24/2022 Mental Status None recorded. Family History Nothing Reported. Medical History Condition Response OBESITY Y HIGH CHOLESTEROL / HYPERLIPIDEMIA Y ARTHRITIS Y Gynecological HistoryNo gynecological history recorded. Obstetrics History GPAL:G 0 P 0 0 0 0 Past Encounters Encounter ID Performer Location Encounter Start Date Encounter Closed Date Diagnosis/Indication Diagnosis SNOMED-CT Code Diagnosis ICD10 Code Diagnosis Note [id number] Neil Rajan DPM [facility] [place] [address] [place] [address] 12/16/2021 00:00:00 12/21/2021 13:19:48 [id number] Chao Alfonso DPM [facility] [address] [address] 06/07/2024 10:21:10 07/25/2024 11:10:05 [id number] GERI [facility] [address] [address] 06/10/2024 14:58:13 06/10/2024 15:24:44 Leg length inequality 59571280 M21.70 Health Concerns Section Related Observation LastModified by Organization Detai ls LastModified Time None Recorded Concern Status LastModified by Organization Details LastModified Time None Recorded Advance Directives Directive None Recorded Payers Encounter Date Sequence Insurance Name Policy Number Policy Roberts Covered Member ID Roberts Member ID Guarantor Name 06/07/2024 1 [facility] (MEDICAID REPLACEMENT - HMO) [id number] Key Salas [id number] Key Salas 06/10/2024 1 [facility] (MEDICAID REPLACEMENT - HMO) [id number] Key Salas [id number] Key Salas Notes Date Note Type Note Provider Name and Address Organization Details Recorded Time 06/07/2024 text/html Pt RTC for c/o painful corns karl fifth, Lt>>Rt. Hammertoe Lt and contracted tendon. Chao Alfonso DPM [address] [facility], [address] [address], [place], [address], [employer] 06/07/2024 11:28:30 06/10/2024 text/html Lt fifth toe well-healed s/p four dd. tenotomy flexor and debridement of HD. Pt's main complaint this date: pain in lat foot. Lt. Chao Alfonso DPM [address] [facility], [facility] [address], [place], [address], [employer] 06/10/2024 15:17:57 OBGyn Episode No OBEpisode recorded.
[2024-11-20] MEDS: LACTATED RINGERS 1,000 ML 30 ML IV CONT ×2 (06:50→10:18)
--- NOTE | 2024-11-20 06:50 | WPDANESEPPF ---
Anes - Initial Pre Proc Eval Procedure: Operation Date: 11/20/24 07:30 Proposed Procedures p Total Abdominal Hysterectomy, Bilateral Salpingo Oophorectomy - Timo Butler MD Date/Time: 11/20/24 06:50 Surgeon: Timo Butler MD Pre Op Diagnosis: uterine leiomyoma Patient Data Age: 54 Gender: F Height: 1.7 m Weight: 100.9 kg Allergies Allergy/AdvReac Type Severity Reaction Status Date / Time No Known Allergies Allergy Verified 11/20/24 06:48 Home Medications ?Medication ?Instructions ?Recorded ?Confirmed ?Type amlodipine 10 mg tablet 10 mg PO DAILY 09/14/23 11/20/24 History atorvastatin 20 mg tablet 20 mg PO DAILY 09/14/23 11/20/24 History metoprolol tartrate 50 mg tablet 50 mg PO DAILY 09/14/23 11/20/24 History omeprazole 40 mg capsule,delayed 40 mg PO DAILY 09/14/23 11/20/24 History release spironolactone 25 1 tablet PO DAILY 09/14/23 11/20/24 History mg-hydrochlorothiazide 25 mg tablet naproxen 500 mg tablet 500 mg PO BID PRN pain #30 tabs 06/24/24 11/08/24 Rx albuterol sulfate 90 mcg/actuation 2 inh inhalation Q6H PRN shortness 11/08/24 11/08/24 History aerosol inhaler of breath or wheezing budesonide-formoterol HFA 160 2 puff inhalation Q12H PRN 11/08/24 11/08/24 History mcg-4.5 mcg/actuation aerosol respiratory distress inhaler multivitamin (Daily Multi-Vitamin 1 tablet PO DAILY 11/08/24 11/20/24 History tablet) Patient hx anesthesia problems: none Family hx anesthesia problems: none Results Review: All pre-operative results and documents have been reviewed as part of the pre-operative evaluation. [facility] Social History Social History Smoking packs per day: 0.5 Smoking cigarettes per day: 10.0 Years smoked: 30 Smoking pack-years: 15.00 Smoking status: Current every day smoker Tobacco type: cigarettes Alcohol intake: never Substance use: never Substance use type: does not use Living arrangements: alone Spiritual care concerns: No Anes - Eval Final PreProcedure Day of Procedure 11/20/24 06:50 Patient weight: obese Lungs: normal air movement Airway: Mallampati scale class II and special considerations (Upper incisors w gold covering, which is no longer complete. Other teeth chipped. None loose. ) Neurological: alert and oriented Last oral intake: >/= 8 hours ASA classification: III Emergent: no Anesthetic plan: proceed Anesthesia type and monitoring: general ETT and standard monitoring Results Review: All pre-operative results and documents have been reviewed as part of the pre-operative evaluation. HTN, hyperlipidemia, smoker 1/2 ppd, smoked at 530 am. BMI 34. Informed Consent: The patient's anesthetic plan and its attendant risks and benefits were discussed with the patient/family/POA. Questions were solicited and answers provided to the satisfaction of the patient/family/POA.
--- NOTE | 2024-11-20 06:53 | WPDHPUPDATE1 ---
History and Physical Update Update Date/Time: 11/20/24 06:53 History and Physical has been reviewed, including an updated exam of the patient. There are NO changes in the patient's condition. Risks, benefits, and alternatives have been discussed and questions answered. Patient agrees to proceed with procedure.
[2024-11-20] MEDS: ACETAMINOPHEN 500 MG TABLET 1000 MG PO ×3 (06:57→19:25)
[2024-11-20] MEDS: KETOROLAC 15 MG/ML VIAL (*BKC) IV PUSH (06:58)
--- NOTE | 2024-11-20 07:20 | SUR.PREOP ---
0720- Patient made aware procedure start time delayed due to Dr. Butler attending a meeting this AM. Patient verbalizes understanding and denying needs at this time.
[2024-11-20 07:43] LABS: BEDSIDEPREGUCG Negative (Negative)
[2024-11-20] MEDS: ceFAZolin 2 GM/D5W 50 ML 2 GM/50 ML BAG IVPB (08:05)
--- NOTE | 2024-11-20 08:47 | S_PTH ---
PATIENT: Key Salas LOC: [facility] U#:[id number] AGE/SX: 54/F ROOM: 283 RE11/20/[address]: Timo Butler MD : [id number] BED: 00 DIS: 11/22/2024 SPEC #: [id number] RECD: 11/20/24 11:10 STATUS: DORIS REQ #: [id number] GM: 11/20/24 08:[address]: Timo Butler DEPT: [facility] Surgical RECD BY: Flavia Brink ENTERED: 11/20/24 11:11 SP TYPE: Surgical OTHR DR: Turner DennisMD Tissues: A - Uterus Procedures: Hematoxylin and Eosin Stain Gross and Microscopic Level 5
[2024-11-20] MEDS: fentaNYL CITRATE INJ (*CRX) 100 MCG/2 ML VIAL 25 MCG IV PUSH ×8 (10:35→11:24)
--- NOTE | 2024-11-20 10:44 | P.OP_ITS ---
Procedure Note - Detailed Date of Procedure 11/20/24 Pre-op Diagnosis uterine leiomyoma Post-op Diagnosis Same Procedure Performed Total abdominal hysterectomy and bilateral salpingo-oophorectomy, adhesiolysis- 30 minutes Surgeon Timo Butler MD Anesthesia General Indications Pelvic pain Findings Very large uterus, 17 cm, multiple large fibroids. Atrophic ovaries. Adhesions to the uterus and the fibroids. Adhesions surrounded the uterus. Description of Procedure The patient was taken to the operating room and placed in supine position, at which time general form of anesthesia was administered by the anesthesia department. The patient was then prepped and draped in the usual fashion for a low transverse incision. Approximately two fingerbreadths above the pubic symphysis, a first knife was used to make a low transverse incision. This was extended down to the level of the fascia. The fascia was nicked in the center and extended in a transverse fashion. The edges of the fascia were grasped with Meghna. Both blunt and sharp dissection both caudally and cephalic was then completed consistent with Pfannenstiel technique. The abdominal rectus muscle was divided in the midline and extended in a vertical fashion. Perineum was entered at the high point and extended in a vertical fashion as well. A Amaya retractor was put in placed. A bladder blade and upper arm were put in place as well. Uterus was grasped with a double-tooth tenaculum and large and small colon were packed away cephalically and held in place with free wet lap packs and a superior blade. The bladder flap was released with Metzenbaum scissors and then dissected away caudally. Adhesiolysis was performed for 30 minutes. This was cumulative throughout the case. Throughout all steps of the case adhesions were and cauterized and transected. The round ligaments were identified, grasped and transected with LigaSure cautery. The infundibulopelvic ligaments were identified cauterized and transected with LigaSure cautery. This was done in a bilateral fashion. The lateral aspect of the uterus, the broad ligament and the parametrium were clamped cauterized and transected in a stepwise fashion along the lateral aspect of the uterus. Ureters were identified as anti clamps were placed on the paracervical tissue in stepwise fashion down to the distal aspect of the cervix. Curved Z clamps were placed on the vaginal cough. The vagina was then transected and the cervix was amputated. The vaginal cuff was closed 0 Vicryl running locked fashion. The pelvis is. Pinpoint bleeders were cauterized throughout the pelvis. The packing and Amaya retractor were removed. The edges of the fascia were grasped at both corners and a continuous stitch of 1 Vicryl was used to re-approximate the fascia with overlapping in the center. The subcutaneous tissue was irrigated. Cautery was used to create adequate hemostasis and 3-0 Vicryl was used to re-approximate the tissue and the skin edges were re-approximated with sterile leif. Sterile dressing was applied and Betadine soaked sponge was removed from the vaginal vault and the vaginal vault was wiped clean of any remaining blood. The patient was taken to recovery room in stable condition. Instrument count, needle count, and sponge counts were all correct. Estimated Blood Loss 150 Pathology Yes Complications No immediate complications Condition Stable Disposition Floor
[2024-11-20] MEDS: ALBUTEROL SULFATE NEB 2.5 MG/3 ML INH INHALATION (11:10)
--- NOTE | 2024-11-20 11:31 | SUR.PHASEI ---
1100 - pt c/o SOB. requesting inhaler. lungs clear. Dr. Vázquez called and order received for [facility] tx
--- NOTE | 2024-11-20 11:37 | OBPPTRN ---
Patient transferred to post room #283 via bed. Oriented to unit, room, information board, admission packet and security measures. Patient verbalizes understanding.
[2024-11-20] MEDS: DEXTROSE 5%/0.45% SOD CHL 1,000 ML 125 ML IV CONT ×2 (12:12→19:30)
[2024-11-20] MEDS: ONDANSETRON INJ 4 MG/2 ML VIAL IV PUSH ×2 (12:12→19:29)
[2024-11-20] MEDS: SIMETHICONE 80 MG TAB.CHEW PO ×2 (13:12→17:12)
[2024-11-20] MEDS: KETOROLAC 30 MG/ML VIAL (*BKC) IV PUSH ×2 (13:12→19:26)
[2024-11-20] MEDS: DOCUSATE SODIUM 100 MG CAPSULE PO (17:12)
[2024-11-20] MEDS: PANTOPRAZOLE 40 MG TABLET PO (20:39)
[2024-11-21 01:00] VITALS: BP 134/75; PULSE 66; RESP 20; TEMP 37.4; O2SAT 98
[2024-11-21] MEDS: LIDOCAINE 5% PATCH 1 PATCH TRANSDERM (01:15)
[2024-11-21] MEDS: IBUPROFEN 600 MG TABLET PO ×3 (03:26→19:57)
[2024-11-21 03:30] VITALS: BP 152/79; PULSE 72; RESP 20; TEMP 37.2; O2SAT 98
--- NOTE | 2024-11-21 08:19 | P.PNOB_ITS ---
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 Procedures: Procedures Operation Date: 11/20/24 07:30 Actual Procedure Side Surgeon p Total Abdominal Hysterectomy, Bilateral Salpingo Oophorectomy Bilateral Timo Butler MD Postoperative day: 1 Postoperative status: doing well Postoperative plan: see orders Time Spent With Patient Time: Total time spent is greater than 50% in coordination of care (as documented) at patient's floor/unit and/or counseling patient: Time with patient: less than 15 minutes COOLING SYSTEM OPERATOR- PN:Subj Post-Op Subjective Date/time seen: 11/21/24 08:19 Subjective: patient reports feeling better, patient has no complaints and pain is well controlled Exam Const: General: healthy appearing, comfortable and no acute distress Resp: Auscultation: clear to auscultation bilaterally, no rales, no rhonchi and no wheezes Cardio: Rate: regular rate Heart sounds: no click, no murmurs and no rubs GI: Inspection: non-distended Auscultation: normal bowel sounds Extrem: General: normal to inspection, no pedal edema and no calf tenderness COOLING SYSTEM OPERATOR - PN: Obj Data Vital Signs Vital Signs: Vital Signs - 24 hr 11/20/24 10:18 11/20/24 10:30 11/20/24 10:45 Temperature 98.3 F Pulse Rate 86 72 73 Respiratory Rate 20 16 15 Blood Pressure 126/77 121/66 116/67 Pulse Oximetry 100 100 100 Oxygen Delivery Simple Face Mask Simple Face Mask Nasal Cannula Oxygen Flow Rate 8 8 2 11/20/24 11:00 11/20/24 11:10 11/20/24 11:15 Temperature Pulse Rate 66 91 94 Respiratory Rate 12 14 20 Blood Pressure 115/62 121/72 Pulse Oximetry 97 100 Oxygen Delivery Nasal Cannula Nasal Cannula Oxygen Flow Rate 2 2 11/20/24 11:22 11/20/24 11:30 11/20/24 11:45 Temperature 97.4 F L Pulse Rate 79 70 84 Respiratory Rate 12 18 16 Blood Pressure 116/72 127/76 Pulse Oximetry 100 96 Oxygen Delivery Nasal Cannula Oxygen Flow Rate 2 11/20/24 11:45 11/20/24 16:05 11/20/24 19:25 Temperature 98.1 F 98.1 F Pulse Rate 65 75 Respiratory Rate 16 16 Blood Pressure 147/86 H 133/74 Pulse Oximetry 96 100 98 Oxygen Delivery Nasal Cannula Oxygen Flow Rate 2 11/20/24 19:25 11/21/24 01:00 11/21/24 03:30 Temperature 99.3 F 98.9 F Pulse Rate 75 66 72 Respiratory Rate 16 20 20 Blood Pressure 134/75 152/79 H Pulse Oximetry 98 98 98 Oxygen Delivery Room Air Oxygen Flow Rate Intake/Output Intake/Output: Intake & Output 11/18/24 11/19/24 11/20/24 11/21/24 23:59 23:59 23:59 23:59 Intake Total 1312.5 300 Output Total 430 1400 Balance 882.5 -1100 Meds/Results Medications: Active Medications Generic Name Dose Route Start Last Admin Trade Name Freq PRN Reason Stop Dose Admin Acetaminophen 1,000 mg 11/20/24 12:00 11/21/24 01:42 Acetaminophen 500 Mg Tablet PO Not Given Q6HR INA Albuterol 2 puff 11/20/24 11:36 Albuterol Sulfate (*Sp) Aerosol 1 Puff INHALATION Q6H PRN shortness of breath or wheezing Amlodipine Besylate 10 mg 11/21/24 09:00 Amlodipine Besylate 10 Mg Tablet PO DAILY [facility] Atorvastatin Calcium 20 mg 11/21/24 09:00 Atorvastatin 20 Mg Tablet PO DAILY [facility] Docusate Sodium 100 mg 11/20/24 17:00 11/20/24 17:12 Docusate Sodium 100 Mg Capsule PO 100 mg BID INA Administration Enoxaparin Sodium 40 mg 11/21/24 09:00 Enoxaparin 40 Mg/0.4 Ml Syringe SUB-Q DAILY [facility] Hydrochlorothiazide 25 mg 11/21/24 09:00 Hydrochlorothiazide 25 Mg Tablet PO QAM INA Dextrose/Sodium Chloride 1,000 mls @ 125 mls/hr 11/20/24 11:36 11/20/24 19:30 Dextrose 5% Sodium Chloride 0.45% IV CONT 125 mls/hr .Q8H INA Administration Ibuprofen 600 mg 11/21/24 06:00 11/21/24 03:26 Ibuprofen 600 Mg Tablet PO 600 mg Q6HR INA Administration Lidocaine 1 patch 11/21/24 01:14 11/21/24 01:15 Lidocaine 5% Patch TRANSDERM 1 patch ONCE PRN Administration Abdominal Cramping Metoprolol Tartrate 50 mg 11/21/24 09:00 Metoprolol Tartrate 50 Mg Tab PO DAILY [facility] Miscellaneous Information 1 each 11/20/24 00:01 Naproxen Prn Pain Please Specify What Type Of Pain Or If This Can Be Pain 1- 3. Has Curre XX 12/20/24 00:00 CLARIFY [facility] Multivitamins Therapeutic 1 tablet 11/21/24 09:00 Multivitamins Therapeutic Tab (*Bkc) PO DAILY [facility] Naloxone HCl 0.1 mg 11/20/24 11:36 Naloxone Hcl 0.4 Mg/Ml Vial IV PUSH Q2M PRN Respiratory rate less than 10 Naproxen 500 mg 11/20/24 11:36 Naproxen 500 Mg Tablet PO BID PRN pain Ondansetron HCl 4 mg 11/20/24 11:36 11/20/24 19:29 Ondansetron Inj 4 Mg/2 Ml Vial IV PUSH 4 mg Q6H PRN Administration Nausea Oxycodone HCl 5 mg 11/20/24 11:36 Oxycodone Hcl (*Crx) 5 Mg Tab Ir PO Q4H PRN Pain Rated 4-6 Oxycodone HCl 10 mg 11/20/24 11:36 Oxycodone Hcl (*Crx) 5 Mg Tab Ir PO Q6H PRN Pain Rated 7-10 Pantoprazole Sodium 40 mg 11/20/24 21:00 11/20/24 20:39 Pantoprazole 40 Mg Tablet PO 40 mg Q12HR [facility] Administration Fluticasone/Salmeterol 2 puff 11/20/24 11:45 Fluticasone/Salmeterol 115-21 Mcg Inhaler 1 Puff INHALATION Q12HRT PRN respiratory distress Simethicone 80 mg 11/20/24 12:00 11/20/24 17:12 Simethicone 80 Mg Tab.Chew PO 80 mg TIDWM INA Administration Spironolactone 25 mg 11/21/24 09:00 Spironolactone 25 Mg Tablet PO QAM [facility]
[2024-11-21 08:55] VITALS: BP 138/65; PULSE 65; RESP 16; TEMP 37.6; O2SAT 97
[2024-11-21] MEDS: DOCUSATE SODIUM 100 MG CAPSULE PO ×2 (08:56→17:04)
[2024-11-21] MEDS: SIMETHICONE 80 MG TAB.CHEW PO ×3 (08:56→17:04)
[2024-11-21] MEDS: ACETAMINOPHEN 500 MG TABLET 1000 MG PO ×2 (08:57→17:03)
[2024-11-21] MEDS: hydroCHLOROthiazide 25 MG TABLET PO (09:58)
[2024-11-21] MEDS: SPIRONOLACTONE 25 MG TABLET PO (09:59)
[2024-11-21] MEDS: ATORVASTATIN 20 MG TABLET PO (09:59)
[2024-11-21] MEDS: PANTOPRAZOLE 40 MG TABLET PO ×2 (09:59→19:57)
[2024-11-21 10:00] VITALS: PULSE 86
[2024-11-21] MEDS: METOPROLOL TARTRATE 50 MG TAB PO (10:00)
[2024-11-21] MEDS: ENOXAPARIN 40 MG/0.4 ML SYRINGE SUB-Q (10:00)
[2024-11-21] MEDS: amLODIPine BESYLATE 10 MG TABLET PO (10:00)
--- NOTE | 2024-11-21 14:54 | WPDANESPN ---
Anes - Prog Note Post-Op Date/Time: 11/21/24 14:54 Cardiovascular status: normal Respiratory status: normal Airway patency: baseline Mental status: baseline Vital Signs: Last Vital Signs Temp 37.6 C 11/21/24 08:55 Pulse 86 11/21/24 10:00 Resp 16 11/21/24 08:55 BP 138/65 11/21/24 08:55 Pulse Ox 97 11/21/24 08:55 O2 Del Method Room Air 11/20/24 19:25 O2 Flow Rate 2 11/20/24 11:45 Pain Score (VAS): 5 I/O: Intake & Output 11/20/24 11/21/24 11/21/24 23:59 07:59 15:59 Intake Total 1012.5 300 240 Output Total 350 1400 600 Balance 662.5 -1100 -360 Patient Feedback: Patient satisfied with anesthetic care.
[2024-11-21 20:04] VITALS: BP 121/81; PULSE 71; RESP 16; TEMP 36.2; O2SAT 93
[2024-11-22 03:24] VITALS: BP 136/90; PULSE 75; RESP 16; TEMP 37.1; O2SAT 96
--- NOTE | 2024-11-22 08:28 | PM.GYNPNOP ---
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 Postoperative Procedures: Procedures Operation Date: 11/20/24 07:30 Actual Procedure Side Surgeon p Total Abdominal Hysterectomy, Bilateral Salpingo Oophorectomy Bilateral Timo Butler MD Postoperative day: 2 Postoperative status: doing well Postoperative plan: see orders Time Spent With Patient Time: Total time spent is greater than 50% in coordination of care (as documented) at patient's floor/unit and/or counseling patient: Time with patient: less than 15 minutes DIET TECHNICIAN REGISTERED- PN:Subj Post-Op Subjective Date/time seen: 11/22/24 08:28 Subjective: patient reports feeling better, patient has no complaints and pain is well controlled Exam Const: General: healthy appearing, comfortable and no acute distress Resp: Auscultation: clear to auscultation bilaterally, no rales, no rhonchi and no wheezes Cardio: Rate: regular rate Heart sounds: no click, no murmurs and no rubs GI: Inspection: non-distended Auscultation: normal bowel sounds Extrem: General: normal to inspection, no pedal edema and no calf tenderness DIET TECHNICIAN REGISTERED - PN: Obj Data Vital Signs Vital Signs: Vital Signs - 24 hr 11/21/24 08:55 11/21/24 10:00 11/21/24 20:04 Temperature 99.6 F 97.1 F L Pulse Rate 65 86 71 Respiratory Rate 16 16 Blood Pressure 138/65 121/81 Pulse Oximetry 97 93 Oxygen Delivery 11/21/24 20:04 11/22/24 03:24 Temperature 98.7 F Pulse Rate 75 Respiratory Rate 16 Blood Pressure 136/90 Pulse Oximetry 96 Oxygen Delivery Room Air Intake/Output Intake/Output: Intake & Output 11/19/24 11/20/24 11/21/24 11/22/24 23:59 23:59 23:59 23:59 Intake Total 1312.5 780 Output Total 430 2000 Balance 882.5 -1220 Meds/Results Medications: Active Medications Generic Name Dose Route Start Last Admin Trade Name Freq PRN Reason Stop Dose Admin Acetaminophen 1,000 mg 11/20/24 12:00 11/22/24 02:13 Acetaminophen 500 Mg Tablet PO Not Given Q6HR INA Albuterol 2 puff 11/20/24 11:36 Albuterol Sulfate (*Sp) Aerosol 1 Puff INHALATION Q6H PRN shortness of breath or wheezing Amlodipine Besylate 10 mg 11/21/24 09:00 11/21/24 10:00 Amlodipine Besylate 10 Mg Tablet PO 10 mg DAILY INA Administration Atorvastatin Calcium 20 mg 11/21/24 09:00 11/21/24 09:59 Atorvastatin 20 Mg Tablet PO 20 mg DAILY INA Administration Docusate Sodium 100 mg 11/20/24 17:00 11/21/24 17:04 Docusate Sodium 100 Mg Capsule PO 100 mg BID INA Administration Enoxaparin Sodium 40 mg 11/21/24 09:00 11/21/24 10:00 Enoxaparin 40 Mg/0.4 Ml Syringe SUB-Q 40 mg DAILY INA Administration Hydrochlorothiazide 25 mg 11/21/24 09:00 11/21/24 09:58 Hydrochlorothiazide 25 Mg Tablet PO 25 mg QAM INA Administration Ibuprofen 600 mg 11/21/24 06:00 11/22/24 02:14 Ibuprofen 600 Mg Tablet PO Not Given Q6HR COUNTS INCLUDE 234 BEDS AT [facility] Lidocaine 1 patch 11/21/24 01:14 11/21/24 01:15 Lidocaine 5% Patch TRANSDERM 1 patch ONCE PRN Administration Abdominal Cramping Metoprolol Tartrate 50 mg 11/21/24 09:00 11/21/24 10:00 Metoprolol Tartrate 50 Mg Tab PO 50 mg DAILY COUNTS INCLUDE 234 BEDS AT THE [facility] Administration Multivitamins Therapeutic 1 tablet 11/21/24 09:00 11/21/24 10:01 Multivitamins Therapeutic Tab (*Bkc) PO Not Given DAILY COUNTS INCLUDE 234 BEDS AT THE [facility] Naloxone HCl 0.1 mg 11/20/24 11:36 Naloxone Hcl 0.4 Mg/Ml Vial IV PUSH Q2M PRN Respiratory rate less than 10 Ondansetron HCl 4 mg 11/20/24 11:36 11/20/24 19:29 Ondansetron Inj 4 Mg/2 Ml Vial IV PUSH 4 mg Q6H PRN Administration Nausea Oxycodone HCl 5 mg 11/20/24 11:36 Oxycodone Hcl (*Crx) 5 Mg Tab Ir PO Q4H PRN Pain Rated 4-6 Oxycodone HCl 10 mg 11/20/24 11:36 Oxycodone Hcl (*Crx) 5 Mg Tab Ir PO Q6H PRN Pain Rated 7-10 Pantoprazole Sodium 40 mg 11/20/24 21:00 11/21/24 19:57 Pantoprazole 40 Mg Tablet PO 40 mg Q12HR INA Administration Fluticasone/Salmeterol 2 puff 11/20/24 11:45 Fluticasone/Salmeterol 115-21 Mcg Inhaler 1 Puff INHALATION Q12HRT PRN respiratory distress Simethicone 80 mg 11/20/24 12:00 11/21/24 17:04 Simethicone 80 Mg Tab.Chew PO 80 mg TIDWM INA Administration Spironolactone 25 mg 11/21/24 09:00 11/21/24 09:59 Spironolactone 25 Mg Tablet PO 25 mg QAM INA Administration
--- NOTE | 2024-11-22 08:28 | PM.DS ---
DS: Admitting Diagnosis Discharge Date 11/22/2024 Admitting Diagnosis Heavy vaginal bleeding DS: Discharge Diagnosis Discharge Diagnosis (1) Myoma: Code(s): D21.9 - Benign neoplasm of connective and other soft tissue, unspecified Status: Acute DS: Summary Hospital Course Hospital Course: 52-year-old female was admitted for uterine myoma and heavy vaginal bleeding. She underwent total abdominal hysterectomy with bilateral salpingo-oophorectomy. She was ambulating, tolerating p.o. and passing flatus at appropriate times. She was afebrile her and her pain was well controlled throughout her stay. She was discharged home on postoperative day 2. Time Spent with Patient Time attestation: Total time spent providing and/or coordinating discharge services: DS: Data Data Completed and Pending Pending studies at discharge: Pending at discharge 11/20/24 08:47 Surgical [PTH] Routine Discharge Plan Discharge Discharging Clinician: Timo Butler Patient Disposition: Home Activity: pelvic rest Diet: regular Patient Instructions: Antibiotic Form Patient Language: Tuvaluan Stand Alone Forms: General Discharge Information Follow-up/Referrals: Timo Butler MD [Physician] - Discharge Medications: New hydrocodone-acetaminophen 5-325 mg tablet 1 - 2 tablet PO Q6H PRN (Reason: pain) Qty: 25 0RF Continued atorvastatin 20 mg tablet 20 mg PO DAILY spironolacton-hydrochlorothiaz 25-25 mg tablet 1 tablet PO DAILY omeprazole 40 mg capsule,delayed release(DR/EC) 40 mg PO DAILY amlodipine 10 mg tablet 10 mg PO DAILY metoprolol tartrate 50 mg tablet 50 mg PO DAILY albuterol sulfate 90 mcg/actuation HFA aerosol inhaler 2 inh INHALATION Q6H PRN (Reason: shortness of breath or wheezing) budesonide-formoterol 160-4.5 mcg/actuation HFA aerosol inhaler 2 puff INHALATION Q12H PRN (Reason: respiratory distress) multivitamin [Daily Multi-Vitamin] Tablet 1 tablet PO DAILY naproxen 500 mg tablet 500 mg PO BID PRN (Reason: pain) Qty: 30 0RF Date of admission: 11/20/24 10:55 Primary Care Provider: JeannieTurner Admitting Provider: Timo Butler Attending physician on admission: Timo Butler Condition: Stable
[2024-11-22] MEDS: ACETAMINOPHEN 500 MG TABLET 1000 MG PO (08:58)
[2024-11-22] MEDS: IBUPROFEN 600 MG TABLET PO (08:59)
[2024-11-22 09:10] VITALS: BP 120/65; PULSE 75; RESP 16; TEMP 36.9; O2SAT 98
== END 2024-11-22 10:10 | disposition home or self-care (01) | DRG 519 ==
LOC: ANHOB2 11-22 08:30
PROVIDERS: Admitting Provider Obstetrics & Gynecology; PCP Internal Medicine; Visit Provider Obstetrics & Gynecology
PROC: 0UT94ZZ Resection of Uterus, Percutaneous Endoscopic Approach (ICD-10-PCS; principal; 2024-11-20 07:30)
DX: D25.1 Intramural leiomyoma of uterus (principal); N73.6 Female pelvic peritoneal adhesions (postinfective); D25.2 Subserosal leiomyoma of uterus; N93.8 Other specified abnormal uterine and vaginal bleeding
CPT/HCPCS: 88307; 94640; A9270; J0690; J1100; J1171; J1650; J1885; J2250; J2405; J2704; J3010; J7120